=== PATIENT | female | born 1940 | race Caucasian/White ===

== ENCOUNTER 2021-08-10 13:14 | Outpatient (CLI) | payer MEDICARE, SELFPAY ==
--- NOTE | 2021-08-10 13:46 | MM_ITS ---
WS: [id number] BILATERAL DIGITAL SCREENING MAMMOGRAPHY WITH CAD CLINICAL INFORMATION: SCREEN HISTORY: Screening mammogram. No current complaints. COMPARISON: TECHNIQUE: Bilateral CC and MLO views. FINDINGS: Scattered fibroglandular densities bilaterally. No suspicious focal mass, asymmetry, calcifications, or architectural distortion. No evidence of malignancy. Vascular calcification. Incidental punctate c alcifications. MM/[place] [id number] IMPRESSION: BI-RADS: 2-Benign FOLLOW UP: 1 Year Follow-up Recommend return to annual screening mammography.
== END 2021-08-10 13:15 | disposition home or self-care (01) ==
PROVIDERS: PCP Nurse Practitioner Family; Visit Provider Family Medicine
DX: Z12.31 Encounter for screening mammogram for malignant neoplasm of breast (principal)
CPT/HCPCS: 77067

== ENCOUNTER → 2022-03-10 09:00 | Outpatient (BNVA) | payer MEDICARE, SELFPAY | PROVIDERS: PCP Clinical Nurse Specialist Adult Health; Visit Provider Clinical Nurse Specialist Adult Health | DX: I10 Essential (primary) hypertension (principal); E78.5 Hyperlipidemia, unspecified; E03.9 Hypothyroidism, unspecified; I87.2 Venous insufficiency (chronic) (peripheral) | CPT/HCPCS: 80053; 80061; 84443; 85025 ==

== ENCOUNTER → 2022-06-15 11:57 | Outpatient (BNVA) | payer MEDICARE, SELFPAY | PROVIDERS: PCP Clinical Nurse Specialist Adult Health; Visit Provider Clinical Nurse Specialist Adult Health | DX: I10 Essential (primary) hypertension (principal); I87.2 Venous insufficiency (chronic) (peripheral); I83.009 Varicose veins of unspecified lower extremity with ulcer of unspecified site; L97.909 Non-pressure chronic ulcer of unspecified part of unspecified lower leg with unspecified severity | CPT/HCPCS: 85025 ==

== ENCOUNTER → 2022-06-16 07:57 | Outpatient (BNVA) | payer MEDICARE, SELFPAY | PROVIDERS: PCP Clinical Nurse Specialist Adult Health; Visit Provider Thoracic Surgery (Cardiothoracic Vascular Surgery) | DX: I96 Gangrene, not elsewhere classified (principal); I87.2 Venous insufficiency (chronic) (peripheral); R60.0 Localized edema; L97.822 Non-pressure chronic ulcer of other part of left lower leg with fat layer exposed; L97.812 Non-pressure chronic ulcer of other part of right lower leg with fat layer exposed | CPT/HCPCS: 97597; 97598; 99213; A6253 ==

== ENCOUNTER → 2022-06-18 10:36 | Outpatient (BNVA) | payer MEDICARE, SELFPAY | PROVIDERS: PCP Clinical Nurse Specialist Adult Health; Visit Provider Surgery | DX: I96 Gangrene, not elsewhere classified (principal); I87.2 Venous insufficiency (chronic) (peripheral); L97.822 Non-pressure chronic ulcer of other part of left lower leg with fat layer exposed; L97.812 Non-pressure chronic ulcer of other part of right lower leg with fat layer exposed; R60.0 Localized edema | CPT/HCPCS: 29581; A6252 ==

== ENCOUNTER → 2022-06-23 08:34 | Outpatient (BNVA) | payer MEDICARE, SELFPAY | PROVIDERS: PCP Clinical Nurse Specialist Adult Health; Visit Provider Thoracic Surgery (Cardiothoracic Vascular Surgery) | DX: I96 Gangrene, not elsewhere classified (principal); I87.2 Venous insufficiency (chronic) (peripheral); L97.822 Non-pressure chronic ulcer of other part of left lower leg with fat layer exposed; L97.812 Non-pressure chronic ulcer of other part of right lower leg with fat layer exposed; R60.0 Localized edema | CPT/HCPCS: 97597; 97598 ==

== ENCOUNTER → 2022-06-30 09:09 | Outpatient (BNVA) | payer MEDICARE, SELFPAY | PROVIDERS: PCP Clinical Nurse Specialist Adult Health; Visit Provider Thoracic Surgery (Cardiothoracic Vascular Surgery) | DX: Z09 Encounter for follow-up examination after completed treatment for conditions other than malignant neoplasm (principal); I87.2 Venous insufficiency (chronic) (peripheral); I89.0 Lymphedema, not elsewhere classified | CPT/HCPCS: 11720; 99212 ==

== ENCOUNTER → 2022-10-20 17:15 | Outpatient (BNVA) | payer MEDICARE, SELFPAY | PROVIDERS: PCP Clinical Nurse Specialist Adult Health; Visit Provider Nurse Practitioner Family | DX: R05.9 Cough, unspecified (principal); R91.8 Other nonspecific abnormal finding of lung field | CPT/HCPCS: 71046 ==

== ENCOUNTER 2022-10-20 18:26 | Inpatient (IN) | payer MEDICARE, SELFPAY ==
[2022-10-20] VITALS (19 sets, daily range): BP systolic 133–196; BP diastolic 76–116; PULSE 70–78; RESP 16–33; TEMP 36.6–36.7; O2SAT 90–97
--- NOTE | 2022-10-20 18:32 | XRR_ITS ---
PROCEDURE INFORMATION: Exam: XR Chest Exam date and time: 10/20/2022 6:55 PM Age: 81 years old Clinical indication: Other: Difficulty breathing, chest tightness, since this am; Additional info: Cp TECHNIQUE: Imaging protocol: Radiologic exam of the chest. Views: 1 view. COMPARISON: CR XR chest 2V* [id number] 10/20/2022 5:21 PM FINDINGS: Lungs: Vascular congestion. Coarse interstitial opacities in the central and lower lungs, right greater than left. Pleural spaces: Possible small pleural effusions. No pneumothorax. Heart/Mediastinum: Unremarkable. No cardiomegaly. Bones/joints: Thoracolumbar scoliosis. XR/XR chest 1V portable [id number] IMPRESSION: 1. Bibasilar pulmonary edema versus pneumonia or aspiration. 2. Possible small pleural effusions.
--- NOTE | 2022-10-20 18:53 | ED_ITS ---
HPI - Chest Pain General: Chief Complaint: ER Hold Stated Complaint: chest pain Time Seen by Provider: 10/20/22 18:32 Source: patient and EMS Mode of arrival: EMS Limitations: no limitations History of Present Illness: 81-year-old female states she started having chest pain this morning states she had a pressure type pain in her chest and throughout the day. She has had some hypertension as well and some mild dyspnea. Patient was sent here from clinic due to concerning EKG findings findings did show some ischemic findings no signs of ST elevation patient given nitro and aspirin in route she currently is chest pain free. Associated symptoms: Deny abdominal pain, dyspnea, fever(s), nausea or vomiting Review of Systems Const: Denies: fever(s), chills, body aches or change in appetite Eyes: Denies: blurry vision or eye discomfort ENMT: Denies: throat pain or dental pain Card: Reports: chest pain Resp: Denies: dyspnea GI: Denies: abdominal pain, nausea, vomiting or diarrhea : Denies: dysuria Musc: Denies: neck pain or back pain Skin/Breast: Denies: rash Neuro: Denies: headache(s) Psych: Denies: depression Bismark/Lymph: Denies: easy bruising All/Imm: Denies: urticaria PFSH ED PFSH: Medical History Benign essential HTN GERD (gastroesophageal reflux disease) Hyperlipidemia Hypothyroidism Osteoarthritis of knees, bilateral Seasonal allergies Venous insufficiency (chronic) (peripheral) Surgical History No pertinent past surgical history Family History Father , sudden , cause unknown No problems noted. Mother , sudden , cause unknown No problems noted. Social History Smoking and tobacco status: never smoked Alcohol intake: never Lives independently: Yes Marital status: / Physical Exam Const: COMMON NORMALS: patient oriented x3 HENMT: COMMON NORMALS: normocephalic and atraumatic HEAD & SCALP: normocephalic and atraumatic Eye: COMMON NORMALS: Equal, round and reactive pupils present and EOMs intact bilaterally PUPIL: Yes Equal, round and reactive pupils present Neck/C-Spine: COMMON NORMALS: full ROM and supple Chest: COMMONS NORMALS: normal inspection of the chest and normal palpation of entire chest wall Resp: COMMON NORMALS: normal respiratory effort, No retractions, No use of accessory muscles and clear to auscultation bilaterally AUSCULTATION: clear to auscultation bilaterally Cardio: COMMON NORMALS: regular rate, regular rhythm and No murmurs present (Cardio) RATE: regular rate RHYTHM: regular rhythm GI: COMMON NORMALS: Normal to inspection, nondistended, normoactive bowel sounds present, Soft to palpation, non-tender and no masses PALPATION: Yes Soft to palpation Extremity: COMMON NORMALS: normal to inspection and full ROM Neuro: COMMON NORMALS: patient oriented x3, moves all extremities and no focal motor deficits Psych: COMMON NORMALS: mental status grossly normal, Normal thought process present and cooperative THOUGHT PROCESS: Normal thought process present Skin: COMMON NORMALS: no rashes or lesions noted and no wounds GENERAL SKIN EXAM: no rashes or lesions noted Course Reevaluation(s): Reevaluation #1: Reviewed EKG with Dr. Muñoz of interventional cardiology he agrees with my interpretation patient does have some ischemia findings with lateral T wave inversions but no ST elevation or no signs of an active STEMI patient's pain- free here as well. Time: 18:55 Vital Signs: Vital signs: Vital Signs Pulse Rate 70 10/20/22 19:24 Respiratory Rate 25 H 10/20/22 19:24 Blood Pressure 191/116 10/20/22 19:24 Pulse Oximetry 95 10/20/22 19:24 Oxygen Delivery Me thod 10/20/22 19:24 MDM - Chest Pain Medical Decision Making Patient presents here with chest pain elevated troponin with an NSTEMI she does have some pulmonary edema as well she has no active chest pain at this time she is likely completed her infarct we will give her Lovenox spoke to the arcgis developer will likely cath tomorrow Lab Data 10/20/22 18:44 10/20/22 18:44 Radiology Impressions Chest X-Ray 10/20/22 18:32 IMPRESSION: 1. Bibasilar pulmonary edema versus pneumonia or aspiration. 2. Possible small pleural effusions. Laboratory Results WBC 9.9 10^3/uL (4.0-10.0) 10/20/22 18:44 RBC 4.13 10^6/uL (4.1-5.3) 10/20/22 18:44 Hgb 12.8 g/dL (11.5-15.3) 10/20/22 18:44 Hct 39.3 % (37.0-47.0) 10/20/22 18:44 MCV 95.2 fl (81-99) 10/20/22 18:44 MCH 31.0 pg (28.0-34.0) 10/20/22 18:44 MCHC 32.6 g/dL (30.0-36.0) 10/20/22 18:44 RDW 12.6 % (12.1-15.1) 10/20/22 18:44 Plt Count 307 10^3/cmm (130-400) 10/20/22 18:44 MPV 10.8 fL (7.4-10.4) H 10/20/22 18:44 Neut % (Auto) 79.7 % 10/20/22 18:44 Lymph % (Auto) 11.5 % 10/20/22 18:44 Maverick % (Auto) 8.0 % 10/20/22 18:44 Eos % (Auto) 0.1 % 10/20/22:44 Baso % (Auto) 0.4 % 10/20/22 18:44 Neut # (Auto) 7.88 10^3/uL (1.8-7.7) H 10/20/22 18:44 Lymph # (Auto) 1.1 10^3/uL (0.8-4.8) 10/20/22 18:44 Maverick # (Auto) 0.8 10^3/uL (0.2-0.9) 10/20/22 18:44 Eos # (Auto) 0.0 10^3/uL (0.0-0.8) 10/20/22 18:44 Baso # (Auto) 0.0 10^3/uL (0.0-0.1) 10/20/22 18:44 Nucleated RBC % (auto) 0 % 10/20/22 18: Nucleated RBCs # 0.0 /100WBC 10/20/22 18:44 PT 13.60 SECONDS (12.1-14.9) 10/20/22 18:44 INR 1.01 (0.8-1.2) 10/20/22 18:44 Sodium 137 mmol/L (136-145) 10/20/22 18:44 Potassium 3.8 mmol/L (3.5-5.1) 10/20/22 18:44 Chloride 100 mmol/L (98-107) 10/20/22 18:44 Carbon Dioxide 26 mmol/L (22-29) 10/20/22 18:44 Anion Gap 14.8 (5-19) 10/20/22 18:44 BUN 12 mg/dL (8-23) 10/20/22 18:44 Creatinine 0.8 mg/dL (0.5-0.9) 10/20/22 18:44 GFR Calculation Not Reportable 10/20/22 18:44 Glucose 114 mg/dL (65-115) 10/20/22 18:44 Calculated Osmolality 285 mOsm/kg (285-295) 10/20/22 18:44 Calcium 9.7 mg/dL (8.5-10.5) 10/20/22 18:44 Total Bilirubin 0.5 mg/dL (0.15-1.2) 10/20/22 18:44 AST 133 U/L (0-32) H 10/20/22 18:44 ALT 26 U/L (0-33) 10/20/22 18:44 Alkaline Phosphatase 103 U/L (35-105) 10/20/22 18:44 Troponin T Baseline 5190 ng/L (0-10) H* 10/20/22 18:44 Total Protein 7.9 g/dL (6.6-8.7) 10/20/22 18:44 Albumin 3.7 g/dL (3.5-5.2) 10/20/22 18:44 Globulin 4.2 g/dL (1.3-4.6) 10/20/22 18:44 EKG Data EKG 1: I personally reviewed and interpreted this EKG as follows: EKG interpretation date: 10/20/22 EKG interpretation time: 18:46 Interpretation: nsr hr [address] elevation lateral t wave inveriousn qrs 105 qtc 443 Critical Care Time Critical Care Time: Critical Care Time: Yes Total Critical Care Time: 40 Attestation: The high probability of a clinically significant, sudden or life threatening deterioration of the patient's cv system(s) required my full and direct attention, intervention and personal management. The critical care time is as shown. This time is in addition to time spent performing any reported procedures but includes the following: [x] Data and vital sign review and interpretation [x] Patient assessment, examination and intervention [x] Documentation [x] Medication orders and management Discharge Plan Discharge Patient Disposition: Admitted As Inpatient Admit Provider: Yahaira Cortes Clinical Impression: Non-ST elevation [place] (NSTEMI) Condition: Stable Coding Level of Care Code ED Serging Machine Operator Automatic for Antolin Dutton
[2022-10-20 18:54] LABS: Basophils % 0.4 %; Eosinophils % 0.1 %; Hematocrit 39.3 % (37.0-47.0); Hemoglobin 12.8 g/dL (11.5-15.3); Lymphocytes # 1.1 10^3/uL (0.8-4.8); Lymphocytes % 11.5 %; Mean Corpuscular HGB Conc 32.6 g/dL (30.0-36.0); Mean Corpuscular Volume 95.2 fl (81-99); Mean Platelet Volume 10.8 fL (7.4-10.4); Monocytes # 0.8 10^3/uL (0.2-0.9); Neutrophils # 7.88 10^3/uL (1.8-7.7); Neutrophils % 79.7 %; Nucleated Red Blood Cells % 0 %; Platelet Count 307 10^3/cmm (130-400); Red Blood Count 4.13 10^6/uL (4.1-5.3); Red Cell Distribution Width 12.6 % (12.1-15.1); White Blood Count 9.9 10^3/uL (4.0-10.0)
[2022-10-20 19:06] LABS: INR 1.01 (0.8-1.2)
[2022-10-20 19:14] LABS: Alanine Aminotransferase 26 U/L (0-33); Albumin Level 3.7 g/dL (3.5-5.2); Alkaline Phosphatase 103 U/L (35-105); Anion Gap 14.8 (5-19); Aspartate Amino Transferase 133 U/L (0-32); Blood Urea Nitrogen 12 mg/dL (8-23); Calcium 9.7 mg/dL (8.5-10.5); Carbon Dioxide 26 mmol/L (22-29); Chloride 100 mmol/L (98-107); Globulin 4.2 g/dL (1.3-4.6); Glucose 114 mg/dL (65-115); Osmolality Calculated 285 mOsm/kg (285-295); Potassium 3.8 mmol/L (3.5-5.1); Sodium 137 mmol/L (136-145); Total Bilirubin 0.5 mg/dL (0.15-1.2); Total Protein 7.9 g/dL (6.6-8.7)
[2022-10-20 19:17] LABS: Troponin(5th) Baseline 5190 ng/L (0-10)
[2022-10-20] MEDS: hyDRALAzine 20 mg/mL INJ 1 mL 10 MG IVP ×2 (19:22→21:03)
[2022-10-20] MEDS: enoxaparin 100 mg/mL Syringe 90 MG SUBCUT (19:23)
[2022-10-20] MEDS: clopidogrel 300 mg Tablet 600 MG PO (20:21)
[2022-10-20] MEDS: nitroglycerin 1 gm/inch oint Pkt 1 INCH TOPICAL ×2 (20:22→22:03)
--- NOTE | 2022-10-20 20:32 | ECG_ITS ---
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 Measurements Intervals [place] Rate: 65 P: 5 RI: 202 QRS: -32 QRSD: 105 T: -59 QT: 449 QTc: 468 Interpretive Statements SINUS RHYTHM LEFT AXIS DEVIATION [QRS AXIS < -30] LEFT VENTRICULAR HYPERTROPHY AND ST-T CHANGE [VOLTAGE CRITERIA PLUS ST/T ABNORMALITY] POSSIBLE SEPTAL MYOCARDIAL INFARCTION , OF INDETERMINATE AGE [30 ms Q WAVE IN V1/V2] ST-T changes, suggesting anterolateral and inferior wall ischemia No previous ECG available for comparison Electronically Signed On 10-21-2022 23:46:34 HAND I THERMAL CUTTER by Bairon Elias M.D. [id number]
--- NOTE | 2022-10-20 20:43 | ECG_ITS ---
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 Measurements Intervals [place] Rate: 72 P: 54 [place]: 216 QRS: -20 QRSD: 104 T: -79 QT: 419 QTc: 459 Interpretive Statements SINUS RHYTHM WITH FIRST DEGREE AV BLOCK SEPTAL MYOCARDIAL INFARCTION , OF INDETERMINATE AGE [40+ ms Q WAVE IN V1/V2] MODERATE T-WAVE ABNORMALITY, CONSIDER ANTEROLATERAL ISCHEMIA [-0.1+ mV T-WAVE IN V3-V6] MODERATE T-WAVE ABNORMALITY, CONSIDER INFERIOR ISCHEMIA [-0.1+ mV T-WAVE IN II/aVF] Compared to ECG 10/20/2022 19:47:59 First degree AV block now present T-wave abnormality now present.Possible ischemia now present Left-axis deviation no longer present.eft ventricular hypertrophy no longer present.ST (T wave) deviation no longer present Myocardial infarct finding still present Electronically Signed On 10-21-2022 23:30:40 ASSEMBLY PERSON by Bairon Elias M.D. [id number] f
--- NOTE | 2022-10-20 21:14 | P.HP_ITS ---
Providers/Chief Complaint Admitting Physician: Yahaira Cortes MD Primary Care Provider: Chase Reed Chief Complaint: chest pain History of Present Illness Kamille Gustafson is a 81 year old female with a past medical history of hypertension, hypothyroidism presenting to the hospital today with substernal crushing chest pain that started at around 830 this morning. Patient was in her usual state of health prior to that. She does not recall any exertional activity that she was performing at the time. States that she was going to the bathroom, developed crushing chest pain in the middle of her chest, she was extremely diaphoretic, required multiple Kleenex to wipe herself off. Also felt nauseous at that time. There was nobody at home, she decided to rest the whole day. When her daughter returned from work in the afternoon she took her to the urgent care from where they sent her to the emergency room due to concern for [place]. EKG showed ST depression in leads II, III, aVF with reciprocal changes in V3 and V4. Baseline troponin greater than 5000. BNP elevated at 6000. She is currently saturating 97% on room air. Does report extreme fatigue since the events this morning. States that she is unable to walk from bed to the door due to fatigue and feeling winded. Chest pain was still persisting upon presentation to the ER, currently partially relieved by nitro patch. Review of Systems General: Reports: 10 or more systems reviewed and unremarkable except in HPI and below Const: Denies: fever(s), chills or body aches Eyes: Denies: change in vision, blurry vision or photophobia ENMT: Reports: hoarseness; Denies: throat pain, enlarged tonsils, odynophagia or nasal congestion Card: Denies: chest pain, palpitations, irregular heart rhythm, edema, swelling of feet/ankles, lightheadedness, pre-syncope, dyspnea on exertion or orthopnea Resp: Denies: dyspnea, productive cough, non-productive cough, wheezing, stridor, pain on inspiration, change in phlegm color, hemoptysis or chest congestion GI: Denies: abdominal pain, nausea, vomiting, hematemesis, coffee ground emesis, dysphagia, heartburn, diarrhea, constipation, GI cramping, change in stool character, hematochezia or melena : Denies: flank pain, difficulty voiding, dysuria, urinary frequency, urinary urgency, urinary hesitancy or hematuria Musc: Denies: neck pain, back pain, extremity pain, joint swelling, joint warmth or deformity Neuro: Denies: headache(s), numbness in extremities, weakness in extremities, sensory changes, difficulty walking, frequent falls, dizziness, vertigo, behavioral changes, Slurred speech present or seizure-like activity Psych: Denies: anxiety, depression, suicidal ideation or homicidal ideation Endo: Denies: polyuria, polydipsia, tired all the time, cold intolerance or hot flashes Bismark/Lymph: Denies: easy bruising or easy bleeding Medications/Allergies Home Medications Medication Instructions Recorded Confirmed Last Taken Type acetaminophen 500 mg capsule 500 mg PO TID with tramadol 03/09/22 10/21/22 Unknown History atorvastatin 80 mg tablet 80 mg PO DAILY 03/09/22 10/21/22 Unknown History bumetanide 1 mg tablet 1 mg PO DAILY #90 tabs 03/09/22 10/21/22 Unknown Rx cetirizine 10 mg tablet 10 mg PO DAILY 03/09/22 10/21/22 Unknown History omeprazole 20 mg capsule,delayed 20 mg PO BID 90 days #180 caps 03/09/22 10/21/22 Unknown Rx release atenolol 100 mg tablet 100 mg PO DAILY #90 tabs 05/21/22 10/21/22 Unknown Rx levothyroxine 50 mcg tablet 50 mcg PO DAILY #90 tabs 05/21/22 10/21/22 Unknown Rx lisinopril 10 mg tablet 10 mg PO DAILY #90 tabs 07/21/22 10/21/22 Unknown Rx potassium chloride 20 mEq 20 meq PO QID #90 tabs 07/21/22 10/21/22 09/23/22 01:04 Rx tablet,extended release terbinafine HCl 250 mg tablet 250 mg PO DAILY #30 tabs 07/21/22 10/21/22 Unknown Rx tramadol 50 mg tablet 50 mg PO TID 30 days #90 tabs 09/07/22 10/21/22 Unknown Rx Allergies Allergy/AdvReac Type Severity Reaction Status Date / Time ergocalciferol (vitamin D2) AdvReac Severe weakness Verified 10/20/22 18:41 [From Vitamin D2] PFSH Acute PFSH: Medical History Benign essential HTN GERD (gastroesophageal reflux disease) Hyperlipidemia Hypothyroidism Osteoarthritis of knees, bilateral Seasonal allergies Venous insufficiency (chronic) (peripheral) Surgical History No pertinent past surgical history Family History Father , sudden , cause unknown No problems noted. Mother , sudden , cause unknown No problems noted. Social History Smoking and tobacco status: never smoked Alcohol intake: never Lives independently: Yes Marital status: / Vitals/I&O/Wt Last Vital Signs Pulse 74 10/20/22 20:52 Resp 16 10/20/22 20:52 BP 181/98 10/20/22 20:52 Pulse Ox 97 10/20/22 20:52 O2 Del Method 10/20/22 20:52 Weight last 48 hrs Weight 93.894 kg Physical Exam Narrative: General: No acute distress, AO x3 HEENT: PERRLA, pupils bilaterally equal and reactive, pallors not present Chest: Normal vesicular breath sounds, no added sounds, equal good air entry bilaterally CVS: S1-S2 regular, no murmurs, no tachycardia, no gallops, no rubs Abdomen: Soft, nontender, no organomegaly, bowel sounds present Neuro: No focal deficits, no facial deformity, AO x3, power 5/5 in all limbs Extremities: No edema clubbing or cyanosis Data 10/20/22 18:44 10/20/22 18:44 A&P Assessment and plan (1) Non-ST elevation [place] (NSTEMI): NSTEMI with EKG changes as above. Baseline troponin at 5000, pending 2 and 6- hour trend. Start Lovenox 1 mg/kg subcutaneously every 12 hours, aspirin 81 mg p.o. daily, she has received aspirin 324 mg and Plavix 600 mg in the emergency room upon arrival. Atorvastatin 80 mg p.o. daily Given Lasix IV in the emergency room, continue Bumex 1 mg p.o. daily Echocardiogram Nitropatch 1 inch every 6 hours as scheduled. If continues to have chest pain in spite of Nitropatch will start nitroglycerin drip. Currently reports chest pain is much better. Cardiology consulted N.p.o. for possible intervention in the morning (2) Accelerated hypertension: Hydralazine, Nitropatch Start amlodipine 10 mg p.o. daily, continue home dose of atenolol Attestations Medical Necessity Statement*: Greater than 2 midnight admission will be needed for management of NSTEMI Coding Level of Care Code Acute Code for Chg Fwd High MDM includes number and complexity of problems actively addressed during encounter, amount and/or complexity of data reviewed/ordered and described risk of complication, morbidity or mortality of management as documented Diagnoses Non-ST elevation [place] (NSTEMI) I21.4 Accelerated hypertension I10
[2022-10-20 21:25] LABS: NT Pro B Type Natriuretic Pept 6210 pg/mL (0-450)
[2022-10-20] MEDS: ondansetron 2 mg/ML SDV 2 mL 4 MG IVP (21:35)
[2022-10-20 22:03] LABS: Troponin 5 2HR 4670 ng/L (0-10)
[2022-10-20] MEDS: FUROsemide 10 mg/mL SDV 4mL 40 MG IVP (22:03)
--- NOTE | 2022-10-20 22:32 | P.CONIM_ITS ---
Providers/Reason For Consult Consulting Physician/Specialty*: MURRAY Elias MD/cardiology Reason for Consult*: Patient with chest pain/shortness of breath/elevated troponin T Requesting Physician: Dr. Cortes Attending Physician: Yahaira Cortes MD Primary Care Provider: Chase Reed History of Present Illness History of Present Illness Kamille Gustafson is a 81 year old female with a history of hypertension and dyslipidemia, is presenting with complaints of shortness of breath, tight feeling in the chest and nausea. She was found to have markedly elevated troponin T and abnormal EKG. Cardiology consult is requested for further cardiac evaluation recommendations. This patient apparently has been in her baseline state of health up until this morning when she woke up with shortness of breath and profuse sweating. She went to the bathroom and as she came back, started having tight feeling in the chest. The sweating gradually subsided. However she continued to have the tight feeling and the shortness of breath. She also was nauseous. Every time when she tried to eat something, after a couple of bites, she get nauseous and started having vomiting. The symptoms persisted throughout the day. So later this afternoon, because of these symptoms, she called her daughter who brought her to the hospital for further evaluation. Patient did not have any fever. But she had some chills this morning. No palpitation, dizziness or syncopal episodes. No other associated symptoms. She has no previous history for coronary disease or myocardial infarction. She was evaluated by Dr. Turner many years ago .she was told to have some stiffness of the heart. She had an EKG and echocardiogram at that time. She never had a c ardiac catheterization. She is being followed by the wound care clinic for bilateral lower extremity cellulitis/swelling/ulcer. She had an ulcer which is seems to be healing as of now. She lives alone. She has no history for smoking abuse or alcohol abuse. Medications/Allergies Home Medications Medication Instructions Recorded Confirmed Last Taken Type acetaminophen 500 mg capsule 500 mg PO TID with tramadol 03/09/22 10/20/22 Unknown History atorvastatin 80 mg tablet 80 mg PO DAILY 03/09/22 10/20/22 Unknown History bumetanide 1 mg tablet 1 mg PO DAILY #90 tabs 03/09/22 10/20/22 Unknown Rx cetirizine 10 mg tablet 10 mg PO DAILY 03/09/22 10/20/22 Unknown History omeprazole 20 mg capsule,delayed 20 mg PO BID 90 days #180 caps 03/09/22 10/20/22 Unknown Rx release atenolol 100 mg tablet 100 mg PO DAILY #90 tabs 05/21/22 10/20/22 Unknown Rx levothyroxine 50 mcg tablet 50 mcg PO DAILY #90 tabs 05/21/22 10/20/22 Unknown Rx lisinopril 10 mg tablet 10 mg PO DAILY #90 tabs 07/21/22 10/20/22 Unknown Rx potassium chloride 20 mEq 20 meq PO QID #90 tabs 07/21/22 10/20/22 Unknown Rx tablet,extended release terbinafine HCl 250 mg tablet 250 mg PO DAILY #30 tabs 07/21/22 10/20/22 Unknown Rx tramadol 50 mg tablet 50 mg PO TID 30 days #90 tabs 09/07/22 10/20/22 Unknown Rx Allergies Allergy/AdvReac Type Severity Reaction Status Date / Time ergocalciferol (vitamin D2) AdvReac Severe weakness Verified 10/20/22 18:41 [From Vitamin D2] Current Medications Generic Name Dose Route Start Last Admin Trade Name Freq PRN Reason Stop Dose Admin Nitroglycerin 1 inch 10/20/22 21:15 10/20/22 22:03 Nitroglycerin 1 Gm/Inch Oint Pkt TOPICAL 1 inch Q6H RUFUS Administration PFSH Acute PFSH: Medical History Benign essential HTN GERD (gastroesophageal reflux disease) Hyperlipidemia Hypothyroidism Osteoarthritis of knees, bilateral Seasonal allergies Venous insufficiency (chronic) (peripheral) Surgical History No pertinent past surgical history Family History Father , sudden , cause unknown No problems noted. Mother , sudden , cause unknown No problems noted. Social History Smoking and tobacco status: never smoked Alcohol intake: never Lives independently: Yes Marital status: / Vitals/I&O/Wt Last Vital Signs Temp 97.8 F 10/20/22 22:10 Pulse 76 10/20/22 22:00 Resp 28 H 10/20/22 22:00 BP 170/76 10/20/22 22:00 Pulse Ox 92 10/20/22 22:00 O2 Del Method 10/20/22 22:10 Weight last 48 hrs Weight 207 lb Physical Exam Narrative: GENERAL: The patient is alert and oriented times three. Not in any acute distress. HEENT: No significant pallor, icterus or lymphadenopathy.Oral cavity: There are no mucous membrane lesions. NECK: Trachea appears to be central. No masses noted. No JVD or thyromegaly appreciated. RESPIRATORY: Chest is symmetrical. No intercostals muscle retraction or any accessory muscle activation. There is no chest wall tenderness. Breath sounds are heard bilaterally. No rales or rhonchi heard. No evidence of any consolida tion. BREASTS: Deferred. HEART: The heart sounds are normal. No S3 or S4. Short systolic murmur in the lower sternal border. No diastolic murmurs. No pericardial rub ABDOMEN: No vessel pulsations or distention. No tenderness. No organomegaly appreciated. Bowel sounds are normally heard. : Deferred. RECTAL: Deferred. LYMPHATIC: No lymphadenopathy noted in the neck. EXTREMITIES: No edema or cyanosis. No clubbing. The peripheral pulses are palpable with good volume and amplitude MUSCULOSKELETAL: No acute joint deformities or swelling SKIN: 1-2+ edema both lower extremities. The skin is diffusely erythematous, dry and scaly NEUROPSYCHIATRIC: The patient is alert and oriented x3. Appears to be in a good mood. No tremors or rigidity noted. Data 10/20/22 18:44 10/20/22 18:44 Other Labs: Laboratory Last Values WBC 9.9 10^3/uL (4.0-10.0) 10/20/22 18:44 RBC 4.13 10^6/uL (4.1-5.3) 10/20/22 18:44 Hgb 12.8 g/dL (11.5-15.3) 10/20/22 18:44 Hct 39.3 % (37.0-47.0) 10/20/22 18:44 MCV 95.2 fl (81-99) 10/20/22 18:44 MCH 31.0 pg (28.0-34.0) 10/20/22 18:44 MCHC 32.6 g/dL (30.0-36.0) 10/20/22 18:44 RDW 12.6 % (12.1-15.1) 10/20/22 18:44 Plt Count 307 10^3/cmm (130-400) 10/20/22 18:44 MPV 10.8 fL (7.4-10.4) H 10/20/22 18:44 Neut % (Auto) 79.7 % 10/20/22 18:44 Lymph % (Auto) 11.5 % 10/20/22 18:44 [place] % (Auto) 8.0 % 10/20/22 18:44 Eos % (Auto) 0.1 % 10/20/22 18:44 Baso % (Auto) 0.4 % 10/20/22 18:44 Neut # (Auto) 7.88 10^3/uL (1.8-7.7) H 10/20/22 18:44 Lymph # (Auto) 1.1 10^3/uL (0.8-4.8) 10/20/22 18:44 [place] # (Auto) 0.8 10^3/uL (0.2-0.9) 10/20/22 18:44 Eos # (Auto) 0.0 10^3/uL (0.0-0.8) 10/20/22 18:44 Baso # (Auto) 0.0 10^3/uL (0.0-0.1) 10/20/22 18:44 Nucleated RBC % (auto) 0 % 10/20/22 18:44 Nucleated RBCs # 0.0 /100WBC 10/20/22 18:44 PT 13.60 SECONDS (12.1-14.9) 10/20/22 18:44 INR 1.01 (0.8-1.2) 10/20/22 18:44 Sodium 137 mmol/L (136-145) 10/20/22 18:44 Potassium 3.8 mmol/L (3.5-5.1) 10/20/22 18:44 Chloride 100 mmol/L (98-107) 10/20/22 18:44 Carbon Dioxide 26 mmol/L (22-29) 10/20/22 18:44 Anion Gap 14.8 (5-19) 10/20/22 18:44 BUN 12 mg/dL (8-23) 10/20/22 18:44 Creatinine 0.8 mg/dL (0.5-0.9) 10/20/22 18:44 GFR Calculation Not Reportable 10/20/22 18:44 Glucose 114 mg/dL (65-115) 10/20/22 18:44 Calculated Osmolality 285 mOsm/kg (285-295) 10/20/22 18:44 Calcium 9.7 mg/dL (8.5-10.5) 10/20/22 18:44 Total Bilirubin 0.5 mg/dL (0.15-1.2) 10/20/22 18:44 AST 133 U/L (0-32) H 10/20/22 18:44 ALT 26 U/L (0-33) 10/20/22 18:44 Alkaline Phosphatase 103 U/L (35-105) 10/20/22 18:44 Troponin T Baseline 5190 ng/L (0-10) H* 10/20/22 18:44 Troponin T 120 Minute 4670 ng/L (0-10) H 10/20/22 21:09 Delta Troponin T -520 ABS# (0-10) L 10/20/22 21:09 NT-Pro-B Natriuret Pep 6210 pg/mL (0-450) H 10/20/22 18:32 Total Protein 7.9 g/dL (6.6-8.7) 10/20/22 18:44 Albumin 3.7 g/dL (3.5-5.2) 10/20/22 18:44 Globulin 4.2 g/dL (1.3-4.6) 10/20/22 18:44 CXR: My impression: Diffuse interstitial markings pulmonary venous congestion. Possible small pleural effusion on the right side. Borderline cardiomegaly. EKG 1: My Interpretation: Sinus rhythm with a heart rate of 72 bpm. First-degree AV block poor R wave progression possible old septal AK. T inversions in lead II, 3, aVF, V5 [address] elevation in these leads. A&P Assessment and plan (1) Non-ST elevation [place] (NSTEMI): Patient is a clinical features are consistent with a recent non-ST elevation myocardial infarction. This is complicated with acute heart failure. Hemodynamically she seems to be fairly stable. Her oxygen saturation is 93% in room air. LV function is not known at this point. EKG changes are suggestive of anterolateral and inferior wall ischemia. For further evaluation, an echocardiogram would be helpful. Patient may be treated with subcu Lovenox, Plavix, aspirin, beta-blockers and statin. Patient may require any early cardiac catheterization to further evaluate the coronary status. (2) Hyperlipidemia: High-dose statin would be appropriate. (3) Accelerated hypertension: Need to optimize antihypertensive medications. I may add amlodipine 5 mg p.o. to the current regimen. (4) Acute pulmonary edema: Careful IV diuresis with the Lasix would be appropriate. Patient needs to be closely monitored. Try to get the echocardiogram as early as possible (5) Venous stasis ulcer: The patient is being followed at the wound care clinic. The ulcer seems to be healing. Plan Based on the clinical progress and the results of the above, further recommendations will be made. Once the heart failure is appropriately treated, we may perform a coronary angiogram to further status and decide on further management. Consult Attestations Medical Necessity Statement: Thank you for the opportunity to evaluate this patient and make these recommendations Coding Level of Care Code 83841 Diagnoses Non-ST elevation [place] (NSTEMI) I21.4 Hyperlipidemia E78.5 Accelerated hypertension I10 Acute pulmonary edema J81.0 Venous stasis ulcer I83.009; L97.909
[2022-10-21] VITALS (91 sets, daily range): BP systolic 112–231; BP diastolic 54–114; PULSE 58–119; RESP 13–38; TEMP 36.3–37.1; O2SAT 85–100; BMI 41.5
--- NOTE | 2022-10-21 | PC.NURSE ---
Addendum entered by Vianca Paez RN 10/22/22 07:29: Day of note actually 10/22/22 Original Note: Diet order Cardiac diet order received from Dr. Cortes via telephone.
--- NOTE | 2022-10-21 00:32 | ECG_ITS ---
[facility] Test Date: 2022-10-20 Pat Name: Kamille Gustafson Department: Room: EDIP Gender: Female Territory Development Manager: : 1940 Requested By: Jeanmarie Sandoval Order Number: [id number] Juan MD: Bairon Elias M.D. Measurements Intervals [place] Rate: 77 P: 80 SD: 199 QRS: -54 QRSD: 110 T: -84 QT: 419 QTc: 474 Interpretive Statements SINUS RHYTHM LEFT AXIS DEVIATION [QRS AXIS < -30] ANTEROSEPTAL MYOCARDIAL INFARCTION , OF INDETERMINATE AGE [40+ ms Q WAVE IN V1-V4] MODERATE T-WAVE ABNORMALITY, CONSIDER LATERAL ISCHEMIA [-0.1+ mV T-WAVE IN I/aVL/V5/V6] MODERATE T-WAVE ABNORMALITY, CONSIDER INFERIOR ISCHEMIA [-0.1+ mV T-WAVE IN II/aVF] Compared to ECG 10/20/2022 20:43:22 Left-axis deviation now present.First degree AV block no longer present Myocardial infarct finding still present.T-wave abnormality still present Possible ischemia still present Electronically Signed On 10-21-2022 23:48:34 PHYSICIAN RELATIONS SPECIALIST by Bairon Elias M.D. [email or web address]
[2022-10-21] MEDS: hyDRALAzine 20 mg/mL INJ 1 mL 10 MG IVP ×2 (01:36→10:05)
[2022-10-21 03:01] LABS: Troponin 5 6HR 3407 ng/L (0-10)
[2022-10-21] MEDS: nitroglycerin 1 gm/inch oint Pkt 1 INCH TOPICAL ×3 (03:07→16:48)
[2022-10-21 05:19] LABS: Basophils % 0.2 %; Hemoglobin 12.6 g/dL (11.5-15.3); Lymphocytes % 9.3 %; Mean Corpuscular HGB Conc 31.5 g/dL (30.0-36.0); Mean Corpuscular Hemoglobin 30.5 pg (28.0-34.0); Mean Corpuscular Volume 96.9 fl (81-99); Mean Platelet Volume 10.3 fL (7.4-10.4); Monocytes % 8.8 %; Neutrophils # 8.96 10^3/uL (1.8-7.7); Neutrophils % 81.3 %; Nucleated Red Blood Cells % 0 %; Platelet Count 301 10^3/cmm (130-400); Red Blood Count 4.13 10^6/uL (4.1-5.3); Red Cell Distribution Width 12.8 % (12.1-15.1)
[2022-10-21 05:37] LABS: Alanine Aminotransferase 29 U/L (0-33); Albumin Level 3.2 g/dL (3.5-5.2); Alkaline Phosphatase 85 U/L (35-105); Anion Gap 15.5 (5-19); Aspartate Amino Transferase 136 U/L (0-32); Blood Urea Nitrogen 13 mg/dL (8-23); Calcium 9.4 mg/dL (8.5-10.5); Carbon Dioxide 27 mmol/L (22-29); Chloride 96 mmol/L (98-107); Globulin 4.8 g/dL (1.3-4.6); Glucose 121 mg/dL (65-115); Magnesium 1.5 mg/dL (1.7-2.3); Osmolality Calculated 281 mOsm/kg (285-295); Potassium 3.5 mmol/L (3.5-5.1); Sodium 135 mmol/L (136-145); Total Bilirubin 0.6 mg/dL (0.15-1.2)
[2022-10-21 05:56] LABS: Estmated Average Glucose 117; Hemoglobin A1C 5.7 % (4.0-6.0)
--- NOTE | 2022-10-21 06:47 | USCV_ITS ---
Kamille Gustafson Age: 81 Gender: F : 1940 Exam Date: 10/21/2022 08:07 Ordering Phys: Yahaira Cortes MD Technologist: Daniel Park Exam Location: [facility] [place] Indication: nstime BP: 166 / 85 HR: 37 Rhythm: Sinus Technical Quality: Adequate MEASUREMENTS (Male / Female) Normal Values 2D ECHO LV Diastolic Diameter PLAX 3.7 cm 4.2 - 5.9 / 3.9 - 5.3 cm LV Systolic Diameter PLAX 2.9 cm IVS Diastolic Thickness 1.1 cm 0.6 - 1.0 / 0.6 - 0.9 cm IVS Systolic Thickness 1.4 cm LVPW Diastolic Thickness 1.1 cm 0.6 - 1.0 / 0.6 - 0.9 cm LVPW Systolic Thickness 1.3 cm LVOT Diameter 2.0 cm LV Ejection Fraction 2D Teich 56.7 % LA Diameter 3.7 cm Aorta at Sinotubular Diameter 2.4 cm M-MODE Aortic Annulus Diameter 3.3 cm LA Ao Ratio MM 1.1 MV E Point Septal Separation 0.9 cm DOPPLER AV Peak Velocity 234.3 cm/s LVOT Peak Velocity 94.0 cm/s AV Area Cont Eq vti 1.5 cm squared AV Area Cont Eq pk 1.3 cm squared MV Area PHT 5.0 cm squared Mitral E to A Ratio 0.8 MV E' Velocity 47.5 cm/s Mitral E to MV E' Ratio 16.6 Mitral E to LV E' Lateral Ratio 13.4 Mitral E to LV E' Septal Ratio 22.6 TR Peak Velocity 280.3 cm/s TR Peak Gradient 31.4 mmHg TV Peak E Velocity 93.0 cm/s Right Atrial Pressure 3.0 mmHg Pulmonary Artery Systolic Pressu 34.4 mmHg RV Acceleration Time 0.1 s FINDINGS Left Ventricle Hypokineticmid and apical lateral and apical anterior segments. LV ejection fraction around 56%.Grade I/IV diastolic dysfunction (abnormal relaxation filling pattern), normal to mildly elevated filling pressures. Right Ventricle The right ventricle is normal in size and function. Right Atrium The right atrium is normal in size. Left Atrium Mildly increased left atrial size. Mitral Valve Moderate mitral annular calcification. Moderate mitral valve regurgitation. Aortic Valve Thickened aortic valve. Mild aortic valve stenosis, mean gradient 10 mmHg, JOHNNA 1.5 cm squared. Tricuspid Valve Trace tricuspid valve regurgitation. Estimated pulmonary artery peak systolic pressure of 34 mmHg Pulmonic Valve No pulmonary valve stenosis. Pericardium Normal pericardium without effusion. Aorta Normal ascending aorta dimension. IVC Inferior vena cava not visualized. CONCLUSIONS Hypokineticmid and apical lateral and apical anterior segments. LV ejection fraction around 56%.Grade I/IV diastolic dysfunction (abnormal relaxation filling pattern), normal to mildly elevated filling pressures. Mildly increased left atrial size. Moderate mitral annular calcification. Moderate mitral valve regurgitation. Thickened aortic valve. Mild aortic valve stenosis, mean gradient 10 mmHg, JOHNNA 1.5 cm squared. Trace tricuspid valve regurgitation. Estimated pulmonary artery peak systolic pressure of 34 mmHg. There is no pericardial effusion. There are no intracardiac masses. Compared to the study from 01/12/2017, the wall motion of abnormalities appear to be new Dr Bairon Elias MD FACC (Electronically Signed) Final Date: 21 October 2022 13:51 S
[2022-10-21] MEDS: lisinopril 10 mg Tablet PO (07:21)
[2022-10-21] MEDS: levothyroxine 50 mcg Tablet PO (08:33)
[2022-10-21] MEDS: aspirin 81 mg EC Tablet PO (08:33)
[2022-10-21] MEDS: atorvastatin 40 mg Tablet 80 MG PO (08:33)
[2022-10-21] MEDS: atenolol 50 mg Tablet 100 MG PO (08:33)
[2022-10-21] MEDS: pantoprazole DR 40 mg Tablet PO (08:33)
[2022-10-21] MEDS: bumetanide 1 mg Tablet PO (08:33)
[2022-10-21] MEDS: amlodipine 5 mg Tablet PO (09:39)
[2022-10-21] MEDS: sodium chloride 0.9% 1,000 ML 50 ML IV (11:38)
--- NOTE | 2022-10-21 12:45 | PC.NURSE ---
Transfer Note Patient transferred to ICU from ER via stretcher. Handoff received from SELENA Warren. Patient oriented to environment and equipment. Covering service notified. Orders reviewed and will continue to monitor. Family notified. Upon arrival patient is alert/oriented x4, cellulitis noted to bilateral lower legs. No other wounds or skin issues noted at this time. IVF infusing at rate of 50 mls/hr.
--- NOTE | 2022-10-21 13:08 | PM.PN ---
Subjective Subjective: Admitted overnight. Hgb labs appreciated. Seen with family at bedside in the ER. Patient denies any further chest pain. Telemetry showing significant review of inversions. Today morning patient had elevated blood pressures which are treated with 1 extra dose of amlodipine. Controlled. Patient denies having any further chest pain but complains of mild nausea. Vitals/I&O/Wt Last Vital Signs Temp 97.4 F L 10/21/22 04:15 Pulse 72 10/21/22 12:15 Resp 23 H 10/21/22 12:15 BP 141/74 10/21/22 12:30 Pulse Ox 95 10/21/22 12:15 O2 Del Method 10/21/22 10:00 O2 Flow Rate 2 10/21/22 10:00 10/20/22 10/21/22 10/21/22 22:59 06:59 14:59 Intake Total 270 / 270 Output Total 600 / 600 Balance 270 / 270 -600 / -600 Weight last 48 hrs Weight 93.894 kg Physical Exam Narrative: General: No acute distress, AO x3 HEENT: PERRLA, pupils bilaterally equal and reactive, pallors not present Chest: Normal vesicular breath sounds, no added sounds, equal good air entry bilaterally CVS: S1-S2 regular, no murmurs, no tachycardia, no gallops, no rubs Abdomen: Soft, nontender, no organomegaly, bowel sounds present Neuro: No focal deficits, no facial deformity, AO x3, power 5/5 in all limbs Extremities: No edema clubbing or cyanosis Data 10/21/22 05:09 10/21/22 05:09 A&P Assessment and plan (1) Non-ST elevation [place] (NSTEMI): Plan for cardiac angiogram today. Continue with Lovenox 1 mg/kg appointment with cardiology. Awaiting echocardiogram. Continue with aspirin, statin. Continue with home dose of atenolol 100 mg oral daily. (2) Accelerated hypertension: Goal blood pressure less than 140/90 mmHg. For now continue with home dose of atenolol, lisinopril. Will uptitrate medications accordingly Plan Full code. Cardiac diet. Full dose Lovenox will suffice as DVT prophylaxis Protonix for PUD prophylaxis Attestations Medical Necessity Statement*: Requires further hospitalization for management of non-ST elevation [place] requiring cardiac angiogram Diagnoses Non-ST elevation [place] (NSTEMI) I21.4 Accelerated hypertension I10
--- NOTE | 2022-10-21 14:46 | P.PN_ITS ---
Subjective Subjective: Patient is feeling better. She still has some mild discomfort in the chest. Overall her symptoms have significantly improved. Medications: Medication Review Details: Current Medications Acetaminophen (Acetaminophen 325 Mg Tablet) 650 mg PO Q6H PRN PRN Reason: Mild/Mod Pain Or Temp >/= 101 Aspirin (Aspirin 81 Mg Ec Tablet) 81 mg PO DAILY [facility] Last Admin: 10/21/22 08:33 Dose: 81 mg Atenolol (Atenolol 50 Mg Tablet) 100 mg PO DAILY [facility] Last Admin: 10/21/22 08:33 Dose: 100 mg Atorvastatin Calcium (Atorvastatin 40 Mg Tablet) 80 mg PO DAILY [facility] Last Admin: 10/21/22 08:33 Dose: 80 mg Enoxaparin Sodium (Enoxaparin 100 Mg/Ml Syringe) 90 mg SUBCUT Q12H [facility] Last Admin: 10/21/22 09:39 Dose: 90 mg Hydralazine HCl (Hydralazine 20 Mg/Ml Inj 1 Ml) 10 mg IVP Q4H PRN PRN Reason: SBP > 170 Last Admin: 10/21/22 10:05 Dose: 10 mg Sodium Chloride (Sodium Chloride 0.9%) 1,000 mls @ 50 mls/hr IV .Q20H ONE Stop: 10/22/22 05:51 Last Admin: 10/21/22 11:38 Dose: 50 mls/hr Levothyroxine Sodium (Levothyroxine 50 Mcg Tablet) 50 mcg PO DAILY [facility] Last Admin: 10/21/22 08:33 Dose: 50 mcg Lisinopril (Lisinopril 10 Mg Tablet) 10 mg PO DAILY [facility] Last Admin: 10/21/22 08:25 Dose: Not Given Morphine Sulfate (Morphine 4 Mg/Ml Sdv 1 Ml) 2 mg IVP Q4H PRN PRN Reason: SEVERE PAIN Naloxone HCl (Naloxone 0.4 Mg/Ml Sdv) 0.1 mg IVP Q2M PRN PRN Reason: OPIATERV Nitroglycerin (Nitroglycerin 1 Gm/Inch Oint Pkt) 1 inch TOPICAL Q6H [facility] Last Admin: 10/21/22 08:34 Dose: 1 inch Ondansetron HCl (Ondansetron 2 Mg/Ml Sdv 2 Ml) 4 mg IVP Q8H PRN PRN Reason: vomiting, or N/V if npo Pantoprazole Sodium (Pantoprazole Dr 40 Mg Tablet) 40 mg PO DAILY [facility] Last Admin: 10/21/22 08:33 Dose: 40 mg Tramadol HCl (Tramadol 50 Mg Tablet) 50 mg PO TID [facility] Last Admin: 10/21/22 08:37 Dose: Not Given Vitals/I&O/Wt Last Vital Signs Temp 97.4 F L 10/21/22 04:15 Pulse 71 10/21/22 13:48 Resp 23 H 10/21/22 12:15 BP 141/74 10/21/22 12:30 Pulse Ox 93 10/21/22 13:48 O2 Del Method 10/21/22 13:48 O2 Flow Rate 2 10/21/22 10:00 10/20/22 10/21/22 10/21/22 22:59 06:59 14:59 Intake Total 270 / 270 Output Total 600 / 600 Balance 270 / 270 -600 / -600 Weight last 48 hrs Weight 207 lb Physical Exam Narrative: GENERAL: The patient is alert and oriented times three. Not in any acute distress. HEENT: No significant pallor, icterus or lymphadenopathy.Oral cavity: There are no mucous membrane lesions. NECK: Trachea appears to be central. No masses noted. No JVD or thyromegaly appreciated. RESPIRATORY: Chest is symmetrical. No intercostals muscle retraction or any accessory muscle activation. There is no chest wall tenderness. Breath sounds are heard bilaterally. No rales or rhonchi heard. No evidence of any consolidation. BREASTS: Deferred. HEART: The heart sounds are normal. No S3 or S4. Short systolic murmur in the lower sternal border. No diastolic murmurs. No pericardial rub ABDOMEN: No vessel pulsations or distention. No tenderness. No organomegaly appr eciated. Bowel sounds are normally heard. : Deferred. RECTAL: Deferred. LYMPHATIC: No lymphadenopathy noted in the neck. EXTREMITIES: No edema or cyanosis. No clubbing. The peripheral pulses are p alpable with good volume and amplitude MUSCULOSKELETAL: No acute joint deformities or swelling SKIN: 1-2+ edema both lower extremities. The skin is diffusely erythematous, dry and scaly NEUROPSYCHIATRIC: The patient is alert and oriented x3. Appears to be in a good mood. No tremors or rigidity noted. Data 10/21/22 05:09 10/21/22 05:09 Other Labs: Laboratory Last Values WBC 11.0 10^3/uL (4.0-10.0) H 10/21/22 05:09 RBC 4.13 10^6/uL (4.1-5.3) 10/21/22 05:09 Hgb 12.6 g/dL (11.5-15.3) 10/21/22 05:09 Hct 40.0 % (37.0-47.0) 10/21/22 05:09 MCV 96.9 fl (81-99) 10/21/22 05:09 MCH 30.5 pg (28.0-34.0) 10/21/22 05:09 MCHC 31.5 g/dL (30.0-36.0) 10/21/22 05:09 RDW 12.8 % (12.1-15.1) 10/21/22 05:09 Plt Count 301 10^3/cmm (130-400) 10/21/22 05:09 MPV 10.3 fL (7.4-10.4) 10/21/22 05:09 Neut % (Auto) 81.3 % 10/21/22 05:09 Lymph % (Auto) 9.3 % 10/21/22 05:09 Jenkins % (Auto) 8.8 % 10/21/22 05:09 Eos % (Auto) 0.0 % 10/21/22 05:09 Baso % (Auto) 0.2 % 10/21/22 05:09 Neut # (Auto) 8.96 10^3/uL (1.8-7.7) H 10/21/22 05:09 Lymph # (Auto) 1.0 10^3/uL (0.8-4.8) 10/21/22 05:09 Jenkins # (Auto) 1.0 10^3/uL (0.2-0.9) H 10/21/22 05:09 Eos # (Auto) 0.0 10^3/uL (0.0-0.8) 10/21/22 05:09 Baso # (Auto) 0.0 10^3/uL (0.0-0.1) 10/21/22 05:09 Nucleated RBC % (auto) 0 % 10/21/22 05:09 Nucleated RBCs # 0.0 /100WBC 10/21/22 05:09 PT 13.60 SECONDS (12.1-14.9) 10/20/22 18:44 INR 1.01 (0.8-1.2) 10/20/22 18:44 Sodium 135 mmol/L (136-145) L 10/21/22 05:09 Potassium 3.5 mmol/L (3.5-5.1) 10/21/22 05:09 Chloride 96 mmol/L (98-107) L 10/21/22 05:09 Carbon Dioxide 27 mmol/L (22-29) 10/21/22 05:09 Anion Gap 15.5 (5-19) 10/21/22 05:09 BUN 13 mg/dL (8-23) 10/21/22 05:09 Creatinine 1.0 mg/dL (0.5-0.9) H 10/21/22 05:09 GFR Calculation Not Reportable 10/21/22 05:09 Glucose 121 mg/dL (65-115) H 10/21/22 05:09 Estimat Average Glucose 117 10/21/22 05:09 Hemoglobin A1c 5.7 % (4.0-6.0) 10/21/22 05:09 Calculated Osmolality 281 mOsm/kg (285-295) L 10/21/22 05:09 Calcium 9.4 mg/dL (8.5-10.5) 10/21/22 05:09 Magnesium 1.5 mg/dL (1.7-2.3) L 10/21/22 05:09 Total Bilirubin 0.6 mg/dL (0.15-1.2) 10/21/22 05:09 AST 136 U/L (0-32) H 10/21/22 05:09 ALT 29 U/L (0-33) 10/21/22 05:09 Alkaline Phosphatase 85 U/L (35-105) 10/21/22 05:09 Troponin T Baseline 5190 ng/L (0-10) H* 10/20/22 18:44 Troponin T 120 Minute 4670 ng/L (0-10) H 10/20/22 21:09 Delta Troponin T -520 ABS# (0-10) L 10/20/22 21:09 Troponin T Hi Sens 6Hr 3407 ng/L (0-10) H 10/21/22 02:29 Troponin T Hi Sens 6Hr Delta -1783 ng/L (0-12) L 10/21/22 02:29 NT-Pro-B Natriuret Pep 6210 pg/mL (0-450) H 10/20/22 18:32 Total Protein 8.0 g/dL (6.6-8.7) 10/21/22 05:09 Albumin 3.2 g/dL (3.5-5.2) L 10/21/22 05:09 Globulin 4.8 g/dL (1.3-4.6) H 10/21/22 05:09 Other data: Echocardiogram from today Hypokineticmid and apical lateral and apical anterior segments.? ?LV ejection fraction around 56%.Grade I/IV diastolic dysfunction ?(abnormal relaxation filling pattern), normal to mildly elevated ?filling pressures. ?Mildly increased left atrial size. ?Moderate mitral annular calcification. Moderate mitral valve ?regurgitation. ?Thickened aortic valve.? Mild aortic valve stenosis, mean ?gradient 10 mmHg, JOHNNA 1.5 cm squared. ?Trace tricuspid valve regurgitation.? Estimated pulmonary artery ?peak systolic pressure of 34 mmHg. ?There is no pericardial effusion. ?There are no intracardiac masses. ?Compared to the study from 01/12/2017, the wall motion of ?abnormalities appear to be new A&P Assessment and plan (1) Non-ST elevation SD (NSTEMI): The echocardiogram findings were discussed with the patient. For further evaluation of her coronary status, she requires a cardiac catheterization. The risk and benefits were discussed in detail with the patient and her daughter. The risk of bleeding, hematoma, vascular injury, myocardial infarction, myocardial perforation, malignant cardiac arrhythmias ,CVA, renal failure and other concomitant complications were explained in detail. Patient and the fa jossy understood this well and consented to proceed. We may go ahead and schedule this sometime this evening (2) Hyperlipidemia: Continue on the current medications (3) Accelerated hypertension: The blood pressure seems to be getting under control. (4) Acute pulmonary edema: Patient responded appropriately to the IV Lasix. May continue on the as needed Lasix. (5) Venous stasis ulcer: The patient is being followed at the wound care clinic. The ulcer seems to be healing. Plan The echocardiogram was reviewed. Wall motion abnormalities as mentioned above. Patient seems to be stable hemodynamically at this time. Scheduled for cardiac catheterization this evening. Based on the results, further management decisions will be made. Attestations Medical Necessity Statement*: Patient requires continued hospital stay for close monitoring and further management Coding Level of Care Code 97914 Diagnoses Non-ST elevation SD (NSTEMI) I21.4 Hyperlipidemia E78.5 Accelerated hypertension I10 Acute pulmonary edema J81.0 Venous stasis ulcer I83.009; L97.909
[2022-10-21] MEDS: TRAMadol 50 mg Tablet PO (16:48)
[2022-10-21] MEDS: aspirin 325 mg Tablet PO (16:57)
[2022-10-21] MEDS: diphenhydrAMINE 50 mg Capsule PO (16:57)
--- NOTE | 2022-10-21 18:40 | W.PM.OPSUD ---
Surgery/Procedure H&P Update DATE OF PROCEDURE: October 21, 2022 DATE H&P PERFORMED: 10/20/22 H&P UPDATE INFORMATION: I have reviewed H&P completed within last 30 days, I have examined patient prior to procedure and No changes to prior documentation PREOP DIAGNOSIS: ASHD/CHF PRIMARY INDICATION FOR PROCEDURE: NSTEMI/complicated with a CHF PLANNED PROCEDURE: Left heart catheterization with coronary angiogram and possible PCI PATIENT REASSESSED PRIOR TO SEDATION, WITH NO CHANGE NOTED: Yes PHYSICAL EXAM: alert, oriented x 3, clear to auscultation bilaterally and regular rate & rhythm AIRWAY EVAL/ANESTHESIA PLAN: normal airway, see other exam findings, ASA III, Monitored Anesthesia, Local Anesthesia, Risks, benefits & alternatives of sedation and/or procedure discussed and Patient agrees to continue as planned
--- NOTE | 2022-10-21 18:48 | XACV_ITS ---
Exam Room: 2 Ht: 178 cm Wt: 94 kg BSA: 2.18 m2 Gender: Female : 1940 Any Known Allergies: Other Exam Priority: Routine Procedure(s): Procedure Description: Diagnostic procedure Procedure Description: Left Heart Catheterization Procedure Description: Coronary Angiography Curt HUGHES; Diagnostic Cath Status: Urgent Diagnostic Findings * The left main is a medium caliber vessel with no significant stenotic lesions. * The left anterior descending artery is a medium caliber vessel which appears to wrap around the LV apex minimally. The artery was found to have mild to moderate diffuse disease. The proximal LAD was found to have 20 to 30% diffuse irregular narrowing. At the takeoff of the first diagonal branch, there was around 50% lesion in the LAD and at the ostium of the diagonal artery. Mild to moderate diffuse calcification also was noted in the proximal to mid LAD. The mid LAD was found to have minimal intimal irregularities. The distal LAD was found to have 20 to 30% diffuse irregularities. No significant stenotic lesions were noted. The second septal gate shear operator artery also was found to have around 50% ostial narrowing.. * The left circumflex artery is a medium to large caliber dominant vessel with mild diffuse intimal irregularities. No significant stenotic lesions were noted. * The right coronary arteries is a nondominant small caliber vessel in which there was found around 50% tubular narrowing in the midsegment. No other significant stenotic lesions were seen. Conclusions 1. This is a 81-year-old white female, is admitted to hospital with complaints of chest tightness/heaviness/shortness of breath. She was found to have markedly elevated troponin T in the 5000 range. She also had features of congestive heart failure. EKG revealed diffuse ST-T changes in the anterolateral and inferior leads. Her clinical features are consistent with a non-ST elevation myocardial infarction. She continues to have some tight feeling in the chest while being in the hospital. For further evaluation of her coronary status, a cardiac catheterization was recommended. We attempted the radial approach initially. Because of the high tortuosity in the subclavian artery, we had to abort this approach and performed the procedure through the femoral artery. 2. Patient underwent left heart catheterization with left and right coronary angiogram and LV angiogram. The findings are as follows. 3. Mild to moderate diffuse coronary artery disease in the left anterior descending artery and in the nondominant right coronary artery. No significant lesions in the left main. Minimal intimal irregularities in the dominant left circumflex artery. LV gram revealed moderate diffuse hypokinesia of the anteroapical region. Ejection fraction around 45%. No filling defects were noted. LVEDP of 16 mmHg. 4. I reviewed 5. the heart catheterization findings with the Dr. Muñoz. She 6. H 7. er clinical features and the angiogram findings may suggest a variant of Takotsubo syndrome. Based on these findings, it was decided to treat her medically.. Interventional RX Recommendation: medical therapy and/or counseling LV EDP: 16 mmHg Ventriculography Ejection Fraction: 45.0 % Left Ventriculography Findings: * LV gram was performed in the PURCELL projection. There is moderate diffuse hypokinesia of the anteroapical region. The overall LV ejection fraction was around 45%. No filling defects are noted. The LVEDP of 16 mmHg.. Pressures Phase:Rest AO : 112 / 68 ( 87 ) @ 1:45:59 PM 136 / 63 ( 91 ) @ 1:45:59 PM 136 / 59 ( 91 ) @ 1:45:59 PM LV : 138 / -8 / 16 @ 1:45:59 PM 135 / -12 / 14 @ 1:45:59 PM 132 / -7 / 10 @ 1:45:59 PM Valves Phase:DefaultPhase AV : 0.0 @ 7:45:59 PM 0.0 @ 7:45:59 PM AV Mean Gradient: 0.0 @ 7:45:59 PM 0.0 @ 7:45:59 PM Clinical Evaluation EBL: 5mL-10mL Procedural Details Procedure Consent Obtained. Pre-Procedure Time Out. Identified patient by full name and date of as verbalized by the patient/guarantor. Does the consent match the physician's order: Yes. Accurate & Complete Informed Consent: Yes. Inpatient/Outpatient History & Physical on Chart: Yes. If H&P is completed, is and addenduem needed: No; If yes, is the addendum complete: N/A. Visualize and Verify Site with Patient/Guarantor: N/A. Relevant Radiology Images available: N/A. The risks, benefits, and alternatives of sedation and/or procedure were discussed by physician. The patient agrees to continue. Procedure started. [facility] Clinical Fraility Score: 4: Vulnerable. Environmental Aid Indications: ACS > 24 hours. Chest Pain Symptom Assessment: Typical Angina Symptoms. Correct patient, site and procedure confirmed by cath team. Current diagnosis: NSTEMI. PERRLA. Strong, equal hand industry consultant bilaterally. Lungs clear x 5 lobes. IV Site on Arrival: 20 gauge in the right anticubital. IV Fluids: 0.9% NaCl at 75ml/hr. 400 mL infused prior to laborer wharf. Pre Procedural Pulses: bilateral radial was 3+. Oxygen started at 2liters/min via nasal canula. right groin was prepped with chloroprep then draped in the usual sterile fashion. right radial was prepped with chloroprep then draped in the usual sterile fashion. Physician notified. Baseline sample Acquired. HR: 82 BPM. Physician arrived. Physician scrubbed in. Immediate Pre-Procedure Time Out. Correct Patient: Yes; Correct Procedure: Yes; Correct Site: Yes; Correct Patient Position: Yes; Correct Supplies: Yes; Dried Flammable Prep: Yes; Blood Products Available: N/A;. Lidocaine 1% infiltrated to the right radial. Arterial access obtained. A 5 azerbaijani Jemal catheter in over exchange wire. Exchange wire out. Hand injection through catheter. Glidewire in through catheter. Glidewire out. Hand injection through catheter. Unable to advance catheter due to subclavian tortuosity. Catheter removed over exchange wire. A TR Band was successful obtaining hemostatsis at the Right Radial artery insertion site. Lidocaine 1% infiltrated to the right groin. Arterial access obtained with micropuncture set. A 5 azerbaijani FL4 catheter in over wire. Wire out. Multiple views taken of left coronary artery. Catheter removed over the exchange wire. A 5 azerbaijani JR4 catheter in over wire. Multiple views taken of right coronary artery. Catheter removed over the exchange wire. A 5 azerbaijani Angled Pig catheter in over wire. Wire out. EDP Sample taken: LV 138/-9,16; HR: 79 BPM; SpO2: 92%. LV gram performed in PURCELL @ 10 mL/second for a total of 30 mL. EDP Sample taken: LV 135/-13,14; HR: 51 BPM; SpO2: 93%. Pullback taken: LV 132/-8,10; AO 136/63(91); Mean: 0mmHg, Peak to Peak: 0mmHg, SEP: 10sec/min; HR: 72 BPM; SpO2: 93%. Catheter removed over the exchange wire. Post Procedure: Pulses reassessed and unchanged. PERRLA. Strong, equal hand industry consultant bilaterally. No VTE prophylaxis required. Medication's Wasted: Lidocaine 1% = 3ml , Nitro 49.8 mg, Heparin 1000 unit, Fentanyl 50mcg, Versed 2mg. Total IV fluids: 50 mL. A Suture was successful obtaining hemostatsis at the Right Femoral artery insertion site. Sheath(s) sutured into position with 2-0 silk and sterile 4x4's and Op-site applied over the site. No oozing or signs and symptoms of hematoma noted. Arterial sheath flushed and connected to tranducer and pressure bag with heparinized saline. Post-op diagnosis: Non obstructive CAD. Complications: None. Estimated blood loss: 5mL-10mL. Responsiveness - Normal response to verbal stimuli; alert and oriented, PERRLA. Airway - Unaffected, no intervention required; spontaneous ventilation. Circulation: W/N/L, pulses unchanged. Nausea/Vomiting: N/A. Procedure completed. Patient transferred by bed to ICU. Vital chart was stopped. Access Site Site: Right Radial artery Sheath Size: 6 Fr Hemostasis Method: TR Band Hemostasis Success: Successful Site: Right Femoral artery Sheath Size: 5 Fr Hemostasis Method: Suture Hemostasis Success: Successful Procedure Medications Start: 7:04 PM Stop: 7:04 PM Medication: Fentanyl Amount: 25 mcg Route: I.V. Start: 7:09 PM Stop: 7:09 PM Medication: Verapamil Amount: 5 mg Route: I.A. Start: 7: PM Stop: 7: PM Medication: Nitrogylcerin Amount: 200 mcg Route: I.A. Start: 7:20 PM Stop: 7:20 PM Medication: Fentanyl Amount: 25 mcg Route: I.V. I, the attending physician, have reviewed and verified all procedure medications. Yes, all medications given per verbal order History/Risk Factors Hypertension: Yes Dyslipidemia: Yes Peripheral Arterial Disease (PAD): No Myocardial Infarction (WI): No Obesity: No Renal Disease: No Prior Interventions PCI: No CABG: No Valve Surgery: No Report Signatures Finalized by Dr Bairon Elias MD [facility] on 10/22/2022 10:39 AM
--- NOTE | 2022-10-21 23:15 | PC.NURSE ---
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 Orders unable to be processed due to additional user in chart. Dr. Elias contacted, orders processed, and additional orders received for the following: hold lovenox and remove sheath now, no need to check ptt. Sheath pulled at 2243 and pressure held for 20 minutes. No complications with procedure, vital signs stable, no hematoma formation noted. TR band completely removed at 2330, also with no complications. See post cath assessment documentation
[2022-10-22] VITALS (84 sets, daily range): BP systolic 100–169; BP diastolic 64–112; PULSE 66–130; RESP 10–33; TEMP 36.8–37.7; O2SAT 91–98; BMI 36.4
[2022-10-22] MEDS: atenolol 50 mg Tablet 100 MG PO (08:06)
[2022-10-22] MEDS: pantoprazole DR 40 mg Tablet PO (09:32)
[2022-10-22] MEDS: TRAMadol 50 mg Tablet PO ×2 (09:32→17:28)
[2022-10-22] MEDS: levothyroxine 50 mcg Tablet PO (09:32)
[2022-10-22] MEDS: lisinopril 10 mg Tablet PO (09:32)
[2022-10-22] MEDS: atorvastatin 40 mg Tablet 80 MG PO (09:32)
[2022-10-22] MEDS: enoxaparin 100 mg/mL Syringe 90 MG SUBCUT (09:32)
[2022-10-22] MEDS: nitroglycerin 1 gm/inch oint Pkt 1 INCH TOPICAL (09:33)
[2022-10-22] MEDS: aspirin 81 mg EC Tablet PO (09:33)
[2022-10-22 09:54] LABS: Basophils % 0.2 %; Hematocrit 36.2 % (37.0-47.0); Hemoglobin 11.6 g/dL (11.5-15.3); Lymphocytes # 0.8 10^3/uL (0.8-4.8); Lymphocytes % 7.3 %; Mean Corpuscular Volume 96.8 fl (81-99); Mean Platelet Volume 10.6 fL (7.4-10.4); Monocytes # 1.1 10^3/uL (0.2-0.9); Monocytes % 10.1 %; Neutrophils # 9.13 10^3/uL (1.8-7.7); Nucleated Red Blood Cells % 0 %; Platelet Count 266 10^3/cmm (130-400); Red Blood Count 3.74 10^6/uL (4.1-5.3); Red Cell Distribution Width 13.2 % (12.1-15.1); White Blood Count 11.1 10^3/uL (4.0-10.0)
[2022-10-22] MEDS: clopidogrel 75 mg Tablet PO (09:58)
[2022-10-22 10:15] LABS: Alanine Aminotransferase 24 U/L (0-33); Albumin Level 3.1 g/dL (3.5-5.2); Alkaline Phosphatase 83 U/L (35-105); Anion Gap 13.4 (5-19); Aspartate Amino Transferase 71 U/L (0-32); Blood Urea Nitrogen 19 mg/dL (8-23); Calcium 8.9 mg/dL (8.5-10.5); Carbon Dioxide 27 mmol/L (22-29); Chloride 97 mmol/L (98-107); Globulin 4.2 g/dL (1.3-4.6); Glucose 142 mg/dL (65-115); Osmolality Calculated 283 mOsm/kg (285-295); Potassium 3.4 mmol/L (3.5-5.1); Sodium 134 mmol/L (136-145); Total Bilirubin 0.7 mg/dL (0.15-1.2); Total Protein 7.3 g/dL (6.6-8.7)
[2022-10-22] MEDS: amiodarone 200 mg Tablet 400 MG PO ×2 (12:09→17:27)
[2022-10-22] MEDS: amlodipine 10 mg Tablet PO (12:09)
[2022-10-22] MEDS: ondansetron 2 mg/ML SDV 2 mL 4 MG IVP (12:16)
--- NOTE | 2022-10-22 14:11 | P.PN_ITS ---
Subjective Subjective: The patient went atrial fibrillation last night. Currently she is in atrial fibrillation with rapid ventricular rate. No chest pain or shortness of breath. Blood pressure is 149/100. Heart rate of 112/min. Medications: Medication Review Details: Current Medications Acetaminophen (Acetaminophen 325 Mg Tablet) 650 mg PO Q6H PRN PRN Reason: Mild/Mod Pain Or Temp >/= 101 Al Hydrox/Mg Hydrox/Simethicone (Iwkk-Ejk-Miluruzvf-Christopher 30 Ml Udc) 30 ml PO Q15M PRN PRN Reason: INDIGESTION Amiodarone HCl (Amiodarone 200 Mg Tablet) 400 mg PO BID [facility] Last Admin: 10/22/22 12:09 Dose: 400 mg Aspirin (Aspirin 81 Mg Ec Tablet) 81 mg PO DAILY [facility] Last Admin: 10/22/22 09:33 Dose: 81 mg Atenolol (Atenolol 50 Mg Tablet) 100 mg PO DAILY [facility] Last Admin: 10/22/22 08:06 Dose: 100 mg Atorvastatin Calcium (Atorvastatin 40 Mg Tablet) 80 mg PO DAILY [facility] Last Admin: 10/22/22 09:32 Dose: 80 mg Atropine Sulfate (Atropine 1 Mg/Ml Sdv 1 Ml) 0.5 mg IVP PRN PRN PRN Reason: Symptomatic bradycardia Clopidogrel Bisulfate (Clopidogrel 75 Mg Tablet) 75 mg PO DAILY [facility] Last Admin: 10/22/22 09:58 Dose: 75 mg Hydralazine HCl (Hydralazine 20 Mg/Ml Inj 1 Ml) 10 mg IVP Q4H PRN PRN Reason: SBP > 170 Last Admin: 10/21/22 10:05 Dose: 10 mg Levothyroxine Sodium (Levothyroxine 50 Mcg Tablet) 50 mcg PO DAILY [facility] Last Admin: 10/22/22 09:32 Dose: 50 mcg Lisinopril (Lisinopril 20 Mg Tablet) 20 mg PO DAILY [facility] Magnesium Hydroxide (Magnesium Hydroxide 30 Ml Udc) 30 ml PO DAILY PRN PRN Reason: CONSTIPATION Morphine Sulfate (Morphine 4 Mg/Ml Sdv 1 Ml) 2 mg IVP Q4H PRN PRN Reason: SEVERE PAIN Naloxone HCl (Naloxone 0.4 Mg/Ml Sdv) 0.1 mg IVP Q2M PRN PRN Reason: OPIATERV Nitroglycerin (Nitroglycerin 1 Gm/Inch Oint Pkt) 1 inch TOPICAL Q6H [facility] Last Admin: 10/22/22 09:33 Dose: 1 inch Nitroglycerin (Nitroglycerin 0.4 Mg Sublingual Tablet) 0.4 mg SUBLINGUAL Q5M PRN PRN Reason: CHEST PAIN Ondansetron HCl (Ondansetron 2 Mg/Ml Sdv 2 Ml) 4 mg IVP Q8H PRN PRN Reason: vomiting, or N/V if npo Last Admin: 10/22/22 12:16 Dose: 4 mg Pantoprazole Sodium (Pantoprazole Dr 40 Mg Tablet) 40 mg PO DAILY [facility] Last Admin: 10/22/22 09:32 Dose: 40 mg Temazepam (Temazepam 15 Mg Capsule) 15 mg PO BEDTIME PRN PRN Reason: INSOMNIA Tramadol HCl (Tramadol 50 Mg Tablet) 50 mg PO BID [facility] Vitals/I&O/Wt Last Vital Signs Temp 98.3 F 10/22/22 12:45 Pulse 92 10/22/22 13:45 Resp 21 H 10/22/22 13:45 BP 135/67 10/22/22 13:45 Pulse Ox 95 10/22/22 13:30 O2 Del Method 10/22/22 13:30 O2 Flow Rate 2 10/22/22 13:30 10/21/22 10/22/22 10/22/22 22:59 06:59 14:59 Intake Total 120 / 120 1352.5 / 1352.5 Output Total 200 / 800 Balance -80 / -680 1352.5 / 1352.5 Weight last 48 hrs Weight 254 lb Weight 290 lb Weight 207 lb Physical Exam Narrative: GENERAL: The patient is alert and oriented times three. Not in any acute distress. HEENT: No significant pallor, icterus or lymphadenopathy.Oral cavity: There are no mucous membrane lesions. NECK: Trachea appears to be central. No masses noted. No JVD or thyromegaly appreciated. RESPIRATORY: Chest is symmetrical. No intercostals muscle retraction or any acc essory muscle activation. There is no chest wall tenderness. Breath sounds are heard bilaterally. No rales or rhonchi heard. No evidence of any consolidation. BREASTS: Deferred. HEART: The first heart and is variable. No S3 or S4. Short systolic murmur in the lower sternal border. No pericardial rub ABDOMEN: No vessel pulsations or distention. No tenderness. No organomegaly appreciated. Bowel sounds are normally heard. : Deferred. RECTAL: Deferred. LYMPHATIC: No lymphadenopathy noted in the neck. EXTREMITIES: The right groin has no hematoma bleeding MUSCULOSKELETAL: No acute joint deformities or swelling SKIN: There are no significant rashes or ecchymosis NEUROPSYCHIATRIC: The patient is alert and oriented x3. Appears to be in a good mood. No tremors or rigidity noted. Data 10/22/22 09:46 10/22/22 09:46 Other Labs: Laboratory Last Values WBC 11.1 10^3/uL (4.0-10.0) H 10/22/22 09:46 RBC 3.74 10^6/uL (4.1-5.3) L 10/22/22 09:46 Hgb 11.6 g/dL (11.5-15.3) 10/22/22 09:46 Hct 36.2 % (37.0-47.0) L 10/22/22 09:46 MCV 96.8 fl (81-99) 10/22/22 09:46 MCH 31.0 pg (28.0-34.0) 10/22/22 09:46 MCHC 32.0 g/dL (30.0-36.0) 10/22/22 09:46 RDW 13.2 % (12.1-15.1) 10/22/22 09:46 Plt Count 266 10^3/cmm (130-400) 10/22/22 09:46 MPV 10.6 fL (7.4-10.4) H 10/22/22 09:46 Neut % (Auto) 82.0 % 10/22/22 09:46 Lymph % (Auto) 7.3 % 10/22/22 09:46 [place] % (Auto) 10.1 % 10/22/22 09:46 Eos % (Auto) 0.0 % 10/22/22 09:46 Baso % (Auto) 0.2 % 10/22/22 09:46 Neut # (Auto) 9.13 10^3/uL (1.8-7.7) H 10/22/22 09:46 Lymph # (Auto) 0.8 10^3/uL (0.8-4.8) 10/22/22 09:46 [place] # (Auto) 1.1 10^3/uL (0.2-0.9) H 10/22/22 09:46 Eos # (Auto) 0.0 10^3/uL (0.0-0.8) 10/22/22 09:46 Baso # (Auto) 0.0 10^3/uL (0.0-0.1) 10/22/22 09:46 Nucleated RBC % (auto) 0 % 10/22/22 09:46 Nucleated RBCs # 0.0 /100WBC 10/22/22 09:46 PT 13.60 SECONDS (12.1-14.9) 10/20/22 18:44 INR 1.01 (0.8-1.2) 10/20/22 18:44 Sodium 134 mmol/L (136-145) L 10/22/22 09:46 Potassium 3.4 mmol/L (3.5-5.1) L 10/22/22 09:46 Chloride 97 mmol/L (98-107) L 10/22/22 09:46 Carbon Dioxide 27 mmol/L (22-29) 10/22/22 09:46 Anion Gap 13.4 (5-19) 10/22/22 09:46 BUN 19 mg/dL (8-23) 10/22/22 09:46 Creatinine 1.0 mg/dL (0.5-0.9) H 10/22/22 09:46 GFR Calculation Not Reportable 10/22/22 09:46 Glucose 142 mg/dL (65-115) H 10/22/22 09:46 Estimat Average Glucose 117 10/21/22 05:09 Hemoglobin A1c 5.7 % (4.0-6.0) 10/21/22 05:09 Calculated Osmolality 283 mOsm/kg (285-295) L 10/22/22 09:46 Calcium 8.9 mg/dL (8.5-10.5) 10/22/22 09:46 Magnesium 1.5 mg/dL (1.7-2.3) L 10/21/22 05:09 Total Bilirubin 0.7 mg/dL (0.15-1.2) 10/22/22 09:46 AST 71 U/L (0-32) H 10/22/22 09:46 ALT 24 U/L (0-33) 10/22/22 09:46 Alkaline Phosphatase 83 U/L (35-105) 10/22/22 09:46 Troponin T Baseline 5190 ng/L (0-10) H* 10/20/22 18:44 Troponin T 120 Minute 4670 ng/L (0-10) H 10/20/22 21:09 Delta Troponin T -520 ABS# (0-10) L 10/20/22 21:09 Troponin T Hi Sens 6Hr 3407 ng/L (0-10) H 10/21/22 02:29 Troponin T Hi Sens 6Hr Delta -1783 ng/L (0-12) L 10/21/22 02:29 NT-Pro-B Natriuret Pep 6210 pg/mL (0-450) H 10/20/22 18:32 Total Protein 7.3 g/dL (6.6-8.7) 10/22/22 09:46 Albumin 3.1 g/dL (3.5-5.2) L 10/22/22 09:46 Globulin 4.2 g/dL (1.3-4.6) 10/22/22 09:46 A&P Assessment and plan (1) Atrial fibrillation by electrocardiogram: In view of the patient's LV dysfunction, I may start her on amiodarone 400 mg p.o. twice daily. She needs to be closely monitored on telemetry. Because of the artery addendum I may hold off on the anticoagulation today. May be started on Eliquis tomorrow. (2) Non-ST elevation [place] (NSTEMI): Patient had the cardiac catheterization yesterday. She was found to have mild to moderate diffuse disease in the left anterior descending artery and the nondominant right coronary artery. Minimal plaques were noted on the left circumflex artery which is dominant . the LV ejection fraction was around 45%. We will try to optimize her medical treatment. (3) Hyperlipidemia: Continue on the current medications (4) Accelerated hypertension: I may start her on amlodipine 10 mg p.o. now and daily. Her blood pressure need to be closely monitored (5) Acute pulmonary edema: Patient responded appropriately to the IV Lasix. May continue on the as needed Lasix. (6) Venous stasis ulcer: The patient is being followed at the wound care clinic. The ulcer seems to be healing. Plan Once again I discussed with the patient in detail about the cardiac catheterization data. Optimizing medical treatment would be the plan of action. Patient may start on amlodipine 10 mg p.o. daily for better control of the blood pressure. Consider starting her on Entresto as an outpatient. We had to stop the lisinopril for 3 days, prior to starting her on the Entresto. Based on the clinical progress, further management decisions will be made. Attestations Medical Necessity Statement*: Patient requires continued hospital stay for close monitoring and further management Coding Level of Care Code Acute Code for Chg Fwd Diagnoses Atrial fibrillation by electrocardiogram I48.91 Non-ST elevation [place] (NSTEMI) I21.4 Hyperlipidemia E78.5 Accelerated hypertension I10 Acute pulmonary edema J81.0 Venous stasis ulcer I83.009; L97.909
--- NOTE | 2022-10-22 16:12 | P.PN_ITS ---
Subjective Subjective: Underwent cardiac angiogram yesterday. Tolerated procedure well. Overnight patient went into atrial fibrillation without rapid ventricular response. Otherwise has remained hemodynamically stable and afebrile. Today morning seen laying comfortably in bed with family at bedside saturating well on 2 L. Complaining of nausea without vomiting. Vitals/I&O/Wt Last Vital Signs Temp 98.3 F 10/22/22 12:45 Pulse 92 10/22/22 13:45 Resp 21 H 10/22/22 13:45 BP 135/67 10/22/22 13:45 Pulse Ox 95 10/22/22 13:30 O2 Del Method 10/22/22 13:30 O2 Flow Rate 2 10/22/22 13:30 10/22/22 10/22/22 10/22/22 06:59 14:59 22:59 Intake Total 120 / 120 1352.5 / 1352.5 Output Total 200 / 800 Balance -80 / -680 1352.5 / 1352.5 Weight last 48 hrs Weight 115.212 kg Weight 131.542 kg Weight 93.894 kg Physical Exam Narrative: General: No acute distress, AO x3 HEENT: PERRLA, pupils bilaterally equal and reactive, pallors not present Chest: Normal vesicular breath sounds, no added sounds, equal good air entry bilaterally CVS: S1-S2 regular, no murmurs, no tachycardia, no gallops, no rubs Abdomen: Soft, nontender, no organomegaly, bowel sounds present Neuro: No focal deficits, no facial deformity, AO x3, power 5/5 in all limbs Extremities: No edema clubbing or cyanosis Data 10/22/22 09:46 10/22/22 09:46 A&P Assessment and plan (1) Non-ST elevation [place] (NSTEMI): Patient underwent cardiac angiogram on 10/21. Found to have mild to moderate diffuse disease of LAD and nondominant RCA with EF of 45% with concerns of possible Takotsubo. Plan for medical management as per cardiology. Appreciate recommendation. Continue with aspirin, statin, beta-cathryn. Continue with home dose of atenolol. Echocardiogram done shows an EF of 56% with grade 1 diastolic dysfunction, PASP of 34 mmHg with mild aortic valve stenosis. Stop full dose Lovenox. Better blood pressure control. (2) Accelerated hypertension: Goal blood pressure less than 140/90 mmHg. Continue with home dose of atenolol. Can uptitrate dose of lisinopril. Possibilities of transitioning over to Entresto as an outpatient. (3) Atrial fibrillation by electrocardiogram: New diagnosis. Plan to load orally with amiodarone. 400 mg twice daily for next 10 days for now. Plan to transition over to anticoagulation. Patient received full dose Lovenox in morning today. Hold off on Lovenox for now. Plan Repeat potassium. Keep potassium around 4, magnesium around 2 Full code. Cardiac diet. Received full dose Lovenox today. Hold off on any further Lovenox for transition over to anticoagulation for the next 24 hours. Protonix for PUD prophylaxis. Can transfer out of ICU to CSU. This documentation was created by [employer] associate creative director software. Every effort was made to ensure accuracy of associate creative director. Any obvious errors or omissions should be clarified with the author of the document. Attestations Medical Necessity Statement*: For management of elevated troponin in setting of possible non-ST elevation [place] versus Takotsubo, new atrial fibrillation right further medications adjusted for medical management. Diagnoses Non-ST elevation [place] (NSTEMI) I21.4 Accelerated hypertension I10 Atrial fibrillation by electrocardiogram I48.91
[2022-10-22] MEDS: potassium chloride ER 20 mEq Tablet 40 MEQ PO (17:29)
[2022-10-22] MEDS: morphine 4 mg/mL SDV 1 mL 2 MG IVP (20:19)
[2022-10-22] MEDS: HYDROcodone-acetaminophen 5-325 mg Tablet 1 TAB PO (21:35)
[2022-10-23] VITALS (20 sets, daily range): BP systolic 103–141; BP diastolic 50–75; PULSE 58–75; RESP 17–26; TEMP 36.6–38.5; O2SAT 92–97
[2022-10-23 05:19] LABS: Alanine Aminotransferase 18 U/L (0-33); Albumin Level 2.8 g/dL (3.5-5.2); Alkaline Phosphatase 72 U/L (35-105); Blood Urea Nitrogen 30 mg/dL (8-23); Calcium 8.7 mg/dL (8.5-10.5); Carbon Dioxide 27 mmol/L (22-29); Chloride 97 mmol/L (98-107); Globulin 4.2 g/dL (1.3-4.6); Glucose 110 mg/dL (65-115); Magnesium 1.9 mg/dL (1.7-2.3); Osmolality Calculated 285 mOsm/kg (285-295); Sodium 134 mmol/L (136-145); Total Bilirubin 0.7 mg/dL (0.15-1.2)
[2022-10-23 05:24] LABS: Anion Gap 13.9 (5-19); Aspartate Amino Transferase 42 U/L (0-32); Potassium 3.9 mmol/L (3.5-5.1)
[2022-10-23] MEDS: amiodarone 200 mg Tablet 400 MG PO ×2 (09:15→17:28)
[2022-10-23] MEDS: atorvastatin 40 mg Tablet 80 MG PO (09:15)
[2022-10-23] MEDS: levothyroxine 50 mcg Tablet PO (09:16)
[2022-10-23] MEDS: clopidogrel 75 mg Tablet PO (09:16)
[2022-10-23] MEDS: pantoprazole DR 40 mg Tablet PO (09:16)
[2022-10-23] MEDS: aspirin 81 mg EC Tablet PO (09:16)
[2022-10-23] MEDS: lisinopril 20 mg Tablet PO (09:17)
[2022-10-23] MEDS: amlodipine 10 mg Tablet PO (09:18)
[2022-10-23] MEDS: TRAMadol 50 mg Tablet PO ×2 (09:51→17:28)
--- NOTE | 2022-10-23 10:02 | ECG_ITS ---
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 Measurements Intervals [place] Rate: 73 P: 3 NC: 205 QRS: -36 QRSD: 140 T: 113 QT: 426 QTc: 470 Interpretive Statements SINUS RHYTHM WITH FREQUENT VENTRICULAR PREMATURE COMPLEXES LEFT AXIS DEVIATION [QRS AXIS < -30] LEFT BUNDLE BRANCH BLOCK [120+ ms QRS DURATION, 80+ ms Q/S IN V1/V2, 85+ ms R IN I/aVL/V5/V6] Compared to ECG 10/20/2022 22:00:49 Ventricular premature complex(es) now present Left bundle-branch block now present Myocardial infarct finding no longer present T-wave abnormality no longer present Possible ischemia no longer present Electronically Signed On 10-24-2022 23:15:34 CDT by Bairon Elias M.D. [id number]
[2022-10-23 10:32] LABS: Uric Acid 6.8 mg/dL (2.4-5.7)
[2022-10-23] MEDS: atenolol 50 mg Tablet PO (11:06)
[2022-10-23] MEDS: sodium chloride 0.9% 1,000 ML 50 ML IV (11:06)
--- NOTE | 2022-10-23 11:08 | PC.NURSE ---
Report given to warren in CSU.
--- NOTE | 2022-10-23 11:32 | ECG_ITS ---
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 Measurements Intervals [place] Rate: 73 P: -2 DE: 197 QRS: -37 QRSD: 137 T: 101 QT: 424 QTc: 468 Interpretive Statements SINUS RHYTHM WITH OCCASIONAL VENTRICULAR PREMATURE COMPLEXES LEFT AXIS DEVIATION [QRS AXIS < -30] LEFT BUNDLE BRANCH BLOCK [120+ ms QRS DURATION, 80+ ms Q/S IN V1/V2, 85+ ms R IN I/aVL/V5/V6] Compared to ECG 10/23/2022 10:02:14 No significant changes Electronically Signed On 10-24-2022 23:18:55 CDT by Bairon Elias M.D. [id number]
--- NOTE | 2022-10-23 11:50 | PM.PN ---
Subjective Subjective: Patient is feeling better. No chest pain or chest tightness. Shortness of breath is significant improved. Slowly start ambulating. Telemetry shows intermittent atrial fibrillation/sinus rhythm Blood pressure has improved Medications: Medication Review Details: Current Medications Acetaminophen (Acetaminophen 325 Mg Tablet) 650 mg PO Q6H PRN PRN Reason: Mild/Mod Pain Or Temp >/= 101 Al Hydrox/Mg Hydrox/Simethicone (Khiw-Mhx-Nffpvdoor-Christopher 30 Ml Udc) 30 ml PO Q15M PRN PRN Reason: INDIGESTION Amiodarone HCl (Amiodarone 200 Mg Tablet) 400 mg PO BID [facility] Last Admin: 10/23/22 09:15 Dose: 400 mg Amlodipine Besylate (Amlodipine 10 Mg Tablet) 10 mg PO DAILY [facility] Last Admin: 10/23/22 09:18 Dose: 10 mg Aspirin (Aspirin 81 Mg Ec Tablet) 81 mg PO DAILY [facility] Last Admin: 10/23/22 09:16 Dose: 81 mg Atenolol (Atenolol 50 Mg Tablet) 50 mg PO DAILY [facility] Last Admin: 10/23/22 11:06 Dose: 50 mg Atorvastatin Calcium (Atorvastatin 40 Mg Tablet) 80 mg PO DAILY [facility] Last Admin: 10/23/22 09:15 Dose: 80 mg Clopidogrel Bisulfate (Clopidogrel 75 Mg Tablet) 75 mg PO DAILY [facility] Last Admin: 10/23/22 09:16 Dose: 75 mg Hydralazine HCl (Hydralazine 20 Mg/Ml Inj 1 Ml) 10 mg IVP Q4H PRN PRN Reason: SBP > 170 Last Admin: 10/21/22 10:05 Dose: 10 mg Sodium Chloride (Sodium Chloride 0.9%) 1,000 mls @ 50 mls/hr IV .Q20H [facility] Stop: 10/24/22 05:44 Last Admin: 10/23/22 11:06 Dose: 50 mls/hr Levothyroxine Sodium (Levothyroxine 50 Mcg Tablet) 50 mcg PO DAILY [facility] Last Admin: 10/23/22 09:16 Dose: 50 mcg Lisinopril (Lisinopril 20 Mg Tablet) 20 mg PO DAILY [facility] Last Admin: 10/23/22 09:17 Dose: 20 mg Magnesium Hydroxide (Magnesium Hydroxide 30 Ml Udc) 30 ml PO DAILY PRN PRN Reason: CONSTIPATION Morphine Sulfate (Morphine 4 Mg/Ml Sdv 1 Ml) 2 mg IVP Q4H PRN PRN Reason: SEVERE PAIN Last Admin: 10/22/22 20:19 Dose: 2 mg Naloxone HCl (Naloxone 0.4 Mg/Ml Sdv) 0.1 mg IVP Q2M PRN PRN Reason: OPIATERV Nitroglycerin (Nitroglycerin 0.4 Mg Sublingual Tablet) 0.4 mg SUBLINGUAL Q5M PRN PRN Reason: CHEST PAIN Ondansetron HCl (Ondansetron 2 Mg/Ml Sdv 2 Ml) 4 mg IVP Q8H PRN PRN Reason: vomiting, or N/V if npo Last Admin: 10/22/22 12:16 Dose: 4 mg Pantoprazole Sodium (Pantoprazole Dr 40 Mg Tablet) 40 mg PO DAILY [facility] Last Admin: 10/23/22 09:16 Dose: 40 mg Temazepam (Temazepam 15 Mg Capsule) 15 mg PO BEDTIME PRN PRN Reason: INSOMNIA Tramadol HCl (Tramadol 50 Mg Tablet) 50 mg PO BID [facility] Last Admin: 10/23/22 09:51 Dose: 50 mg Vitals/I&O/Wt Last Vital Signs Temp 97.8 F 10/23/22 08:00 Pulse 72 10/23/22 10:00 Resp 22 H 10/23/22 10:00 BP 124/58 10/23/22 10:00 Pulse Ox 97 10/23/22 10:00 O2 Del Method 10/23/22 07:53 O2 Flow Rate 2 10/23/22 07:53 10/22/22 10/23/22 10/23/22 22:59 06:59 14:59 Intake Total 292 / 1884.5 Balance 292 / 1884.5 Weight last 48 hrs Weight 254 lb Weight 290 lb Physical Exam Narrative: GENERAL: The patient is alert and oriented times three. Not in any acute distress. [] HEENT: No significant pallor, icterus or lymphadenopathy.Oral cavity: There are no mucous membrane lesions. NECK: Trachea appears to be central. No masses noted. No JVD or thyromegaly appreciated. RESPIRATORY: Chest is symmetrical. No intercostals muscle retraction or any accessory muscle activation. There is no chest wall tenderness. Breath sounds are heard bilaterally. No rales or rhonchi heard. No evidence of any consolidation. [] BREASTS: Deferred. [] HEART: The heart sounds are normal. No S3 or S4. [No significant murmurs] []. No pericardial rub ABDOMEN: No vessel pulsations or distention. No tenderness. No organomegaly appreciated. Bowel sounds are normally heard. [] : Deferred. [] RECTAL: Deferred. [] LYMPHATIC: No lymphadenopathy noted in the neck. EXTREMITIES: 1+ edema of the both lower extremities. MUSCULOSKELETAL: No acute joint deformities or swelling SKIN: There are no significant rashes or ecchymosis NEUROPSYCHIATRIC: The patient is alert and oriented x3. Appears to be in a good mood. No tremors or rigidity noted. [] Data 10/22/22 09:46 10/23/22 04:06 Other Labs: Laboratory Last Values WBC Cancelled 10/23/22 04:06 Corrected WBC Cancelled 10/23/22 04:06 RBC Cancelled 10/23/22 04:06 Hgb Cancelled 10/23/22 04:06 Hct Cancelled 10/23/22 04:06 MCV Cancelled 10/23/22 04:06 MCH Cancelled 10/23/22 04:06 MCHC Cancelled 10/23/22 04:06 RDW Cancelled 10/23/22 04:06 Plt Count Cancelled 10/23/22 04:06 MPV Cancelled 10/23/22 04:06 Gran % Cancelled 10/23/22 04:06 Neut % (Auto) Cancelled 10/23/22 04:06 Lymph % (Auto) Cancelled 10/23/22 04:06 [place] % (Auto) Cancelled 10/23/22 04:06 Eos % (Auto) Cancelled 10/23/22 04:06 Baso % (Auto) Cancelled 10/23/22 04:06 Neut # (Auto) Cancelled 10/23/22 04:06 Lymph # (Auto) Cancelled 10/23/22 04:06 [place] # (Auto) Cancelled 10/23/22 04:06 Eos # (Auto) Cancelled 10/23/22 04:06 Baso # (Auto) Cancelled 10/23/22 04:06 Absolute Gran (auto) Cancelled 10/23/22 04:06 Nucleated RBC % (auto) Cancelled 10/23/22 04:06 Nucleated RBCs # Cancelled 10/23/22 04:06 PT 13.60 SECONDS (12.1-14.9) 10/20/22 18:44 INR 1.01 (0.8-1.2) 10/20/22 18:44 Sodium 134 mmol/L (136-145) L 10/23/22 04:06 Potassium 3.9 mmol/L (3.5-5.1) 10/23/22 04:06 Chloride 97 mmol/L (98-107) L 10/23/22 04:06 Carbon Dioxide 27 mmol/L (22-29) 10/23/22 04:06 Anion Gap 13.9 (5-19) 10/23/22 04:06 BUN 30 mg/dL (8-23) H 10/23/22 04:06 Creatinine 1.4 mg/dL (0.5-0.9) H 10/23/22 04:06 GFR Calculation Not Reportable 10/23/22 04:06 Glucose 110 mg/dL (65-115) 10/23/22 04:06 Estimat Average Glucose 117 10/21/22 05:09 Hemoglobin A1c 5.7 % (4.0-6.0) 10/21/22 05:09 Calculated Osmolality 285 mOsm/kg (285-295) 10/23/22 04:06 Uric Acid 6.8 mg/dL (2.4-5.7) H 10/23/22 04:06 Calcium 8.7 mg/dL (8.5-10.5) 10/23/22 04:06 Magnesium 1.9 mg/dL (1.7-2.3) 10/23/22 04:06 Total Bilirubin 0.7 mg/dL (0.15-1.2) 10/23/22 04:06 AST 42 U/L (0-32) H 10/23/22 04:06 ALT 18 U/L (0-33) 10/23/22 04:06 Alkaline Phosphatase 72 U/L (35-105) 10/23/22 04:06 Troponin T Baseline 5190 ng/L (0-10) H* 10/20/22 18:44 Troponin T 120 Minute 4670 ng/L (0-10) H 10/20/22 21:09 Delta Troponin T -520 ABS# (0-10) L 10/20/22 21:09 Troponin T Hi Sens 6Hr 3407 ng/L (0-10) H 10/21/22 02:29 Troponin T Hi Sens 6Hr Delta -1783 ng/L (0-12) L 10/21/22 02:29 NT-Pro-B Natriuret Pep 6210 pg/mL (0-450) H 10/20/22 18:32 Total Protein 7.0 g/dL (6.6-8.7) 10/23/22 04:06 Albumin 2.8 g/dL (3.5-5.2) L 10/23/22 04:06 Globulin 4.2 g/dL (1.3-4.6) 10/23/22 04:06 A&P Assessment and plan (1) Atrial fibrillation by electrocardiogram: May continue on the amiodarone and Eliquis. Monitoring on telemetry. (2) Non-ST elevation [place] (NSTEMI): Patient is suggesting Takotsubo syndrome. In view of the cardiomyopathy, I may start her on losartan, as a bridge to worse Entresto. We will discontinue the lisinopril. (3) Hyperlipidemia: Continue on the current medications (4) Accelerated hypertension: Continue on the current medications. (5) Acute pulmonary edema: Patient responded appropriately to the IV Lasix. May continue on the as needed Lasix. (6) Venous stasis ulcer: The patient is being followed at the wound care clinic. The ulcer seems to be healing. Plan Physical therapy for ambulation. Patient apparently has significant left knee pain from arthritis. If he continues to remain stable, may be discharged home tomorrow Amiodarone 400 mg twice daily for 10 days Followed by 400 mg daily for 10 days followed by 200 mg daily Attestations Medical Necessity Statement*: Possible discharge home tomorrow Coding Level of Care Code 86260 Diagnoses Atrial fibrillation by electrocardiogram I48.91 Non-ST elevation [place] (NSTEMI) I21.4 Hyperlipidemia E78.5 Accelerated hypertension I10 Acute pulmonary edema J81.0 Venous stasis ulcer I83.009; L97.909
--- NOTE | 2022-10-23 12:00 | PC.NURSE ---
Arrived to floor via wc. Daughter at bedside. Pt requries 1 to 2 assist. Uses BSC. Alert and oriented. Able to make needs known. Call light in reach.
[2022-10-23 13:07] LABS: Troponin T (5th) Once 3032 ng/L (0-10)
--- NOTE | 2022-10-23 13:16 | PC.NURSE ---
Critical troponin of 3032. Dr Elias notified. No new orders at this time.
--- NOTE | 2022-10-23 14:01 | PM.PN ---
Subjective Subjective: No acute events overnight. Seen sitting in the recliner today with with family at bedside. Patient complaining of bilateral knee pains. States it is usually difficult for her to get up from sitting position but sometimes more difficult right now. Denies any difficulty in breathing or chest pain along with nausea or vomiting today. Vitals/I&O/Wt Last Vital Signs Temp 97.8 F 10/23/22 08:00 Pulse 68 10/23/22 13:00 Resp 22 H 10/23/22 13:00 BP 132/74 10/23/22 13:00 Pulse Ox 93 10/23/22 13:00 O2 Del Method 10/23/22 07:53 O2 Flow Rate 2 10/23/22 07:53 10/22/22 10/23/22 10/23/22 22:59 06:59 14:59 Intake Total 292 / 1884.5 120 / 120 Balance 292 / 1884.5 120 / 120 Weight last 48 hrs Weight 115.212 kg Physical Exam Narrative: General: No acute distress, AO x3 HEENT: PERRLA, pupils bilaterally equal and reactive, pallors not present Chest: Normal vesicular breath sounds, no added sounds, equal good air entry bilaterally CVS: S1-S2 regular, no murmurs, no tachycardia, no gallops, no rubs Abdomen: Soft, nontender, no organomegaly, bowel sounds present Neuro: No focal deficits, no facial deformity, AO x3, power 5/5 in all limbs Extremities: No edema clubbing or cyanosis Data 10/22/22 09:46 10/23/22 04:06 A&P Assessment and plan (1) Non-ST elevation [place] (NSTEMI): Patient underwent cardiac angiogram on 10/21. Found to have mild to moderate diffuse disease of LAD and nondominant RCA with EF of 45% with concerns of possible Takotsubo. Plan for medical management as per cardiology. Appreciate recommendation. Continue with aspirin, statin, beta-cathryn. Heart rates running on the lower side today after amiodarone. We will decrease the dose of atenolol to 50 mg daily. Echocardiogram done shows an EF of 56% with grade 1 diastolic dysfunction, PASP of 34 mmHg with mild aortic valve stenosis. (2) Accelerated hypertension: Goal blood pressure less than 140/90 mmHg. Blood pressure is better controlled. Continue with atenolol 50 mg daily, amlodipine 10 mg daily. We will hold off on lisinopril for now given ENOCH. Patient already received lisinopril 20 mg today. [facility] (3) Atrial fibrillation by electrocardiogram: New diagnosis. Paroxysmal A-fib. Continue with amiodarone 400 mg twice daily. Monitor heart rate while being on medication. Can plan to start on anticoagulation with Eliquis today. 5 mg twice daily. (4) ENOCH (acute kidney injury): Creatinine up to 1.4 today. Most likely in setting of mild dehydration along with possible MARY given recent cardiac angiogram. Start on gentle IV hydration while monitoring for fluid overload at 50 cc/h for 1 bag. Monitor BMP daily. Strict input output charting. Plan Knee pain: Most likely in setting of osteoarthritis. Given acute illness for now is check uric acid. Tramadol 50 mg twice daily along with morphine as needed. Out of bed to chair. Full code. Cardiac diet. Eliquis for anticoagulation will suffice as DVT prophylaxis Protonix for PUD prophylaxis. Can transfer out of ICU to CSU. Discharge plan: Home with caregiver within next 24 hours if patient remains hemodynamically stable. PT evaluation. Possible home with home health. This documentation was created by [employer] extrusion line operator software. Every effort was made to ensure accuracy of extrusion line operator. Any obvious errors or omissions should be clarified with the author of the document. Attestations Medical Necessity Statement*: Requires further hospitalization for management of acute kidney injury in a patient with recent cardiac angiogram for Takotsubo, new atrial fibrillation while safe discharge planning to [facility]. Diagnoses Non-ST elevation [place] (NSTEMI) I21.4 Accelerated hypertension I10 Atrial fibrillation by electrocardiogram I48.91 ENOCH (acute kidney injury) N17.9
[2022-10-23] MEDS: apixaban 5 mg Tablet PO ×2 (15:51→19:46)
[2022-10-23 15:57] LABS: Basophils % 0.2 %; Eosinophils % 0.2 %; Hematocrit 32.2 % (37.0-47.0); Hemoglobin 10.3 g/dL (11.5-15.3); Lymphocytes # 1.1 10^3/uL (0.8-4.8); Lymphocytes % 9.9 %; Mean Corpuscular Hemoglobin 31.5 pg (28.0-34.0); Mean Corpuscular Volume 98.5 fl (81-99); Mean Platelet Volume 11.2 fL (7.4-10.4); Monocytes # 1.8 10^3/uL (0.2-0.9); Monocytes % 15.9 %; Neutrophils % 73.4 %; Nucleated Red Blood Cells % 0 %; Platelet Count 239 10^3/cmm (130-400); Red Blood Count 3.27 10^6/uL (4.1-5.3); Red Cell Distribution Width 13.2 % (12.1-15.1); White Blood Count 11.3 10^3/uL (4.0-10.0)
[2022-10-23] MEDS: temazepam 15 mg Capsule PO (19:46)
[2022-10-23] MEDS: acetaminophen 325 mg Tablet 650 MG PO (19:48)
[2022-10-24] VITALS (13 sets, daily range): BP systolic 106–119; BP diastolic 56–70; PULSE 59–77; RESP 15–21; TEMP 36.5–38; O2SAT 91–98
[2022-10-24] MEDS: piperacillin-tazobactam 3.375 GM in sodium chloride 0.9% (plus) 50 ML IV ×3 (00:45→18:15)
[2022-10-24 01:55] LABS: Alanine Aminotransferase 13 U/L (0-33); Albumin Level 2.7 g/dL (3.5-5.2); Alkaline Phosphatase 73 U/L (35-105); Anion Gap 12.4 (5-19); Aspartate Amino Transferase 26 U/L (0-32); Blood Urea Nitrogen 45 mg/dL (8-23); Calcium 8.3 mg/dL (8.5-10.5); Carbon Dioxide 26 mmol/L (22-29); Chloride 96 mmol/L (98-107); Globulin 3.7 g/dL (1.3-4.6); Glucose 101 mg/dL (65-115); Osmolality Calculated 284 mOsm/kg (285-295); Potassium 3.4 mmol/L (3.5-5.1); Sodium 131 mmol/L (136-145); Total Bilirubin 0.4 mg/dL (0.15-1.2); Total Protein 6.4 g/dL (6.6-8.7)
[2022-10-24 04:28] LABS: Adenovirus Not Detected (NOT DETECT); Chlamydia Pneumoniae Not Detected (NOT DETECT); Coronavirus 229E,HKU1,NL63,OC4 Not Detected (NOT DETECT); Human Metapneumovirus Not Detected (NOT DETECT); Human Rhinovirus/Enterovirus Detected (NOT DETECT); Influenza A Not Detected (NOT DETECT); Influenza A H1 Not Detected (NOT DETECT); Influenza A H1-2009 Not Detected (NOT DETECT); Influenza A H3 Not Detected (NOT DETECT); Influenza B Not Detected (NOT DETECT); Mycoplasma Pneumoniae Not Detected (NOT DETECT); Parainfluenza Virus Type 1 Not Detected (NOT DETECT); Parainfluenza Virus Type 2 Not Detected (NOT DETECT); Parainfluenza Virus Type 3 Not Detected (NOT DETECT); Parainfluenza Virus Type 4 Not Detected (NOT DETECT); Respiratory Syncytial Virus A Not Detected (NOT DETECT); Respiratory Syncytial Virus B Not Detected (NOT DETECT); SARS-COV-2 Not Detected (NOT DETECT)
[2022-10-24 05:00] LABS: Add Urine Microscopic? YES; Bilirubin Urine Neg (Negative); Blood Urine 2+ (Negative); Glucose Urine UA Norm (Normal); Ketones Urine Negative (Negative); Leukocyte Esterase Urine 1+ (Negative); Nitrate Urine Negative (Negative); Protein Urine Neg (Negative); Urine Appearance SL Hazy (CLEAR); Urine Color Yellow (Yellow); Urobilinogen Urine Neg (Negative); pH Urine 5 (5-7)
[2022-10-24 05:01] LABS: Bacteria Urine 3+ /hpf; Mucus Urine 1+ /hpf; RBC Urine 80-100 /hpf (0-2); WBC Urine 55-80 /hpf (0-5)
[2022-10-24 05:02] LABS: Add Urine Culture? Yes
[2022-10-24] MEDS: pantoprazole DR 40 mg Tablet PO (09:08)
[2022-10-24] MEDS: clopidogrel 75 mg Tablet PO (09:08)
[2022-10-24] MEDS: aspirin 81 mg EC Tablet PO (09:08)
[2022-10-24] MEDS: apixaban 5 mg Tablet PO ×2 (09:09→21:16)
[2022-10-24] MEDS: levothyroxine 50 mcg Tablet PO (09:09)
[2022-10-24] MEDS: atorvastatin 40 mg Tablet 80 MG PO (09:09)
[2022-10-24] MEDS: amlodipine 10 mg Tablet PO (09:09)
[2022-10-24] MEDS: atenolol 50 mg Tablet PO (09:10)
[2022-10-24] MEDS: amiodarone 200 mg Tablet 400 MG PO ×2 (09:11→18:16)
[2022-10-24] MEDS: TRAMadol 50 mg Tablet PO ×2 (09:11→18:15)
[2022-10-24] MEDS: potassium chloride ER 20 mEq Tablet 40 MEQ PO (11:20)
--- NOTE | 2022-10-24 12:48 | P.PN_ITS ---
Subjective Subjective: Patient is feeling better. Telemetry shows sinus rhythm with frequent PACs. Denies any chest pain. No shortness of breath. She is ambulating on telemetry. Medications: Medication Review Details: Current Medications Acetaminophen (Acetaminophen 325 Mg Tablet) 650 mg PO Q6H PRN PRN Reason: Mild/Mod Pain Or Temp >/= 101 Last Admin: 10/23/22 19:48 Dose: 650 mg Al Hydrox/Mg Hydrox/Simethicone (Lpsb-Ryt-Cuyqnyjbd-Christopher 30 Ml Udc) 30 ml PO Q15M PRN PRN Reason: INDIGESTION Amiodarone HCl (Amiodarone 200 Mg Tablet) 400 mg PO BID [facility] Last Admin: 10/24/22 09:11 Dose: 400 mg Amlodipine Besylate (Amlodipine 10 Mg Tablet) 10 mg PO DAILY [facility] Last Admin: 10/24/22 09:09 Dose: 10 mg Apixaban (Apixaban 5 Mg Tablet) 5 mg PO BID@0900,2100 [facility] Last Admin: 10/24/22 09:09 Dose: 5 mg Aspirin (Aspirin 81 Mg Ec Tablet) 81 mg PO DAILY [facility] Last Admin: 10/24/22 09:08 Dose: 81 mg Atenolol (Atenolol 50 Mg Tablet) 50 mg PO DAILY [facility] Last Admin: 10/24/22 09:10 Dose: 50 mg Atorvastatin Calcium (Atorvastatin 40 Mg Tablet) 80 mg PO DAILY [facility] Last Admin: 10/24/22 09:09 Dose: 80 mg Clopidogrel Bisulfate (Clopidogrel 75 Mg Tablet) 75 mg PO DAILY [facility] Last Admin: 10/24/22 09:08 Dose: 75 mg Hydralazine HCl (Hydralazine 20 Mg/Ml Inj 1 Ml) 10 mg IVP Q4H PRN PRN Reason: SBP > 170 Last Admin: 10/21/22 10:05 Dose: 10 mg Piperacillin Sod/Tazobactam (Sod 3.375 gm/ Sodium Chloride) 50 mls @ 12.5 mls/hr IV Q8H [facility]; Protocol Last Admin: 10/24/22 09:07 Dose: 12.5 mls/hr Levothyroxine Sodium (Levothyroxine 50 Mcg Tablet) 50 mcg PO DAILY [facility] Last Admin: 10/24/22 09:09 Dose: 50 mcg Lisinopril (Lisinopril 20 Mg Tablet) 20 mg PO DAILY [facility] Last Admin: 10/23/22 09:17 Dose: 20 mg Magnesium Hydroxide (Magnesium Hydroxide 30 Ml Udc) 30 ml PO DAILY PRN PRN Reason: CONSTIPATION Morphine Sulfate (Morphine 4 Mg/Ml Sdv 1 Ml) 2 mg IVP Q4H PRN PRN Reason: SEVERE PAIN Last Admin: 10/22/22 20:19 Dose: 2 mg Naloxone HCl (Naloxone 0.4 Mg/Ml Sdv) 0.1 mg IVP Q2M PRN PRN Reason: OPIATERV Nitroglycerin (Nitroglycerin 0.4 Mg Sublingual Tablet) 0.4 mg SUBLINGUAL Q5M PRN PRN Reason: CHEST PAIN Ondansetron HCl (Ondansetron 2 Mg/Ml Sdv 2 Ml) 4 mg IVP Q8H PRN PRN Reason: vomiting, or N/V if npo Last Admin: 10/22/22 12:16 Dose: 4 mg Pantoprazole Sodium (Pantoprazole Dr 40 Mg Tablet) 40 mg PO DAILY [facility] Last Admin: 10/24/22 09:08 Dose: 40 mg Temazepam (Temazepam 15 Mg Capsule) 15 mg PO BEDTIME PRN PRN Reason: INSOMNIA Last Admin: 10/23/22 19:46 Dose: 15 mg Tramadol HCl (Tramadol 50 Mg Tablet) 50 mg PO BID [facility] Last Admin: 10/24/22 09:11 Dose: 50 mg Vitals/I&O/Wt Last Vital Signs Temp 98.2 F 10/24/22 11:24 Pulse 76 10/24/22 11:24 Resp 18 10/24/22 11:24 BP 111/63 10/24/22 11:24 Pulse Ox 93 10/24/22 11:24 O2 Del Method 10/24/22 11:24 O2 Flow Rate 1 10/24/22 08:00 10/23/22 10/24/22 10/24/22 21:59 06:59 14:59 Intake Total 240 / 240 Output Total Balance 240 / 240 Weight last 48 hrs Weight 211 lb 4.8 oz Weight 210 lb 14.4 oz Physical Exam Narrative: GENERAL: The patient is alert and oriented times three. Not in any acute distress. HEENT: No significant pallor, icterus or lymphadenopathy.Oral cavity: There are no mucous membrane lesions. NECK: Trachea appears to be central. No masses noted. No JVD or thyromegaly appreciated. RESPIRATORY: Chest is symmetrical. No intercostals muscle retraction or any accessory muscle activation. There is no chest wall tenderness. Breath sounds are heard bilaterally. No rales or rhonchi heard. No evidence of any consolidation. BREASTS: Deferred. HEART: The heart sounds are normal. No S3 or S4. No significant murmurs. No pericardial rub ABDOMEN: No vessel pulsations or distention. No tenderness. No organomegaly appreciated. Bowel sounds are normally heard. : Deferred. RECTAL: Deferred. LYMPHATIC: No lymphadenopathy noted in the neck. EXTREMITIES: 1+ edema of the both lower extremities. MUSCULOSKELETAL: No acute joint deformities or swelling SKIN: There are no significant rashes or ecchymosis NEUROPSYCHIATRIC: The patient is alert and oriented x3. Appears to be in a good mood. No tremors or rigidity noted. Data 10/23/22 15:31 10/24/22 00:45 Other Labs: Laboratory Last Values WBC 11.3 10^3/uL (4.0-10.0) H 10/23/22 15:31 Corrected WBC Cancelled 10/23/22 04:06 RBC 3.27 10^6/uL (4.1-5.3) L 10/23/22 15:31 Hgb 10.3 g/dL (11.5-15.3) L 10/23/22 15:31 Hct 32.2 % (37.0-47.0) L 10/23/22 15:31 MCV 98.5 fl (81-99) 10/23/22 15:31 MCH 31.5 pg (28.0-34.0) 10/23/22 15:31 MCHC 32.0 g/dL (30.0-36.0) 10/23/22 15:31 RDW 13.2 % (12.1-15.1) 10/23/22 15:31 Plt Count 239 10^3/cmm (130-400) 10/23/22 15:31 MPV 11.2 fL (7.4-10.4) H 10/23/22 15:31 Gran % Cancelled 10/23/22 04:06 Neut % (Auto) 73.4 % 10/23/22 15:31 Lymph % (Auto) 9.9 % 10/23/22 15:31 [place] % (Auto) 15.9 % 10/23/22 15:31 Eos % (Auto) 0.2 % 10/23/22 15:31 Baso % (Auto) 0.2 % 10/23/22 15:31 Neut # (Auto) 8.30 10^3/uL (1.8-7.7) H 10/23/22 15:31 Lymph # (Auto) 1.1 10^3/uL (0.8-4.8) 10/23/22 15:31 [place] # (Auto) 1.8 10^3/uL (0.2-0.9) H 10/23/22 15:31 Eos # (Auto) 0.0 10^3/uL (0.0-0.8) 10/23/22 15:31 Baso # (Auto) 0.0 10^3/uL (0.0-0.1) 10/23/22 15:31 Absolute Gran (auto) Cancelled 10/23/22 04:06 Nucleated RBC % (auto) 0 % 10/23/22 15:31 Nucleated RBCs # 0.0 /100WBC 10/23/22 15:31 PT 13.60 SECONDS (12.1-14.9) 10/20/22 18:44 INR 1.01 (0.8-1.2) 10/20/22 18:44 Sodium 131 mmol/L (136-145) L 10/24/22 00:45 Potassium 3.4 mmol/L (3.5-5.1) L 10/24/22 00:45 Chloride 96 mmol/L (98-107) L 10/24/22 00:45 Carbon Dioxide 26 mmol/L (22-29) 10/24/22 00:45 Anion Gap 12.4 (5-19) 10/24/22 00:45 BUN 45 mg/dL (8-23) H 10/24/22 00:45 Creatinine 1.5 mg/dL (0.5-0.9) H 10/24/22 00:45 GFR Calculation Not Reportable 10/24/22 00:45 Glucose 101 mg/dL (65-115) 10/24/22 00:45 Estimat Average Glucose 117 10/21/22 05:09 Hemoglobin A1c 5.7 % (4.0-6.0) 10/21/22 05:09 Calculated Osmolality 284 mOsm/kg (285-295) L 10/24/22 00:45 Uric Acid 6.8 mg/dL (2.4-5.7) H 10/23/22 04:06 Calcium 8.3 mg/dL (8.5-10.5) L 10/24/22 00:45 Magnesium 1.9 mg/dL (1.7-2.3) 10/23/22 04:06 Total Bilirubin 0.4 mg/dL (0.15-1.2) 10/24/22 00:45 AST 26 U/L (0-32) 10/24/22 00:45 ALT 13 U/L (0-33) 10/24/22 00:45 Alkaline Phosphatase 73 U/L (35-105) 10/24/22 00:45 Troponin T Gen 5 ng/L 3032 ng/L (0-10) H* 10/23/22 04:06 Troponin T Baseline 5190 ng/L (0-10) H* 10/20/22 18:44 Troponin T 120 Minute 4670 ng/L (0-10) H 10/20/22 21:09 Delta Troponin T -520 ABS# (0-10) L 10/20/22 21:09 Troponin T Hi Sens 6Hr 3407 ng/L (0-10) H 10/21/22 02:29 Troponin T Hi Sens 6Hr Delta -1783 ng/L (0-12) L 10/21/22 02:29 NT-Pro-B Natriuret Pep 6210 pg/mL (0-450) H 10/20/22 18:32 Total Protein 6.4 g/dL (6.6-8.7) L 10/24/22 00:45 Albumin 2.7 g/dL (3.5-5.2) L 10/24/22 00:45 Globulin 3.7 g/dL (1.3-4.6) 10/24/22 00:45 Urine Color Yellow (Yellow) 10/24/22 04:42 Urine Appearance Sl hazy (CLEAR) A 10/24/22 04:42 Urine pH 5 (5-7) 10/24/22 04:42 Ur Specific [place] 1.020 (1.005-1.030) 10/24/22 04:42 Urine Protein Neg (Negative) 10/24/22 04:42 Urine Glucose (UA) Norm (Normal) 10/24/22 04:42 Urine Ketones Negative (Negative) 10/24/22 04:42 Urine Blood 2+ (Negative) H 10/24/22 04:42 Urine Nitrate Negative (Negative) 10/24/22 04:42 Urine Bilirubin Neg (Negative) 10/24/22 04:42 Urine Urobilinogen Neg mg/dL (Negative) 10/24/22 04:42 Ur Leukocyte Esterase 1+ (Negative) H 10/24/22 04:42 Urine RBC 80-100 /hpf (0-2) H 10/24/22 04:42 Urine WBC 55-80 /hpf (0-5) H 10/24/22 04:42 Ur Squamous Epith Cells 5-10 /hpf (0-5) H 10/24/22 04:42 Amorphous Sediment Not Reportable 10/24/22 04:42 Urine Bacteria 3+ /hpf (NONE) H 10/24/22 04:42 Urine Mucus 1+ /hpf 10/24/22 04:42 Nasal Influ A H1 2009 PCR Not detected (NOT DETECT) 10/24/22 00:24 Adenovirus (PCR) Not detected (NOT DETECT) 10/24/22 00:24 C. pneumoniae DNA (PCR) Not detected (NOT DETECT) 10/24/22 00:24 Coronavirus 229E (PCR) Not detected (NOT DETECT) 10/24/22 00:24 Human Metapneumovir PCR Not detected (NOT DETECT) 10/24/22 00:24 Influenza A (H1) PCR Not detected (NOT DETECT) 10/24/22 00:24 Influenza A (H3) PCR Not detected (NOT DETECT) 10/24/22 00:24 Influenza Type A (PCR) Not detected (NOT DETECT) 10/24/22 00:24 Influenza Type B (PCR) Not detected (NOT DETECT) 10/24/22 00:24 M. pneumoniae (PCR) Not detected (NOT DETECT) 10/24/22 00:24 Parainfluenza 1 (PCR) Not detected (NOT DETECT) 10/24/22 00:24 Parainfluenza 2 (PCR) Not detected (NOT DETECT) 10/24/22 00:24 Parainfluenza 3 (PCR) Not detected (NOT DETECT) 10/24/22 00:24 Parainfluenza 4 (PCR) Not detected (NOT DETECT) 10/24/22 00:24 RSV Type A (PCR) Not detected (NOT DETECT) 10/24/22 00:24 RSV Type B (PCR) Not detected (NOT DETECT) 10/24/22 00:24 Entero/Rhino (PCR) Detected (NOT DETECT) A 10/24/22 00:24 SARS-CoV-2 (PCR) Not detected (NOT DETECT) 10/24/22 00:24 Micro: Microbiology 10/24/22 00:48 Blood Culture - Preliminary Blood SPECIMEN COLLECTED 10/24/22 00:45 Blood Culture - Preliminary Blood SPECIMEN COLLECTED A&P Assessment and plan (1) Atrial fibrillation by electrocardiogram: May continue on the amiodarone and Eliquis. Patient is currently in sinus rhythm with frequent PACs. We will continue on the current medications. (2) Non-ST elevation [place] (NSTEMI): Patient is suggesting Takotsubo syndrome. In view of the cardiomyopathy, I may start her on losartan, as a bridge to worse Entresto. May continue on the current medications. (3) Hyperlipidemia: Continue on the current medications (4) Accelerated hypertension: Currently the blood pressure is in the normal range. (5) Acute pulmonary edema: The heart failure seems to be compensated. Her BUN/creatinine is going up. Lasix is on hold at this point. (6) Venous stasis ulcer: The patient is being followed at the wound care clinic. The ulcer seems to be healing. Plan Continue on the current medications. If she continues to remain stable, may be discharged home tomorrow. BMP in the morning Attestations Medical Necessity Statement*: Disposition as per the primary Coding Level of Care Code 72921 Diagnoses Atrial fibrillation by electrocardiogram I48.91 Non-ST elevation [place] (NSTEMI) I21.4 Hyperlipidemia E78.5 Accelerated hypertension I10 Acute pulmonary edema J81.0 Venous stasis ulcer I83.009; L97.909
--- NOTE | 2022-10-24 14:15 | PM.PN ---
Subjective Subjective: Today morning patient seen in CSU with family at bedside. Patient is awake and alert laying comfortably in bed. On room air. Has remained hemodynamically stable. Did have 1 episode of fever going up to 101.3 Fahrenheit overnight. Patient complaining of occasional cough but denies any dysuria. Vitals/I&O/Wt Last Vital Signs Temp 98.2 F 10/24/22 11:24 Pulse 69 10/24/22 12:54 Resp 16 10/24/22 12:54 BP 111/63 10/24/22 11:24 Pulse Ox 94 10/24/22 12:54 O2 Del Method 10/24/22 12:54 O2 Flow Rate 1 10/24/22 08:00 10/23/22 10/24/22 10/24/22 21:59 06:59 14:59 Intake Total 240 / 240 Output Total Balance 240 / 240 Weight last 48 hrs Weight 95.844 kg Weight 95.663 kg Physical Exam Narrative: General: No acute distress, AO x3 HEENT: PERRLA, pupils bilaterally equal and reactive, pallors not present Chest: Normal vesicular breath sounds, no added sounds, equal good air entry bilaterally CVS: S1-S2 regular, no murmurs, no tachycardia, no gallops, no rubs Abdomen: Soft, nontender, no organomegaly, bowel sounds present Neuro: No focal deficits, no facial deformity, AO x3, power 5/5 in all limbs Extremities: No edema clubbing or cyanosis Data 10/23/22 15:31 10/24/22 00:45 Micro: Microbiology 10/24/22 00:24 MRSA Culture - Final Nose 10/24/22 00:48 Blood Culture - Preliminary Blood SPECIMEN COLLECTED 10/24/22 00:45 Blood Culture - Preliminary Blood SPECIMEN COLLECTED A&P Assessment and plan (1) Non-ST elevation [place] (NSTEMI): Patient underwent cardiac angiogram on 10/21. Found to have mild to moderate diffuse disease of LAD and nondominant RCA with EF of 45% with concerns of possible Takotsubo. Plan for medical management as per cardiology. Appreciate recommendation. Continue with aspirin, statin, atenolol at 50 mg daily. Echocardiogram done shows an EF of 56% with grade 1 diastolic dysfunction, PASP of 34 mmHg with mild aortic valve stenosis. (2) Accelerated hypertension: Goal blood pressure less than 140/90 mmHg. Blood pressure well controlled. Continue with amlodipine 10 mg daily, atenolol 50 mg daily. Lisinopril withheld right now given acute kidney injury. Patient already received lisinopril 20 mg today. Possibilities of transitioning over to Entresto as an outpatient. (3) Atrial fibrillation by electrocardiogram: New diagnosis. Paroxysmal A-fib. Continue with amiodarone 400 mg twice daily. Monitor heart rate while being on medication. Plan will be to continue amiodarone 40 mg twice daily for 7 days followed by 200 mg twice daily which will be tapered down to 20 mg daily in a week subsequently. Continue with Eliquis 5 mg twice daily. (4) ENOCH (acute kidney injury): Creatinine slightly worsening to 1.5 today. Most likely in setting of mild dehydration along with possible MARY given recent cardiac angiogram. As creatinine slightly worsened today we will check urine lites, urine creatinine and eosinophils. Renal ultrasound. Continue with gentle IV hydration while monitoring for fluid overload at 50 cc/h for 1 bag. Monitor BMP daily. Strict input output charting. (5) Fever: (6) Rhinovirus infection: Plan Fever: Blood cultures sent. Most likely in setting of enteroviral infection. UA dirty as well. Chest x-ray negative for any acute abnormality. For now continue with empiric Zosyn. We will follow-up urine cultures and de-escalate or stop antibiotics accordingly. Knee pain: Most likely in setting of osteoarthritis. Continue with physical therapy. Tramadol 50 mg twice daily along with morphine as needed. Out of bed to chair. Full code. Cardiac diet. Eliquis for anticoagulation will suffice as DVT prophylaxis Protonix for PUD prophylaxis. Can transfer out of ICU to CSU. Discharge plan: Home with caregiver within next 24 hours creatinine starts trending down and patient remains afebrile for 24 hours. This documentation was created by [employer] software. Every effort was made to ensure accuracy of [employer]. Any obvious errors or omissions should be clarified with the author of the document. Attestations Medical Necessity Statement*: Requires further hospitalization for management of acute kidney injury in setting of recent cardiac angiogram for non-ST elevation DE, fever under evaluation Diagnoses Non-ST elevation DE (NSTEMI) I21.4 Accelerated hypertension I10 Atrial fibrillation by electrocardiogram I48.91 ENOCH (acute kidney injury) N17.9 Fever R50.9 Rhinovirus infection B34.8
--- NOTE | 2022-10-24 14:18 | USR_ITS ---
PROCEDURE INFORMATION: Exam: US Retroperitoneal; Complete; Kidneys and Bladder Exam date and time: 10/24/2022 8:40 PM Age: 81 years old Clinical indication: Abnormal findings; Abnormal lab test; Abnormal kidney function lab tests; Additional info: [place] TECHNIQUE: Imaging protocol: Real-time ultrasound of the retroperitoneum with image documentation. Complete exam focused on the kidneys and bladder. COMPARISON: CT abdomen wo/w con [id number] 10/30/2018 1:52 PM FINDINGS: Right kidney: Right kidney 2 cm cyst, negative for follow-up advised. Left kidney: Normal. No stones. No hydronephrosis. Urinary bladder: Unremarkable. US/US renal BI* [id number] IMPRESSION: 1. Right kidney 2 cm cyst, negative for follow-up advised. 2. Negative for hydronephrosis or renal calculus.
[2022-10-24] MEDS: temazepam 15 mg Capsule PO (21:16)
[2022-10-24] MEDS: morphine 4 mg/mL SDV 1 mL 2 MG IVP (22:46)
[2022-10-25] VITALS (17 sets, daily range): BP systolic 113–141; BP diastolic 67–78; PULSE 66–77; RESP 18–26; TEMP 36.7–37.3; O2SAT 91–96
[2022-10-25] MEDS: piperacillin-tazobactam 3.375 GM in sodium chloride 0.9% (plus) 50 ML IV ×3 (00:03→17:21)
[2022-10-25] MEDS: morphine 4 mg/mL SDV 1 mL 2 MG IVP ×2 (04:00→21:11)
[2022-10-25 04:20] LABS: Basophils % 0.2 %; Eosinophils # 0.1 10^3/uL (0.0-0.8); Eosinophils % 1.7 %; Hematocrit 29.9 % (37.0-47.0); Hemoglobin 9.4 g/dL (11.5-15.3); Lymphocytes % 11.5 %; Mean Corpuscular HGB Conc 31.4 g/dL (30.0-36.0); Mean Corpuscular Volume 98.7 fl (81-99); Mean Platelet Volume 11.8 fL (7.4-10.4); Monocytes # 1.1 10^3/uL (0.2-0.9); Monocytes % 12.8 %; Neutrophils # 6.14 10^3/uL (1.8-7.7); Neutrophils % 73.4 %; Nucleated Red Blood Cells % 0 %; Platelet Count 223 10^3/cmm (130-400); Red Blood Count 3.03 10^6/uL (4.1-5.3); Red Cell Distribution Width 13.1 % (12.1-15.1); White Blood Count 8.4 10^3/uL (4.0-10.0)
[2022-10-25 04:39] LABS: Alanine Aminotransferase 14 U/L (0-33); Albumin Level 2.6 g/dL (3.5-5.2); Alkaline Phosphatase 81 U/L (35-105); Anion Gap 12.8 (5-19); Aspartate Amino Transferase 24 U/L (0-32); Blood Urea Nitrogen 37 mg/dL (8-23); Calcium 8.2 mg/dL (8.5-10.5); Carbon Dioxide 25 mmol/L (22-29); Chloride 99 mmol/L (98-107); Globulin 3.9 g/dL (1.3-4.6); Glucose 95 mg/dL (65-115); Osmolality Calculated 284 mOsm/kg (285-295); Potassium 3.8 mmol/L (3.5-5.1); Sodium 133 mmol/L (136-145); Total Bilirubin 0.4 mg/dL (0.15-1.2); Total Protein 6.5 g/dL (6.6-8.7)
[2022-10-25] MEDS: amiodarone 200 mg Tablet 400 MG PO ×2 (08:27→17:22)
[2022-10-25] MEDS: TRAMadol 50 mg Tablet PO ×2 (08:27→17:22)
[2022-10-25] MEDS: pantoprazole DR 40 mg Tablet PO (08:27)
[2022-10-25] MEDS: atorvastatin 40 mg Tablet 80 MG PO (08:27)
[2022-10-25] MEDS: levothyroxine 50 mcg Tablet PO (08:27)
[2022-10-25] MEDS: atenolol 50 mg Tablet PO (08:27)
[2022-10-25] MEDS: clopidogrel 75 mg Tablet PO (08:27)
[2022-10-25] MEDS: aspirin 81 mg EC Tablet PO (08:27)
[2022-10-25] MEDS: amlodipine 10 mg Tablet PO (08:27)
--- NOTE | 2022-10-25 08:30 | PM.PN ---
Subjective Subjective: Patient is having a cough but no fever. She is bringing out a lot of sputum. No chest pain. No unusual shortness of breath. Medications: Medication Review Details: Current Medications Acetaminophen (Acetaminophen 325 Mg Tablet) 650 mg PO Q6H PRN PRN Reason: Mild/Mod Pain Or Temp >/= 101 Last Admin: 10/23/22 19:48 Dose: 650 mg Al Hydrox/Mg Hydrox/Simethicone (Jvfy-Jjs-Mrcnuzakv-Christopher 30 Ml Udc) 30 ml PO Q15M PRN PRN Reason: INDIGESTION Amiodarone HCl (Amiodarone 200 Mg Tablet) 400 mg PO BID [facility] Last Admin: 10/25/22 08:27 Dose: 400 mg Amlodipine Besylate (Amlodipine 10 Mg Tablet) 10 mg PO DAILY [facility] Last Admin: 10/25/22 08:27 Dose: 10 mg Apixaban (Apixaban 5 Mg Tablet) 5 mg PO BID@0900,2100 [facility] Last Admin: 10/24/22 21:16 Dose: 5 mg Aspirin (Aspirin 81 Mg Ec Tablet) 81 mg PO DAILY [facility] Last Admin: 10/25/22 08:27 Dose: 81 mg Atenolol (Atenolol 50 Mg Tablet) 50 mg PO DAILY [facility] Last Admin: 10/25/22 08:27 Dose: 50 mg Atorvastatin Calcium (Atorvastatin 40 Mg Tablet) 80 mg PO DAILY [facility] Last Admin: 10/25/22 08:27 Dose: 80 mg Clopidogrel Bisulfate (Clopidogrel 75 Mg Tablet) 75 mg PO DAILY [facility] Last Admin: 10/25/22 08:27 Dose: 75 mg Hydralazine HCl (Hydralazine 20 Mg/Ml Inj 1 Ml) 10 mg IVP Q4H PRN PRN Reason: SBP > 170 Last Admin: 10/21/22 10:05 Dose: 10 mg Piperacillin Sod/Tazobactam (Sod 3.375 gm/ Sodium Chloride) 50 mls @ 12.5 mls/hr IV Q8H [facility]; Protocol Last Admin: 10/25/22 08:28 Dose: 12.5 mls/hr Levothyroxine Sodium (Levothyroxine 50 Mcg Tablet) 50 mcg PO DAILY [facility] Last Admin: 10/25/22 08:27 Dose: 50 mcg Magnesium Hydroxide (Magnesium Hydroxide 30 Ml Udc) 30 ml PO DAILY PRN PRN Reason: CONSTIPATION Morphine Sulfate (Morphine 4 Mg/Ml Sdv 1 Ml) 2 mg IVP Q4H PRN PRN Reason: SEVERE PAIN Last Admin: 10/25/22 04:00 Dose: 2 mg Naloxone HCl (Naloxone 0.4 Mg/Ml Sdv) 0.1 mg IVP Q2M PRN PRN Reason: OPIATERV Nitroglycerin (Nitroglycerin 0.4 Mg Sublingual Tablet) 0.4 mg SUBLINGUAL Q5M PRN PRN Reason: CHEST PAIN Ondansetron HCl (Ondansetron 2 Mg/Ml Sdv 2 Ml) 4 mg IVP Q8H PRN PRN Reason: vomiting, or N/V if npo Last Admin: 10/22/22 12:16 Dose: 4 mg Pantoprazole Sodium (Pantoprazole Dr 40 Mg Tablet) 40 mg PO DAILY [facility] Last Admin: 10/25/22 08:27 Dose: 40 mg Temazepam (Temazepam 15 Mg Capsule) 15 mg PO BEDTIME PRN PRN Reason: INSOMNIA Last Admin: 10/24/22 21:16 Dose: 15 mg Tramadol HCl (Tramadol 50 Mg Tablet) 50 mg PO BID [facility] Last Admin: 10/25/22 08:27 Dose: 50 mg Vitals/I&O/Wt Last Vital Signs Temp 98.7 F 10/25/22 03:39 Pulse 66 10/25/22 07:41 Resp 25 H 10/25/22 07:41 BP 113/71 10/25/22 07:41 Pulse Ox 94 10/25/22 07:41 O2 Del Method 10/25/22 03:39 O2 Flow Rate 1 10/24/22 08:00 10/24/22 10/25/22 10/25/22 22:59 06:59 14:59 Intake Total 410 / 700 50 / 750 Output Total 300 / 300 300 / 600 Balance 110 / 400 -250 / 150 Weight last 48 hrs Weight 210 lb 1.6 oz Weight 211 lb 4.8 oz Weight 210 lb 14.4 oz Physical Exam Narrative: GENERAL: The patient is alert and oriented times three. Not in any acute distress. HEENT: No significant pallor, icterus or lymphadenopathy.Oral cavity: There are no mucous membrane lesions. NECK: Trachea appears to be central. No masses noted. No JVD or thyromegaly appreciated. RESPIRATORY: Scattered coarse crackles and occasional expiratory wheezing BREASTS: Deferred. HEART: The heart sounds are normal. No S3 or S4. No significant murmurs. No pericardial rub ABDOMEN: No vessel pulsations or distention. No tenderness. No organomegaly appreciated. Bowel sounds are normally heard. : Deferred. RECTAL: Deferred. LYMPHATIC: No lymphadenopathy noted in the neck. EXTREMITIES: No edema or cyanosis. No clubbing. MUSCULOSKELETAL: No acute joint deformities or swelling SKIN: There are no significant rashes or ecchymosis NEUROPSYCHIATRIC: The patient is alert and oriented x3. Appears to be in a good mood. No tremors or rigidity noted. Data 10/25/22 03:30 10/25/22 03:30 Other Labs: Laboratory Last Values WBC 8.4 10^3/uL (4.0-10.0) 10/25/22 03:30 Corrected WBC Cancelled 10/23/22 04:06 RBC 3.03 10^6/uL (4.1-5.3) L 10/25/22 03:30 Hgb 9.4 g/dL (11.5-15.3) L 10/25/22 03:30 Hct 29.9 % (37.0-47.0) L 10/25/22 03:30 MCV 98.7 fl (81-99) 10/25/22 03:30 MCH 31.0 pg (28.0-34.0) 10/25/22 03:30 MCHC 31.4 g/dL (30.0-36.0) 10/25/22 03:30 RDW 13.1 % (12.1-15.1) 10/25/22 03:30 Plt Count 223 10^3/cmm (130-400) 10/25/22 03:30 MPV 11.8 fL (7.4-10.4) H 10/25/22 03:30 Gran % Cancelled 10/23/22 04:06 Neut % (Auto) 73.4 % 10/25/22 03:30 Lymph % (Auto) 11.5 % 10/25/22 03:30 Harrison % (Auto) 12.8 % 10/25/22 03:30 Eos % (Auto) 1.7 % 10/25/22 03:30 Baso % (Auto) 0.2 % 10/25/22 03:30 Neut # (Auto) 6.14 10^3/uL (1.8-7.7) 10/25/22 03:30 Lymph # (Auto) 1.0 10^3/uL (0.8-4.8) 10/25/22 03:30 Harrison # (Auto) 1.1 10^3/uL (0.2-0.9) H 10/25/22 03:30 Eos # (Auto) 0.1 10^3/uL (0.0-0.8) 10/25/22 03:30 Baso # (Auto) 0.0 10^3/uL (0.0-0.1) 10/25/22 03:30 Absolute Gran (auto) Cancelled 10/23/22 04:06 Nucleated RBC % (auto) 0 % 10/25/22 03:30 Nucleated RBCs # 0.0 /100WBC 10/25/22 03:30 PT 13.60 SECONDS (12.1-14.9) 10/20/22 18:44 INR 1.01 (0.8-1.2) 10/20/22 18:44 Sodium 133 mmol/L (136-145) L 10/25/22 03:30 Potassium 3.8 mmol/L (3.5-5.1) 10/25/22 03:30 Chloride 99 mmol/L (98-107) 10/25/22 03:30 Carbon Dioxide 25 mmol/L (22-29) 10/25/22 03:30 Anion Gap 12.8 (5-19) 10/25/22 03:30 BUN 37 mg/dL (8-23) H 10/25/22 03:30 Creatinine 1.4 mg/dL (0.5-0.9) H 10/25/22 03:30 GFR Calculation Not Reportable 10/25/22 03:30 Glucose 95 mg/dL (65-115) 10/25/22 03:30 Estimat Average Glucose 117 10/21/22 05:09 Hemoglobin A1c 5.7 % (4.0-6.0) 10/21/22 05:09 Calculated Osmolality 284 mOsm/kg (285-295) L 10/25/22 03:30 Uric Acid 6.8 mg/dL (2.4-5.7) H 10/23/22 04:06 Calcium 8.2 mg/dL (8.5-10.5) L 10/25/22 03:30 Magnesium 1.9 mg/dL (1.7-2.3) 10/23/22 04:06 Total Bilirubin 0.4 mg/dL (0.15-1.2) 10/25/22 03:30 AST 24 U/L (0-32) 10/25/22 03:30 ALT 14 U/L (0-33) 10/25/22 03:30 Alkaline Phosphatase 81 U/L (35-105) 10/25/22 03:30 Troponin T Gen 5 ng/L 3032 ng/L (0-10) H* 10/23/22 04:06 Troponin T Baseline 5190 ng/L (0-10) H* 10/20/22 18:44 Troponin T 120 Minute 4670 ng/L (0-10) H 10/20/22 21:09 Delta Troponin T -520 ABS# (0-10) L 10/20/22 21:09 Troponin T Hi Sens 6Hr 3407 ng/L (0-10) H 10/21/22 02:29 Troponin T Hi Sens 6Hr Delta -1783 ng/L (0-12) L 10/21/22 02:29 NT-Pro-B Natriuret Pep 6210 pg/mL (0-450) H 10/20/22 18:32 Total Protein 6.5 g/dL (6.6-8.7) L 10/25/22 03:30 Albumin 2.6 g/dL (3.5-5.2) L 10/25/22 03:30 Globulin 3.9 g/dL (1.3-4.6) 10/25/22 03:30 Urine Color Yellow (Yellow) 10/24/22 04:42 Urine Appearance Sl hazy (CLEAR) A 10/24/22 04:42 Urine pH 5 (5-7) 10/24/22 04:42 Ur Specific [place] 1.020 (1.005-1.030) 10/24/22 04:42 Urine Protein Neg (Negative) 10/24/22 04:42 Urine Glucose (UA) Norm (Normal) 10/24/22 04:42 Urine Ketones Negative (Negative) 10/24/22 04:42 Urine Blood 2+ (Negative) H 10/24/22 04:42 Urine Nitrate Negative (Negative) 10/24/22 04:42 Urine Bilirubin Neg (Negative) 10/24/22 04:42 Urine Urobilinogen Neg mg/dL (Negative) 10/24/22 04:42 Ur Leukocyte Esterase 1+ (Negative) H 10/24/22 04:42 Urine RBC 80-100 /hpf (0-2) H 10/24/22 04:42 Urine WBC 55-80 /hpf (0-5) H 10/24/22 04:42 Ur Squamous Epith Cells 5-10 /hpf (0-5) H 10/24/22 04:42 Amorphous Sediment Not Reportable 10/24/22 04:42 Urine Bacteria 3+ /hpf (NONE) H 10/24/22 04:42 Urine Mucus 1+ /hpf 10/24/22 04:42 Nasal Influ A H1 2009 PCR Not detected (NOT DETECT) 10/24/22 00:24 Adenovirus (PCR) Not detected (NOT DETECT) 10/24/22 00:24 C. pneumoniae DNA (PCR) Not detected (NOT DETECT) 10/24/22 00:24 Coronavirus 229E (PCR) Not detected (NOT DETECT) 10/24/22 00:24 Human Metapneumovir PCR Not detected (NOT DETECT) 10/24/22 00:24 Influenza A (H1) PCR Not detected (NOT DETECT) 10/24/22 00:24 Influenza A (H3) PCR Not detected (NOT DETECT) 10/24/22 00:24 Influenza Type A (PCR) Not detected (NOT DETECT) 10/24/22 00:24 Influenza Type B (PCR) Not detected (NOT DETECT) 10/24/22 00:24 M. pneumoniae (PCR) Not detected (NOT DETECT) 10/24/22 00:24 Parainfluenza 1 (PCR) Not detected (NOT DETECT) 10/24/22 00:24 Parainfluenza 2 (PCR) Not detected (NOT DETECT) 10/24/22 00:24 Parainfluenza 3 (PCR) Not detected (NOT DETECT) 10/24/22 00:24 Parainfluenza 4 (PCR) Not detected (NOT DETECT) 10/24/22 00:24 RSV Type A (PCR) Not detected (NOT DETECT) 10/24/22 00:24 RSV Type B (PCR) Not detected (NOT DETECT) 10/24/22 00:24 Entero/Rhino (PCR) Detected (NOT DETECT) A 10/24/22 00:24 SARS-CoV-2 (PCR) Not detected (NOT DETECT) 10/24/22 00:24 Micro: Microbiology 10/24/22 00:48 Blood Culture - Preliminary Blood NEGATIVE TO DATE 10/24/22 00:45 Blood Culture - Preliminary Blood NEGATIVE TO DATE 10/24/22 00:24 MRSA Culture - Final Nose A&P Assessment and plan (1) Atrial fibrillation by electrocardiogram: May continue on the amiodarone and Eliquis. Patient is currently in sinus rhythm with frequent PACs. We will continue on the current medications. (2) Non-ST elevation [place] (NSTEMI): The clinical features are suggestive of Takotsubo syndrome. Patient may be started on the losartan 25 mg p.o. daily, if the kidney function is stabilized. (3) Hyperlipidemia: Continue on the current medications (4) Accelerated hypertension: Currently the blood pressure is in the normal range. (5) Acute pulmonary edema: The heart failure seems to be compensated. Her BUN/creatinine is going up. Lasix is on hold at this point. (6) Venous stasis ulcer: The patient is being followed at the wound care clinic. The ulcer seems to be healing. Plan Continue on the current medications. May go home with the amiodarone dose as follows 400 mg p.o. twice daily for 5 days 400 mg daily for 1 week 200 mg daily. Other medications as it is Follow-up in the clinic in 2 weeks with the nurse practitioner. Follow-up appointment with me in a month Attestations Medical Necessity Statement*: Patient requires continued hospital stay for close monitoring and further management Coding Level of Care Code 15050 Diagnoses Atrial fibrillation by electrocardiogram I48.91 Non-ST elevation [place] (NSTEMI) I21.4 Hyperlipidemia E78.5 Accelerated hypertension I10 Acute pulmonary edema J81.0 Venous stasis ulcer I83.009; L97.909
[2022-10-25] MEDS: apixaban 5 mg Tablet PO ×2 (08:31→21:05)
--- NOTE | 2022-10-25 08:53 | PC.SOCIAL ---
IMM update IMM updated with patient and family at bedside. Copy Pg 2 provided. Verbalized an understanding. Initialled, dated, timed, and placed in chart.
--- NOTE | 2022-10-25 11:42 | PM.PN ---
Subjective Subjective: Patient was seen and examined this morning she was complaining of cough. SCR has trended down. Last noted Tmax of 100.4 on 10/24, 4 am, after that she has remained afebrile. Medications: Medication Review Details: Generic Name Dose Route Start Last Admin Trade Name Thompsonq PRN Reason Stop Dose Admin Acetaminophen 650 mg 10/20/22 21:09 10/23/22 19:48 Acetaminophen 32 5 Mg Tablet PO 650 mg Q6H PRN Administration Mild/Mod Pain Or Temp >/= 101 Amiodarone HCl 400 mg 10/22/22 11:50 10/25/22 08:27 Amiodarone 200 M g Tablet PO 400 mg BID RUFUS Administration Amlodipine Besylat e 10 mg 10/23/22 09:00 10/25/22 08:27 Amlodipine 10 Mg Tablet PO 10 mg DAILY RUFUS Administration Apixaban 5 mg 10/23/22 14:15 10/25/22 08:31 Apixaban 5 Mg Ta blet PO 5 mg BID@0900,2100 RUFUS Administration Aspirin 81 mg 10/21/22 09:00 10/25/22 08:27 Aspirin 81 Mg Ec Tablet PO 81 mg DAILY [facility] Administration Atenolol 50 mg 10/23/22 09:50 10/25/22 08:27 Atenolol 50 Mg T ablet PO 50 mg DAILY [facility] Administration Atorvastatin Calci um 80 mg 10/21/22 09:00 10/25/22 08:27 Atorvastatin 40 Mg Tablet PO 80 mg DAILY [facility] Administration Clopidogrel Bisulf ate 75 mg 10/22/22 09:00 10/25/22 08:27 Clopidogrel 75 M g Tablet PO 75 mg DAILY [facility] Administration Hydralazine HCl 10 mg 10/21/22 06:48 10/21/22 10:05 Hydralazine 20 M g/Ml Inj 1 Ml IVP 10 mg Q4H PRN Administration SBP > 170 Piperacillin Sod/T azobactam 50 mls @ 12.5 mls /hr 10/23/22 23:30 10/25/22 08:28 Sod 3.375 gm/ So dium Chloride IV 12.5 mls/hr Q8H RUFUS Administration Protocol Levothyroxine Sodi um 50 mcg 10/21/22 09:00 10/25/22 08:27 Levothyroxine 50 Mcg Tablet PO 50 mcg DAILY [facility] Administration Morphine Sulfate 2 mg 10/20/22 21:09 10/25/22 04:00 Morphine 4 Mg/Ml Sdv 1 Ml IVP 2 mg Q4H PRN Administration SEVERE PAIN Ondansetron HCl 4 mg 10/20/22 21:09 10/22/22 12:16 Ondansetron 2 Mg /Ml Sdv 2 Ml IVP 4 mg Q8H PRN Administration vomiting, or N/V if npo Pantoprazole Sodiu m 40 mg 10/21/22 09:00 10/25/22 08:[address] 40 Mg Tablet PO 40 mg DAILY [facility] Administration Temazepam 15 mg 10/21/22 19:45 10/24/22 21:16 Temazepam 15 Mg Capsule PO 15 mg BEDTIME PRN Administration INSOMNIA Tramadol HCl 50 mg 10/22/22 18:00 10/25/22 08:27 Tramadol 50 Mg T ablet PO 50 mg BID [facility]FUS Administration Vitals/I&O/Wt Last Vital Signs Temp 98.9 F 10/25/22 11:12 Pulse 68 10/25/22 11:12 Resp 18 10/25/22 11:12 BP 134/73 10/25/22 11:12 Pulse Ox 95 10/25/22 11:12 O2 Del Method 10/25/22 03:39 O2 Flow Rate 1 10/24/22 08:00 10/24/22 10/25/22 10/25/22 22:59 06:59 14:59 Intake Total 410 / 700 50 / 750 120 / 120 Output Total 300 / 300 300 / 600 Balance 110 / 400 -250 / 150 120 / 120 Weight last 48 hrs Weight 95.3 kg Weight 95.844 kg Weight 95.663 kg Physical Exam Const: COMMON NORMALS: patient oriented x3 HENMT: COMMON NORMALS: normocephalic and atraumatic HEAD & SCALP: normocephalic and atraumatic Resp: OTHER: minimum b/l wheezing present Cardio: COMMON NORMALS: regular rate, regular rhythm, S1 normal heart sound present, S2 normal heart sound present, No gallops present (Cardio), No murmurs present (Cardio), No rub (Cardio) and Peripheral pulses 2+ throughout RATE: regular rate RHYTHM: regular rhythm HEART SOUNDS: S1 normal heart sound present and S2 normal heart sound present PERIPHERAL PULSES: Peripheral pulses 2+ throughout GI: COMMON NORMALS: Normal to inspection, nondistended, normoactive bowel sounds present, Soft to palpation, non-tender, No hepatosplenomegaly present and no masses AUSCULTATION: Yes normoactive bowel sounds PALPATION: Yes Soft to palpation and Yes No hepatosplenomegaly present RECTAL EXAM: deferred Extremity: COMMON NORMALS: no clubbing, cyanosis or edema and no pedal edema Neuro: COMMON NORMALS: patient oriented x3 Data 10/25/22 03:30 10/25/22 03:30 Micro: Microbiology 10/24/22 04:42 Urine Culture - Preliminary Urine,Clean Catch Gram Negative Rods 10/24/22 00:48 Blood Culture - Preliminary Blood NEGATIVE TO DATE 10/24/22 00:45 Blood Culture - Preliminary Blood NEGATIVE TO DATE 10/24/22 00:24 MRSA Culture - Final Nose A&P Assessment and plan (1) Non-ST elevation [place] (NSTEMI): Patient underwent cardiac angiogram on 10/21. Found to have mild to moderate diffuse disease of LAD and nondominant RCA with EF of 45% with concerns of possible Takotsubo. Plan for medical management as per cardiology. Appreciate recommendation. Continue with aspirin, statin, atenolol at 50 mg daily. Echocardiogram done shows an EF of 56% with grade 1 diastolic dysfunction, PASP of 34 mmHg with mild aortic valve stenosis. (2) Accelerated hypertension: Goal blood pressure less than 140/90 mmHg. Blood pressure well controlled. Continue with amlodipine 10 mg daily, atenolol 50 mg daily. Lisinopril withheld right now given acute kidney injury. Patient already received lisinopril 20 mg today. [facility]. (3) Atrial fibrillation by electrocardiogram: New diagnosis. Paroxysmal A-fib. Continue with amiodarone 400 mg twice daily. Monitor heart rate while being on medication. Plan will be to continue amiodarone 40 mg twice daily for 7 days followed by 200 mg twice daily which will be tapered down to 20 mg daily in a week subsequently. Continue with Eliquis 5 mg twice daily. (4) ENOCH (acute kidney injury): Creatinine slightly worsening to 1.5 today. Most likely in setting of mild dehydration along with possible MARY given recent cardiac angiogram. As creatinine slightly worsened today we will check urine lites, urine creatinine and eosinophils. Renal ultrasound. Continue with gentle IV hydration while monitoring for fluid overload at 50 cc/h for 1 bag. Monitor BMP daily. Strict input output charting. (5) Fever: (6) Rhinovirus infection: Plan Fever: Blood culture negative so far Urine culture is growing gram-negative yonathan pending identification Positive enterovirus Currently she has been appropriately covered with Zosyn. Knee pain: Most likely in setting of osteoarthritis. Continue with physical therapy. Tramadol 50 mg twice daily along with morphine as needed. Out of bed to chair. Full code. Attestations Medical Necessity Statement*: Patient is in hospital for management of NSTEMI, fever Coding Level of Care Code 80955 Diagnoses Non-ST elevation [place] (NSTEMI) I21.4 Accelerated hypertension I10 Atrial fibrillation by electrocardiogram I48.91 ENOCH (acute kidney injury) N17.9 Fever R50.9 Rhinovirus infection B34.8
[2022-10-25] MEDS: ipratropium-albuterol 3 mL Neb INHALATION ×3 (12:34→20:23)
[2022-10-25] MEDS: ondansetron 2 mg/ML SDV 2 mL 4 MG IVP (12:55)
[2022-10-25 17:30] LABS: Potassium, Radom Urine 46 mmol/L; Urine Creatinine 104 mg/dL (28-217); Urine Random Chloride 12 mmol/L; Urine Random Sodium 17 mmol/L
[2022-10-25 17:51] LABS: Eosinophil Urine No Eosinophils Seen; Urine Eosinophil Count 0 (0-0)
[2022-10-26] VITALS (17 sets, daily range): BP systolic 122–165; BP diastolic 74–99; PULSE 65–82; RESP 14–39; TEMP 36.3–37.2; O2SAT 88–99
[2022-10-26] MEDS: piperacillin-tazobactam 3.375 GM in sodium chloride 0.9% (plus) 50 ML IV ×3 (00:21→17:36)
--- NOTE | 2022-10-26 04:14 | XRR_ITS ---
PROCEDURE INFORMATION: Exam: XR Chest Exam date and time: 10/26/2022 3:31 AM Age: 81 years old Clinical indication: Shortness of breath; Patient HX: Worsening SOB. Requiring bipap. TECHNIQUE: Imaging protocol: Radiologic exam of the chest. Views: 1 view. COMPARISON: CR (CHEST, ) 10/20/2022 6:55 PM FINDINGS: Lungs: Normal lung volumes. Mild bilateral perihilar lung reticulonodular opacities are seen with some left basilar airspace opacities. Small bilateral pleural effusions are seen. These findings are suggestive of asymmetric pulmonary edema. Left basilar pneumonia cannot be excluded. Pleural spaces: No pneumothorax. Heart/Mediastinum: The heart size is at the upper limit of normal without change.There is a mildly tortuous thoracic aorta. The trachea is midline. Bones/joints: No acute osseous abnormalities seen. Small degenerative osteophytes are seen throughout the thoracic spine. Unchanged generalized osteopenia. Soft tissues: Multiple external densities are seen overlying the chest, limiting assessment. XR/XR chest 1V portable [id number] IMPRESSION: Mild bilateral perihilar lung reticulonodular opacities with some left basilar airspace opacities. Small bilateral pleural effusions. These findings are suggestive of asymmetric pulmonary edema. Left basilar pneumonia cannot be excluded.
[2022-10-26] MEDS: morphine 4 mg/mL SDV 1 mL 2 MG IVP (04:22)
--- NOTE | 2022-10-26 04:25 | PC.NURSE ---
Called and spoke with regarding patient in respiratory distress, Sats 88% on 2L. Patient is diaphoretic and labored breathing, audible wheezes, lungs sounded wet and wheezy. ordered STAT chest xray,. Nurse called respiratory for breathing treatment and Bipap applied due to patient struggling to breath.
--- NOTE | 2022-10-26 05:15 | PC.NURSE ---
stopped in and saw patient gave order for IV bumex 1mgx1, PRN duo neb tx, and BIPap orders.
[2022-10-26] MEDS: bumetanide 0.25 mg/mL SDV 4 mL 1 MG IVP (05:30)
--- NOTE | 2022-10-26 08:11 | PM.PN ---
Subjective Subjective: Patient became more short of breath last night. She had to be placed on a BiPAP. Her oxygenation status seems to be improving. Chest x-ray showed features of congestive heart failure and possible pneumonia. She is on IV antibiotic. Also was given 1 dose of Bumex IV. No fever or chills. Medications: Medication Review Details: Current Medications Acetaminophen (Acetaminophen 325 Mg Tablet) 650 mg PO Q6H PRN PRN Reason: Mild/Mod Pain Or Temp >/= 101 Last Admin: 10/23/22 19:48 Dose: 650 mg Al Hydrox/Mg Hydrox/Simethicone (Rxmx-Vwb-Rmmszcrfn-Christopher 30 Ml Udc) 30 ml PO Q15M PRN PRN Reason: INDIGESTION Albuterol/Ipratropium (Ipratropium-Albuterol 3 Ml Neb) 3 ml INHALATION QID.RESPIRATORY [facility]LY [facility], [facility] Last Admin: 10/25/22 20:23 Dose: 3 ml Albuterol/Ipratropium (Ipratropium-Albuterol 3 Ml Neb) 3 ml INHALATION Q4H PRN PRN Reason: SHORTNESS OF BREATH Amiodarone HCl (Amiodarone 200 Mg Tablet) 400 mg PO BID [facility] Last Admin: 10/25/22 17:22 Dose: 400 mg Amlodipine Besylate (Amlodipine 10 Mg Tablet) 10 mg PO DAILY [facility] Last Admin: 10/25/22 08:27 Dose: 10 mg Apixaban (Apixaban 5 Mg Tablet) 5 mg PO BID@0900,2100 [facility] Last Admin: 10/25/22 21:05 Dose: 5 mg Aspirin (Aspirin 81 Mg Ec Tablet) 81 mg PO DAILY [facility] Last Admin: 10/25/22 08:27 Dose: 81 mg Atenolol (Atenolol 50 Mg Tablet) 50 mg PO DAILY [facility] Last Admin: 10/25/22 08:27 Dose: 50 mg Atorvastatin Calcium (Atorvastatin 40 Mg Tablet) 80 mg PO DAILY [facility] Last Admin: 10/25/22 08:27 Dose: 80 mg Benzonatate (Benzonatate 100 Mg Capsule) 100 mg PO TID PRN PRN Reason: COUGH Clopidogrel Bisulfate (Clopidogrel 75 Mg Tablet) 75 mg PO DAILY [facility] Last Admin: 10/25/22 08:27 Dose: 75 mg Hydralazine HCl (Hydralazine 20 Mg/Ml Inj 1 Ml) 10 mg IVP Q4H PRN PRN Reason: SBP > 170 Last Admin: 10/21/22 10:05 Dose: 10 mg Piperacillin Sod/Tazobactam (Sod 3.375 gm/ Sodium Chloride) 50 mls @ 12.5 mls/hr IV Q8H [facility]; Protocol Last Infusion: 10/26/22 04:34 Dose: Infused Levothyroxine Sodium (Levothyroxine 50 Mcg Tablet) 50 mcg PO DAILY [facility] Last Admin: 10/25/22 08:27 Dose: 50 mcg Magnesium Hydroxide (Magnesium Hydroxide 30 Ml Udc) 30 ml PO DAILY PRN PRN Reason: CONSTIPATION Morphine Sulfate (Morphine 4 Mg/Ml Sdv 1 Ml) 2 mg IVP Q4H PRN PRN Reason: SEVERE PAIN Last Admin: 10/26/22 04:22 Dose: 2 mg Naloxone HCl (Naloxone 0.4 Mg/Ml Sdv) 0.1 mg IVP Q2M PRN PRN Reason: OPIATERV Nitroglycerin (Nitroglycerin 0.4 Mg Sublingual Tablet) 0.4 mg SUBLINGUAL Q5M PRN PRN Reason: CHEST PAIN Ondansetron HCl (Ondansetron 2 Mg/Ml Sdv 2 Ml) 4 mg IVP Q8H PRN PRN Reason: vomiting, or N/V if npo Last Admin: 10/25/22 12:55 Dose: 4 mg Pantoprazole Sodium (Pantoprazole Dr 40 Mg Tablet) 40 mg PO DAILY [facility] Last Admin: 10/25/22 08:27 Dose: 40 mg Tramadol HCl (Tramadol 50 Mg Tablet) 50 mg PO BID [facility] Last Admin: 10/25/22 17:22 Dose: 50 mg Vitals/I&O/Wt Last Vital Signs Temp 98.6 F 10/26/22 03:48 Pulse 65 10/26/22 06:00 Resp 39 H 10/26/22 04:22 BP 156/82 10/26/22 03:48 Pulse Ox 95 10/26/22 04:28 O2 Del Method 10/26/22 03:48 O2 Flow Rate 2 10/26/22 03:48 FiO2 50 10/26/22 04:28 10/25/22 10/26/22 10/26/22 22:59 06:59 14:59 Intake Total 370 / 660 50 / 710 Output Total 300 / 300 Balance 370 / 660 -250 / 410 Weight last 48 hrs Weight 210 lb 1.6 oz Physical Exam Narrative: GENERAL: The patient is alert and oriented times three. Not in any acute distress. HEENT: No significant pallor, icterus or lymphadenopathy.Oral cavity: There are no mucous membrane lesions. NECK: Trachea appears to be central. No masses noted. No JVD or thyromegaly appreciated. RESPIRATORY: Breath sounds heard bilaterally with a scattered fine and coarse crackles. Expiratory wheezes also present. BREASTS: Deferred. HEART: The heart sounds are normal. No S3 or S4. No significant murmurs. No pericardial rub ABDOMEN: No vessel pulsations or distention. No tenderness. No organomegaly appreciated. Bowel sounds are normally heard. : Deferred. RECTAL: Deferred. LYMPHATIC: No lymphadenopathy noted in the neck. EXTREMITIES: No edema or cyanosis. No clubbing. MUSCULOSKELETAL: No acute joint deformities or swelling SKIN: There are no significant rashes or ecchymosis NEUROPSYCHIATRIC: The patient is alert and oriented x3. Appears to be in a good mood. No tremors or rigidity noted. Data 10/25/22 03:30 10/25/22 03:30 Other Labs: Laboratory Last Values WBC 8.4 10^3/uL (4.0-10.0) 10/25/22 03:30 Corrected WBC Cancelled 10/23/22 04:06 RBC 3.03 10^6/uL (4.1-5.3) L 10/25/22 03:30 Hgb 9.4 g/dL (11.5-15.3) L 10/25/22 03:30 Hct 29.9 % (37.0-47.0) L 10/25/22 03:30 MCV 98.7 fl (81-99) 10/25/22 03:30 MCH 31.0 pg (28.0-34.0) 10/25/22 03:30 MCHC 31.4 g/dL (30.0-36.0) 10/25/22 03:30 RDW 13.1 % (12.1-15.1) 10/25/22 03:30 Plt Count 223 10^3/cmm (130-400) 10/25/22 03:30 MPV 11.8 fL (7.4-10.4) H 10/25/22 03:30 Gran % Cancelled 10/23/22 04:06 Neut % (Auto) 73.4 % 10/25/22 03:30 Lymph % (Auto) 11.5 % 10/25/22 03:30 [place] % (Auto) 12.8 % 10/25/22 03:30 Eos % (Auto) 1.7 % 10/25/22 03:30 Baso % (Auto) 0.2 % 10/25/22 03:30 Neut # (Auto) 6.14 10^3/uL (1.8-7.7) 10/25/22 03:30 Lymph # (Auto) 1.0 10^3/uL (0.8-4.8) 10/25/22 03:30 Summit # (Auto) 1.1 10^3/uL (0.2-0.9) H 10/25/22 03:30 Eos # (Auto) 0.1 10^3/uL (0.0-0.8) 10/25/22 03:30 Baso # (Auto) 0.0 10^3/uL (0.0-0.1) 10/25/22 03:30 Absolute Gran (auto) Cancelled 10/23/22 04:06 Nucleated RBC % (auto) 0 % 10/25/22 03:30 Nucleated RBCs # 0.0 /100WBC 10/25/22 03:30 PT 13.60 SECONDS (12.1-14.9) 10/20/22 18:44 INR 1.01 (0.8-1.2) 10/20/22 18:44 Sodium 133 mmol/L (136-145) L 10/25/22 03:30 Potassium 3.8 mmol/L (3.5-5.1) 10/25/22 03:30 Chloride 99 mmol/L (98-107) 10/25/22 03:30 Carbon Dioxide 25 mmol/L (22-29) 10/25/22 03:30 Anion Gap 12.8 (5-19) 10/25/22 03:30 BUN 37 mg/dL (8-23) H 10/25/22 03:30 Creatinine 1.4 mg/dL (0.5-0.9) H 10/25/22 03:30 GFR Calculation Not Reportable 10/25/22 03:30 Glucose 95 mg/dL (65-115) 10/25/22 03:30 Estimat Average Glucose 117 10/21/22 05:09 Hemoglobin A1c 5.7 % (4.0-6.0) 10/21/22 05:09 Calculated Osmolality 284 mOsm/kg (285-295) L 10/25/22 03:30 Uric Acid 6.8 mg/dL (2.4-5.7) H 10/23/22 04:06 Calcium 8.2 mg/dL (8.5-10.5) L 10/25/22 03:30 Magnesium 1.9 mg/dL (1.7-2.3) 10/23/22 04:06 Total Bilirubin 0.4 mg/dL (0.15-1.2) 10/25/22 03:30 AST 24 U/L (0-32) 10/25/22 03:30 ALT 14 U/L (0-33) 10/25/22 03:30 Alkaline Phosphatase 81 U/L (35-105) 10/25/22 03:30 Troponin T Gen 5 ng/L 3032 ng/L (0-10) H* 10/23/22 04:06 Troponin T Baseline 5190 ng/L (0-10) H* 10/20/22 18:44 Troponin T 120 Minute 4670 ng/L (0-10) H 10/20/22 21:09 Delta Troponin T -520 ABS# (0-10) L 10/20/22 21:09 Troponin T Hi Sens 6Hr 3407 ng/L (0-10) H 10/21/22 02:29 Troponin T Hi Sens 6Hr Delta -1783 ng/L (0-12) L 10/21/22 02:29 NT-Pro-B Natriuret Pep 6210 pg/mL (0-450) H 10/20/22 18:32 Total Protein 6.5 g/dL (6.6-8.7) L 10/25/22 03:30 Albumin 2.6 g/dL (3.5-5.2) L 10/25/22 03:30 Globulin 3.9 g/dL (1.3-4.6) 10/25/22 03:30 Urine Color Yellow (Yellow) 10/24/22 04:42 Urine Appearance Sl hazy (CLEAR) A 10/24/22 04:42 Urine pH 5 (5-7) 10/24/22 04:42 Ur Specific Irving 1.020 (1.005-1.030) 10/24/22 04:42 Urine Protein Neg (Negative) 10/24/22 04:42 Urine Glucose (UA) Norm (Normal) 10/24/22 04:42 Urine Ketones Negative (Negative) 10/24/22 04:42 Urine Blood 2+ (Negative) H 10/24/22 04:42 Urine Nitrate Negative (Negative) 10/24/22 04:42 Urine Bilirubin Neg (Negative) 10/24/22 04:42 Urine Urobilinogen Neg mg/dL (Negative) 10/24/22 04:42 Ur Leukocyte Esterase 1+ (Negative) H 10/24/22 04:42 Urine RBC 80-100 /hpf (0-2) H 10/24/22 04:42 Urine WBC 55-80 /hpf (0-5) H 10/24/22 04:42 Ur Eosinophil Smear 0 (0-0) 10/24/22 16:45 Ur Squamous Epith Cells 5-10 /hpf (0-5) H 10/24/22 04:42 Amorphous Sediment Not Reportable 10/24/22 04:42 Urine Bacteria 3+ /hpf (NONE) H 10/24/22 04:42 Urine Mucus 1+ /hpf 10/24/22 04:42 Urine Eosinophils No eosinophils seen 10/24/22 16:45 Ur Random Sodium 17 mmol/L 10/24/22 16:45 Ur Random Potassium 46 mmol/L 10/24/22 16:45 Ur Random Chloride 12 mmol/L 10/24/22 16:45 Urine Creatinine 104 mg/dL (28-217) 10/24/22 16:45 Nasal Influ A H1 2009 PCR Not detected (NOT DETECT) 10/24/22 00:24 Adenovirus (PCR) Not detected (NOT DETECT) 10/24/22 00:24 C. pneumoniae DNA (PCR) Not detected (NOT DETECT) 10/24/22 00:24 Coronavirus 229E (PCR) Not detected (NOT DETECT) 10/24/22 00:24 Human Metapneumovir PCR Not detected (NOT DETECT) 10/24/22 00:24 Influenza A (H1) PCR Not detected (NOT DETECT) 10/24/22 00:24 Influenza A (H3) PCR Not detected (NOT DETECT) 10/24/22 00:24 Influenza Type A (PCR) Not detected (NOT DETECT) 10/24/22 00:24 Influenza Type B (PCR) Not detected (NOT DETECT) 10/24/22 00:24 M. pneumoniae (PCR) Not detected (NOT DETECT) 10/24/22 00:24 Parainfluenza 1 (PCR) Not detected (NOT DETECT) 10/24/22 00:24 Parainfluenza 2 (PCR) Not detected (NOT DETECT) 10/24/22 00:24 Parainfluenza 3 (PCR) Not detected (NOT DETECT) 10/24/22 00:24 Parainfluenza 4 (PCR) Not detected (NOT DETECT) 10/24/22 00:24 RSV Type A (PCR) Not detected (NOT DETECT) 10/24/22 00:24 RSV Type B (PCR) Not detected (NOT DETECT) 10/24/22 00:24 Entero/Rhino (PCR) Detected (NOT DETECT) A 10/24/22 00:24 SARS-CoV-2 (PCR) Not detected (NOT DETECT) 10/24/22 00:24 Micro: Microbiology 10/24/22 04:42 Urine Culture - Preliminary Urine,Clean Catch Gram Negative Rods A&P Assessment and plan (1) Congestive heart failure due to cardiomyopathy: I may go ahead started on IV Lasix 40 mg every 8 hours x3 with a potassium 20 mg p.o. 3 times a day, total of 3 doses. She will be closely monitored on telemetry. (2) Atrial fibrillation by electrocardiogram: May continue on the amiodarone and Eliquis. Patient is currently in sinus rhythm with frequent PACs. We will continue on the current medications. (3) Non-ST elevation [place] (NSTEMI): The clinical features are suggestive of Takotsubo syndrome. We will continue on the current medication for the time being. (4) Hyperlipidemia: Continue on the current medications (5) Accelerated hypertension: Currently the blood pressure is in the normal range. (6) Venous stasis ulcer: The patient is being followed at the wound care clinic. The ulcer seems to be healing. Plan Based on the clinical progress, further recommendations will be made. Attestations Medical Necessity Statement*: Patient requires continued hospital stay for close monitoring and further management Coding Level of Care Code 47724 Diagnoses 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 Atrial fibrillation by electrocardiogram I48.91 Non-ST elevation UT (NSTEMI) I21.4 Hyperlipidemia E78.5 Accelerated hypertension I10 Venous stasis ulcer I83.009; L97.909
[2022-10-26] MEDS: ipratropium-albuterol 3 mL Neb INHALATION ×3 (08:42→21:14)
[2022-10-26] MEDS: aspirin 81 mg EC Tablet PO (08:43)
[2022-10-26] MEDS: TRAMadol 50 mg Tablet PO (08:43)
[2022-10-26] MEDS: atenolol 50 mg Tablet PO (08:43)
[2022-10-26] MEDS: pantoprazole DR 40 mg Tablet PO (08:43)
[2022-10-26] MEDS: amiodarone 200 mg Tablet 400 MG PO ×2 (08:43→17:35)
[2022-10-26] MEDS: amlodipine 10 mg Tablet PO (08:43)
[2022-10-26] MEDS: levothyroxine 50 mcg Tablet PO (08:43)
[2022-10-26] MEDS: clopidogrel 75 mg Tablet PO (08:43)
[2022-10-26] MEDS: atorvastatin 40 mg Tablet 80 MG PO (08:43)
[2022-10-26] MEDS: apixaban 5 mg Tablet PO ×2 (09:06→21:59)
[2022-10-26 09:21] LABS: Basophils % 0.1 %; Eosinophils % 0.1 %; Hematocrit 34.1 % (37.0-47.0); Hemoglobin 10.6 g/dL (11.5-15.3); Lymphocytes # 0.6 10^3/uL (0.8-4.8); Lymphocytes % 5.6 %; Mean Corpuscular HGB Conc 31.1 g/dL (30.0-36.0); Mean Corpuscular Volume 99.7 fl (81-99); Mean Platelet Volume 11.2 fL (7.4-10.4); Monocytes # 1.1 10^3/uL (0.2-0.9); Monocytes % 10.6 %; Neutrophils # 8.27 10^3/uL (1.8-7.7); Neutrophils % 83.2 %; Nucleated Red Blood Cells % 0 %; Platelet Count 273 10^3/cmm (130-400); Red Blood Count 3.42 10^6/uL (4.1-5.3); Red Cell Distribution Width 13.1 % (12.1-15.1); White Blood Count 9.9 10^3/uL (4.0-10.0)
[2022-10-26 09:35] LABS: Anion Gap 16.3 (5-19); Blood Urea Nitrogen 27 mg/dL (8-23); Calcium 8.8 mg/dL (8.5-10.5); Carbon Dioxide 25 mmol/L (22-29); Chloride 98 mmol/L (98-107); Glucose 118 mg/dL (65-115); Osmolality Calculated 286 mOsm/kg (285-295); Potassium 4.3 mmol/L (3.5-5.1); Sodium 135 mmol/L (136-145)
[2022-10-26 09:36] LABS: Creatinine Clr Calc Pharmacy 51.6612
--- NOTE | 2022-10-26 10:48 | P.PN_ITS ---
Subjective Subjective: Patient was seen and examined this morning, she had a rough last night, was having worsening shortness of breath, For which she had to be placed on BiPAP, also received a dose of Bumex, x-ray chest is suggestive of pulmonary edema. Currently she has been started on Lasix, in the morning she is saturating well on 2 L oxygen. has been afebrile overnight. Medications: Medication Review Details: Generic Name Dose Route Start Last Admin Trade Name Freq PRN Reason Stop Dose Admin Acetaminophen 650 mg 10/20/22 21:09 10/23/22 19:48 Acetaminophen 32 5 Mg Tablet PO 650 mg Q6H PRN Administration Mild/Mod Pain Or Temp >/= 101 Albuterol/Ipratrop ium 3 ml 10/25/22 12:00 10/26/22 08:42 Ipratropium-Albu terol 3 Ml Neb INHALATION 3 ml QID.RESPIRATORY S [facility] Administration Amiodarone HCl 400 mg 10/22/22 11:50 10/26/22 08:43 Amiodarone 200 M g Tablet PO 400 mg BID RUFUS Administration Amlodipine Besylat e 10 mg 10/23/22 09:00 10/26/22 08:43 Amlodipine 10 Mg Tablet PO 10 mg DAILY RUFUS Administration Apixaban 5 mg 10/23/22 14:15 10/26/22 09:06 Apixaban 5 Mg Ta blet PO 5 mg BID@0900,2100 RUFUS Administration Aspirin 81 mg 10/21/22 09:00 10/26/22 08:43 Aspirin 81 Mg Ec Tablet PO 81 mg DAILY RUFUS Administration Atenolol 50 mg 10/23/22 09:50 10/26/22 08:43 Atenolol 50 Mg T ablet PO 50 mg DAILY RUFUS Administration Atorvastatin Calci um 80 mg 10/21/22 09:00 10/26/22 08:43 Atorvastatin 40 Mg Tablet PO 80 mg DAILY RUFUS Administration Clopidogrel Bisulf ate 75 mg 10/22/22 09:00 10/26/22 08:43 Clopidogrel 75 M g Tablet PO 75 mg DAILY RUFUS Administration Hydralazine HCl 10 mg 10/21/22 06:48 10/21/22 10:05 Hydralazine 20 M g/Ml Inj 1 Ml IVP 10 mg Q4H PRN Administration SBP > 170 Piperacillin Sod/T azobactam 50 mls @ 12.5 mls /hr 10/23/22 23:30 10/26/22 08:46 Sod 3.375 gm/ So dium Chloride IV 12.5 mls/hr Q8H RUFUS Administration Protocol Levothyroxine Sodi um 50 mcg 10/21/22 09:00 10/26/22 08:43 Levothyroxine 50 Mcg Tablet PO 50 mcg DAILY RUFUS Administration Ondansetron HCl 4 mg 10/20/22 21:09 10/25/22 12:55 Ondansetron 2 Mg /Ml Sdv 2 Ml IVP 4 mg Q8H PRN Administration vomiting, or N/V if npo Pantoprazole Sodiu m 40 mg 10/21/22 09:00 10/26/22 08:[address] 40 Mg Tablet PO 40 mg DAILY RUFUS Administration Tramadol HCl 50 mg 10/22/22 18:00 10/26/22 08:43 Tramadol 50 Mg T ablet PO 50 mg BID RUFUS Administration Vitals/I&O/Wt Last Vital Signs Temp 97.4 F L 10/26/22 08:40 Pulse 73 10/26/22 08:44 Resp 20 H 10/26/22 08:44 BP 165/99 10/26/22 08:40 Pulse Ox 97 10/26/22 08:44 O2 Del Method 10/26/22 08:44 O2 Flow Rate 2 10/26/22 08:44 FiO2 50 10/26/22 04:28 10/25/22 10/26/22 10/26/22 22:59 06:59 14:59 Intake Total 370 / 660 50 / 710 Output Total 300 / 300 450 / 450 Balance 370 / 660 -250 / 410 -450 / -450 Weight last 48 hrs Weight 94.529 kg Weight 95.3 kg Physical Exam Const: COMMON NORMALS: patient oriented x3 HENMT: COMMON NORMALS: normocephalic and atraumatic HEAD & SCALP: normocephalic and atraumatic Resp: OTHER: minimum b/l wheezing present Cardio: COMMON NORMALS: regular rate, regular rhythm, S1 normal heart sound present, S2 normal heart sound present, No gallops present (Cardio), No murmurs present (Cardio), No rub (Cardio) and Peripheral pulses 2+ throughout RATE: regular rate RHYTHM: regular rhythm HEART SOUNDS: S1 normal heart sound pr esent and S2 normal heart sound present PERIPHERAL PULSES: Peripheral pulses 2+ throughout GI: COMMON NORMALS: Normal to inspection, nondistended, normoactive bowel sounds present, Soft to palpation, non-tender, No hepatosplenomegaly present and no masses AUSCULTATION: Yes normoactive bowel sounds PALPATION: Yes Soft to palpation and Yes No hepatosplenomegaly present RECTAL EXAM: deferred Extremity: COMMON NORMALS: no clubbing, cyanosis or edema and no pedal edema Neuro: COMMON NORMALS: patient oriented x3 Data 10/26/22 09:07 10/26/22 09:07 Micro: Microbiology 10/24/22 04:42 Urine Culture - Preliminary Urine,Clean Catch Gram Negative Rods A&P Assessment and plan (1) Non-ST elevation [place] (NSTEMI): Patient underwent cardiac angiogram on 10/21. Found to have mild to moderate diffuse disease of LAD and nondominant RCA with EF of 45% with concerns of possible Takotsubo. Plan for medical management as per cardiology. Appreciate recommendation. Continue with aspirin, statin, atenolol at 50 mg daily. Echocardiogram done shows an EF of 56% with grade 1 diastolic dysfunction, PASP of 34 mmHg with mild aortic valve stenosis. (2) Accelerated hypertension: Goal blood pressure less than 140/90 mmHg. Blood pressure well controlled. Continue with amlodipine 10 mg daily, atenolol 50 mg daily. Lisinopril withheld right now given acute kidney injury. Patient already received lisinopril 20 mg today. Possibilities of transitioning over to Entresto as an outpatient. (3) Atrial fibrillation by electrocardiogram: New diagnosis. Paroxysmal A-fib. Continue with amiodarone 400 mg twice daily. Monitor heart rate while being on medication. Plan will be to continue amiodarone 40 mg twice daily for 7 days followed by 200 mg twice daily which will be tapered down to 20 mg daily in a week subsequently. Continue with Eliquis 5 mg twice daily. (4) ENOCH (acute kidney injury): Creatinine slightly worsening to 1.5 today. Most likely in setting of mild dehydration along with possible MARY given recent cardiac angiogram. As creatinine slightly worsened today we will check urine lites, urine creatinine and eosinophils. Renal ultrasound. Continue with gentle IV hydration while monitoring for fluid overload at 50 cc/h for 1 bag. Monitor BMP daily. Strict input output charting. (5) Fever: (6) Rhinovirus infection: (7) Congestive heart failure due to cardiomyopathy: Decompensated HFpEF: X-ray chest: Mild bilateral perihilar lung reticulonodular opacities with some left basilar airspace opacities. Small bilateral pleural effusions. These findings are suggestive of asymmetric pulmonary edema. Left basilar pneumonia 2D echo: Hypokineticmid and apical lateral and apical anterior segments.? LV ejection fraction around 56%.Grade I/IV diastolic dysfunction.Thickened aortic valve.? Mild aortic valve stenosis, mean ?gradient 10 mmHg, JOHNNA 1.5 cm squared.?Trace tricuspid valve regurgitation.?Estimated pulmonary artery ?peak systolic pressure of 34 mmHg. Currently on Lasix 40 IV 3 times daily Monitor intake output charting Daily weight Telemetry monitoring Plan Fever: Blood culture negative so far Urine culture is growing gram-negative yonathan pending identification Positive enterovirus Currently she has been appropriately covered with Zosyn. Knee pain: Most likely in setting of osteoarthritis. Continue with physical therapy. Tramadol 50 mg twice daily along with morphine as needed. Out of bed to chair. Full code. Attestations Medical Necessity Statement*: Patient needs to be hospital for management of shortness of breath, need for IV diuresis, need for IV antibiotics. Coding Level of Care Code 95278 Diagnoses Non-ST elevation ND (NSTEMI) I21.4 Accelerated hypertension I10 Atrial fibrillation by electrocardiogram I48.91 ENOCH (acute kidney injury) N17.9 Fever R50.9 Rhinovirus infection B34.8 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
[2022-10-26] MEDS: potassium chloride ER 20 mEq Tablet PO ×2 (12:01→17:36)
[2022-10-26] MEDS: benzonatate 100 mg Capsule PO (23:54)
[2022-10-26] MEDS: acetaminophen 325 mg Tablet 650 MG PO (23:54)
[2022-10-27] VITALS (12 sets, daily range): BP systolic 130–160; BP diastolic 74–96; PULSE 71–85; RESP 18–28; TEMP 36.8; O2SAT 88–98
[2022-10-27] MEDS: piperacillin-tazobactam 3.375 GM in sodium chloride 0.9% (plus) 50 ML IV ×2 (00:57→08:49)
[2022-10-27] MEDS: TRAMadol 50 mg Tablet PO (04:30)
[2022-10-27] MEDS: ipratropium-albuterol 3 mL Neb INHALATION ×3 (04:30→11:21)
[2022-10-27] MEDS: potassium chloride ER 20 mEq Tablet PO (04:30)
[2022-10-27 04:40] LABS: Basophils % 0.4 %; Eosinophils # 0.1 10^3/uL (0.0-0.8); Eosinophils % 1.5 %; Hematocrit 32.1 % (37.0-47.0); Hemoglobin 10.1 g/dL (11.5-15.3); Lymphocytes # 0.8 10^3/uL (0.8-4.8); Lymphocytes % 11.1 %; Mean Corpuscular HGB Conc 31.5 g/dL (30.0-36.0); Mean Corpuscular Hemoglobin 31.2 pg (28.0-34.0); Mean Corpuscular Volume 99.1 fl (81-99); Mean Platelet Volume 11.7 fL (7.4-10.4); Monocytes % 13.7 %; Neutrophils # 5.47 10^3/uL (1.8-7.7); Neutrophils % 72.9 %; Nucleated Red Blood Cells % 0 %; Platelet Count 253 10^3/cmm (130-400); Red Blood Count 3.24 10^6/uL (4.1-5.3); Red Cell Distribution Width 12.9 % (12.1-15.1); White Blood Count 7.5 10^3/uL (4.0-10.0)
[2022-10-27 05:01] LABS: Blood Urea Nitrogen 23 mg/dL (8-23); Calcium 8.8 mg/dL (8.5-10.5); Carbon Dioxide 27 mmol/L (22-29); Chloride 100 mmol/L (98-107); Glucose 104 mg/dL (65-115); Osmolality Calculated 284 mOsm/kg (285-295); Sodium 135 mmol/L (136-145)
[2022-10-27 05:05] LABS: Anion Gap 12.3 (5-19); Potassium 4.3 mmol/L (3.5-5.1)
--- NOTE | 2022-10-27 08:28 | PM.PN ---
Subjective Subjective: Patient seems to be feeling better. Postponed to the diuretics. Continues to be on antibiotics. Remains afebrile. Stays in the sinus rhythm. No recurrence of atrial fibrillation Medications: Medication Review Details: Current Medications Acetaminophen (Acetaminophen 325 Mg Tablet) 650 mg PO Q6H PRN PRN Reason: Mild/Mod Pain Or Temp >/= 101 Last Admin: 10/26/22 23:54 Dose: 650 mg Al Hydrox/Mg Hydrox/Simethicone (Ptnw-Vuk-Pbbtuynyw-Christopher 30 Ml Udc) 30 ml PO Q15M PRN PRN Reason: INDIGESTION Albuterol/Ipratropium (Ipratropium-Albuterol 3 Ml Neb) 3 ml INHALATION QID.RESPIRATORY [facility] Last Admin: 10/26/22 21:14 Dose: 3 ml Albuterol/Ipratropium (Ipratropium-Albuterol 3 Ml Neb) 3 ml INHALATION Q4H PRN PRN Reason: SHORTNESS OF BREATH Last Admin: 10/27/22 04:30 Dose: 3 ml Amiodarone HCl (Amiodarone 200 Mg Tablet) 400 mg PO BID [facility] Last Admin: 10/26/22 17:35 Dose: 400 mg Amlodipine Besylate (Amlodipine 10 Mg Tablet) 10 mg PO DAILY [facility] Last Admin: 10/26/22 08:43 Dose: 10 mg Apixaban (Apixaban 5 Mg Tablet) 5 mg PO BID@0900,2100 [facility] Last Admin: 10/26/22 21:59 Dose: 5 mg Aspirin (Aspirin 81 Mg Ec Tablet) 81 mg PO DAILY [facility] Last Admin: 10/26/22 08:43 Dose: 81 mg Atenolol (Atenolol 50 Mg Tablet) 50 mg PO DAILY [facility] Last Admin: 10/26/22 08:43 Dose: 50 mg Atorvastatin Calcium (Atorvastatin 40 Mg Tablet) 80 mg PO DAILY [facility] Last Admin: 10/26/22 08:43 Dose: 80 mg Benzonatate (Benzonatate 100 Mg Capsule) 100 mg PO TID PRN PRN Reason: COUGH Last Admin: 10/26/22 23:54 Dose: 100 mg Clopidogrel Bisulfate (Clopidogrel 75 Mg Tablet) 75 mg PO DAILY [facility] Last Admin: 10/26/22 08:43 Dose: 75 mg Furosemide (Furosemide 10 Mg/Ml Sdv 4ml) 40 mg IVP Q8H RUFUS Hydralazine HCl (Hydralazine 20 Mg/Ml Inj 1 Ml) 10 mg IVP Q4H PRN PRN Reason: SBP > 170 Last Admin: 10/21/22 10:05 Dose: 10 mg Piperacillin Sod/Tazobactam (Sod 3.375 gm/ Sodium Chloride) 50 mls @ 12.5 mls/hr IV Q8H [facility]; Protocol Last Admin: 10/27/22 00:57 Dose: 12.5 mls/hr Levothyroxine Sodium (Levothyroxine 50 Mcg Tablet) 50 mcg PO DAILY [facility] Last Admin: 10/26/22 08:43 Dose: 50 mcg Magnesium Hydroxide (Magnesium Hydroxide 30 Ml Udc) 30 ml PO DAILY PRN PRN Reason: CONSTIPATION Naloxone HCl (Naloxone 0.4 Mg/Ml Sdv) 0.1 mg IVP Q2M PRN PRN Reason: OPIATERV Nitroglycerin (Nitroglycerin 0.4 Mg Sublingual Tablet) 0.4 mg SUBLINGUAL Q5M PRN PRN Reason: CHEST PAIN Ondansetron HCl (Ondansetron 2 Mg/Ml Sdv 2 Ml) 4 mg IVP Q8H PRN PRN Reason: vomiting, or N/V if npo Last Admin: 10/25/22 12:55 Dose: 4 mg Pantoprazole Sodium (Pantoprazole Dr 40 Mg Tablet) 40 mg PO DAILY [facility] Last Admin: 10/26/22 08:43 Dose: 40 mg Tramadol HCl (Tramadol 50 Mg Tablet) 50 mg PO TID PRN PRN Reason: MODERATE PAIN Last Admin: 10/27/22 04:30 Dose: 50 mg Vitals/I&O/Wt Last Vital Signs Temp 98.2 F 10/27/22 07:38 Pulse 74 10/27/22 07:38 Resp 20 H 10/27/22 07:38 BP 142/81 10/27/22 07:38 Pulse Ox 98 10/27/22 07:38 O2 Del Method 10/27/22 07:38 O2 Flow Rate 2 10/27/22 04:30 FiO2 50 10/26/22 19:56 10/26/22 10/27/22 10/27/22 22:59 06:59 14:59 Intake Total 50 / 350 Output Total 540 / 990 100 / 1090 Balance -490 / -640 -100 / -740 Weight last 48 hrs Weight 206 lb Weight 208 lb 6.4 oz Physical Exam Narrative: GENERAL: The patient is alert and oriented times three. Not in any acute distress. HEENT: No significant pallor, icterus or lymphadenopathy.Oral cavity: There are no mucous membrane lesions. NECK: Trachea appears to be central. No masses noted. No JVD or thyromegaly appreciated. RESPIRATORY: Breath sounds are heard bilaterally. Scattered coarse crackles and occasional expiratory wheezing. BREASTS: Deferred. HEART: The heart sounds are normal. No S3 or S4. No significant murmurs. No pericardial rub ABDOMEN: No vessel pulsations or distention. No tenderness. No organomegaly appreciated. Bowel sounds are normally heard. : Deferred. RECTAL: Deferred. LYMPHATIC: No lymphadenopathy noted in the neck. EXTREMITIES: No edema or cyanosis. No clubbing. MUSCULOSKELETAL: No acute joint deformities or swelling SKIN: There are no significant rashes or ecchymosis NEUROPSYCHIATRIC: The patient is alert and oriented x3. Appears to be in a good mood. No tremors or rigidity noted. Data 10/27/22 03:02 10/27/22 03:02 Other Labs: Laboratory Last Values WBC 7.5 10^3/uL (4.0-10.0) 10/27/22 03:02 Corrected WBC Cancelled 10/23/22 04:06 RBC 3.24 10^6/uL (4.1-5.3) L 10/27/22 03:02 Hgb 10.1 g/dL (11.5-15.3) L 10/27/22 03:02 Hct 32.1 % (37.0-47.0) L 10/27/22 03:02 MCV 99.1 fl (81-99) H 10/27/22 03:02 MCH 31.2 pg (28.0-34.0) 10/27/22 03:02 MCHC 31.5 g/dL (30.0-36.0) 10/27/22 03:02 RDW 12.9 % (12.1-15.1) 10/27/22 03:02 Plt Count 253 10^3/cmm (130-400) 10/27/22 03:02 MPV 11.7 fL (7.4-10.4) H 10/27/22 03:02 Gran % Cancelled 10/23/22 04:06 Neut % (Auto) 72.9 % 10/27/22 03:02 Lymph % (Auto) 11.1 % 10/27/22 03:02 [place] % (Auto) 13.7 % 10/27/22 03:02 Eos % (Auto) 1.5 % 10/27/22 03:02 Baso % (Auto) 0.4 % 10/27/22 03:02 Neut # (Auto) 5.47 10^3/uL (1.8-7.7) 10/27/22 03:02 Lymph # (Auto) 0.8 10^3/uL (0.8-4.8) 10/27/22 03:02 [place] # (Auto) 1.0 10^3/uL (0.2-0.9) H 10/27/22 03:02 Eos # (Auto) 0.1 10^3/uL (0.0-0.8) 10/27/22 03:02 Baso # (Auto) 0.0 10^3/uL (0.0-0.1) 10/27/22 03:02 Absolute Gran (auto) Cancelled 10/23/22 04:06 Nucleated RBC % (auto) 0 % 10/27/22 03:02 Nucleated RBCs # 0.0 /100WBC 10/27/22 03:02 PT 13.60 SECONDS (12.1-14.9) 10/20/22 18:44 INR 1.01 (0.8-1.2) 10/20/22 18:44 Sodium 135 mmol/L (136-145) L 10/27/22 03:02 Potassium 4.3 mmol/L (3.5-5.1) 10/27/22 03:02 Chloride 100 mmol/L (98-107) 10/27/22 03:02 Carbon Dioxide 27 mmol/L (22-29) 10/27/22 03:02 Anion Gap 12.3 (5-19) 10/27/22 03:02 BUN 23 mg/dL (8-23) 10/27/22 03:02 Creatinine 1.0 mg/dL (0.5-0.9) H 10/27/22 03:02 GFR Calculation Not Reportable 10/27/22 03:02 Glucose 104 mg/dL (65-115) 10/27/22 03:02 Estimat Average Glucose 117 10/21/22 05:09 Hemoglobin A1c 5.7 % (4.0-6.0) 10/21/22 05:09 Calculated Osmolality 284 mOsm/kg (285-295) L 10/27/22 03:02 Uric Acid 6.8 mg/dL (2.4-5.7) H 10/23/22 04:06 Calcium 8.8 mg/dL (8.5-10.5) 10/27/22 03:02 Magnesium 1.9 mg/dL (1.7-2.3) 10/23/22 04:06 Total Bilirubin 0.4 mg/dL (0.15-1.2) 10/25/22 03:30 AST 24 U/L (0-32) 10/25/22 03:30 ALT 14 U/L (0-33) 10/25/22 03:30 Alkaline Phosphatase 81 U/L (35-105) 10/25/22 03:30 Troponin T Gen 5 ng/L 3032 ng/L (0-10) H* 10/23/22 04:06 Troponin T Baseline 5190 ng/L (0-10) H* 10/20/22 18:44 Troponin T 120 Minute 4670 ng/L (0-10) H 10/20/22 21:09 Delta Troponin T -520 ABS# (0-10) L 10/20/22 21:09 Troponin T Hi Sens 6Hr 3407 ng/L (0-10) H 10/21/22 02:29 Troponin T Hi Sens 6Hr Delta -1783 ng/L (0-12) L 10/21/22 02:29 NT-Pro-B Natriuret Pep 6210 pg/mL (0-450) H 10/20/22 18:32 Total Protein 6.5 g/dL (6.6-8.7) L 10/25/22 03:30 Albumin 2.6 g/dL (3.5-5.2) L 10/25/22 03:30 Globulin 3.9 g/dL (1.3-4.6) 10/25/22 03:30 Urine Color Yellow (Yellow) 10/24/22 04:42 Urine Appearance Sl hazy (CLEAR) A 10/24/22 04:42 Urine pH 5 (5-7) 10/24/22 04:42 Ur Specific [place] 1.020 (1.005-1.030) 10/24/22 04:42 Urine Protein Neg (Negative) 10/24/22 04:42 Urine Glucose (UA) Norm (Normal) 10/24/22 04:42 Urine Ketones Negative (Negative) 10/24/22 04:42 Urine Blood 2+ (Negative) H 10/24/22 04:42 Urine Nitrate Negative (Negative) 10/24/22 04:42 Urine Bilirubin Neg (Negative) 10/24/22 04:42 Urine Urobilinogen Neg mg/dL (Negative) 10/24/22 04:42 Ur Leukocyte Esterase 1+ (Negative) H 10/24/22 04:42 Urine RBC 80-100 /hpf (0-2) H 10/24/22 04:42 Urine WBC 55-80 /hpf (0-5) H 10/24/22 04:42 Ur Eosinophil Smear 0 (0-0) 10/24/22 16:45 Ur Squamous Epith Cells 5-10 /hpf (0-5) H 10/24/22 04:42 Amorphous Sediment Not Reportable 10/24/22 04:42 Urine Bacteria 3+ /hpf (NONE) H 10/24/22 04:42 Urine Mucus 1+ /hpf 10/24/22 04:42 Urine Eosinophils No eosinophils seen 10/24/22 16:45 Ur Random Sodium 17 mmol/L 10/24/22 16:45 Ur Random Potassium 46 mmol/L 10/24/22 16:45 Ur Random Chloride 12 mmol/L 10/24/22 16:45 Urine Creatinine 104 mg/dL (28-217) 10/24/22 16:45 Nasal Influ A H1 2009 PCR Not detected (NOT DETECT) 10/24/22 00:24 Adenovirus (PCR) Not detected (NOT DETECT) 10/24/22 00:24 C. pneumoniae DNA (PCR) Not detected (NOT DETECT) 10/24/22 00:24 Coronavirus 229E (PCR) Not detected (NOT DETECT) 10/24/22 00:24 Human Metapneumovir PCR Not detected (NOT DETECT) 10/24/22 00:24 Influenza A (H1) PCR Not detected (NOT DETECT) 10/24/22 00:24 Influenza A (H3) PCR Not detected (NOT DETECT) 10/24/22 00:24 Influenza Type A (PCR) Not detected (NOT DETECT) 10/24/22 00:24 Influenza Type B (PCR) Not detected (NOT DETECT) 10/24/22 00:24 M. pneumoniae (PCR) Not detected (NOT DETECT) 10/24/22 00:24 Parainfluenza 1 (PCR) Not detected (NOT DETECT) 10/24/22 00:24 Parainfluenza 2 (PCR) Not detected (NOT DETECT) 10/24/22 00:24 Parainfluenza 3 (PCR) Not detected (NOT DETECT) 10/24/22 00:24 Parainfluenza 4 (PCR) Not detected (NOT DETECT) 10/24/22 00:24 RSV Type A (PCR) Not detected (NOT DETECT) 10/24/22 00:24 RSV Type B (PCR) Not detected (NOT DETECT) 10/24/22 00:24 Entero/Rhino (PCR) Detected (NOT DETECT) A 10/24/22 00:24 SARS-CoV-2 (PCR) Not detected (NOT DETECT) 10/24/22 00:24 Micro: Microbiology 10/24/22 04:42 Urine Culture - Final Urine,Clean Catch Escherichia coli A&P Assessment and plan (1) Congestive heart failure due to cardiomyopathy: Since the heart failure seems to be fairly compensated, we may cut back on the Lasix to 40 mg daily. (2) Atrial fibrillation by electrocardiogram: The rhythm mostly is in the sinus. Patient may be on a tapering dose of amiodarone (3) Non-ST elevation ID (NSTEMI): The clinical features are suggestive of Takotsubo syndrome. We will continue on the current medication for the time being. (4) Hyperlipidemia: Continue on the current medications (5) Accelerated hypertension: Currently the blood pressure is in the normal range. (6) Venous stasis ulcer: The patient is being followed at the wound care clinic. The ulcer seems to be healing. Plan If the patient continues remain stable, may be discharged home today. The discussed with Dr. Catherine Need to have a repeat BMP, BNP during her next office visit in a week. May cut back on the dose of amiodarone to 200 mg daily at that time. The proper use of medication were discussed with the patient and family in detail which they understood the Attestations Medical Necessity Statement*: Possible discharge home today Coding Level of Care Code Acute Code for Chg Fwd Diagnoses 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 Atrial fibrillation by electrocardiogram I48.91 Non-ST elevation ID (NSTEMI) I21.4 Hyperlipidemia E78.5 Accelerated hypertension I10 Venous stasis ulcer I83.009; L97.909
[2022-10-27] MEDS: atenolol 50 mg Tablet PO (08:48)
[2022-10-27] MEDS: aspirin 81 mg EC Tablet PO (08:48)
[2022-10-27] MEDS: ondansetron 2 mg/ML SDV 2 mL 4 MG IVP (08:48)
[2022-10-27] MEDS: clopidogrel 75 mg Tablet PO (08:48)
[2022-10-27] MEDS: amiodarone 200 mg Tablet 400 MG PO (08:48)
[2022-10-27] MEDS: atorvastatin 40 mg Tablet 80 MG PO (08:48)
[2022-10-27] MEDS: pantoprazole DR 40 mg Tablet PO (08:48)
[2022-10-27] MEDS: apixaban 5 mg Tablet PO (08:48)
[2022-10-27] MEDS: amlodipine 10 mg Tablet PO (08:48)
[2022-10-27] MEDS: levothyroxine 50 mcg Tablet PO (08:49)
[2022-10-27] MEDS: magnesium hydroxide 30 mL UDC PO (08:49)
[2022-10-27] MEDS: FUROsemide 10 mg/mL SDV 4mL 40 MG IVP (08:49)
--- NOTE | 2022-10-27 14:03 | PM.DCS ---
Discharge Providers Date of Admission: 10/20/22 20:04 Date of Discharge: October 27, 2022 Attending Provider at Admission: Yahaira Cortes MD Attending Provider at Discharge: Charanjit Catherine MD Primary Care Provider: Chase Reed Diagnoses at Discharge Discharge Diagnosis (1) Non-ST elevation CO (NSTEMI): Status: Acute (2) Accelerated hypertension: Status: Acute (3) Atrial fibrillation by electrocardiogram: Status: Acute (4) ENOCH (acute kidney injury): Status: Acute (5) Fever: Status: Acute (6) Rhinovirus infection: Status: Acute (7) Congestive heart failure due to cardiomyopathy: Status: Acute Reason for Visit Reason for Visit: chest pain Hospital Course Hospital Course 81 year old female with a past medical history of hypertension, hypothyroidism presenting to the hospital today with substernal crushing chest pain, she was admitted for management of NSTEMI: Was kept on ACS protocol 2D echo was done: Which showed Hypokineticmid and apical lateral and apical anterior segments.? ?LV ejection fraction around 56%.Grade I/IV diastolic dysfunction ?(abnormal relaxation filling pattern), normal to mildly elevated filling pressures.Mildly increased left atrial size.Moderate mitral annular calcification. Moderate mitral valve ?regurgitation.?Thickened aortic valve.? Mild aortic valve stenosis, mean?gradient 10 mmHg, JOHNNA 1.5 cm squared. ?Trace tricuspid valve regurgitation.? Estimated pulmonary artery ?peak systolic pressure of 34 mmHg. There is no pericardial effusion.?There are no intracardiac masses. underwent cardiac cath: mild to moderate diffuse disease in the left anterior descending artery and the nondominant right coronary artery.? Minimal plaques were noted on the left circumflex artery which is dominant, echo was suspicious for possible TCT. She was discharged on aspirin, statin, lisinopril.Patient was also?managed for newly diagnosed A-fib with RVR, she was initially kept on amiodarone drip, and was later switched to p.o. amiodarone, converted to sinus rhythm during hospital stay, will continue Eliquis for anticoagulation. Currently she is being discharged on amiodarone p.o. 400 mg daily, she is due to follow-up cardiology in a week to 10 days, at that point in time amiodarone p.o. dose can be tapered to 200 daily. Patient was also managed for decompensated heart failure with preserved ejection fraction, she received Lasix as well as Bumex during hospital stay briefly, is being discharged on Lasix 40 p.o. daily, along with oral potassium supplement. She was also managed for possible pneumonia as well as fever, blood cultures were negative, she was empirically kept on broad-spectrum antibiotics, x-ray chest were monitored, she was discharged on p.o. Augmentin, to complete the antibiotic 10-day course, patient qualified for 2 L home oxygen. Patient overall responded well to above medical management and is being discharged in stable condition to home. She will continue to follow PCP as outpatient, as well as cardiology. Physical Exam Const: COMMON NORMALS: patient oriented x3 HENMT: COMMON NORMALS: normocephalic and atraumatic HEAD & SCALP: normocephalic and atraumatic Resp: OTHER: Bilaterally clear to auscultation Cardio: COMMON NORMALS: regular rate, regular rhythm, S1 normal heart sound present, S2 normal heart sound present, No gallops present (Cardio), No murmurs present (Cardio), No rub (Cardio) and Peripheral pulses 2+ throughout RATE: regular rate RHYTHM: regular rhythm HEART SOUNDS: S1 normal heart sound present and S2 normal heart sound present PERIPHERAL PULSES: Peripheral pulses 2+ throughout GI: COMMON NORMALS: Normal to inspection, nondistended, normoactive bowel sounds present, Soft to palpation, non-tender, No hepatosplenomegaly present and no masses AUSCULTATION: Yes normoactive bowel sounds PALPATION: Yes Soft to palpation and Yes No hepatosplenomegaly present RECTAL EXAM: deferred Extremity: COMMON NORMALS: no clubbing, cyanosis or edema and no pedal edema Neuro: COMMON NORMALS: patient oriented x3 Discharge Data Studies Completed and Pending Completed Studies During Hospitalization Category Date Time Status [employer] request for service Routine Exams 10/21/22 18:48 Completed XR chest 1V portable [id number] Stat Exams 10/20/22 18:32 Completed XR chest 1V portable [id number] Stat Exams 10/26/22 04:14 Completed CV. echo complete* [id number] Routine Ultrasound 10/21/22 06:47 Completed US renal BI* [id number] Routine Ultrasound 10/24/22 14:18 Completed Pending at discharge Category Date Time Status BMP [Basic Metabolic Panel] AM LABS Lab 10/28/22 04:00 Ordered Blood Culture Stat Lab 10/23/22 23:19 Results CBC Auto Diff [Complete Blood Count w/Auto] AM LABS Lab 10/28/22 04:00 Ordered Radiology Impressions Renal Ultrasound 10/24/22 14:18 IMPRESSION: 1. Right kidney 2 cm cyst, negative for follow-up advised. 2. Negative for hydronephrosis or renal calculus. Chest X-Ray 10/26/22 04:14 IMPRESSION: Mild bilateral perihilar lung reticulonodular opacities with some left basilar airspace opacities. Small bilateral pleural effusions. These findings are suggestive of asymmetric pulmonary edema. Left basilar pneumonia cannot be excluded. Laboratory Results WBC 7.5 10^3/uL (4.0-10.0) 10/27/22 03:02 Corrected WBC Cancelled 10/23/22 04:06 RBC 3.24 10^6/uL (4.1-5.3) L 10/27/22 03:02 Hgb 10.1 g/dL (11.5-15.3) L 10/27/22 03:02 Hct 32.1 % (37.0-47.0) L 10/27/22 03:02 MCV 99.1 fl (81-99) H 10/27/22 03:02 MCH 31.2 pg (28.0-34.0) 10/27/22 03:02 MCHC 31.5 g/dL (30.0-36.0) 10/27/22 03:02 RDW 12.9 % (12.1-15.1) 10/27/22 03:02 Plt Count 253 10^3/cmm (130-400) 10/27/22 03:02 MPV 11.7 fL (7.4-10.4) H 10/27/22 03:02 Gran % Cancelled 10/23/22 04:06 Neut % (Auto) 72.9 % 10/27/22 03:02 Lymph % (Auto) 11.1 % 10/27/22 03:02 [place] % (Auto) 13.7 % 10/27/22 03:02 Eos % (Auto) 1.5 % 10/27/22 03:02 Baso % (Auto) 0.4 % 10/27/22 03:02 Neut # (Auto) 5.47 10^3/uL (1.8-7.7) 10/27/22 03:02 Lymph # (Auto) 0.8 10^3/uL (0.8-4.8) 10/27/22 03:02 [place] # (Auto) 1.0 10^3/uL (0.2-0.9) H 10/27/22 03:02 Eos # (Auto) 0.1 10^3/uL (0.0-0.8) 10/27/22 03:02 Baso # (Auto) 0.0 10^3/uL (0.0-0.1) 10/27/22 03:02 Absolute Gran (auto) Cancelled 10/23/22 04:06 Nucleated RBC % (auto) 0 % 10/27/22 03:02 Nucleated RBCs # 0.0 /100WBC 10/27/22 03:02 PT 13.60 SECONDS (12.1-14.9) 10/20/22 18:44 INR 1.01 (0.8-1.2) 10/20/22 18:44 Sodium 135 mmol/L (136-145) L 10/27/22 03:02 Potassium 4.3 mmol/L (3.5-5.1) 10/27/22 03:02 Chloride 100 mmol/L (98-107) 10/27/22 03:02 Carbon Dioxide 27 mmol/L (22-29) 10/27/22 03:02 Anion Gap 12.3 (5-19) 10/27/22 03:02 BUN 23 mg/dL (8-23) 10/27/22 03:02 Creatinine 1.0 mg/dL (0.5-0.9) H 10/27/22 03:02 GFR Calculation Not Reportable 10/27/22 03:02 Glucose 104 mg/dL (65-115) 10/27/22 03:02 Estimat Average Glucose 117 10/21/22 05:09 Hemoglobin A1c 5.7 % (4.0-6.0) 10/21/22 05:09 Calculated Osmolality 284 mOsm/kg (285-295) L 10/27/22 03:02 Uric Acid 6.8 mg/dL (2.4-5.7) H 10/23/22 04:06 Calcium 8.8 mg/dL (8.5-10.5) 10/27/22 03:02 Magnesium 1.9 mg/dL (1.7-2.3) 10/23/22 04:06 Total Bilirubin 0.4 mg/dL (0.15-1.2) 10/25/22 03:30 AST 24 U/L (0-32) 10/25/22 03:30 ALT 14 U/L (0-33) 10/25/22 03:30 Alkaline Phosphatase 81 U/L (35-105) 10/25/22 03:30 Troponin T Gen 5 ng/L 3032 ng/L (0-10) H* 10/23/22 04:06 Troponin T Baseline 5190 ng/L (0-10) H* 10/20/22 18:44 Troponin T 120 Minute 4670 ng/L (0-10) H 10/20/22 21:09 Delta Troponin T -520 ABS# (0-10) L 10/20/22 21:09 Troponin T Hi Sens 6Hr 3407 ng/L (0-10) H 10/21/22 02:29 Troponin T Hi Sens 6Hr Delta -1783 ng/L (0-12) L 10/21/22 02:29 NT-Pro-B Natriuret Pep 6210 pg/mL (0-450) H 10/20/22 18:32 Total Protein 6.5 g/dL (6.6-8.7) L 10/25/22 03:30 Albumin 2.6 g/dL (3.5-5.2) L 10/25/22 03:30 Globulin 3.9 g/dL (1.3-4.6) 10/25/22 03:30 Urine Color Yellow (Yellow) 10/24/22 04:42 Urine Appearance Sl hazy (CLEAR) A 10/24/22 04:42 Urine pH 5 (5-7) 10/24/22 04:42 Ur Specific [place] 1.020 (1.005-1.030) 10/24/22 04:42 Urine Protein Neg (Negative) 10/24/22 04:42 Urine Glucose (UA) Norm (Normal) 10/24/22 04:42 Urine Ketones Negative (Negative) 10/24/22 04:42 Urine Blood 2+ (Negative) H 10/24/22 04:42 Urine Nitrate Negative (Negative) 10/24/22 04:42 Urine Bilirubin Neg (Negative) 10/24/22 04:42 Urine Urobilinogen Neg mg/dL (Negative) 10/24/22 04:42 Ur Leukocyte Esterase 1+ (Negative) H 10/24/22 04:42 Urine RBC 80-100 /hpf (0-2) H 10/24/22 04:42 Urine WBC 55-80 /hpf (0-5) H 10/24/22 04:42 Ur Eosinophil Smear 0 (0-0) 10/24/22 16:45 Ur Squamous Epith Cells 5-10 /hpf (0-5) H 10/24/22 04:42 Amorphous Sediment Not Reportable 10/24/22 04:42 Urine Bacteria 3+ /hpf (NONE) H 10/24/22 04:42 Urine Mucus 1+ /hpf 10/24/22 04:42 Urine Eosinophils No eosinophils seen 10/24/22 16:45 Ur Random Sodium 17 mmol/L 10/24/22 16:45 Ur Random Potassium 46 mmol/L 10/24/22 16:45 Ur Random Chloride 12 mmol/L 10/24/22 16:45 Urine Creatinine 104 mg/dL (28-217) 10/24/22 16:45 Nasal Influ A H1 2009 PCR Not detected (NOT DETECT) 03 00:24 Adenovirus (PCR) Not detected (NOT DETECT) 10/24/22 00:24 C. pneumoniae DNA (PCR) Not detected (NOT DETECT) 10/24/22 00:24 Coronavirus 229E (PCR) Not detected (NOT DETECT) 10/24/22 00:24 Human Metapneumovir PCR Not detected (NOT DETECT) 10/24/22 00:24 Influenza A (H1) PCR Not detected (NOT DETECT) 10/24/22 00:24 Influenza A (H3) PCR Not detected (NOT DETECT) 10/24/22 00:24 Influenza Type A (PCR) Not detected (NOT DETECT) 10/24/22 00:24 Influenza Type B (PCR) Not detected (NOT DETECT) 10/24/22 00:24 M. pneumoniae (PCR) Not detected (NOT DETECT) 10/24/22 00:24 Parainfluenza 1 (PCR) Not detected (NOT DETECT) 10/24/22 00:24 Parainfluenza 2 (PCR) Not detected (NOT DETECT) 10/24/22 00:24 Parainfluenza 3 (PCR) Not detected (NOT DETECT) 10/24/22 00:24 Parainfluenza 4 (PCR) Not detected (NOT DETECT) 10/24/22 00:24 RSV Type A (PCR) Not detected (NOT DETECT) 10/24/22 00:24 RSV Type B (PCR) Not detected (NOT DETECT) 10/24/22 00:24 Entero/Rhino (PCR) Detected (NOT DETECT) A 10/24/22 00:24 SARS-CoV-2 (PCR) Not detected (NOT DETECT) 10/24/22 00:24 Vitals Last Vital Signs Temp 98.2 F 10/27/22 07:38 Pulse 72 10/27/22 13:37 Resp 22 H 10/27/22 12:00 BP 130/74 10/27/22 13:37 Pulse Ox 97 10/27/22 13:37 O2 Del Method 10/27/22 12:00 O2 Flow Rate 2 10/27/22 11:29 FiO2 50 10/26/22 19:56 Discharge Plan Discharge Patient Disposition: Home Health Service Condition: Stable Prescriptions: New amiodarone 400 mg tablet 400 mg PO DAILY 30 Days Qty: 30 0RF Eliquis 5 mg Tablet 5 mg PO BID@0900,2100 30 Days Qty: 60 3RF Augmentin 500-125 mg tablet 1 tab PO BID 7 Days Qty: 14 0RF Lasix 40 mg tablet 40 mg PO DAILY 30 Days Qty: 30 2RF aspirin 81 mg Tablet,Delayed Release (Dr/Ec) 81 mg PO DAILY 30 Days Qty: 30 0RF Continued lisinopril 10 mg tablet 10 mg PO DAILY Qty: 90 3RF acetaminophen 500 mg capsule 500 mg PO TID atorvastatin 80 mg tablet 80 mg PO DAILY omeprazole 20 mg capsule,delayed release(DR/EC) 20 mg PO BID 90 Days Qty: 180 3RF levothyroxine 50 mcg tablet 50 mcg PO DAILY Qty: 90 3RF atenolol 100 mg tablet 100 mg PO DAILY Qty: 90 3RF tramadol 50 mg tablet 50 mg PO TID 30 Days Qty: 90 2RF Changed potassium chloride 20 mEq tablet extended release 20 meq PO DAILY 30 Days Qty: 90 3RF Discontinued terbinafine HCl 250 mg tablet 250 mg PO DAILY Qty: 30 2RF cetirizine 10 mg tablet 10 mg PO DAILY bumetanide 1 mg tablet 1 mg PO DAILY Qty: 90 3RF Discharge Orders: Discharge Order (Routine); Ordered 10/27/22 Ordered By: Charanjit Catherine Other Ambulatory Orders: DME: Commode (Order) Location: None Selected Ordered By: Charanjit Catherine DME: Oxygen (Order) Location: None Selected Ordered By: Charanjit Catherine Referrals: [facility] ([facility]) [Outside] Bairon Elias MD [Physician] - 2 months (Your folllow up appointment with Dr. Elias will be scheduled at your appointment with Arline Cuellar on 11-10-22. Please call [phone] if you have any questions or concerns. Thank you.) Arline Cuellar FNP [Nurse Practitioner] - 11/10/22 3:00 pm Chase Reed NP [Primary Care Provider] - 11/01/22 10:20 am (Please follow-up with Chase Reed on October 29 ay 10:00A.M. If you have any questions or need reschedule. Please call ) Patient Instructions: Furosemide (By mouth) (Lasix), Aspirin (By mouth) (Jacqueline Extra Strength, Jacqueline Aspirin Children[facility],..., Amoxicillin/Clavulanate Potassium (By mouth) (Augmentin, Augmentin..., Amiodarone (By mouth) (Cordarone, Pacerone), Apixaban (By mouth) (Eliquis), A-fib (Atrial Fibrillation) (DC), CHF Stoplight, Opioid Safety Discharge Attestations Time Spent in Discharge Care*: greater than 30 min Quality Metrics Clinical Quality Measures [ No reported AMI, CVA or VTE this stay] Coding Level of Care Code Acute Code for [facility] Fwd Diagnoses Non-ST elevation CO (NSTEMI) I21.4 Accelerated hypertension I10 Atrial fibrillation by electrocardiogram I48.91 ENOCH (acute kidney injury) N17.9 Fever R50.9 Rhinovirus infection B34.8 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
== END 2022-10-27 16:09 | disposition home health service (06) | DRG 280 ==
LOC: ER 19:50 → ER IP 20:13 → ICU 10-21 11:44 → CSU 10-23 11:38
PROVIDERS: Internal Medicine Cardiovascular Disease; Student in an Organized Health Care Education/Training Program; Admitting Provider Student in an Organized Health Care Education/Training Program; Emergency Provider Emergency Medicine; PCP Clinical Nurse Specialist Adult Health; Visit Provider Internal Medicine
PROC: B2111ZZ Fluoroscopy of Multiple Coronary Arteries using Low Osmolar Contrast (ICD-10-PCS; principal; 2022-10-21 19:00)
DX: I21.4 Non-ST elevation (NSTEMI) myocardial infarction (principal); I50.33 Acute on chronic diastolic (congestive) heart failure; J18.9 Pneumonia, unspecified organism; N39.0 Urinary tract infection, site not specified; N17.9 Acute kidney failure, unspecified; I51.81 Takotsubo syndrome; L98.498 Non-pressure chronic ulcer of skin of other sites with other specified severity; I11.0 Hypertensive heart disease with heart failure; E03.9 Hypothyroidism, unspecified; I25.10 Atherosclerotic heart disease of native coronary artery without angina pectoris; I48.0 Paroxysmal atrial fibrillation; Z79.891 Long term (current) use of opiate analgesic; B97.10 Unspecified enterovirus as the cause of diseases classified elsewhere; K21.9 Gastro-esophageal reflux disease without esophagitis; E78.5 Hyperlipidemia, unspecified; M17.0 Bilateral primary osteoarthritis of knee; I73.9 Peripheral vascular disease, unspecified; E86.0 Dehydration; I87.8 Other specified disorders of veins
CPT/HCPCS: 36415; 71045; 71046; 76770; 80048; 80053; 81001; 82436; 82570; 83036; 83735; 83880; 84133; 84300; 84484; 84550; 85025; 85610; 85999; 87040; 87077; 87086; 87186; 87486; 87581; 87633; 87641; 93005; 93306; 93458; 94640; 94660; 94760; 96361; 96372; 96374; 96375; 96376; 97110; 97116; 97161; 97530; 99152; 99153; 99291; A9270; C1769; C1887; C1894; J0360; J1644; J1650; J1940; J2250; J2270; J2405; J2543; J3010; J3475; J3490; J7030; Q0163; Q9967

== ENCOUNTER → 2022-11-01 11:20 | Outpatient (BNVA) | payer MEDICARE, SELFPAY | PROVIDERS: PCP Clinical Nurse Specialist Adult Health; Visit Provider Clinical Nurse Specialist Adult Health | DX: I10 Essential (primary) hypertension (principal) | CPT/HCPCS: 80048 ==

== ENCOUNTER → 2022-11-10 09:18 | Outpatient (BNVA) | payer MEDICARE, SELFPAY | PROVIDERS: PCP Clinical Nurse Specialist Adult Health; Visit Provider Nurse Practitioner Family | DX: I48.91 Unspecified atrial fibrillation (principal); I25.10 Atherosclerotic heart disease of native coronary artery without angina pectoris; I10 Essential (primary) hypertension; I51.81 Takotsubo syndrome; Z79.01 Long term (current) use of anticoagulants | CPT/HCPCS: 36415; 80048; 80061; 93005; 99214 ==

== ENCOUNTER → 2022-11-22 08:49 | Outpatient (BNVA) | payer MEDICARE, SELFPAY | PROVIDERS: PCP Clinical Nurse Specialist Adult Health; Visit Provider Clinical Nurse Specialist Adult Health | DX: I51.81 Takotsubo syndrome (principal) | CPT/HCPCS: 80048 ==

== ENCOUNTER → 2022-11-24 13:17 | Outpatient (BNVA) | payer MEDICARE, SELFPAY | PROVIDERS: PCP Clinical Nurse Specialist Adult Health; Visit Provider Nurse Practitioner Family | DX: I48.91 Unspecified atrial fibrillation (principal); I51.81 Takotsubo syndrome; I10 Essential (primary) hypertension; Z79.01 Long term (current) use of anticoagulants; Z79.82 Long term (current) use of aspirin; R00.1 Bradycardia, unspecified; I44.0 Atrioventricular block, first degree; I44.7 Left bundle-branch block, unspecified; R94.31 Abnormal electrocardiogram [ECG] [EKG] | CPT/HCPCS: 93005; 99214 ==

== ENCOUNTER 2022-12-01 16:36 | Outpatient (CLI) | payer MEDICARE, SELFPAY ==
[2022-12-01 17:33] LABS: Anion Gap 12.9 (5-19); Blood Urea Nitrogen 15 mg/dL (8-23); Calcium 8.9 mg/dL (8.5-10.5); Carbon Dioxide 28 mmol/L (22-29); Chloride 99 mmol/L (98-107); Glucose 111 mg/dL (65-115); NT Pro B Type Natriuretic Pept 3146 pg/mL (0-450); Osmolality Calculated 284 mOsm/kg (285-295); Potassium 3.9 mmol/L (3.5-5.1); Sodium 136 mmol/L (136-145)
== END 2022-12-01 16:37 | disposition home or self-care (01) ==
PROVIDERS: PCP Clinical Nurse Specialist Adult Health; Visit Provider Nurse Practitioner Family
DX: I51.81 Takotsubo syndrome (principal)
CPT/HCPCS: 80048; 83880

== ENCOUNTER → 2022-12-13 15:55 | Outpatient (BNVA) | payer MEDICARE, SELFPAY | PROVIDERS: PCP Clinical Nurse Specialist Adult Health; Visit Provider Internal Medicine Cardiovascular Disease | DX: I51.81 Takotsubo syndrome (principal); R06.02 Shortness of breath; I48.91 Unspecified atrial fibrillation; I25.10 Atherosclerotic heart disease of native coronary artery without angina pectoris; N17.9 Acute kidney failure, unspecified; I10 Essential (primary) hypertension; K21.9 Gastro-esophageal reflux disease without esophagitis; E03.9 Hypothyroidism, unspecified | CPT/HCPCS: 36415; 80048; 83880; 99214 ==

== ENCOUNTER → 2023-01-17 10:39 | Outpatient (BNVA) | payer MEDICARE, SELFPAY | PROVIDERS: PCP Clinical Nurse Specialist Adult Health; Visit Provider Nurse Practitioner Family | DX: I48.91 Unspecified atrial fibrillation (principal); I25.10 Atherosclerotic heart disease of native coronary artery without angina pectoris; Z79.01 Long term (current) use of anticoagulants; I10 Essential (primary) hypertension; I51.81 Takotsubo syndrome | CPT/HCPCS: 36415; 80048; 83880; 85025; 99214 ==

== ENCOUNTER → 2023-06-20 11:08 | Outpatient (BNVA) | payer MEDICARE, SELFPAY | PROVIDERS: PCP Clinical Nurse Specialist Adult Health; Visit Provider Internal Medicine Cardiovascular Disease | DX: R07.9 Chest pain, unspecified (principal); R06.02 Shortness of breath; I48.91 Unspecified atrial fibrillation; I51.81 Takotsubo syndrome; N17.9 Acute kidney failure, unspecified; I10 Essential (primary) hypertension; E03.9 Hypothyroidism, unspecified; I44.7 Left bundle-branch block, unspecified | CPT/HCPCS: 36415; 80048; 83880; 85378; 93005; 99214 ==

== ENCOUNTER 2023-07-05 09:50 | Outpatient (CLI) | payer MEDICARE, SELFPAY ==
--- NOTE | 2023-07-05 10:00 | USCV_ITS ---
Kamille Gustafson Age: 82 Gender: F : 1940 Exam Date: 07/05/2023 10:07 Ordering Phys: Bairon Elias MD ([email or web address]) Technologist: CT Exam Location: [facility] [place] Indication: sob,ef BP: 138 / 88 HR: 60 Rhythm: Sinus Technical Quality: Adequate MEASUREMENTS (Male / Female) Normal Values 2D ECHO LV Chamber Size 6.3 cm RV Chamber Size 3.9 cm LVOT Diameter 2.1 cm LV Ejection Fraction MOD 2C 46.8 % LV Ejection Fraction 2C AL 46.0 % LA Diameter 4.6 cm LA Width 4.7 cm LA Height 5.4 cm RA Width 4.8 cm RA Height 4.4 cm Aorta at Sinotubular Diameter 2.5 cm IVC Diameter 1.7 cm M-MODE Aortic Annulus Diameter 3.3 cm LA Ao Ratio MM 1.5 MV E Point Septal Separation 2.0 cm FINDINGS Left Ventricle Normal LV size with a borderline low ejection fraction of around 55% (visual). Relative hypokinesis of the inferolateral wall segment. Right Ventricle The right ventricle is normal in size and function. Right Atrium The right atrium is normal in size. Left Atrium Mildly increased left atrial size. Mitral Valve Thickened mitral valve. Mild mitral annular calcification. Aortic Valve Thickened aortic valve with restricted mobility Tricuspid Valve No gross abnormality noted. Pulmonic Valve No gross abnormalities noted Pericardium No pericardial effusion. Aorta Normal aortic annulus size. IVC Normal inferior vena cava. Small left-sided pleural effusion CONCLUSIONS Normal LV size with a borderline low ejection fraction of around 55% (visual). Relative hypokinesis of the inferolateral wall segment. Mildly increased left atrial size. Thickened mitral valve. Mild mitral annular calcification. Thickened aortic valve with restricted mobility . Features of small left-sided pleural effusion No intracardiac masses. Compared to the study from 10/21/2022, there may not be a significant change in the 2D findings Dr Bairon Elias MD [facility] (Electronically Signed) Final Date: 08 July 2023 10:30 S
== END 2023-07-05 09:51 | disposition home or self-care (01) ==
LOC: RAD 09:50
PROVIDERS: PCP Clinical Nurse Specialist Adult Health; Visit Provider Internal Medicine Cardiovascular Disease
DX: I50.31 Acute diastolic (congestive) heart failure (principal); R06.02 Shortness of breath; I34.81 Nonrheumatic mitral (valve) annulus calcification
CPT/HCPCS: 93308

== ENCOUNTER → 2023-07-20 14:08 | Outpatient (BNVA) | payer MEDICARE, SELFPAY | PROVIDERS: PCP Clinical Nurse Specialist Adult Health; Visit Provider Clinical Nurse Specialist Adult Health | DX: R06.02 Shortness of breath (principal); I50.32 Chronic diastolic (congestive) heart failure; I10 Essential (primary) hypertension | CPT/HCPCS: 80048; 83880 ==

== ENCOUNTER 2023-09-01 10:42 | Outpatient (CLI) | payer MEDICARE, SELFPAY ==
[2023-09-01 11:25] LABS: Anion Gap 11.4 (5-19); Blood Urea Nitrogen 24 mg/dL (8-23); Calcium 9.4 mg/dL (8.5-10.5); Carbon Dioxide 26 mmol/L (22-29); Chloride 106 mmol/L (98-107); Glucose 101 mg/dL (65-115); NT Pro B Type Natriuretic Pept 1850 pg/mL (0-450); Osmolality Calculated 292 mOsm/kg (285-295); Potassium 4.4 mmol/L (3.5-5.1); Sodium 139 mmol/L (136-145)
== END 2023-09-01 10:43 | disposition home or self-care (01) ==
LOC: LAB 10:46
PROVIDERS: PCP Clinical Nurse Specialist Adult Health; Visit Provider Internal Medicine Cardiovascular Disease
DX: I50.32 Chronic diastolic (congestive) heart failure (principal)
CPT/HCPCS: 36415; 80048; 83880

== ENCOUNTER 2023-10-05 16:05 | Outpatient (CLI) | payer MEDICARE, SELFPAY ==
[2023-10-05 17:09] LABS: Anion Gap 11.7 (5-19); Blood Urea Nitrogen 20 mg/dL (8-23); Calcium 8.6 mg/dL (8.5-10.5); Carbon Dioxide 26 mmol/L (22-29); Chloride 105 mmol/L (98-107); Glucose 95 mg/dL (65-115); NT Pro B Type Natriuretic Pept 1697 pg/mL (0-450); Osmolality Calculated 288 mOsm/kg (285-295); Potassium 4.7 mmol/L (3.5-5.1); Sodium 138 mmol/L (136-145)
== END 2023-10-05 16:06 | disposition home or self-care (01) ==
LOC: LAB 16:06
PROVIDERS: PCP Clinical Nurse Specialist Adult Health; Visit Provider Internal Medicine Cardiovascular Disease
DX: I50.32 Chronic diastolic (congestive) heart failure (principal)
CPT/HCPCS: 36415; 80048; 83880

== ENCOUNTER → 2023-10-27 10:25 | Outpatient (BNVA) | payer MEDICARE, SELFPAY | PROVIDERS: PCP Clinical Nurse Specialist Adult Health; Visit Provider Nurse Practitioner Family | DX: I13.0 Hypertensive heart and chronic kidney disease with heart failure and stage 1 through stage 4 chronic kidney disease, or unspecified chronic kidney disease (principal); N18.32 Chronic kidney disease, stage 3b; I50.32 Chronic diastolic (congestive) heart failure; I48.91 Unspecified atrial fibrillation; I25.10 Atherosclerotic heart disease of native coronary artery without angina pectoris | CPT/HCPCS: 99214 ==

== ENCOUNTER 2024-01-09 13:56 | Emergency (ER) | payer MEDICARE, SELFPAY ==
[2024-01-09 13:57] VITALS: BP 159/87; PULSE 58; RESP 16; TEMP 36.6; O2SAT 100
--- NOTE | 2024-01-09 14:20 | ECG_ITS ---
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 Measurements Intervals [place] Rate: 58 P: 68 AK: 238 QRS: -47 QRSD: 158 T: 112 QT: 435 QTc: 428 Interpretive Statements SINUS BRADYCARDIA WITH FIRST DEGREE AV BLOCK LEFT AXIS DEVIATION [QRS AXIS < -30] POSSIBLE RIGHT VENTRICULAR CONDUCTION DELAY [RSR (QR) IN V1/V2] LEFT BUNDLE BRANCH BLOCK [120+ ms QRS DURATION, 80+ ms Q/S IN V1/V2, 85+ ms R IN I/aVL/V5/V6] INTERPRETATION BASED ON A DEFAULT AGE OF 40 YEARS Compared to ECG 06/20/2023 11:13:19 First degree AV block now present Left-axis deviation now present Sinus rhythm no longer present Electronically Signed On 01-09-2024 17:30:32 CDT by Bairon Elias M.D. [email or web address] [email or web address] county general [email or web address] XOeast [email or web address].[employer] (Inspect Manager)/store/NU/[id number] purnima
[2024-01-09 14:30] VITALS: BP 177/100; PULSE 56; RESP 18; O2SAT 96
[2024-01-09 14:32] LABS: Basophils % 0.7 %; Eosinophils % 0.7 %; Hematocrit 36.7 % (36-47); Lymphocytes # 1.2 10^3/uL (0.8-4.8); Lymphocytes % 20.8 %; Mean Corpuscular Hemoglobin 32.4 pg (27-33); Mean Corpuscular Volume 98.1 fl (85-98); Mean Platelet Volume 10.6 fL (7.4-10.4); Monocytes # 0.6 10^3/uL (0.2-0.9); Monocytes % 10.3 %; Neutrophils # 3.92 10^3/uL (1.8-7.7); Neutrophils % 67.2 %; Nucleated Red Blood Cells % 0 %; Platelet Count 202 10^3/cmm (157-399); Red Blood Count 3.74 10^6/uL (3.85-5.65); White Blood Count 5.83 10^3/uL (3.29-11.43)
--- NOTE | 2024-01-09 14:50 | W.ED.ABDPA2 ---
HPI - Abdominal Pain General: Chief Complaint: Abdominal Pain Stated Complaint: ABD Pain Time Seen by Provider: 01/09/24 14:16 History of Present Illness: 83-year-old female who presents to the emergency room with abdominal pain and nausea. She says she started with some epigastric/periumbilical pain yesterday she says after she ate a boiled egg. She has been feeling bad since. She says it is worsened. She now has aches in her back and just kind of malaise all over. No vomiting. No dysuria. Pain on palpation periumbilical. No fevers. No altered mental status. No focal motor deficits. Review of Systems Narrative: Constitutional symptoms: Negative except as documented in HPI. Skin symptoms: Negative except as documented in HPI. Eye symptoms: Negative except as documented in HPI. ENMT symptoms: Negative except as documented in HPI. Respiratory symptoms: Negative except as documented in HPI. Cardiovascular symptoms: Negative except as documented in HPI. Gastrointestinal symptoms: Negative except as documented in HPI. Genitourinary symptoms: Negative except as documented in HPI. Musculoskeletal symptoms: Negative except as documented in HPI. Neurologic symptoms: Negative except as documented in HPI. Psychiatric symptoms: Negative except as documented in HPI. Endocrine symptoms: Negative except as documented in HPI. 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 Mother , sudden , cause unknown No problems noted. Social History Smoking and tobacco/nicotine status: never used tobacco/nicotine Alcohol intake: never Substance/Drug Use: never Lives independently: Yes Marital status: / Physical Exam Narrative: EXAM NARRATIVE: General: Alert, no acute distress. Skin: Warm, dry. Head: Normocephalic, atraumatic. Neck: Supple, trachea midline. Eye: Extraocular movements are intact. Ears, nose, mouth and throat: mucosa moist. Cardiovascular: Regular, Normal peripheral perfusion. Respiratory: Lungs are clear to auscultation, respirations are non-labored, breath sounds are equal, Symmetrical chest wall expansion. Gastrointestinal: Soft, some tenderness to palpation periumbilical, Non distended, Normal bowel sounds. Musculoskeletal: Normal ROM, no deformity. Neurological: Alert and oriented, No focal neurological deficit observed. Psychiatric: Cooperative, appropriate mood & affect. Course Vital Signs: Vital signs: Vital Signs Temperature 97.9 F 01/09/24 13:57 Pulse Rate 59 L 01/09/24 15:18 Respiratory Rate 16 01/09/24 16:45 Blood Pressure 153/97 01/09/24 15:18 Pulse Oximetry 98 01/09/24 16:45 Oxygen Delivery Me thod Room Air 01/09/24 15:18 MDM - Abdominal Pain Medical Decision Making Medical decision making: Differential diagnosis including but not limited to and based on the above HPI, review of systems and physical exam: Orders placed to evaluate differential diagnosis based on the above differential, HPI and physical exam EKG: Time 1410 rate 58 sinus bradycardia, first-degree AV block, left bundle branch block, No ST-T changes, no ectopy, This was reviewed and interpreted by myself the ER physician at 1414 Lab Review: Laboratory results were reviewed and interpreted by myself the emergency room physician. Lab work is unremarkable. No leukocytosis. Hemoglobin is stable at 12. BUN and creatinine are 24 and 1.6 which is mildly elevated. She does have some chronic kidney disease most recent was 1.4. Urinalysis was clear. Serial troponins are negative as well. CT of the abdomen pelvis with contrast: Patient received fluids after her contrasted CT for her renal insufficiency. No acute intra-abdominal pathology. She does have some gallbladder stones but no evidence of cholecystitis. She does not have any right upper quadrant tenderness on exam as well. This was reviewed and interpreted by myself the emergency room physician. I also reviewed the radiology report. I reviewed the patient's medical record. Reexamination: Patient remained stable. She has had no vomiting while she is been here. She says she feels a little bit better after fluids and Zofran and Pepcid. Assessment and plan: Viral gastroenteritis Dehydration -IV fluids, IV Zofran, IV morphine in the emergency room. - Discharged home - Discussed plan with patient. Answered any questions. - Evaluation and treatment of this problem were appropriate in the emergency setting. Lab Data 01/09/24 14:26 01/09/24 14:26 Labs/Radiology: Radiology Impressions Abdomen/Pelvis CT 01/09/24 15:21 IMPRESSION: 1. No acute intra-abdominal pathology. 2. Cholelithiasis is present without cholecystitis. No gallbladder wall thickening or pericholecystic fluid collection. COMMENTS: Consistent with the [place] [employer]'s Incidental Findings Committee white paper (J Am Sydney Radiol 2018): Any incidental renal lesion less than 1 cm or classified as too small to characterize, or any incidental cystic renal lesion characterized as simple-appearing, is likely benign. No follow-up imaging is recommended for these lesions per consensus recommendations based on imaging criteria. Laboratory Results WBC 5.83 10^3/uL (3.29-11.43) 01/09/24 14:26 RBC 3.74 10^6/uL (3.85-5.65) L 01/09/24 14:26 Hgb 12.10 g/dL (11.27-16.99) 01/09/24 14:26 Hct 36.7 % (36-47) 01/09/24 14:26 MCV 98.1 fl (85-98) H 01/09/24 14:26 MCH 32.4 pg (27-33) 01/09/24 14:26 MCHC 33.0 g/dL (30-55) 01/09/24 14:26 RDW 12.0 % (12.1-15.1) L 01/09/24 14:26 Plt Count 202 10^3/cmm (157-399) 01/09/24 14:26 MPV 10.6 fL (7.4-10.4) H 01/09/24 14:26 Neut % (Auto) 67.2 % 01/09/24 14:26 Lymph % (Auto) 20.8 % 01/09/24 14:26 Clay % (Auto) 10.3 % 01/09/24 14:26 Eos % (Auto) 0.7 % 01/09/24 14:26 Baso % (Auto) 0.7 % 01/09/24 14:26 Neut # (Auto) 3.92 10^3/uL (1.8-7.7) 01/09/24 14:26 Lymph # (Auto) 1.2 10^3/uL (0.8-4.8) 01/09/24 14:26 Clay # (Auto) 0.6 10^3/uL (0.2-0.9) 01/09/24 14:26 Eos # (Auto) 0.0 10^3/uL (0.0-0.8) 01/09/24 14: Baso # (Auto) 0.0 10^3/uL (0.0-0.1) 01/09/24 14: Nucleated RBC % (auto) 0 % 01/09/24 14: Nucleated RBCs # 0.0 /100WBC 01/09/24 14:26 Sodium 138 mmol/L (136-145) 01/09/24 14:26 Potassium 4.1 mmol/L (3.5-5.1) 01/09/24 14:26 Chloride 101 mmol/L (98-107) 01/09/24 14:26 Carbon Dioxide 25 mmol/L (22-29) 01/09/24 14:26 Anion Gap 16.1 (5-19) 01/09/24 14:26 BUN 24 mg/dL (8-23) H 01/09/24 14:26 Creatinine 1.6 mg/dL (0.5-0.9) H 01/09/24 14:26 GFR Calculation Not Reportable 01/09/24 14:26 Glucose 125 mg/dL (65-115) H 01/09/24 14:26 Calculated Osmolality 292 mOsm/kg (285-295) 01/09/24 14:26 Lactic Acid 1.3 mmol/L (0.5-2.2) 01/09/24 14:26 Calcium 9.8 mg/dL (8.5-10.5) 01/09/24 14:26 Total Bilirubin 0.7 mg/dL (0.15-1.2) 01/09/24 14:26 AST 15 U/L (0-32) 01/09/24 14:26 ALT 13 U/L (0-33) 01/09/24 14:26 Alkaline Phosphatase 88 U/L (35-105) 01/09/24 14:26 Troponin T Baseline 17 ng/L (0-10) H 01/09/24 14:26 Troponin T 120 Minute 14.55 ng/L (0-10) H 01/09/24 16:36 Delta Troponin T -2.45 ABS# (0-10) L 01/09/24 16:36 C-Reactive Protein 3.0 mg/L (0.0-4.9) 01/09/24 14:26 Total Protein 8.0 g/dL (6.6-8.7) 01/09/24 14: Albumin 3.9 g/dL (3.5-5.2) 01/09/24 14: Globulin 4.1 g/dL (1.3-4.6) 01/09/24 14:26 Urine Color Yellow (Yellow) 01/09/24 14:36 Urine Appearance Clear (CLEAR) 01/09/24 14:36 Urine pH 7 (5-7) 01/09/24 14:36 Ur Specific [place] 1.005 (1.005-1.030) 01/09/24 14:36 Urine Protein Neg (Negative) 01/09/24 14:36 Urine Glucose (UA) Norm (Normal) 01/09/24 14:36 Urine Ketones Negative (Negative) 01/09/24 14:36 Urine Blood Neg (Negative) 01/09/24 14:36 Urine Nitrate Negative (Negative) 01/09/24 14:36 Urine Bilirubin Neg (Negative) 01/09/24 14:36 Urine Urobilinogen Norm mg/dL (Negative) 01/09/24 14:36 Ur Leukocyte Esterase Negative (Negative) 01/09/24 14:36 Urine RBC None /hpf (0-2) 01/09/24 14:36 Urine WBC None /hpf (0-5) 01/09/24 14:36 Ur Squamous Epith Cells Rare /hpf (0-5) 01/09/24 14:36 Amorphous Sediment Not Reportable 01/09/24 14:36 Urine Bacteria Trace /hpf (NONE) 01/09/24 14:36 All radiology interpretation(s) finalized by discharge Discharge Plan Discharge Patient Disposition: Home Clinical Impression: Gastroenteritis Condition: Stable Prescriptions: New hydrocodone-acetaminophen 5-325 mg tablet 1 tab PO Q6H PRN (Reason: pain) Qty: 10 0RF ondansetron 8 mg tablet,disintegrating 8 mg PO .q6 PRN (Reason: nausea and vomiting) Qty: 14 0RF No Action loratadine [Claritin] 10 mg tablet 10 mg PO DAILY PRN (Reason: allergy symptoms) Qty: 30 11RF Eliquis 5 mg tablet 5 mg PO BID@0900,2100 Qty: 180 3RF acetaminophen 500 mg capsule 1,000 mg PO TID PRN (Reason: with tramadol) atorvastatin 80 mg tablet 80 mg PO DAILY Qty: 90 3RF Entresto 97-103 mg tablet 1 tab PO BID 90 Days Qty: 180 0RF omeprazole 20 mg capsule,delayed release(DR/EC) 20 mg PO BID 90 Days Qty: 180 3RF levothyroxine 50 mcg tablet 50 mcg PO DAILY Qty: 90 3RF furosemide 80 mg tablet 80 mg PO DAILY Qty: 90 2RF aspirin 81 mg tablet,delayed release (DR/EC) 81 mg PO DAILY 90 Days Qty: 90 3RF amiodarone 200 mg tablet 200 mg PO DAILY Qty: 90 3RF potassium chloride 20 mEq tablet extended release 20 meq PO BID Qty: 60 6RF tramadol 50 mg tablet 50 mg PO TID PRN (Reason: pain) Qty: 90 0RF atenolol 25 mg tablet 25 mg PO DAILY Qty: 90 3RF Flonase Allergy Relief 50 mcg/actuation spray,suspension 1 spray intranasal DAILY PRN (Reason: ALLERGIES) Rx Instructions: administer into each nostril Discharge Orders: Discharge ED (Routine); Ordered 01/09/24 Ordered By: Lillie Gonzalez Referrals: Chase Reed, CONTAINER CRANE OPERATOR [Primary Care Provider] - 4-7 days Discharge Diet: Advance as tolerated Discharge Activity: Increase activity as tolerated Patient Instructions: Gastroenteritis (ED) Activity Restrictions/Additional Instructions: Thank you for choosing [facility] for your healthcare needs today. Please realize this is an emergency room and that we are providing you with a medical screening exam and this may not be complete and all inclusive of all the testing and or work up that you may need to determine your ailment or severity of your illness. You have been screened and evaluated and felt safe for discharge. Health conditions do change or evolve sometimes and as such it is important that you follow up with your Primary Doctor to be re checked, 3-5 days is a general good time frame for follow up. You are always welcome to return to the ED for re assessment if your symptoms are worsening or you have new concerns Coding Level of Care Code ED Security Field Supervisor for Antolin Dutton
[2024-01-09 14:52] LABS: Lactic Sepsis W/Reflex 1.3 mmol/L (0.5-2.2)
[2024-01-09 14:55] LABS: Bilirubin Urine Neg (Negative); Blood Urine Neg (Negative); Glucose Urine UA Norm (Normal); Ketones Urine Negative (Negative); Nitrate Urine Negative (Negative); Protein Urine Neg (Negative); Specific Gravity, Urine 1.005 (1.005-1.030); Urine Appearance Clear (CLEAR); Urine Color Yellow (Yellow); Urobilinogen Urine Norm (Negative); pH Urine 7 (5-7)
[2024-01-09 14:56] LABS: Add Urine Culture? No; Bacteria Urine TRACE /hpf; Leukocyte Esterase Urine Negative (Negative); Squamous Epithelial Cell Urine RARE /hpf (0-5)
[2024-01-09 15:18] VITALS: BP 153/97; PULSE 59; O2SAT 99
[2024-01-09 15:19] LABS: Alanine Aminotransferase 13 U/L (0-33); Albumin Level 3.9 g/dL (3.5-5.2); Alkaline Phosphatase 88 U/L (35-105); Anion Gap 16.1 (5-19); Aspartate Amino Transferase 15 U/L (0-32); Blood Urea Nitrogen 24 mg/dL (8-23); Calcium 9.8 mg/dL (8.5-10.5); Carbon Dioxide 25 mmol/L (22-29); Chloride 101 mmol/L (98-107); Globulin 4.1 g/dL (1.3-4.6); Glucose 125 mg/dL (65-115); Osmolality Calculated 292 mOsm/kg (285-295); Potassium 4.1 mmol/L (3.5-5.1); Sodium 138 mmol/L (136-145); Total Bilirubin 0.7 mg/dL (0.15-1.2)
--- NOTE | 2024-01-09 15:21 | CTR_ITS ---
PROCEDURE INFORMATION: Exam: CT Abdomen And Pelvis With Contrast Exam date and time: 01/09/2024 3:30 PM Age: 83 years old Clinical indication: Abdominal pain; Generalized TECHNIQUE: Imaging protocol: Computed tomography of the abdomen and pelvis with contrast. Total images: 2 Radiation optimization: All CT scans at this facility use at least one of these dose optimization techniques: automated exposure control; mA and/or kV adjustment per patient size (includes targeted exams where dose is matched to clinical indication); or iterative reconstruction. Contrast material: OMNI 350; Contrast volume: 100 ml; Contrast route: INTRAVENOUS (IV); COMPARISON: CT abdomen wo/w con [id number] 10/30/2018 1:52 PM RADIATION DOSE METRICS: Total DLP (mGy-cm): 825.7 FINDINGS: Diaphragm: A large hiatal hernia is present. Liver: See Spleen finding. Gallbladder and bile ducts: Cholelithiasis is present without cholecystitis. No gallbladder wall thickening or pericholecystic fluid collection. Pancreas: Normal. No ductal dilation. Spleen: Septated splenic cyst measuring 4.6 cm. 2.4 cm benign hepatic hemangioma. Adrenal glands: Normal. No mass. Kidneys and ureters: 2.5 cm incidental right renal cyst, requiring no further evaluation. Incidental fullness of extrarenal pelvis. Stomach and bowel: Unremarkable. No obstruction. No mucosal thickening. Appendix: No evidence of appendicitis. Intraperitoneal space: Unremarkable. No free air. No significant fluid collection. Vasculature: Incidental phleboliths noted. Lymph nodes: Unremarkable. No enlarged lymph nodes. Urinary bladder: Unremarkable as visualized. Reproductive: Unremarkable as visualized. Bones/joints: Bilateral spondylolysis is seen at L5 with grade 1 anterior spondylolisthesis. Multilevel degenerative disc disease is noted with vacuum phenomenon. Osteophytes are noted extending from the vertebrae. No acute spinal pathology is detected. Soft tissues: Fat-containing umbilical hernia is present without inflammation. Other findings: Moderate atherosclerotic disease burden is evident. CT/CT abdomen pelvis w con* [id number] IMPRESSION: 1. No acute intra-abdominal pathology. 2. Cholelithiasis is present without cholecystitis. No gallbladder wall thickening or pericholecystic fluid collection. COMMENTS: Consistent with the [place] [employer]'s Incidental Findings Committee white paper (J Am Sydney Radiol 2018): Any incidental renal lesion less than 1 cm or classified as too small to characterize, or any incidental cystic renal lesion characterized as simple-appearing, is likely benign. No follow-up imaging is recommended for these lesions per consensus recommendations based on imaging criteria.
[2024-01-09] MEDS: sodium chloride 0.9% 1,000 ML 999 ML IV (15:23)
[2024-01-09] MEDS: iohexol 350 mg/mL 500 mL Btl (per mL) IV (15:32)
[2024-01-09 16:30] VITALS: BP 129/93; PULSE 57; O2SAT 95
[2024-01-09] MEDS: famotidine 20 mg/2 mL INJ 40 MG IVP (16:30)
[2024-01-09 16:34] LABS: Troponin(5th) Baseline 17 ng/L (0-10)
[2024-01-09] MEDS: ondansetron 2 mg/ML SDV 2 mL 4 MG IVP (16:44)
[2024-01-09 16:45] VITALS: RESP 16; O2SAT 98
[2024-01-09] MEDS: morphine 4 mg/mL SDV 1 mL 2 MG IVP (16:45)
[2024-01-09 16:59] LABS: Troponin 5 2HR 14.55 ng/L (0-10); Troponin 5 2HR Delta -2.45 ABS# (0-10)
[2024-01-09 17:45] VITALS: BP 192/93; PULSE 56; RESP 16; O2SAT 98
== END 2024-01-09 17:49 | disposition home or self-care (01) ==
PROVIDERS: Emergency Provider Emergency Medicine; PCP Clinical Nurse Specialist Adult Health
DX: K52.9 Noninfective gastroenteritis and colitis, unspecified (principal); Z79.82 Long term (current) use of aspirin; Z79.01 Long term (current) use of anticoagulants; R00.1 Bradycardia, unspecified; I44.0 Atrioventricular block, first degree; I44.7 Left bundle-branch block, unspecified; I13.0 Hypertensive heart and chronic kidney disease with heart failure and stage 1 through stage 4 chronic kidney disease, or unspecified chronic kidney disease; N18.32 Chronic kidney disease, stage 3b; I50.32 Chronic diastolic (congestive) heart failure; E78.5 Hyperlipidemia, unspecified; I25.10 Atherosclerotic heart disease of native coronary artery without angina pectoris; I25.2 Old myocardial infarction
CPT/HCPCS: 74177; 80053; 81000; 81001; 83605; 84484; 85025; 86140; 93005; 96361; 96374; 96375; 99285; J2270; J2405; J3490; J7030; Q9967

== ENCOUNTER → 2024-01-18 13:25 | Outpatient (BNVA) | payer MEDICARE, SELFPAY | PROVIDERS: PCP Clinical Nurse Specialist Adult Health; Visit Provider Clinical Nurse Specialist Adult Health | DX: N18.32 Chronic kidney disease, stage 3b (principal); E03.9 Hypothyroidism, unspecified | CPT/HCPCS: 80048; 84443 ==

== ENCOUNTER → 2024-04-25 11:20 | Outpatient (BNVA) | payer MEDICARE, SELFPAY | PROVIDERS: PCP Clinical Nurse Specialist Adult Health; Visit Provider Internal Medicine Cardiovascular Disease | DX: I48.91 Unspecified atrial fibrillation (principal); Z79.01 Long term (current) use of anticoagulants; Z79.82 Long term (current) use of aspirin; I51.81 Takotsubo syndrome; I25.10 Atherosclerotic heart disease of native coronary artery without angina pectoris; I50.32 Chronic diastolic (congestive) heart failure; I12.9 Hypertensive chronic kidney disease with stage 1 through stage 4 chronic kidney disease, or unspecified chronic kidney disease; N18.30 Chronic kidney disease, stage 3 unspecified | CPT/HCPCS: 99214 ==

== ENCOUNTER → 2024-05-03 09:34 | Outpatient (BNVA) | payer MEDICARE, SELFPAY | PROVIDERS: PCP Clinical Nurse Specialist Adult Health; Visit Provider Clinical Nurse Specialist Adult Health | DX: N18.32 Chronic kidney disease, stage 3b (principal) | CPT/HCPCS: 80048 ==

== ENCOUNTER 2024-07-26 15:00 | Outpatient (CLI) | payer MEDICARE, SELFPAY ==
--- NOTE | 2024-07-26 15:15 | US_ITS ---
WS: [id number] THYROID ULTRASOUND HISTORY: Thyroid nodule COMPARISON: 06/23/2015 Right lobe: 1.8 cm x 2.7 cm x 4.0 cm (w x ap x l). Volume: 9.4 cm3. Enlarged nodular thyroid lobe. Nodules are predominantly isoechoic to hyperechoic to the adjacent str ap muscles and normal thyroid. No increased vascularity. No echogenic foci. Largest nodule from the s uperior lobe thyroid measures 1.3 x 1.2 x 1.7 cm. Left lobe: 2.1 cm x 2.6 cm x 5.0 cm (w x ap x l). Volume: 12.9 cm3. Enlarged nodular heterogeneous thyroid. Nodules are cystic and hyperechoic to the adjacent strap musc les. Very similar in appearance to the prior exam from 2014. Isthmus: 0.2 cm. US/US thyroid [id number] IMPRESSION: 1. Long-term stability of enlarged multinodular thyroid. No obvious interval c hange since 2014. There are multiple nodules within each thyroid lobe.
== END 2024-07-26 15:01 | disposition home or self-care (01) ==
LOC: RAD 15:01
PROVIDERS: PCP Clinical Nurse Specialist Adult Health; Visit Provider Family Medicine
DX: E04.2 Nontoxic multinodular goiter (principal)
CPT/HCPCS: 76536

== ENCOUNTER 2024-08-07 09:36 | Outpatient (CLI) | payer MEDICARE, SELFPAY ==
--- NOTE | 2024-08-07 10:00 | MM_ITS ---
WS: [id number] BILATERAL 3D TOMOSYNTHESIS DIGITAL SCREENING MAMMOGRAPHY WITH CAD CLINICAL INFORMATION: Screening mammogram HISTORY: Screening mammogram. No current complaints. COMPARISON: 2020 TECHNIQUE: Bilateral CC and MLO views. FINDINGS: Scattered fibroglandular densities bilaterally. No suspicious focal mass, asymmetry, calcifications, or architectural distortion. No evidence of malignancy. Vascular calcification. A few incidental punc erickson calcifications. MM/MM [facility] tomosynthesis [id number] IMPRESSION: DENSITY: There are scattered areas of fibroglandular density. BI-RADS: 2 - Benign. FOLLOW UP: 1 Year Follow-up Recommend return to annual screening mammography.
== END 2024-08-07 09:37 | disposition home or self-care (01) ==
LOC: RAD 09:36
PROVIDERS: PCP Family Medicine; Visit Provider Family Medicine
DX: Z12.31 Encounter for screening mammogram for malignant neoplasm of breast (principal); R92.323 Mammographic fibroglandular density, bilateral breasts; R92.1 Mammographic calcification found on diagnostic imaging of breast
CPT/HCPCS: 77063; 77067

== ENCOUNTER → 2024-08-13 09:31 | Outpatient (BNVA) | payer MEDICARE, SELFPAY | PROVIDERS: PCP Family Medicine; Visit Provider Family Medicine | DX: I25.10 Atherosclerotic heart disease of native coronary artery without angina pectoris (principal); Z13.220 Encounter for screening for lipoid disorders; Z51.81 Encounter for therapeutic drug level monitoring; E03.9 Hypothyroidism, unspecified; E55.9 Vitamin D deficiency, unspecified; E04.1 Nontoxic single thyroid nodule | CPT/HCPCS: 80053; 80061; 82306; 84439; 84443; 84481; 85025 ==

== ENCOUNTER 2024-10-08 16:57 | Outpatient (CLI) | payer MEDICARE, SELFPAY ==
[2024-10-08 17:48] LABS: Basophils # 0.1 10^3/uL (0.0-0.1); Eosinophils # 0.2 10^3/uL (0.0-0.8); Eosinophils % 3.2 %; Hematocrit 30.9 % (36-47); Lymphocytes # 1.6 10^3/uL (0.8-4.8); Lymphocytes % 27.6 %; Mean Corpuscular HGB Conc 31.7 g/dL (30-55); Mean Corpuscular Hemoglobin 32.1 pg (27-33); Mean Corpuscular Volume 101.3 fl (85-98); Mean Platelet Volume 11.3 fL (7.4-10.4); Monocytes # 0.8 10^3/uL (0.2-0.9); Neutrophils # 3.24 10^3/uL (1.8-7.7); Neutrophils % 54.9 %; Nucleated Red Blood Cells % 0 %; Platelet Count 194 10^3/cmm (157-399); Red Blood Count 3.05 10^6/uL (3.85-5.65); White Blood Count 5.91 10^3/uL (3.29-11.43)
[2024-10-08 18:16] LABS: Alanine Aminotransferase 11 U/L (0-33); Albumin Level 3.6 g/dL (3.5-5.2); Alkaline Phosphatase 89 U/L (35-105); Anion Gap 13.8 (5-19); Aspartate Amino Transferase 15 U/L (0-32); Blood Urea Nitrogen 21 mg/dL (8-23); Calcium 8.9 mg/dL (8.5-10.5); Carbon Dioxide 26 mmol/L (22-29); Chloride 104 mmol/L (98-107); Ferritin 40 ng/mL (15-150); Globulin 3.4 g/dL (1.3-4.6); Glucose 99 mg/dL (65-115); Iron 42 ug/dL (37-145); Lipase 46 U/L (13-60); Magnesium 1.7 mg/dL (1.7-2.3); Osmolality Calculated 293 mOsm/kg (285-295); Potassium 3.8 mmol/L (3.5-5.1); Sodium 140 mmol/L (136-145); Total Bilirubin 0.4 mg/dL (0.15-1.2)
[2024-10-08 18:26] LABS: Vitamin B12 242 pg/mL (232-1245)
== END 2024-10-08 16:58 | disposition home or self-care (01) ==
PROVIDERS: PCP Family Medicine; Visit Provider Family Medicine
DX: R10.13 Epigastric pain (principal); D64.9 Anemia, unspecified; Z51.81 Encounter for therapeutic drug level monitoring; E53.8 Deficiency of other specified B group vitamins
CPT/HCPCS: 80053; 82607; 82728; 83540; 83690; 83735; 85025; 86141

== ENCOUNTER → 2024-11-16 09:12 | Outpatient (BNVA) | payer MEDICARE, SELFPAY | PROVIDERS: PCP Family Medicine; Visit Provider Family Medicine | DX: D64.9 Anemia, unspecified (principal); E53.8 Deficiency of other specified B group vitamins; Z51.81 Encounter for therapeutic drug level monitoring | CPT/HCPCS: 82607; 83540; 85025 ==

== ENCOUNTER 2024-11-26 08:17 | Inpatient (IN) | payer MEDICARE, SELFPAY ==
[2024-11-26] VITALS (12 sets, daily range): BP systolic 141–192; BP diastolic 79–131; PULSE 53–70; RESP 17–30; TEMP 36.5–36.9; O2SAT 91–99; BMI 30.8
--- NOTE | 2024-11-26 08:33 | XRR_ITS ---
PROCEDURE INFORMATION: Exam: XR Chest Exam date and time: 11/26/2024 8:43 AM Age: 83 years old Clinical indication: Cough and dyspnea; Additional info: Dyspnea/cough TECHNIQUE: Imaging protocol: Radiologic exam of the chest. Views: 1 view. Total images: 1 COMPARISON: CR XR chest 1V portable [id number] 10/26/2022 3:31 AM FINDINGS: Lungs: Pulmonary vascular congestion. Slightly improved bilateral pleuroparenchymal disease. Pleural spaces: No pneumothorax. Heart/Mediastinum: A large hiatal hernia is present. Cardiomegaly. Vasculature: Moderate atherosclerotic disease burden is evident. Bones/joints: Osseous structures are unchanged from the prior exam. XR/XR chest 1V portable [id number] IMPRESSION: 1. Cardiomegaly with pulmonary vascular congestion. 2. Slightly improved bilateral pleuroparenchymal disease.
--- NOTE | 2024-11-26 08:34 | ECG_ITS ---
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 Measurements Intervals [place] Rate: 66 P: -16 NM: 199 QRS: -24 QRSD: 158 T: 145 QT: 414 QTc: 436 Interpretive Statements SINUS RHYTHM WITH OCCASIONAL VENTRICULAR PREMATURE COMPLEXES LEFT BUNDLE BRANCH BLOCK [120+ ms QRS DURATION, 80+ ms Q/S IN V1/V2, 85+ ms R IN I/aVL/V5/V6] Compared to ECG 01/09/2024 14:10:49 Ventricular premature complex(es) now present Sinus bradycardia no longer present First degree AV block no longer present Left-axis deviation no longer present Electronically Signed On 11-26-2024 21:34:28 CDT by Bairon Elias M.D. [email or web address] [id number]
--- NOTE | 2024-11-26 08:46 | ED_ITS ---
HPI - SOB/Dyspnea 2 General: Chief Complaint: Shortness of Breath/Dyspnea Stated Complaint: sob Time Seen by Provider: 11/26/24 08:33 History of Present Illness: HPI Narrative: 83-year-old female presents emergency ro om with complaint of shortness of breath. She has been gradually worsening over the last approximately 1 week. She is normally not on oxygen her oxygen sats are in the low 90s while sitting up on room air she improved to 9697% with 2 L by nasal cannula. Patient is noticed increased swelling in her legs as well as orthopnea that has progressively worsened. She has a known history of coronary artery disease no history of COPD. She also has a history of chronic kidney disease atrial fibrillation. She is on apixaban atenolol and amiodarone. Associated symptoms: Reports orthopnea; Deny abdominal pain, chest pain, fever(s) or palpitations Related Data Home Medications ?Medication ?Instructions ?Recorded ?Confirmed acetaminophen 500 mg capsule 1,000 mg PO TID PRN with tramadol 11/24/22 11/26/24 Previous Rx's ?Medication ?Instructions ?Recorded loratadine 10 mg tablet (Claritin) 10 mg PO DAILY PRN allergy 02/22/23 symptoms #30 tabs omeprazole 20 mg capsule,delayed 20 mg PO BID 90 days #180 caps 03/09/24 release levothyroxine 50 mcg tablet 50 mcg PO DAILY #90 tabs 0 04/11/24 apixaban 2.5 mg tablet 2.5 mg PO BID@0900,2100 #180 tabs 07/25/24 ondansetron 8 mg disintegrating 8 mg PO .q6 PRN nausea and 10/08/24 tablet vomiting #14 tabs tramadol 50 mg tablet 50 mg PO TID PRN pain #90 ta bs 10/08/24 cyanocobalamin (vitamin B-12) 1,000 mcg PO DAILY #30 t abs 10/15/24 1,000 mcg tablet (Vitamin B-12) ferrous sulfate 325 mg (65 mg 325 mg PO BID #60 tabs 0 10/15/24 iron) tablet amiodarone 200 mg tablet 200 mg PO DAILY #90 tabs 06/08 atenolol 25 mg tablet 25 mg PO DAILY #90 tabs 10/13 atorvastatin 80 mg tablet 80 mg PO DAILY #90 tabs 10/13 09/08 albuterol sulfate 90 mcg/actuation 2 puff inhalation Q 6H PRN 11/20/24 aerosol inhaler shortness of breath or wheez ing #8.5 grams furosemide 80 mg tablet See Rx Instructions .Route 0 11/20/24 .COMPLEX #180 tabs potassium chloride 20 mEq 20 meq PO BID #60 tabs 11/20 tablet,extended release(part/cryst) (Klor-Con M) sacubitril 97 mg-valsartan 103 mg See Rx Instructions .Route 11/21/24 tablet (Entresto) .COMPLEX #180 tabs Allergies Allergy/AdvReac Type Severity Reaction Status Date / Time ergocalciferol (vitamin D2) AdvReac Severe weakness Verified 05/03/24 08:42 (From Vitamin D2) Review of Systems 2 Const: Denies: fever(s) or chills Card: Reports: edema, swelling of feet/ankles, dyspnea on exertion and orthopnea; Denies: chest pain or palpitations Resp: Denies: dyspnea GI: Denies: abdominal pain : Denies: dysuria, urinary frequency or urinary urgency Musc: Denies: neck pain or back pain Skin/Breast: Denies: rash PFSH ED 2 PFSH: Medical History (Updated 11/26/24 @ 12:54 by Gregorio Manley DO) History of echocardiogram 11/04 EF 56% mild with JOHNNA 1.5cm2, mean gradient 10 Chronic sinusitis Vitamin D deficiency unable to tolerate oral vitamin D supplements Thyroid nodule Chronic diastolic heart failure on entresto Benign essential HTN Hyperlipidemia Hypothyroidism Atherosclerosis of coronary artery 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) Atrial fibrillation by electrocardiogram anticoagulated with apixaban, on amiodarone Accelerated hypertension Non-ST elevation NM (NSTEMI) Takotsubo cardiomyopathy Venous stasis ulcer Venous insufficiency (chronic) (peripheral) Seasonal allergies GERD (gastroesophageal reflux disease) Osteoarthritis of knees, bilateral Surgical History (Updated 11/26/24 @ 12:51 by Sara Hughes MD) History of cardiac catheterization 11/04 mild to moderate disease LAD and RCA, EF 45%, suggestive variant of Takotsubo syndrome Laceration of arm Artery repair - Right forearm - Linda Hx of cataract surgery Family History Father , sudden due to heart attack Myocardial infarction Mother , sudden , cause unknown No problems noted. 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 Physical Exam 2 Const: GENERAL APPEARANCE: cooperative ORIENTATION/CONSCIOUSNESS: Yes awake, Yes oriented to person, Yes oriented to place and Yes oriented to time HENMT: COMMON NORMALS: normocephalic, atraumatic and hearing grossly normal bilaterally HEAD & SCALP: normocephalic and atraumatic Resp: EFFORT & INSPECTION: Yes tachypneic AUSCULTATION: crackles Cardio: COMMON NORMALS: regular rate, regular rhythm and No murmurs present (Cardio) RATE: regular rate RHYTHM: regular rhythm GI: COMMON NORMALS: Soft to palpation and No hepatosplenomegaly present A USCULTATION: Yes normoactive bowel sounds PALPATION: Yes Soft to palpation, No Tenderness to palpation present (GI), No Guarding due to palpation present (GI) and Yes No hepatosplenomegaly present Extremity: COMMON NORMALS: normal to inspection, capillary refill normal and no calf tenderness GENERAL: Yes edema (Lower extremities) Neuro: SENSORIUM/ORIENTATION: Yes oriented to person, Yes oriented to place and Yes oriented to time Skin: COMMON NORMALS: no rashes or lesions noted GENERAL SKIN EXAM: no rashes or lesions noted Course 2 Vital Signs: Vital signs: Vital Signs Temperature 97.9 F 11/26/24 11:30 Pulse Rate 57 L 11/26/24 11:33 Respiratory Rate 30 H 11/26/24 11:30 Blood Pressure 158/102 11/26/24 11:30 Pulse Oximetry 96 11/26/24 11:30 Oxygen Delivery Me thod Nasal Cannula 11/26/24 11:30 Oxygen Flow Rate 2 11/26/24 11:30 MDM - SOB/Dyspnea Medical Decision Making Decompensated congestive heart failure. Patient EKG shows a left bundle branch block no pain at this time. Chest x-ray shows signs of heart failure. She has been given Lasix and her potassium is low we will also give her supplemental potassium magnesium is in the normal range. Discussed with hospitalist orders written. Incidental finding of cystitis given Rocephin in the emergency room Differential Diagnosis Likely acute exacerbation of chronic obstructive airways disease, congestive heart failure and community acquired pneumonia Medical Records I reviewed the patient's medical records. Lab Data I reviewed the patient's lab results. 11/26/24 08:45 11/26/24 08:45 Labs/Radiology: Radiology Impressions Chest X-Ray 11/26/24 08:33 IMPRESSION: 1. Cardiomegaly with pulmonary vascular congestion. 2. Slightly improved bilateral pleuroparenchymal disease. Laboratory Results WBC 7.41 10^3/uL (3.29-11.43) 11/26/24 08:45 RBC 3.23 10^6/uL (3.85-5.65) L 11/26/24 08:45 Hgb 10.40 g/dL (11.27-16.99) L 11/26/24 08:45 Hct 33.3 % (36-47) L 11/26/24 08:45 MCV 103.1 fl (85-98) H 11/26/24 08:45 MCH 32.2 pg (27-33) 11/26/24 08:45 MCHC 31.2 g/dL (30-55) 11/26/24 08:45 RDW 12.9 % (12.1-15.1) 11/26/24 08:45 Plt Count 195 10^3/cmm (157-399) 11/26/24 08:45 MPV 11.5 fL (7.4-10.4) H 11/26/24 08:45 Neut % (Auto) 76.2 % 11/26/24 08:45 Lymph % (Auto) 12.6 % 11/26/24 08:45 [place] % (Auto) 8.9 % 11/26/24 08:45 Eos % (Auto) 1.1 % 11/26/24 08:45 Baso % (Auto) 0.8 % 11/26/24 08:45 Neut # (Auto) 5.65 10^3/uL (1.8-7.7) 11/26/24 08:45 Lymph # (Auto) 0.9 10^3/uL (0.8-4.8) 11/26/24 08:45 [place] # (Auto) 0.7 10^3/uL (0.2-0.9) 11/26/24 08:45 Eos # (Auto) 0.1 10^3/uL (0.0-0.8) 11/26/24 08:45 Baso # (Auto) 0.1 10^3/uL (0.0-0.1) 11/26/24 08:45 Nucleated RBC % (auto) 0 % 11/26/24 08:45 Nucleated RBCs # 0.0 /100WBC 11/26/24 08:45 Sodium 140 mmol/L (136-145) 11/26/24 08:45 Potassium 3.3 mmol/L (3.5-5.1) L 11/26/24 08:45 Chloride 105 mmol/L (98-107) 11/26/24 08:45 Carbon Dioxide 22 mmol/L (22-29) 11/26/24 08:45 Anion Gap 16.3 (5-19) 11/26/24 08:45 BUN 12 mg/dL (8-23) 11/26/24 08:45 Creatinine 1.1 mg/dL (0.5-0.9) H 11/26/24 08:45 GFR Calculation Not Reportable 11/26/24 08:45 Glucose 139 mg/dL (65-115) H 11/26/24 08:45 Calculated Osmolality 292 mOsm/kg (285-295) 11/26/24 08:45 Calcium 9.3 mg/dL (8.5-10.5) 11/26/24 08:45 Magnesium 1.8 mg/dL (1.7-2.3) 11/26/24 08:45 Total Bilirubin 0.8 mg/dL (0.15-1.2) 11/26/24 08:45 AST 14 U/L (0-32) 11/26/24 08:45 ALT 11 U/L (0-33) 11/26/24 08:45 Alkaline Phosphatase 89 U/L (35-105) 11/26/24 08:45 Troponin T Baseline 20 ng/L (0-10) H 11/26/24 08:45 Total Protein 7.1 g/dL (6.6-8.7) 11/26/24 08:45 Albumin 3.8 g/dL (3.5-5.2) 11/26/24 08:45 Globulin 3.3 g/dL (1.3-4.6) 11/26/24 08:45 Urine Color Yellow (Yellow) 11/26/24 10:00 Urine Appearance Slightly cloudy (CLEAR) 11/26/24 10:00 Urine pH 6 (5-7) 11/26/24 10:00 Ur Specific [place] 1.010 (1.005-1.030) 11/26/24 10:00 Urine Protein Neg (Negative) 11/26/24 10:00 Urine Glucose (UA) Norm (Normal) 11/26/24 10:00 Urine Ketones Negative (Negative) 11/26/24 10:00 Urine Blood 2+ (Negative) H 11/26/24 10:00 Urine Nitrate Negative (Negative) 11/26/24 10:00 Urine Bilirubin Neg (Negative) 11/26/24 10:00 Urine Urobilinogen Norm mg/dL (Negative) 11/26/24 10:00 Ur Leukocyte Esterase Negative (Negative) 11/26/24 10:00 Urine RBC 0-2 /hpf (0-2) 11/26/24 10:00 Urine WBC 6-10 /hpf (0-5) 11/26/24 10:00 Ur Squamous Epith Cells 0-5 /hpf (0-5) 11/26/24 10:00 Amorphous Sediment Not Reportable 11/26/24 10:00 Urine Bacteria 4+ /hpf (NONE) H 11/26/24 10:00 Hyaline Casts 2.46 /lpf 11/26/24 10:00 All radiology interpretation(s) finalized by discharge Discharge Plan Discharge Patient Disposition: Admitted As Inpatient Admit Provider: Sara Hughes Clinical Impression: Acute on chronic diastolic (congestive) heart failure, Atrial fibrillation by electrocardiogram, Atherosclerosis of coronary artery, Stage 3b chronic kidney disease (CKD), Cystitis Condition: Stable Coding Level of Care Code ED Mixer Tender for Antolin Dutton
[2024-11-26 08:50] LABS: Basophils # 0.1 10^3/uL (0.0-0.1); Basophils % 0.8 %; Eosinophils # 0.1 10^3/uL (0.0-0.8); Eosinophils % 1.1 %; Hematocrit 33.3 % (36-47); Lymphocytes # 0.9 10^3/uL (0.8-4.8); Lymphocytes % 12.6 %; Mean Corpuscular HGB Conc 31.2 g/dL (30-55); Mean Corpuscular Hemoglobin 32.2 pg (27-33); Mean Corpuscular Volume 103.1 fl (85-98); Mean Platelet Volume 11.5 fL (7.4-10.4); Monocytes # 0.7 10^3/uL (0.2-0.9); Monocytes % 8.9 %; Neutrophils # 5.65 10^3/uL (1.8-7.7); Neutrophils % 76.2 %; Nucleated Red Blood Cells % 0 %; Platelet Count 195 10^3/cmm (157-399); Red Blood Count 3.23 10^6/uL (3.85-5.65); Red Cell Distribution Width 12.9 % (12.1-15.1); White Blood Count 7.41 10^3/uL (3.29-11.43)
[2024-11-26 09:15] LABS: Troponin(5th) Baseline 20 ng/L (0-10)
[2024-11-26 09:16] LABS: Alanine Aminotransferase 11 U/L (0-33); Albumin Level 3.8 g/dL (3.5-5.2); Alkaline Phosphatase 89 U/L (35-105); Anion Gap 16.3 (5-19); Aspartate Amino Transferase 14 U/L (0-32); Blood Urea Nitrogen 12 mg/dL (8-23); Calcium 9.3 mg/dL (8.5-10.5); Carbon Dioxide 22 mmol/L (22-29); Chloride 105 mmol/L (98-107); Creatinine Clr Calc Pharmacy 50.7255; Globulin 3.3 g/dL (1.3-4.6); Glucose 139 mg/dL (65-115); Osmolality Calculated 292 mOsm/kg (285-295); Potassium 3.3 mmol/L (3.5-5.1); Sodium 140 mmol/L (136-145); Total Bilirubin 0.8 mg/dL (0.15-1.2); Total Protein 7.1 g/dL (6.6-8.7)
[2024-11-26] MEDS: FUROsemide 10 mg/mL SDV 10mL 80 MG IVP ×2 (09:29→20:20)
[2024-11-26 10:25] LABS: Bacteria Urine 4+ /hpf; Hyaline Casts Urine 2.46 /lpf; RBC Urine 0-2 /hpf (0-2); Squamous Epithelial Cell Urine 0-5 /hpf (0-5)
[2024-11-26 10:31] LABS: Urine Appearance Slightly Cloudy (CLEAR); Urine Color Yellow (Yellow); pH Urine 6 (5-7)
[2024-11-26 10:32] LABS: Add Urine Culture? Yes; Add Urine Microscopic? YES; Bilirubin Urine Neg (Negative); Blood Urine 2+ (Negative); Glucose Urine UA Norm (Normal); Ketones Urine Negative (Negative); Leukocyte Esterase Urine Negative (Negative); Nitrate Urine Negative (Negative); Protein Urine Neg (Negative); Urobilinogen Urine Norm (Negative)
[2024-11-26 10:47] LABS: Magnesium 1.8 mg/dL (1.7-2.3)
--- NOTE | 2024-11-26 10:47 | ECG_ITS ---
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 Measurements Intervals [place] Rate: 63 P: -19 MA: 178 QRS: -23 QRSD: 148 T: 152 QT: 445 QTc: 459 Interpretive Statements SINUS RHYTHM POSSIBLE RIGHT VENTRICULAR CONDUCTION DELAY [RSR (QR) IN V1/V2] LEFT BUNDLE BRANCH BLOCK [120+ ms QRS DURATION, 80+ ms Q/S IN V1/V2, 85+ ms R IN I/aVL/V5/V6] Compared to ECG 11/26/2024 08:30:30 Ventricular premature complex(es) no longer present Electronically Signed On 11-26-2024 21:39:18 CDT by Bairon Elias M.D. [email or web address]
[2024-11-26] MEDS: potassium chloride oral liq 20 mEq/15 mL UDC 40 MEQ PO (10:48)
[2024-11-26 11:09] LABS: Troponin 5 2HR 29.42 ng/L (0-10); Troponin 5 2HR Delta 9.42 ABS# (0-10)
--- NOTE | 2024-11-26 11:20 | P.HP_ITS ---
Providers/Chief Complaint 2 Admitting Physician: Sara Hughes MD Primary Care Provider: Wilner Malik MD Chief Complaint: sob History of Present Illness Kamille Gustafson is a 83 year old female with a history of heart failure, atrial fibrillation, and a prior myocardial infarction who presents with worsening dyspnea and fluid retention. The patient was recently seen by Dr. Malik the and had her Lasix dose increased to 80 mg twice a day from once per day. She has been taking Lasix twice a day as instructed but despite reporting that she now feels the urge to urinate more frequently, she notes that the volume of urine output has not increased. Over the past week, she also experienced difficulty drinking fluids ? stating that she ?just didn?t feel like it? and had to keep sipping to get her pills down. Leg swelling, which has been variable over a few years, has markedly increased over the last 3?4 weeks, and she now requires sitting upright to ease her breathing. Swelling extends to her abdominal area where she has had some indention with her clothing. She reports a dry cough without fever and denies any current chest pain. She has not been resting due to having to sit upright to breathe. She has been hesitant to come to the emergency room but her breathing became much more difficult today with her struggling at times prompting her to come in. On arrival to the emergency room she was noted to have low oxygen saturations in the upper 80s, low 90s and was placed on oxygen at 2 L by nasal cannula. She has no personal history of lung disease and has never required oxygen therapy before that she can recall. Clinically she was felt to have acute CHF in the emergency room and received 80 mg of IV Lasix as well as some potassium supplementation. She had an abnormal urinalysis and also received a dose of Rocephin. Denies any dysuria or hematuria. Lundberg catheter was placed in the ER. She is being admitted for further evaluation and treatment. Last hospitalization for cardiac issues was in 2022 when she presented with NSTEMI and new onset atrial fibrillation. She follows with Dr. Elias in the outpatient setting. She is chronically on Entresto, started in 2022. Review of Systems 2 General: Reports: Other (ROS as per HPI or as otherwise noted here) Const: Reports: fatigue and malaise; Denies: fever(s) ENMT: Reports: nasal discharge (after taking lasix nose runs) Card: Reports: edema, swelling of feet/ankles, dyspnea on exertion and orthopnea; Denies: chest pain or palpitations Resp: Reports: dyspnea and non-productive cough; Denies: productive cough, pain on inspiration or hemoptysis GI: Reports: dysphagia (does not feel like she can swallow water easily right now, not stuck, full); Denies: abdominal pain, nausea, vomiting, constipation, hematochezia or melena : Reports: urinary frequency (after increasing lasix but urine output not increased); Denies: difficulty voiding or hematuria Skin/Breast: Reports: sores (left leg, healing; chronic skin changes both legs) [place]/Lymph: Denies: easy bruising or easy bleeding Medications/Allergies Home Medications ?Medication ?Instructions ?Recorded ?Confirmed ?Last Taken ?Type acetaminophen 500 mg capsule 1,000 mg PO TID PRN with tramadol 11/24/22 11/26/24 Unknown History loratadine 10 mg tablet (Claritin) 10 mg PO DAILY PRN allergy 02/22/23 11/26/24 Unknown Rx symptoms #30 tabs omeprazole 20 mg capsule,delayed 20 mg PO BID 90 days #180 caps 03/09/24 11/26/24 11/26/24 Rx release levothyroxine 50 mcg tablet 50 mcg PO DAILY #90 tabs 0 04/11/24 11/26/24 11/26/24 Rx apixaban 2.5 mg tablet 2.5 mg PO BID@0900,2100 #180 tabs 07/25/24 11/26/24 11/26/24 Rx ondansetron 8 mg disintegrating 8 mg PO .q6 PRN nausea and 10/08/24 11/26/24 Unknown Rx tablet vomiting #14 tabs tramadol 50 mg tablet 50 mg PO TID PRN pain #90 ta bs 10/08/24 11/26/24 Unknown Rx cyanocobalamin (vitamin B-12) 1,000 mcg PO DAILY #30 t abs 10/15/24 11/26/24 11/25/24 Rx 1,000 mcg tablet (Vitamin B-12) ferrous sulfate 325 mg (65 mg 325 mg PO BID #60 tabs 0 10/15/24 11/26/24 11/25/24 Rx iron) tablet amiodarone 200 mg tablet 200 mg PO DAILY #90 tabs 06/0811/26/24 11/26/24 Rx atenolol 25 mg tablet 25 mg PO DAILY #90 tabs 10/1311/26/24 11/26/24 Rx atorvastatin 80 mg tablet 80 mg PO DAILY #90 tabs 10/1311/26/24 11/26/24 Rx albuterol sulfate 90 mcg/actuation 2 puff inhalation Q 6H PRN 11/20/24 11/26/24 11/26/24 Rx aerosol inhaler shortness of breath or wheez ing #8.5 grams furosemide 80 mg tablet See Rx Instructions .Route 0 11/20/24 11/26/24 11/26/24 Rx .COMPLEX #180 tabs potassium chloride 20 mEq 20 meq PO BID #60 tabs 11/2011/26/24 11/26/24 Rx tablet,extended release(part/cryst) (Klor-Con M) sacubitril 97 mg-valsartan 103 mg See Rx Instructions .Route 11/21/24 11/26/24 11/26/24 Rx tablet (Entresto) .COMPLEX #180 tabs Allergies Allergy/AdvReac Type Severity Reaction Status Date / Time ergocalciferol (vitamin D2) AdvReac Severe weakness Verified 05/03/24 08:42 (From Vitamin D2) PFSH Acute 2 PFSH: Medical History (Updated 11/26/24 @ 13:27 by Sara Hughes MD) Accelerated hypertension History of echocardiogram 11/04 EF 56% mild with JOHNNA 1.5cm2, mean gradient 10 Chronic sinusitis Vitamin D deficiency unable to tolerate oral vitamin D supplements Thyroid nodule Chronic diastolic heart failure on entresto Benign essential HTN Hyperlipidemia Hypothyroidism Atherosclerosis of coronary artery 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) Atrial fibrillation by electrocardiogram anticoagulated with apixaban, on amiodarone Non-ST elevation [place] (NSTEMI) Takotsubo cardiomyopathy Venous stasis ulcer Venous insufficiency (chronic) (peripheral) Seasonal allergies GERD (gastroesophageal reflux disease) Osteoarthritis of knees, bilateral Surgical History (Updated 11/26/24 @ 13:00 by Sara Hughes MD) History of cardiac catheterization 11/04 mild to moderate disease LAD and RCA, EF 45%, suggestive variant of Takotsubo syndrome Laceration of arm Artery repair - Right forearm - [place] Hx of cataract surgery bilateral Family History Father , sudden due to heart attack Myocardial infarction Mother , sudden , cause unknown No problems noted. 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 Able to provide history but pauses when talking. Oxygen in place. Normocephalic. Extraocular movements are intact. Mucous membranes are moist. Neck is supple. Cardiovascular exam reveals a regular rate and rhythm. Pulse is a little difficult to isolate in the right upper extremity but once found 2+ and equal radial pulses bilaterally. 1+ posterior tibialis bilaterally. Lungs with decreased breath sounds at both bases, crackles noted. No rhonchi or wheezes. Abdomen is soft, slightly distended. 4+ pitting edema. Chronic stasis changes to both lower extremities left more prominent than right. A dime sized sore to left lateral lower extremity is healing well presently. No oozing. Well-healed scar to right upper extremity. Speech is clear, face symmetric, moves all extremities. Urinary Catheter Management: Lundberg: Cath Placed During This Visit: yes Urinary Catheter Date of Insertion: 11/26/24 Urinary Catheter Time of Insertion: 10:56 Data 11/26/24 08:45 11/26/24 08:45 Other Labs: Radiology Impressions Chest X-Ray 11/26/24 08:33 IMPRESSION: 1. Cardiomegaly with pulmonary vascular congestion. 2. Slightly improved bilateral pleuroparenchymal disease. Laboratory Results WBC 7.41 10^3/uL (3.29-11.43) 11/26/24 08:45 RBC 3.23 10^6/uL (3.85-5.65) L 11/26/24 08:45 Hgb 10.40 g/dL (11.27-16.99) L 11/26/24 08:45 Hct 33.3 % (36-47) L 11/26/24 08:45 MCV 103.1 fl (85-98) H 11/26/24 08:45 MCH 32.2 pg (27-33) 11/26/24 08:45 MCHC 31.2 g/dL (30-55) 11/26/24 08:45 RDW 12.9 % (12.1-15.1) 11/26/24 08:45 Plt Count 195 10^3/cmm (157-399) 11/26/24 08:45 MPV 11.5 fL (7.4-10.4) H 11/26/24 08:45 Neut % (Auto) 76.2 % 11/26/24 08:45 Lymph % (Auto) 12.6 % 11/26/24 08:45 [place] % (Auto) 8.9 % 11/26/24 08:45 Eos % (Auto) 1.1 % 11/26/24 08:45 Baso % (Auto) 0.8 % 11/26/24 08:45 Neut # (Auto) 5.65 10^3/uL (1.8-7.7) 11/26/24 08:45 Lymph # (Auto) 0.9 10^3/uL (0.8-4.8) 11/26/24 08:45 [place] # (Auto) 0.7 10^3/uL (0.2-0.9) 11/26/24 08:45 Eos # (Auto) 0.1 10^3/uL (0.0-0.8) 11/26/24 08:45 Baso # (Auto) 0.1 10^3/uL (0.0-0.1) 11/26/24 08:45 Nucleated RBC % (auto) 0 % 11/26/24 08:45 Nucleated RBCs # 0.0 /100WBC 11/26/24 08:45 Sodium 140 mmol/L (136-145) 11/26/24 08:45 Potassium 3.3 mmol/L (3.5-5.1) L 11/26/24 08:45 Chloride 105 mmol/L (98-107) 11/26/24 08:45 Carbon Dioxide 22 mmol/L (22-29) 11/26/24 08:45 Anion Gap 16.3 (5-19) 11/26/24 08:45 BUN 12 mg/dL (8-23) 11/26/24 08:45 Creatinine 1.1 mg/dL (0.5-0.9) H 11/26/24 08:45 GFR Calculation Not Reportable 11/26/24 08:45 Glucose 139 mg/dL (65-115) H 11/26/24 08:45 Calculated Osmolality 292 mOsm/kg (285-295) 11/26/24 08:45 Calcium 9.3 mg/dL (8.5-10.5) 11/26/24 08:45 Magnesium 1.8 mg/dL (1.7-2.3) 11/26/24 08:45 Total Bilirubin 0.8 mg/dL (0.15-1.2) 11/26/24 08:45 AST 14 U/L (0-32) 11/26/24 08:45 ALT 11 U/L (0-33) 11/26/24 08:45 Alkaline Phosphatase 89 U/L (35-105) 11/26/24 08:45 Troponin T Baseline 20 ng/L (0-10) H 11/26/24 08:45 Troponin T 120 Minute 29.42 ng/L (0-10) H 11/26/24 10:38 Delta Troponin T 9.42 ABS# (0-10) 11/26/24 10:38 Total Protein 7.1 g/dL (6.6-8.7) 11/26/24 08:45 Albumin 3.8 g/dL (3.5-5.2) 11/26/24 08:45 Globulin 3.3 g/dL (1.3-4.6) 11/26/24 08:45 Urine Color Yellow (Yellow) 11/26/24 10:00 Urine Appearance Slightly cloudy (CLEAR) 11/26/24 10:00 Urine pH 6 (5-7) 11/26/24 10:00 Ur Specific [place] 1.010 (1.005-1.030) 11/26/24 10:00 Urine Protein Neg (Negative) 11/26/24 10:00 Urine Glucose (UA) Norm (Normal) 11/26/24 10:00 Urine Ketones Negative (Negative) 11/26/24 10:00 Urine Blood 2+ (Negative) H 11/26/24 10:00 Urine Nitrate Negative (Negative) 11/26/24 10:00 Urine Bilirubin Neg (Negative) 11/26/24 10:00 Urine Urobilinogen Norm mg/dL (Negative) 11/26/24 10:00 Ur Leukocyte Esterase Negative (Negative) 11/26/24 10:00 Urine RBC 0-2 /hpf (0-2) 11/26/24 10:00 Urine WBC 6-10 /hpf (0-5) 11/26/24 10:00 Ur Squamous Epith Cells 0-5 /hpf (0-5) 11/26/24 10:00 Amorphous Sediment Not Reportable 11/26/24 10:00 Urine Bacteria 4+ /hpf (NONE) H 11/26/24 10:00 Hyaline Casts 2.46 /lpf 11/26/24 10:00 Other data: Laboratory Tests 01/18/24 08/13/24 13:25 09:31 TSH 1.13 0.69 A&P Assessment and plan (1) Acute on chronic diastolic (congestive) heart failure: Based on clinical history and examination findings today. Has been progressively worsening over the last 3 to 4 weeks and not had improvement despite doubling of oral diuretic therapy in the outpatient setting. Is chronically on Entresto. Has a history of Takotsubo syndrome variant with non- ST elevation NH in 2022 presenting with a baseline troponin greater than 5000 back then. Today baseline troponin is elevated but at 20 with -2-hour troponin delta. Has associated accelerated hypertension. Known to have chronic kidney disease stage IIIb with current creatinine below baseline probably related to volume overload. Has clinically improved with addition of oxygen therapy and administration of IV diuresis. -Continue IV diuresis with close monitoring of urine output -Continue potassium replacement -Continue home Entresto -Add nitroglycerin -Will recheck echocardiogram as last available is from 2022 when she was noted to have ejection fraction 56%, mild aortic stenosis with valve area of 1.5 cm and mean gradient of 10; cardiac catheterization at that time showed an ejection fraction of 45% -Check BNP, last values >1600 in 2022, down from peak of >6000 -Given degree of respiratory compromise today Lundberg catheter while on IV diuresis -Wean oxygen to room air as able, currently on 2 L, not normally on oxygen -Depending on clinical response may consider cardiology consultation, has an outpatient cardiology appointment scheduled for December 05 already for 6-month follow-up (2) Accelerated hypertension: In addition to diuretic therapy and Entresto is chronically on atenolol. Blood pressures today as high as 180s over 100s likely both a contributing factor to presentation as well as result of presentation. -IV diuresis for now -Continuing home Entresto -Continuing home atenolol -Nitroglycerin added for acute management (3) Stage 3b chronic kidney disease (CKD): Current creatinine above usual baseline in the setting of volume overload. -Monitor renal function and urine output closely with IV diuresis -Discussed with patient anticipate increasing creatinine with current management -Renal dose medications as needed (4) History of atrial fibrillation: Chronically on amiodarone and beta-blockade. Currently in sinus rhythm. Is on chronic anticoagulation with Eliquis as well. -Continue home amiodarone and atenolol -Continue home Eliquis -Telemetry monitoring -Check TSH given chronic amiodarone use and acute presentation (5) Anemia: On chronic iron replacement, no report of acute or chronic blood loss with anticoagulation, recent iron level this month 93. -Continue ferrous sulfate orally -Watch for change in hemoglobin with diuresis Qualifiers: Anemia type: due to chronic kidney disease Chronic kidney disease stage: stage 3 (moderate) Chronic kidney disease stage 3 subtype: stage 3b (GFR 30-44) Qualified Code(s): N18.32 - Chronic kidney disease, stage 3b; D63.1 - Anemia in chronic kidney disease (6) Hyperlipidemia: Chronically on statin therapy -Continue home atorvastatin Qualifiers: Hyperlipidemia type: mixed hyperlipidemia Qualified Code(s): E78.2 - Mixed hyperlipidemia (7) Hypothyroidism: Chronically on levothyroxine -Continue levothyroxine at home dosing -Checking TSH given acute presentation and history Qualifiers: Hypothyroidism type: acquired Qualified Code(s): E03.9 - Hypothyroidism, unspecified (8) GERD (gastroesophageal reflux disease): Chronically on PPI -Continue formulary equivalent of home PPI dosing Qualifiers: Esophagitis presence: without esophagitis Qualified Code(s): K21.9 - Gastro-esophageal reflux disease without esophagitis Plan Elevated blood sugar without history of diabetes, check A1c Abnormal urinalysis without urinary symptoms beyond what expected with change in diuretic therapy, s/p one dose of rocephin in ED VTE prophylaxis: on eliquis chronically GI Prophylaxis: PPI chronically Antibiotics: Rocephin x 1 dose 11/26/24 for abnormal urinalysis Pending studies: am labs, echo ordered, TSH, BNP, A1c, 6 hr troponin Telemetry: ordered secondary to cardiac presentation Lundberg: ordered due to respiratory compromise in setting of acute chf and ckd Line(s): peripheral IVs Disposition plan: Home with outpatient follow up anticipated, potentially with changes to medications, diet or fluid management. Has an already scheduled cardiology apt for 12/05 (for 6 month f/u). Will also need to see PCP in follow up. Lives alone and may benefit from home care monitoring and CHF management after discharge,. Reviewed with patient importance of medication and dietary management, not waiting too long to present when worsening. Code Status: Discussed with patient and if her heart stops of she is unable to breath she wishes to be ALLOWED NATURAL . No CPR, No ETT, No shock, No ACLS protocol Supportive care otherwise Findings, concerns and plans were discussed with patient and she was given an opportunity to ask questions Plans reviewed with nursing staff as well PDMP PDMP Reviewed: Not Reviewed Attestations 2 Medical Necessity Statement*: Anticipated stay greater than two midnights in this 83-year-old presenting with signs and symptoms consistent with acute on chronic CHF. Symptoms have been escalating over the last few weeks and have not improved despite doubling of outpatient diuretic therapy and other management. Currently requiring oxygen therapy. Has responded clinically to initial dose of IV diuresis. Comorbid medical diagnoses as noted above including accelerated hypertension and chronic kidney disease stage IIIb among others. Is known to have a Takotsubo syndrome variant. At significant risk of rapid clinical decline up to and including the possibility of without inpatient care management at this time. and High Time for a total of 80 minutes, includes reviewing past or interval history, examining/interviewing patient, placing orders, counseling patient/family/other support, discussing plan of care with staff and documenting encounter Diagnoses Acute on chronic diastolic (congestive) heart failure I50.33 Accelerated hypertension I10 Stage 3b chronic kidney disease (CKD) N18.32 History of atrial fibrillation Z86.79 Anemia due to stage 3b chronic kidney disease N18.32; D63.1 Anemia type: due to chronic kidney disease Chronic kidney disease stage: stage 3 (moderate) Chronic kidney disease stage 3 subtype: stage 3b (GFR 30-44) Mixed hyperlipidemia E78.2 Hyperlipidemia type: mixed hyperlipidemia Acquired hypothyroidism E03.9 Hypothyroidism type: acquired Gastroesophageal reflux disease without esophagitis K21.9 Esophagitis presence: without esophagitis
--- NOTE | 2024-11-26 11:34 | PC.NURSE ---
Patient received from ED via wheelchair. Patient able to take 2 steps to bed without difficulty. Noted patient to have dressing to right lateral iniguez. Removed dressing. Site appears to be healing well. No s/s of infection observed. Cleaned and covered site with hydrafera blue and optifoam. Patient denies pain to site. De Leon catheter in place with clear, pale yellow uring. Instructed patient on use of de leon and diuresing to improve her breathing. Patient verbalized complete understanding.
[2024-11-26] MEDS: cefTRIAXone 1,000 mg SDV 1000 MG IVP (11:46)
--- NOTE | 2024-11-26 12:57 | USCV_ITS ---
Kamille Gustafson Age: 83 Gender: F : 1940 Exam Date: 11/26/2024 14:32 Ordering Phys: Sara Hughes MD Technologist: PURVI Exam Location: [facility] [place] Indication: Sob BP: 158 / 102 HR: 52 Rhythm: Sinus Technical Quality: Adequate MEASUREMENTS (Male / Female) Normal Values 2D ECHO LV Diastolic Diameter PLAX 6.6 cm 4.2 - 5.9 / 3.9 - 5.3 cm IVS Diastolic Thickness 1.1 cm 0.6 - 1.0 / 0.6 - 0.9 cm IVS Systolic Thickness 1.9 cm LVPW Diastolic Thickness 1.3 cm 0.6 - 1.0 / 0.6 - 0.9 cm LVPW Systolic Thickness 1.7 cm LVOT Diameter 2.0 cm LV Ejection Fraction 2D Teich 50.4 % LV Ejection Fraction MOD 4C 55.1 % LV Ejection Fraction MOD 2C 56.2 % LV Ejection Fraction 2C AL 56.8 % LA Diameter 4.7 cm RA Systolic Volume 4C AL 57.6 ml RA Systolic Volume 4C MOD 55.4 ml LA Sys Volume AL 82.8 cm cubed LA Sys Volume Index AL 37.1 cm cubed/m squared Aorta at Sinotubular Diameter 2.8 cm M-MODE LA Ao Ratio MM 1.8 AV Cusp Separation MM 0.8 cm DOPPLER AV Peak Velocity 157.0 cm/s LVOT Peak Velocity 85.0 cm/s AV Area Cont Eq vti 1.8 cm squared AV Area Cont Eq pk 1.7 cm squared MV Peak Velocity 145.0 cm/s MV Area PHT 3.9 cm squared Mitral E to A Ratio 1.5 TR Peak Velocity 91.0 cm/s TR Peak Gradient 3.3 mmHg TV Peak E Velocity 69.0 cm/s PV Peak Velocity 107.0 cm/s FINDINGS Left Ventricle Mildly increased left ventricular cavity size. Mildly decreased left ventricular systolic function. Left ventricular ejection fraction is estimated at 50 %. Global left ventricular hypokinesis. Grade II/IV diastolic dysfunction, moderately elevated filling pressures. Right Ventricle The right ventricle is normal in size and function. Right Atrium The right atrium is normal in size. Left Atrium The left atrium is normal in size. Mitral Valve Moderately thickened mitral valve. Moderate mitral annular calcification. No mitral valve stenosis. Moderate-severe mitral valve regurgitation. Aortic Valve Moderate aortic valve calcification. Mild aortic valve stenosis, mean gradient 4.6 mmHg, JOHNNA 1.8 cm squared. Trace aortic valve regurgitation. Tricuspid Valve Structurally normal tricuspid valve without significant stenosis or regurgitation. Pulmonary artery systolic pressure is normal. Pulmonic Valve Structurally normal pulmonic valve without significant stenosis. There is no pulmonic regurgitation. Pericardium Normal pericardium without effusion. Aorta Normal ascending aorta dimension. IVC The inferior vena cava appears normal. CONCLUSIONS Mildly increased left ventricular cavity size. Mildly decreased left ventricular systolic function. Left ventricular ejection fraction is estimated at 50 %. Global left ventricular hypokinesis. Grade II/IV diastolic dysfunction, moderately elevated filling pressures. Moderately thickened mitral valve. Moderate mitral annular calcification. No mitral valve stenosis. Moderate-severe mitral valve regurgitation. Moderate aortic valve calcification. Mild aortic valve stenosis, mean gradient 4.6 mmHg, JOHNNA 1.8 cm squared. Trace aortic valve regurgitation. Structurally normal tricuspid valve without significant stenosis or regurgitation. Pulmonary artery systolic pressure is normal. There is no pericardial effusion. Right atrial pressure is around 10 mm of mercury. Abel Turner MD (Electronically Signed) Final Date: 27 November 2024 10:27 S
[2024-11-26] MEDS: nitroglycerin 1 gm/inch oint Pkt 1 INCH TOPICAL ×2 (14:22→20:20)
--- NOTE | 2024-11-26 14:34 | ECG_ITS ---
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 Measurements Intervals [place] Rate: 56 P: -20 [place]: 191 QRS: -34 QRSD: 141 T: 46 QT: 381 QTc: 370 Interpretive Statements SINUS BRADYCARDIA LEFT AXIS DEVIATION [QRS AXIS < -30] LEFT BUNDLE BRANCH BLOCK [120+ ms QRS DURATION, 80+ ms Q/S IN V1/V2, 85+ ms R IN I/aVL/V5/V6] Compared to ECG 11/26/2024 10:47:31 Left-axis deviation now present Sinus rhythm no longer present Electronically Signed On 11-26-2024 21:36:39 CDT by Bairon Elias M.D. [email or web address]
[2024-11-26 15:04] LABS: Troponin 5 6HR 36.74 ng/L (0-10)
[2024-11-26 15:09] LABS: Troponin 5 6HR Delta 16.74 ng/L (0-12)
[2024-11-26] MEDS: ferrous sulfate EC 325 mg Tablet PO (16:34)
[2024-11-26] MEDS: potassium chloride ER 20 mEq Tablet PO (16:34)
[2024-11-26] MEDS: aspirin 81 mg EC Tablet PO (17:10)
[2024-11-26] MEDS: ondansetron 4 MG Tablet PO (18:08)
[2024-11-26] MEDS: sacubitril/valsartan 24-26 mg Tablet 4 EACH PO (20:22)
[2024-11-26] MEDS: apixaban 5 mg Tablet 2.5 MG PO (20:22)
[2024-11-27] VITALS (9 sets, daily range): BP systolic 101–129; BP diastolic 59–93; PULSE 59–78; RESP 17–23; TEMP 36.5–37.5; O2SAT 94–97
[2024-11-27] MEDS: nitroglycerin 1 gm/inch oint Pkt 1 INCH TOPICAL ×2 (02:00→08:08)
[2024-11-27 05:31] LABS: Basophils % 0.7 %; Eosinophils # 0.1 10^3/uL (0.0-0.8); Eosinophils % 2.3 %; Hematocrit 31.7 % (36-47); Lymphocytes # 1.2 10^3/uL (0.8-4.8); Lymphocytes % 21.6 %; Mean Corpuscular HGB Conc 31.5 g/dL (30-55); Mean Corpuscular Volume 104.6 fl (85-98); Mean Platelet Volume 11.1 fL (7.4-10.4); Monocytes # 0.6 10^3/uL (0.2-0.9); Monocytes % 11.3 %; Neutrophils # 3.54 10^3/uL (1.8-7.7); Neutrophils % 63.7 %; Nucleated Red Blood Cells % 0 %; Platelet Count 195 10^3/cmm (157-399); Red Blood Count 3.03 10^6/uL (3.85-5.65); Red Cell Distribution Width 12.9 % (12.1-15.1); White Blood Count 5.56 10^3/uL (3.29-11.43)
[2024-11-27 05:53] LABS: Alanine Aminotransferase 11 U/L (0-33); Albumin Level 3.5 g/dL (3.5-5.2); Alkaline Phosphatase 82 U/L (35-105); Anion Gap 15.9 (5-19); Aspartate Amino Transferase 14 U/L (0-32); Blood Urea Nitrogen 12 mg/dL (8-23); Calcium 9.1 mg/dL (8.5-10.5); Carbon Dioxide 27 mmol/L (22-29); Chloride 104 mmol/L (98-107); Globulin 3.5 g/dL (1.3-4.6); Glucose 93 mg/dL (65-115); Magnesium 1.7 mg/dL (1.7-2.3); Osmolality Calculated 295 mOsm/kg (285-295); Phosphorus 3.5 mg/dL (2.5-4.5); Potassium 3.9 mmol/L (3.5-5.1); Sodium 143 mmol/L (136-145); Total Bilirubin 0.5 mg/dL (0.15-1.2); Troponin T (5th) Once 27 ng/L (0-10)
[2024-11-27 05:55] LABS: Estmated Average Glucose 108; Hemoglobin A1C 5.4 % (4.0-6.0); NT Pro B Type Natriuretic Pept 16054 pg/mL (0-450)
[2024-11-27 05:57] LABS: Thyroid Stimulating Hormone 1.63 uIU/mL (0.27-4.20)
[2024-11-27] MEDS: FUROsemide 10 mg/mL SDV 10mL 80 MG IVP ×2 (08:08→20:33)
[2024-11-27] MEDS: pantoprazole DR 40 mg Tablet PO (08:09)
[2024-11-27] MEDS: atorvastatin 40 mg Tablet 80 MG PO (08:09)
[2024-11-27] MEDS: loratadine 10 mg Tablet PO (08:09)
[2024-11-27] MEDS: amiodarone 200 mg Tablet PO (08:09)
[2024-11-27] MEDS: docusate sodium 100 mg Capsule PO ×2 (08:09→17:36)
[2024-11-27] MEDS: aspirin 81 mg EC Tablet PO (08:09)
[2024-11-27] MEDS: ferrous sulfate EC 325 mg Tablet PO ×2 (08:09→17:36)
[2024-11-27] MEDS: levothyroxine 50 mcg Tablet PO (08:09)
[2024-11-27] MEDS: potassium chloride ER 20 mEq Tablet PO ×2 (08:09→17:37)
[2024-11-27] MEDS: atenolol 50 mg Tablet 25 MG PO (08:10)
[2024-11-27] MEDS: apixaban 5 mg Tablet 2.5 MG PO ×2 (08:10→20:33)
[2024-11-27] MEDS: sacubitril/valsartan 24-26 mg Tablet 4 EACH PO ×2 (08:10→20:33)
--- NOTE | 2024-11-27 08:38 | PC.CHAP ---
Pastoral Care Encounter/Spiritual Assessment Type of Contact [] Declined orthodontic assistant visit [] Patient/Family/Request visit [] Outpatient visit [] Follow-up visit [] Physician referral [] Code/Alert [] Routine visit [] Staff referral [] Actively dying [x] Patient sleeping [] Family support [] [] Out of room [] Palliative care [] [] Receiving care in room [] Pre-surgical visit [] Trauma [] Long length of stay [] ICU visit [] Other: Relational/Emotional Strength [] Patient feels connected with others/family/visitors/staff [] Distress [] Loneliness/isolation [] Abandonment Spirituality of Patient [] Person of [place] [] Attends Protestant of their [place] [] Believes in Prayer [] Reads Bible or Quaker materials [] There are Spiritual issues to be addressed Senior Compliance Officer Interventions [] Prayer [] Active listening [] Non-anxious presence [] Spiritual/emotional support [] Crisis/trauma care [] Spiritual counseling [] Bereavement support [] Provided bereavement packet [] Provided Bible/devotional materials [] Provided toy/stuffed animal, coloring book to patient or family member [] Provided Communion [] Anointing/[place] [] Salvation [] Completed spiritual assessment [] Other: Impact on Illness or Injury [] Angry [] Fearful [] Anxious [] Often cries [] Exhaustion [] Unable to work [] Unable to attend mandaeism [] Unable to walk/stand [] Unable to read [] Unable to drive [] Unable to eat/drink [] Unable to sleep [] Unable to be with family [] Patient intubated [] Other: Summary Time spent with patient
[2024-11-27 09:36] LABS: D Dimer 1.01 ug/mLFEU (0-0.59)
[2024-11-27] MEDS: cefTRIAXone 1,000 mg SDV 1000 MG IVP (09:44)
[2024-11-27 10:27] LABS: Iron 92 ug/dL (37-145); Percent Saturation 38.6 % (20-50); Total Iron Binding Capacity 238 mcg/dl; Unsaturated Iron Binding 146 ug/dL (112-347)
--- NOTE | 2024-11-27 10:58 | ECG_ITS ---
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 Measurements Intervals [place] Rate: 63 P: 43 [place]: 250 QRS: -38 QRSD: 148 T: 22 QT: 474 QTc: 488 Interpretive Statements SINUS RHYTHM WITH FIRST DEGREE AV BLOCK LEFT AXIS DEVIATION [QRS AXIS < -30] LEFT BUNDLE BRANCH BLOCK [120+ ms QRS DURATION, 80+ ms Q/S IN V1/V2, 85+ ms R IN I/aVL/V5/V6] Compared to ECG 11/26/2024 16:27:55 First degree AV block now present Sinus bradycardia no longer present Electronically Signed On 11-28-2024 21:51:33 CDT by Bairon Elias M.D. [id number]
[2024-11-27 11:10] LABS: MRSA PCR OZH (swab) NOT DETECTED (Not Detecte)
[2024-11-27] MEDS: ipratropium-albuterol 3 mL Neb INHALATION ×2 (13:58→19:43)
[2024-11-27 15:31] LABS: Blood Urea Nitrogen 14 mg/dL (8-23); Calcium 8.6 mg/dL (8.5-10.5); Carbon Dioxide 27 mmol/L (22-29); Chloride 103 mmol/L (98-107); Creatinine Clr Calc Pharmacy 42.7662; Glucose 103 mg/dL (65-115); Osmolality Calculated 291 mOsm/kg (285-295); Sodium 140 mmol/L (136-145)
--- NOTE | 2024-11-27 17:13 | P.PN_ITS ---
Subjective 2 Subjective: Hospital course, labs appreciated. On examination patient laying comfortably in bed. States she is still having some difficulty in breathing though a lot better than when she had come in. Complaining of bilateral knee pain. States usually she is able to walk around with a walker but lately has been getting out of breath on exertion. Denies any chest pain. Has remained hemodynamically stable. Has remained bradycardic on telemetry. Vitals/I&O/Wt Last Vital Signs Temp 97.8 F 11/27/24 15:28 Pulse 68 11/27/24 15:28 Resp 20 H 11/27/24 15:28 BP 127/60 11/27/24 15:28 Pulse Ox 96 11/27/24 15:28 O2 Del Method Nasal Cannula 11/27/24 15:28 O2 Flow Rate 2 11/27/24 13:59 11/27/24 11/27/24 11/27/24 06:59 14:59 22:59 Intake Total 200 / 620 840 / 840 Output Total 600 / 2850 650 / 650 Balance -400 / -2230 840 / 840 -650 / 190 Weight last 48 hrs Weight 96.797 kg Weight 96.751 kg Weight 98.656 kg Weight 97.522 kg Physical Exam 2 Narrative: Patient is awake and alert, sitting straight up in bed. Able to provide history but pauses when talking. Oxygen in place. Normocephalic. Extraocular movements are intact. Mucous membranes are moist. Neck is supple. Cardiovascular exam reveals a regular rate and rhythm. Pulse is a little difficult to isolate in the right upper extremity but once found 2+ and equal radial pulses bilaterally. 1+ posterior tibialis bilaterally. Lungs with decreased breath sounds at both bases, crackles noted. No rhonchi or wheezes. Abdomen is soft, slightly distended. 4+ pitting edema. Chronic stasis changes to both lower extremities left more prominent than right. A dime sized sore to left lateral lower extremity is healing well presently. No oozing. Well-healed scar to right upper extremity. Speech is clear, face symmetric, moves all extremities. Urinary Catheter Management: Lundberg: Cath Placed During This Visit: yes Reason for Continuing Indwelling Catheter: Acute Urinary Retention or Obstruction Urinary Catheter Date of Insertion: 11/26/24 Urinary Catheter Time of Insertion: 10:56 Data 11/28/24 05:25 11/28/24 05:25 Micro: Microbiology 11/26/24 10:00 Urine Culture - Preliminary Urine,Clean Catch Gram Negative Rods A&P Assessment and plan (1) Acute on chronic diastolic (congestive) heart failure: Based on clinical history and examination findings today. Has been progressively worsening over the last 3 to 4 weeks and not had improvement despite doubling of oral diuretic therapy in the outpatient setting. Is chronically on Entresto. Has a history of Takotsubo syndrome variant with non- ST elevation [place] in 2022 presenting with a baseline troponin greater than 5000 back then. Today baseline troponin is elevated but at 20 with -2-hour troponin delta. Has associated accelerated hypertension. Known to have chronic kidney disease stage IIIb with current creatinine below baseline probably related to volume overload. Has clinically improved with addition of oxygen therapy and administration of IV diuresis. -Continue IV diuresis with close monitoring of urine output -Continue potassium replacement -Continue home Entresto -Add nitroglycerin -Will recheck echocardiogram as last available is from 2022 when she was noted to have ejection fraction 56%, mild aortic stenosis with valve area of 1.5 cm and mean gradient of 10; cardiac catheterization at that time showed an ejection fraction of 45% -Check BNP, last values >1600 in 2022, down from peak of >6000 -Given degree of respiratory compromise today Lundberg catheter while on IV diuresis -Wean oxygen to room air as able, currently on 2 L, not normally on oxygen -Depending on clinical response may consider cardiology consultation, has an outpatient cardiology appointment scheduled for December 05 already for 6-month follow-up (2) Accelerated hypertension: In addition to diuretic therapy and Michelle is chronically on atenolol. Blood pressures today as high as 180s over 100s likely both a contributing factor to presentation as well as result of presentation. -IV diuresis for now -Continuing home Entresto -Continuing home atenolol -Nitroglycerin added for acute management (3) Stage 3b chronic kidney disease (CKD): Current creatinine above usual baseline in the setting of volume overload. -Monitor renal function and urine output closely with IV diuresis -Discussed with patient anticipate increasing creatinine with current management -Renal dose medications as needed (4) History of atrial fibrillation: Chronically on amiodarone and beta-blockade. Currently in sinus rhythm. Is on chronic anticoagulation with Eliquis as well. -Continue home amiodarone and atenolol -Continue home Eliquis -Telemetry monitoring -Check TSH given chronic amiodarone use and acute presentation (5) Anemia: On chronic iron replacement, no report of acute or chronic blood loss with anticoagulation, recent iron level this month 93. -Continue ferrous sulfate orally -Watch for change in hemoglobin with diuresis Qualifiers: Anemia type: due to chronic kidney disease Chronic kidney disease stage: stage 3 (moderate) Chronic kidney disease stage 3 subtype: stage 3b (GFR 30-44) Qualified Code(s): N18.32 - Chronic kidney disease, stage 3b; D63.1 - Anemia in chronic kidney disease (6) Hyperlipidemia: Chronically on statin therapy -Continue home atorvastatin Qualifiers: Hyperlipidemia type: mixed hyperlipidemia Qualified Code(s): E78.2 - Mixed hyperlipidemia (7) Hypothyroidism: Chronically on levothyroxine -Continue levothyroxine at home dosing -Checking TSH given acute presentation and history Qualifiers: Hypothyroidism type: acquired Qualified Code(s): E03.9 - Hypothyroidism, unspecified (8) GERD (gastroesophageal reflux disease): Chronically on PPI -Continue formulary equivalent of home PPI dosing Qualifiers: Esophagitis presence: without esophagitis Qualified Code(s): K21.9 - Gastro-esophageal reflux disease without esophagitis Plan Elevated blood sugar without history of diabetes, check A1c Abnormal urinalysis without urinary symptoms beyond what expected with change in diuretic therapy, s/p one dose of rocephin in ED Plan for the day: Continue with aggressive IV diuresis. Monitor renal functions and potassium level. Monitor for contraction alkalosis. Continue with IV Lasix 80 mg twice daily for now. Fluid restriction to less than 1500 cc. Strict input output charting. Goal blood pressure less than 140/90 mmHg. Follow-up echocardiogram. Hold off on Nitropatch for now. Patient having episodes of bradycardia overnight. Discontinue atenolol for now. Continue with telemetry. Continue with home dose of amiodarone. Concern for possible UTI. Start patient on IV ceftriaxone 1 g daily. Follow-up blood culture. Check sputum culture when possible. Add azithromycin 5 mg oral daily for 5 days. Out of bed to chair. CODE STATUS: DNR/DNI Cardiac diet. Fluid restriction. Protonix for PUD prophylaxis Eliquis will be sufficient for DVT prophylaxis. PDMP PDMP Reviewed: Not Reviewed Attestations 2 Medical Necessity Statement*: Requires further hospitalization for management of acute decompensated chronic diastolic heart failure, UTI Diagnoses Acute on chronic diastolic (congestive) heart failure I50.33 Accelerated hypertension I10 Stage 3b chronic kidney disease (CKD) N18.32 History of atrial fibrillation Z86.79 Anemia due to stage 3b chronic kidney disease N18.32; D63.1 Anemia type: due to chronic kidney disease Chronic kidney disease stage: stage 3 (moderate) Chronic kidney disease stage 3 subtype: stage 3b (GFR 30-44) Mixed hyperlipidemia E78.2 Hyperlipidemia type: mixed hyperlipidemia Acquired hypothyroidism E03.9 Hypothyroidism type: acquired Gastroesophageal reflux disease without esophagitis K21.9 Esophagitis presence: without esophagitis
[2024-11-27] MEDS: budesonide 0.5 mg/2 mL Neb INHALATION (19:43)
[2024-11-27] MEDS: TRAMadol 50 mg Tablet PO (20:33)
[2024-11-27] MEDS: acetaminophen 500 mg Tablet 1000 MG PO (23:19)
[2024-11-28] VITALS (17 sets, daily range): BP systolic 103–143; BP diastolic 52–70; PULSE 58–87; RESP 15–25; TEMP 36.6–37.9; O2SAT 91–98
--- NOTE | 2024-11-28 00:40 | XRR_ITS ---
PROCEDURE INFORMATION: Exam: XR Chest Exam date and time: 11/28/2024 12:54 AM Age: 83 years old Clinical indication: Fever and shortness of breath; Additional info: Fever of 103 TECHNIQUE: Imaging protocol: Radiologic exam of the chest. Views: 1 view. COMPARISON: CR XR chest 1V portable [id number] 11/26/2024 8:43 AM FINDINGS: Lungs: Bibasilar atelectasis versus infiltrate. Pleural spaces: Small bilateral pleural effusions. Heart/Mediastinum: Cardiomegaly. Large hiatal hernia. Bones/joints: Unremarkable. XR/XR chest 1V portable [id number] IMPRESSION: 1. Cardiomegaly. 2. Large hiatal hernia. 3. Small bilateral pleural effusions. 4. Bibasilar atelectasis versus infiltrate.
[2024-11-28] MEDS: morphine 4 mg/mL SDV 1 mL 2 MG IVP (01:08)
[2024-11-28] MEDS: ibuprofen 200 mg Tablet 400 MG PO (01:10)
--- NOTE | 2024-11-28 01:26 | PC.NURSE ---
patient has complaints of pain at a 9 on a scale of 10. patient running a fever of 100.3. nurse gave tylenol 1000mg po at 2318 and gave ultram 50mg po at 2032, patients pain remained between an 8-10 in her left knee. dr mock notified and ordered IVP 2mg morphine once, 400mg motrin po once, a chest xray, a urinalsys, and a covid flu rsv panel. urinalsys, covid flu rsv panel, chest xray all done at this time. 2mg morphine IVP given over 4 minutes, and 400mg of motrin PO given. patient tolerated well. will go back in patients room and reassess in one hour
[2024-11-28 01:41] LABS: Bilirubin Urine Negative (Negative); Blood Urine 3+ (Negative); Glucose Urine UA Negative (Normal); Ketones Urine Negative (Negative); Leukocyte Esterase Urine Trace (Negative); Nitrate Urine Negative (Negative); Protein Urine Negative (Negative); Urine Appearance Clear (CLEAR); Urine Color Yellow (Yellow); Urobilinogen Urine 0.2 mg/dL (Negative)
[2024-11-28 01:46] LABS: Add Urine Microscopic? YES; Bacteria Urine None Seen /hpf; Hyaline Casts Urine 1.21 /lpf; Squamous Epithelial Cell Urine 0-5 /hpf (0-5)
[2024-11-28 02:17] LABS: Influenza A NEGATIVE (Negative); Influenza B NEGATIVE (Negative); Respiratory Syncytial Virus Ce NEGATIVE (Negative); SARS-CoV-2 PCR NEGATIVE (Negative)
[2024-11-28] MEDS: ipratropium-albuterol 3 mL Neb INHALATION ×4 (02:41→20:36)
--- NOTE | 2024-11-28 03:15 | PC.NURSE ---
patient laying in bed with eyes closed. temp taken orally 98.8. patient states her pain level has decreased to a 4-5 and its a dull aching pain. patients rsv, flu and covid test results are negative. her urine results had 3+ A urine blood and Trace A leukocyte esterase. all other values in her urine were within normal limits
[2024-11-28 05:54] LABS: Erythrocyte Sedimentation Rate 29 mm/hr (0-15)
[2024-11-28 05:59] LABS: Basophils % 0.5 %; Eosinophils % 0.4 %; Hematocrit 29.3 % (36-47); Lymphocytes # 1.1 10^3/uL (0.8-4.8); Mean Corpuscular HGB Conc 31.4 g/dL (30-55); Mean Corpuscular Hemoglobin 32.2 pg (27-33); Mean Corpuscular Volume 102.4 fl (85-98); Mean Platelet Volume 11.2 fL (7.4-10.4); Monocytes # 1.3 10^3/uL (0.2-0.9); Monocytes % 15.8 %; Neutrophils # 5.61 10^3/uL (1.8-7.7); Neutrophils % 69.1 %; Nucleated Red Blood Cells % 0 %; Platelet Count 173 10^3/cmm (157-399); Red Blood Count 2.86 10^6/uL (3.85-5.65); Red Cell Distribution Width 12.9 % (12.1-15.1); White Blood Count 8.12 10^3/uL (3.29-11.43)
[2024-11-28 06:16] LABS: Alanine Aminotransferase 10 U/L (0-33); Albumin Level 3.1 g/dL (3.5-5.2); Alkaline Phosphatase 72 U/L (35-105); Anion Gap 14.8 (5-19); Aspartate Amino Transferase 13 U/L (0-32); Blood Urea Nitrogen 22 mg/dL (8-23); Calcium 8.1 mg/dL (8.5-10.5); Carbon Dioxide 26 mmol/L (22-29); Chloride 101 mmol/L (98-107); Globulin 3.4 g/dL (1.3-4.6); Glucose 102 mg/dL (65-115); Osmolality Calculated 290 mOsm/kg (285-295); Potassium 3.8 mmol/L (3.5-5.1); Sodium 138 mmol/L (136-145); Total Bilirubin 0.4 mg/dL (0.15-1.2); Total Protein 6.5 g/dL (6.6-8.7)
[2024-11-28 06:17] LABS: C Reactive Protein 54.7 mg/L (0.0-4.9); Magnesium 1.5 mg/dL (1.7-2.3)
[2024-11-28 06:18] LABS: Procalcitonin 0.23 ng/mL (0-0.5)
[2024-11-28] MEDS: budesonide 0.5 mg/2 mL Neb INHALATION ×2 (07:35→20:36)
--- NOTE | 2024-11-28 09:05 | PC.CHAP ---
Pastoral Care Encounter/Spiritual Assessment Type of Contact [] Declined sas sql developer visit [] Patient/Family/Request visit [] Outpatient visit [] Follow-up visit [] Physician referral [] Code/Alert [] Routine visit [] Staff referral [] Actively dying [x] Patient sleeping [] Family support [] [] Out of room [] Palliative care [] [] Receiving care in room [] Pre-surgical visit [] Trauma [] Long length of stay [] ICU visit [] Other: Relational/Emotional Strength [] Patient feels connected with others/family/visitors/staff [] Distress [] Loneliness/isolation [] Abandonment Spirituality of Patient [] Person of Kalee [] Attends Lutheran of their [place]e [] Believes in Prayer [] Reads Bible or Jehovah'S Witness materials [] There are Spiritual issues to be addressed Script Supervisor Interventions [] Prayer [] Active listening [] Non-anxious presence [] Spiritual/emotional support [] Crisis/trauma care [] Spiritual counseling [] Bereavement support [] Provided bereavement packet [] Provided Bible/devotional materials [] Provided toy/stuffed animal, coloring book to patient or family member [] Provided Communion [] Anointing/[place] [] Salvation [] Completed spiritual assessment [] Other: Impact on Illness or Injury [] Angry [] Fearful [] Anxious [] Often cries [] Exhaustion [] Unable to work [] Unable to attend taoist [] Unable to walk/stand [] Unable to read [] Unable to drive [] Unable to eat/drink [] Unable to sleep [] Unable to be with family [] Patient intubated [] Other: Summary Time spent with patient
[2024-11-28] MEDS: ferrous sulfate EC 325 mg Tablet PO ×2 (09:28→17:17)
[2024-11-28] MEDS: loratadine 10 mg Tablet PO (09:28)
[2024-11-28] MEDS: amiodarone 200 mg Tablet PO (09:28)
[2024-11-28] MEDS: aspirin 81 mg EC Tablet PO (09:28)
[2024-11-28] MEDS: levothyroxine 50 mcg Tablet PO (09:28)
[2024-11-28] MEDS: atorvastatin 40 mg Tablet 80 MG PO (09:28)
[2024-11-28] MEDS: magnesium sulfate premix 1 GM/100 ML PIGGYBACK IV (09:29)
[2024-11-28] MEDS: cefTRIAXone 1,000 mg SDV 1000 MG IVP (09:29)
[2024-11-28] MEDS: potassium chloride ER 20 mEq Tablet PO ×2 (09:29→17:17)
[2024-11-28] MEDS: apixaban 5 mg Tablet 2.5 MG PO ×2 (09:32→21:42)
[2024-11-28] MEDS: sacubitril/valsartan 24-26 mg Tablet 4 EACH PO ×2 (09:41→21:43)
[2024-11-28] MEDS: pantoprazole DR 40 mg Tablet PO (09:41)
--- NOTE | 2024-11-28 11:01 | P.PN_ITS ---
Subjective 2 Subjective: No acute events overnight. Patient states she continues to do better. States breathing is improving. Knee pain is stable. Has remained hemodynamically stable. Continues to remain on minimal oxygen requirement. Vitals/I&O/Wt Last Vital Signs Temp 97.9 F 11/28/24 08:00 Pulse 63 11/28/24 08:00 Resp 15 11/28/24 08:00 BP 117/67 11/28/24 08:00 Pulse Ox 97 11/28/24 07:54 O2 Del Method Nasal Cannula 11/28/24 07:54 O2 Flow Rate 2 11/28/24 07:39 11/27/24 11/28/24 11/28/24 22:59 06:59 14:59 Intake Total 980 / 1820 0 / 1820 240 / 240 Output Total 1650 / 1650 900 / 2550 Balance -670 / 170 -900 / -730 240 / 240 Weight last 48 hrs Weight 98.203 kg Weight 96.797 kg Weight 96.751 kg Weight 98.656 kg Physical Exam 2 Narrative: Patient is awake and alert, sitting straight up in bed. Able to provide history but pauses when talking. Oxygen in place. Normocephalic. Extraocular movements are intact. Mucous membranes are moist. Neck is supple. Cardiovascular exam reveals a regular rate and rhythm. Pulse is a little difficult to isolate in the right upper extremity but once found 2+ and equal radial pulses bilaterally. 1+ posterior tibialis bilaterally. Lungs with decreased breath sounds at both bases, crackles noted. No rhonchi or wheezes. Abdomen is soft, slightly distended. 4+ pitting edema. Chronic stasis changes to both lower extremities left more prominent than right. A dime sized sore to left lateral lower extremity is healing well presently. No oozing. Well-healed scar to right upper extremity. Speech is clear, face symmetric, moves all extremities. Urinary Catheter Management: Lundberg: Cath Placed During This Visit: yes Reason for Continuing Indwelling Catheter: Accurate Measurement of Urinary Output in Critically Ill Patients Urinary Catheter Date of Insertion: 11/26/24 Urinary Catheter Time of Insertion: 10:56 Data 11/28/24 05:25 11/28/24 05:25 Micro: Microbiology 11/26/24 10:00 Urine Culture - Final Urine,Clean Catch Escherichia coli 11/28/24 05:25 Blood Culture - Preliminary Blood SPECIMEN COLLECTED 11/28/24 05:25 Blood Culture - Preliminary Blood SPECIMEN COLLECTED A&P Assessment and plan (1) Acute on chronic diastolic (congestive) heart failure: Has a history of Takotsubo syndrome variant with non-ST elevation [place] in 2022. Echocardiogram done shows an EF of 50% with grade 2 diastolic dysfunction, moderately elevated filling pressures, moderate to severe MR. Mild aortic valve stenosis. Continue with aggressive IV diuresis. Change Lasix to 60 mg twice daily. Direct input output charting, daily weights. Fluid restriction to less than 1500 cc. Monitor electrolytes. Repeat BMP in afternoon. Out of bed to chair. (2) Accelerated hypertension: Goal blood pressure less than 140/90 mmHg. Blood pressure is at goal. Continue with home dose of Entresto. Atenolol discontinued for now given bradycardia. Uptitrate as for goal blood pressures. Will plan to add low-dose Imdur if possible. (3) Stage 3b chronic kidney disease (CKD): Baseline creatinine seems to be running from 1.3-1.7. Currently at 1.7. Medical reconciliation done for nephrotoxic drugs. Monitor BMP and electrolytes daily. CT abdomen from December 2023 showed 2.5 cm incidental right renal cyst. If renal functions continue to remain stable for now we will hold off on any further imaging. (4) History of atrial fibrillation: Chronic. Currently having bradycardia. Continue with home dose of amiodarone 200 mg twice daily. Continue with Eliquis 2.5 mg twice daily. Holding off on atenolol given bradycardia. Appreciate TSH. (5) Anemia: On chronic iron replacement, no report of acute or chronic blood loss with anticoagulation, recent iron level this month 93. -Continue ferrous sulfate orally Qualifiers: Anemia type: due to chronic kidney disease Chronic kidney disease stage: stage 3 (moderate) Chronic kidney disease stage 3 subtype: stage 3b (GFR 30-44) Qualified Code(s): N18.32 - Chronic kidney disease, stage 3b; D63.1 - Anemia in chronic kidney disease (6) Hyperlipidemia: Chronically on statin therapy Qualifiers: Hyperlipidemia type: mixed hyperlipidemia Qualified Code(s): E78.2 - Mixed hyperlipidemia (7) Hypothyroidism: Chronically on levothyroxine Normal TSH. Continue with home dose. Qualifiers: Hypothyroidism type: acquired Qualified Code(s): E03.9 - Hypothyroidism, unspecified (8) GERD (gastroesophageal reflux disease): Chronically on PPI -Continue formulary equivalent of home PPI dosing Qualifiers: Esophagitis presence: without esophagitis Qualified Code(s): K21.9 - Gastro-esophageal reflux disease without esophagitis Plan UTI: Follow-up urine culture. Follow-up blood culture. Continue with IV ceftriaxone 1 g daily for now. Patient has a Lundberg catheter in place. Physical therapy evaluation. Out of bed to chair. Discharge plan: Plan to discharge home with possible home health depending on physical therapy evaluation. Patient will need home health for nursing with medication and possible physical therapy. CODE STATUS: DNR/DNI Cardiac diet. Fluid restriction. Protonix for PUD prophylaxis Eliquis will be sufficient for DVT prophylaxis. PDMP PDMP Reviewed: Not Reviewed Attestations 2 Medical Necessity Statement*: Requires further hospitalization for management of acute on chronic decompensated diastolic heart failure, UTI Diagnoses Acute on chronic diastolic (congestive) heart failure I50.33 Accelerated hypertension I10 Stage 3b chronic kidney disease (CKD) N18.32 History of atrial fibrillation Z86.79 Anemia due to stage 3b chronic kidney disease N18.32; D63.1 Anemia type: due to chronic kidney disease Chronic kidney disease stage: stage 3 (moderate) Chronic kidney disease stage 3 subtype: stage 3b (GFR 30-44) Mixed hyperlipidemia E78.2 Hyperlipidemia type: mixed hyperlipidemia Acquired hypothyroidism E03.9 Hypothyroidism type: acquired Gastroesophageal reflux disease without esophagitis K21.9 Esophagitis presence: without esophagitis
--- NOTE | 2024-11-28 13:45 | PC.SOCIAL ---
IMM updated IMM dated and initialed, copy placed in chart and copy given to patient
[2024-11-28 16:01] LABS: Anion Gap 14.4 (5-19); Blood Urea Nitrogen 25 mg/dL (8-23); Calcium 8.4 mg/dL (8.5-10.5); Carbon Dioxide 28 mmol/L (22-29); Chloride 98 mmol/L (98-107); Creatinine Clr Calc Pharmacy 34.9923; Glucose 114 mg/dL (65-115); Osmolality Calculated 287 mOsm/kg (285-295); Potassium 4.4 mmol/L (3.5-5.1); Sodium 136 mmol/L (136-145)
[2024-11-28] MEDS: FUROsemide 10 mg/mL SDV 10mL 60 MG IVP (17:17)
[2024-11-28] MEDS: docusate sodium 100 mg Capsule PO (17:18)
[2024-11-29] VITALS (13 sets, daily range): BP systolic 116–132; BP diastolic 57–69; PULSE 75–84; RESP 14–24; TEMP 36.9–37.3; O2SAT 96–98
[2024-11-29] MEDS: ipratropium-albuterol 3 mL Neb INHALATION ×4 (01:37→21:35)
[2024-11-29 05:54] LABS: Basophils % 0.3 %; Eosinophils % 0.3 %; Hematocrit 27.8 % (36-47); Lymphocytes # 1.2 10^3/uL (0.8-4.8); Lymphocytes % 15.2 %; Mean Corpuscular HGB Conc 31.3 g/dL (30-55); Mean Corpuscular Hemoglobin 31.9 pg (27-33); Mean Corpuscular Volume 101.8 fl (85-98); Mean Platelet Volume 11.5 fL (7.4-10.4); Monocytes # 1.2 10^3/uL (0.2-0.9); Monocytes % 16.4 %; Neutrophils # 5.12 10^3/uL (1.8-7.7); Neutrophils % 67.5 %; Nucleated Red Blood Cells % 0 %; Platelet Count 167 10^3/cmm (157-399); Red Blood Count 2.73 10^6/uL (3.85-5.65); Red Cell Distribution Width 13.1 % (12.1-15.1); White Blood Count 7.57 10^3/uL (3.29-11.43)
[2024-11-29] MEDS: FUROsemide 10 mg/mL SDV 10mL 60 MG IVP ×2 (05:58→16:50)
[2024-11-29 06:17] LABS: Alanine Aminotransferase 8 U/L (0-33); Albumin Level 3.1 g/dL (3.5-5.2); Alkaline Phosphatase 69 U/L (35-105); Anion Gap 14.3 (5-19); Aspartate Amino Transferase 11 U/L (0-32); Blood Urea Nitrogen 25 mg/dL (8-23); Calcium 8.6 mg/dL (8.5-10.5); Carbon Dioxide 28 mmol/L (22-29); Chloride 101 mmol/L (98-107); Creatinine Clr Calc Pharmacy 34.8659; Globulin 3.4 g/dL (1.3-4.6); Glucose 102 mg/dL (65-115); Osmolality Calculated 293 mOsm/kg (285-295); Potassium 4.3 mmol/L (3.5-5.1); Sodium 139 mmol/L (136-145); Total Bilirubin 0.3 mg/dL (0.15-1.2); Total Protein 6.5 g/dL (6.6-8.7)
[2024-11-29 06:20] LABS: Magnesium 1.9 mg/dL (1.7-2.3)
[2024-11-29] MEDS: loratadine 10 mg Tablet PO (07:50)
[2024-11-29] MEDS: pantoprazole DR 40 mg Tablet PO ×2 (07:50→16:50)
[2024-11-29] MEDS: atorvastatin 40 mg Tablet 80 MG PO (07:50)
[2024-11-29] MEDS: docusate sodium 100 mg Capsule PO ×2 (07:50→16:50)
[2024-11-29] MEDS: amiodarone 200 mg Tablet PO (07:50)
[2024-11-29] MEDS: ferrous sulfate EC 325 mg Tablet PO ×2 (07:50→16:50)
[2024-11-29] MEDS: aspirin 81 mg EC Tablet PO (07:50)
[2024-11-29] MEDS: levothyroxine 50 mcg Tablet PO (07:51)
[2024-11-29] MEDS: cefTRIAXone 1,000 mg SDV 1000 MG IVP (07:51)
[2024-11-29] MEDS: potassium chloride ER 20 mEq Tablet PO ×2 (07:51→16:50)
[2024-11-29] MEDS: budesonide 0.5 mg/2 mL Neb INHALATION ×2 (07:54→21:35)
[2024-11-29] MEDS: sacubitril/valsartan 24-26 mg Tablet 4 EACH PO ×2 (07:55→22:13)
[2024-11-29] MEDS: apixaban 5 mg Tablet 2.5 MG PO ×2 (08:39→22:14)
[2024-11-29] MEDS: TRAMadol 50 mg Tablet PO ×3 (10:59→22:28)
--- NOTE | 2024-11-29 12:10 | PC.NURSE ---
Patient up ambulating with PT. Patient remains up to chair at this time.
--- NOTE | 2024-11-29 12:44 | P.PN_ITS ---
Subjective 2 Subjective: No acute events overnight. Patient denies any nausea, vomiting, headache. Stating feeling better. On 2 L of oxygen supplementation. Denies any chest pain. Appreciate urine output. Vitals/I&O/Wt Last Vital Signs Temp 98.6 F 11/29/24 08:00 Pulse 82 11/29/24 08:00 Resp 24 H 11/29/24 08:00 BP 132/68 11/29/24 08:00 Pulse Ox 96 11/29/24 08:00 O2 Del Method Nasal Cannula 11/29/24 08:00 O2 Flow Rate 2 11/29/24 08:00 11/28/24 11/29/24 11/29/24 22:59 06:59 14:59 Intake Total 480 / 1300 100 / 1400 120 / 120 Output Total 1450 / 1450 600 / 2050 1600 / 1600 Balance -970 / -150 -500 / -650 -1480 / -1480 Weight last 48 hrs Weight 97.477 kg Weight 98.203 kg Physical Exam 2 Narrative: Patient is awake and alert, sitting straight up in bed. Able to provide history but pauses when talking. Oxygen in place. Normocephalic. Extraocular movements are intact. Mucous membranes are moist. Neck is supple. Cardiovascular exam reveals a regular rate and rhythm. Pulse is a little difficult to isolate in the right upper extremity but once found 2+ and equal radial pulses bilaterally. 1+ posterior tibialis bilaterally. Lungs with decreased breath sounds at both bases, crackles noted. No rhonchi or wheezes. Abdomen is soft, slightly distended. 4+ pitting edema. Chronic stasis changes to both lower extremities left more prominent than right. A dime sized sore to left lateral lower extremity is healing well presently. No oozing. Well-healed scar to right upper extremity. Speech is clear, face symmetric, moves all extremities. Urinary Catheter Management: Lundberg: Cath Placed During This Visit: yes Reason for Continuing Indwelling Catheter: Accurate Measurement of Urinary Output in Critically Ill Patients Urinary Catheter Date of Insertion: 11/26/24 Urinary Catheter Time of Insertion: 10:56 Data 11/29/24 05:20 11/29/24 05:20 Micro: Microbiology 11/28/24 05:25 Blood Culture - Preliminary Blood NEGATIVE TO DATE 11/28/24 05:25 Blood Culture - Preliminary Blood NEGATIVE TO DATE 11/26/24 10:00 Urine Culture - Final Urine,Clean Catch Escherichia coli A&P Assessment and plan (1) Acute on chronic diastolic (congestive) heart failure: Has a history of Takotsubo syndrome variant with non-ST elevation GA in 2022. Echocardiogram done shows an EF of 50% with grade 2 diastolic dysfunction, moderately elevated filling pressures, moderate to severe MR. Mild aortic valve stenosis. Continue with aggressive IV diuresis. Change Lasix to 60 mg twice daily. Direct input output charting, daily weights. Fluid restriction to less than 1500 cc. Monitor electrolytes. Repeat BMP in afternoon. Out of bed to chair. (2) Accelerated hypertension: Goal blood pressure less than 140/90 mmHg. Blood pressure is at goal. Continue with home dose of Entresto. Atenolol discontinued for now given bradycardia. Uptitrate as for goal blood pressures. Will plan to add low-dose Imdur if possible. (3) Stage 3b chronic kidney disease (CKD): Baseline creatinine seems to be running from 1.3-1.7. Currently at 1.7. Medical reconciliation done for nephrotoxic drugs. Monitor BMP and electrolytes daily. CT abdomen from December 2023 showed 2.5 cm incidental right renal cyst. If renal functions continue to remain stable for now we will hold off on any further imaging. (4) History of atrial fibrillation: Chronic. Currently having bradycardia. Continue with home dose of amiodarone 200 mg twice daily. Continue with Eliquis 2.5 mg twice daily. Holding off on atenolol given bradycardia. Appreciate TSH. (5) Anemia: On chronic iron replacement, no report of acute or chronic blood loss with anticoagulation, recent iron level this month 93. -Continue ferrous sulfate orally Qualifiers: Anemia type: due to chronic kidney disease Chronic kidney disease stage: stage 3 (moderate) Chronic kidney disease stage 3 subtype: stage 3b (GFR 30-44) Qualified Code(s): N18.32 - Chronic kidney disease, stage 3b; D63.1 - Anemia in chronic kidney disease (6) Hyperlipidemia: Chronically on statin therapy Qualifiers: Hyperlipidemia type: mixed hyperlipidemia Qualified Code(s): E78.2 - Mixed hyperlipidemia (7) Hypothyroidism: Chronically on levothyroxine Normal TSH. Continue with home dose. Qualifiers: Hypothyroidism type: acquired Qualified Code(s): E03.9 - Hypothyroidism, unspecified (8) GERD (gastroesophageal reflux disease): Chronically on PPI -Continue formulary equivalent of home PPI dosing Qualifiers: Esophagitis presence: without esophagitis Qualified Code(s): K21.9 - Gastro-esophageal reflux disease without esophagitis Plan UTI: Follow-up urine culture. Follow-up blood culture. Continue with IV ceftriaxone 1 g daily for now. Patient has a Lundberg catheter in place. Plan for the day: Continue with aggressive IV diuresis with Lasix 60 mg twice daily. Appreciate BMP. Electrolytes stable. No concern for contraction alkalosis. Repeat BMP in afternoon. Fluid restriction to less than 1500 cc. Renal function stable. Out of bed to chair. Hemoglobin down to 8.7. Patient denies any melena. Patient is on low-dose Eliquis. Check stool for occult blood. Start on Protonix 40 mg twice daily along with Carafate twice daily. Continue IV ceftriaxone for now. Plan to finish antibiotic course for overall 5 days. Will transition to cefdinir on discharge. Discharge plan: Plan to discharge home with possible home health depending on physical therapy evaluation. Patient will need home health for nursing with medication and possible physical therapy. CODE STATUS: DNR/DNI Cardiac diet. Fluid restriction. Protonix for PUD prophylaxis Eliquis will be sufficient for DVT prophylaxis. PDMP PDMP Reviewed: Not Reviewed Attestations 2 Medical Necessity Statement*: Requested hospitalization for management of CHF in setting of acute on chronic diastolic heart failure as patient requires IV diuresis, anemia as patient requires further workup Diagnoses Acute on chronic diastolic (congestive) heart failure I50.33 Accelerated hypertension I10 Stage 3b chronic kidney disease (CKD) N18.32 History of atrial fibrillation Z86.79 Anemia due to stage 3b chronic kidney disease N18.32; D63.1 Anemia type: due to chronic kidney disease Chronic kidney disease stage: stage 3 (moderate) Chronic kidney disease stage 3 subtype: stage 3b (GFR 30-44) Mixed hyperlipidemia E78.2 Hyperlipidemia type: mixed hyperlipidemia Acquired hypothyroidism E03.9 Hypothyroidism type: acquired Gastroesophageal reflux disease without esophagitis K21.9 Esophagitis presence: without esophagitis
[2024-11-29] MEDS: sucralfate 1 gm Tablet PO (16:50)
[2024-11-29 17:06] LABS: Anion Gap 12.3 (5-19); Blood Urea Nitrogen 29 mg/dL (8-23); Calcium 8.9 mg/dL (8.5-10.5); Carbon Dioxide 28 mmol/L (22-29); Chloride 99 mmol/L (98-107); Creatinine Clr Calc Pharmacy 34.8659; Glucose 99 mg/dL (65-115); Osmolality Calculated 286 mOsm/kg (285-295); Potassium 4.3 mmol/L (3.5-5.1); Sodium 135 mmol/L (136-145)
[2024-11-30] MEDS: bisacodyl 5 mg Tablet 10 MG PO (00:40)
[2024-11-30 02:00] VITALS: PULSE 75; RESP 18; O2SAT 97
[2024-11-30] MEDS: ipratropium-albuterol 3 mL Neb INHALATION ×2 (02:02→07:52)
[2024-11-30 04:00] VITALS: BP 138/87; PULSE 73; RESP 17; TEMP 37.2; O2SAT 95
[2024-11-30 05:49] LABS: Basophils % 0.4 %; Eosinophils # 0.1 10^3/uL (0.0-0.8); Eosinophils % 1.6 %; Hematocrit 28.5 % (36-47); Lymphocytes % 14.1 %; Mean Corpuscular HGB Conc 31.6 g/dL (30-55); Mean Corpuscular Hemoglobin 31.9 pg (27-33); Mean Corpuscular Volume 101.1 fl (85-98); Mean Platelet Volume 10.9 fL (7.4-10.4); Monocytes % 13.9 %; Neutrophils # 5.07 10^3/uL (1.8-7.7); Neutrophils % 69.7 %; Nucleated Red Blood Cells % 0 %; Platelet Count 176 10^3/cmm (157-399); Red Blood Count 2.82 10^6/uL (3.85-5.65); Red Cell Distribution Width 12.8 % (12.1-15.1); White Blood Count 7.28 10^3/uL (3.29-11.43)
[2024-11-30 06:17] LABS: Alanine Aminotransferase 9 U/L (0-33); Albumin Level 3.1 g/dL (3.5-5.2); Alkaline Phosphatase 67 U/L (35-105); Anion Gap 14.1 (5-19); Aspartate Amino Transferase 13 U/L (0-32); Blood Urea Nitrogen 28 mg/dL (8-23); Calcium 8.8 mg/dL (8.5-10.5); Carbon Dioxide 27 mmol/L (22-29); Chloride 101 mmol/L (98-107); Creatinine Clr Calc Pharmacy 36.9123; Globulin 3.7 g/dL (1.3-4.6); Glucose 107 mg/dL (65-115); Osmolality Calculated 292 mOsm/kg (285-295); Potassium 4.1 mmol/L (3.5-5.1); Sodium 138 mmol/L (136-145); Total Bilirubin 0.4 mg/dL (0.15-1.2); Total Protein 6.8 g/dL (6.6-8.7)
[2024-11-30 06:20] LABS: Magnesium 1.9 mg/dL (1.7-2.3)
[2024-11-30] MEDS: FUROsemide 10 mg/mL SDV 10mL 60 MG IVP (06:32)
[2024-11-30] MEDS: sucralfate 1 gm Tablet PO (06:32)
[2024-11-30] MEDS: budesonide 0.5 mg/2 mL Neb INHALATION (07:52)
[2024-11-30] MEDS: TRAMadol 50 mg Tablet PO (07:52)
[2024-11-30 07:53] VITALS: PULSE 81; RESP 18; O2SAT 97
[2024-11-30] MEDS: atorvastatin 40 mg Tablet 80 MG PO (07:53)
[2024-11-30] MEDS: aspirin 81 mg EC Tablet PO (07:53)
[2024-11-30] MEDS: potassium chloride ER 20 mEq Tablet PO (07:53)
[2024-11-30] MEDS: levothyroxine 50 mcg Tablet PO (07:53)
[2024-11-30] MEDS: loratadine 10 mg Tablet PO (07:54)
[2024-11-30] MEDS: cefTRIAXone 1,000 mg SDV 1000 MG IVP (07:54)
[2024-11-30] MEDS: amiodarone 200 mg Tablet PO (07:54)
[2024-11-30] MEDS: docusate sodium 100 mg Capsule PO (07:54)
[2024-11-30] MEDS: pantoprazole DR 40 mg Tablet PO (07:54)
[2024-11-30] MEDS: ferrous sulfate EC 325 mg Tablet PO (07:57)
[2024-11-30] MEDS: apixaban 5 mg Tablet 2.5 MG PO (07:57)
[2024-11-30] MEDS: sacubitril/valsartan 24-26 mg Tablet 4 EACH PO (07:58)
[2024-11-30 08:00] VITALS: BP 140/76; PULSE 77; RESP 14; TEMP 36.8; O2SAT 93
--- NOTE | 2024-11-30 09:44 | P.DS_ITS ---
Discharge Providers Date of Admission: 11/26/24 10:32 Date of Discharge: November 30, 2024 Attending Provider at Admission: Sara Hughes MD Attending Provider at Discharge: Sher Casper MD Primary Care Provider: Wilner Malik MD Diagnoses at Discharge Discharge Diagnosis (1) Acute on chronic diastolic (congestive) heart failure: Status: Acute (2) Accelerated hypertension: Status: Acute (3) Stage 3b chronic kidney disease (CKD): Status: Chronic (4) History of atrial fibrillation: Status: Acute (5) Anemia: Status: Chronic Qualifiers: Anemia type: due to chronic kidney disease Chronic kidney disease stage: stage 3 (moderate) Chronic kidney disease stage 3 subtype: stage 3b (GFR 30-44) Qualified Code(s): N18.32 - Chronic kidney disease, stage 3b; D63.1 - Anemia in chronic kidney disease (6) Hyperlipidemia: Status: Chronic Qualifiers: Hyperlipidemia type: mixed hyperlipidemia Qualified Code(s): E78.2 - Mixed hyperlipidemia (7) Hypothyroidism: Status: Chronic Qualifiers: Hypothyroidism type: acquired Qualified Code(s): E03.9 - Hypothyroidism, unspecified (8) GERD (gastroesophageal reflux disease): Status: Chronic Qualifiers: Esophagitis presence: without esophagitis Qualified Code(s): K21.9 - Gastro-esophageal reflux disease without esophagitis Reason for Visit Reason for Visit: sob Brief History: History as per HPI: Kamille Gustafson is a 83 year old female with a history of heart failure, atrial fibrillation, and a prior myocardial infarction who presents with worsening dyspnea and fluid retention. The patient was recently seen by Dr. Malik the and had her Lasix dose increased to 80 mg twice a day from once per day. She has been taking Lasix twice a day as instructed but despite reporting that she now feels the urge to urinate more frequently, she notes that the volume of urine output has not increased. Over the past week, she also experienced difficulty drinking fluids ? stating that she ?just didn?t feel like it? and had to keep sipping to get her pills down. Leg swelling, which has been variable over a few years, has markedly increased over the last 3?4 weeks, and she now requires sitting upright to ease her breathing. Swelling extends to her abdominal area where she has had some indention with her clothing. She reports a dry cough without fever and denies any current chest pain. She has not been resting due to having to sit upright to breathe. She has been hesitant to come to the emergency room but her breathing became much more difficult today with her struggling at times prompting her to come in. On arrival to the emergency room she was noted to have low oxygen saturations in the upper 80s, low 90s and was placed on oxygen at 2 L by nasal cannula. She has no personal history of lung disease and has never required oxygen therapy before that she can recall. Clinically she was felt to have acute CHF in the emergency room and received 80 mg of IV Lasix as well as some potassium supplementation. She had an abnormal urinalysis and also received a dose of Rocephin. Denies any dysuria or h ematuria. Lundberg catheter was placed in the ER. She is being admitted for further evaluation and treatment. Last hospitalization for cardiac issues was in 2022 when she presented with NSTEMI and new onset atrial fibrillation. She follows with Dr. Elias in the outpatient setting. She is chronically on Entresto, started in 2022. Hospital Course Hospital Course Patient is admitted to the hospital further evaluation and management of acute on chronic decompensated diastolic congestive heart failure along with a ccelerated hypertension. She was started on aggressive IV diuresis to which she responded well. During hospitalization her blood pressure, renal function remained stable. Patient was overall on 7 L negative by the time of discharge. Echocardiogram was done which was consistent with EF 50% grade 2 diastolic dysfunction along with moderate to severe mitral regurgitation along with mild aortic stenosis. She is been discharged hemodynamically stable condition on oral diuretics with advised to follow-up with cardiology at the earliest and discussed about possible mitral clipping. Home health has been arranged. Physical Exam Narrative: Patient is awake and alert, sitting straight up in bed. Able to provide history but pauses when talking. Oxygen in place. Normocephalic. Extraocular movements are intact. Mucous membranes are moist. Neck is supple. Cardiovascular exam reveals a regular rate and rhythm. Pulse is a little difficult to isolate in the right upper extremity but once found 2+ and equal radial pulses bilaterally. 1+ posterior tibialis bilaterally. Lungs with decreased breath sounds at both bases, crackles noted. No rhonchi or wheezes. Abdomen is soft, slightly distended. 4+ pitting edema. Chronic stasis changes to both lower extremities left more prominent than right. A dime sized sore to left lateral lower extremity is healing well presently. No oozing. Well-healed scar to right upper extremity. Speech is clear, face symmetric, moves all extremities. Urinary Catheter Management: Lundberg: Cath Placed During This Visit: yes Reason for Continuing Indwelling Catheter: Accurate Measurement of Urinary Output in Critically Ill Patients Urinary Catheter Date of Insertion: 11/26/24 Urinary Catheter Time of Insertion: 10:56 Discharge Data Studies Completed and Pending Completed Studies During Hospitalization Category Date Time Status XR chest 1V portable [id number] Stat Exams 11/26/24 08:33 Completed XR chest 1V portable [id number] Stat Exams 11/28/24 00:40 Completed CV. echo complete* [id number] Routine Ultrasound 11/26/24 12:57 Completed Pending at discharge Category Date Time Status Blood Culture Stat Lab 11/28/24 05:25 Results Sputum Culture and Gram Stain Stat Lab 11/27/24 08:51 Uncollected Radiology Impressions Chest X-Ray 11/28/24 00:40 IMPRESSION: 1. Cardiomegaly. 2. Large hiatal hernia. 3. Small bilateral pleural effusions. 4. Bibasilar atelectasis versus infiltrate. Echocardiogram: CONCLUSIONS Mildly increased left ventricular cavity size. Mildly decreased left ventricular systolic function. Left ventricular ejection fraction is estimated at 50 %. Global left ventricular hypokinesis. Grade II/IV diastolic dysfunction, moderately elevated filling pressures. Moderately thickened mitral valve. Moderate mitral annular calcification. No mitral valve stenosis. Moderate-severe mitral valve regurgitation. Moderate aortic valve calcification. Mild aortic valve stenosis, mean gradient 4.6 mmHg, JOHNNA 1.8 cm squared. Trace aortic valve regurgitation. Structurally normal tricuspid valve without significant stenosis or regurgitation. Pulmonary artery systolic pressure is normal. There is no pericardial effusion. Right atrial pressure is around 10 mm of mercury. Abel Turner MD (Electronically Signed) Final Date: 27 November 2024 10:27 Laboratory Results WBC 7.28 10^3/uL (3.29-11.43) 11/30/24 05:37 RBC 2.82 10^6/uL (3.85-5.65) L 11/30/24 05:37 Hgb 9.00 g/dL (11.27-16.99) L 11/30/24 05:37 Hct 28.5 % (36-47) L 11/30/24 05:37 MCV 101.1 fl (85-98) H 11/30/24 05:37 MCH 31.9 pg (27-33) 11/30/24 05:37 MCHC 31.6 g/dL (30-55) 11/30/24 05:37 RDW 12.8 % (12.1-15.1) 11/30/24 05:37 Plt Count 176 10^3/cmm (157-399) 11/30/24 05:37 MPV 10.9 fL (7.4-10.4) H 11/30/24 05:37 Neut % (Auto) 69.7 % 11/30/24 05:37 Lymph % (Auto) 14.1 % 11/30/24 05:37 [place] % (Auto) 13.9 % 11/30/24 05:37 Eos % (Auto) 1.6 % 11/30/24 05:37 Baso % (Auto) 0.4 % 11/30/24 05:37 Neut # (Auto) 5.07 10^3/uL (1.8-7.7) 11/30/24 05:37 Lymph # (Auto) 1.0 10^3/uL (0.8-4.8) 11/30/24 05:37 [place] # (Auto) 1.0 10^3/uL (0.2-0.9) H 11/30/24 05:37 Eos # (Auto) 0.1 10^3/uL (0.0-0.8) 11/30/24 05:37 Baso # (Auto) 0.0 10^3/uL (0.0-0.1) 11/30/24 05:37 Nucleated RBC % (auto) 0 % 11/30/24 05:37 Nucleated RBCs # 0.0 /100WBC 11/30/24 05:37 ESR 29 mm/hr (0-15) H 11/28/24 05:25 D-Dimer 1.01 ug/mLFEU (0-0.59) H 11/27/24 09:06 Sodium 138 mmol/L (136-145) 11/30/24 05:37 Potassium 4.1 mmol/L (3.5-5.1) 11/30/24 05:37 Chloride 101 mmol/L (98-107) 11/30/24 05:37 Carbon Dioxide 27 mmol/L (22-29) 11/30/24 05:37 Anion Gap 14.1 (5-19) 11/30/24 05:37 BUN 28 mg/dL (8-23) H 11/30/24 05:37 Creatinine 1.5 mg/dL (0.5-0.9) H 11/30/24 05:37 GFR Calculation Not Reportable 11/30/24 05:37 Glucose 107 mg/dL (65-115) 11/30/24 05:37 Estimat Average Glucose 108 11/27/24 04:57 Hemoglobin A1c 5.4 % (4.0-6.0) 11/27/24 04:57 Calculated Osmolality 292 mOsm/kg (285-295) 11/30/24 05:37 Calcium 8.8 mg/dL (8.5-10.5) 11/30/24 05:37 Phosphorus 3.5 mg/dL (2.5-4.5) 11/27/24 04:57 Magnesium 1.9 mg/dL (1.7-2.3) 11/30/24 05:37 Iron 92 ug/dL (37-145) 11/27/24 04:57 TIBC 238 mcg/dl 11/27/24 04:57 % Saturation 38.6 % (20-50) 11/27/24 04:57 Unsat Iron Binding 146 ug/dL (112-347) 11/27/24 04:57 Total Bilirubin 0.4 mg/dL (0.15-1.2) 11/30/24 05:37 AST 13 U/L (0-32) 11/30/24 05:37 ALT 9 U/L (0-33) 11/30/24 05:37 Alkaline Phosphatase 67 U/L (35-105) 11/30/24 05:37 Troponin T 5th Gen ng/L 27 ng/L (0-10) H 11/27/24 04:57 Troponin T Baseline 20 ng/L (0-10) H 11/26/24 08:45 Troponin T 120 Minute 29.42 ng/L (0-10) H 11/26/24 10:38 Delta Troponin T 9.42 ABS# (0-10) 11/26/24 10:38 Troponin T Hi Sens 6Hr 36.74 ng/L (0-10) H 11/26/24 14:34 Troponin T Hi Sens 6Hr Delta 16.74 ng/L (0-12) H* 11/26/24 14:34 C-Reactive Protein 54.7 mg/L (0.0-4.9) H 11/28/24 05:25 NT-Pro-B Natriuret Pep 44367 pg/mL (0-450) H 11/27/24 04:57 Total Protein 6.8 g/dL (6.6-8.7) 11/30/24 05:37 Albumin 3.1 g/dL (3.5-5.2) L 11/30/24 05:37 Globulin 3.7 g/dL (1.3-4.6) 11/30/24 05:37 Folate 9.0 ng/mL (4.8-37.3) 11/28/24 05:25 Procalcitonin 0.23 ng/mL (0-0.5) 11/28/24 05:25 TSH 1.63 uIU/mL (0.27-4.20) 11/27/24 04:57 Urine Color Yellow (Yellow) 11/28/24 01:00 Urine Appearance Clear (CLEAR) 11/28/24 01:00 Urine pH 5.0 (5-7) 11/28/24 01:00 Ur Specific [place] 1.010 (1.005-1.030) 11/28/24 01:00 Urine Protein Negative (Negative) 11/28/24 01:00 Urine Glucose (UA) Negative (Normal) 11/28/24 01:00 Urine Ketones Negative (Negative) 11/28/24 01:00 Urine Blood 3+ (Negative) A 11/28/24 01:00 Urine Nitrate Negative (Negative) 11/28/24 01:00 Urine Bilirubin Negative (Negative) 11/28/24 01:00 Urine Urobilinogen 0.2 mg/dL (Negative) 11/28/24 01:00 Ur Leukocyte Esterase Trace (Negative) A 11/28/24 01:00 Urine RBC 6-10 /hpf (0-2) 11/28/24 01:00 Urine WBC 6-10 /hpf (0-5) 11/28/24 01:00 Ur Squamous Epith Cells 0-5 /hpf (0-5) 11/28/24 01:00 Amorphous Sediment Not Reportable 11/28/24 01:00 Urine Bacteria None seen /hpf (NONE) 11/28/24 01:00 Hyaline Casts 1.21 /lpf 11/28/24 01:00 Nasal MRSA (PCR) Not detected (Not Detecte) 11/27/24 09:45 Influenza A (PCR) Negative (Negative) 11/28/24 01:00 Influenza Type B (PCR) Negative (Negative) 11/28/24 01:00 RSV (PCR) Negative (Negative) 11/28/24 01:00 SARS-CoV-2 (PCR) Negative (Negative) 11/28/24 01:00 Vitals Last Vital Signs Temp 98.2 F 11/30/24 08:00 Pulse 77 11/30/24 08:00 Resp 14 11/30/24 08:00 BP 140/76 11/30/24 08:00 Pulse Ox 93 11/30/24 08:00 O2 Del Method Nasal Cannula 11/30/24 08:00 O2 Flow Rate 2 11/30/24 07:53 Discharge Plan Discharge Patient Disposition: Home Condition: Stable Prescriptions: New pantoprazole 40 mg Tablet,Delayed Release (Dr/Ec) 40 mg PO DAILY Qty: 60 0RF Rx Instructions: BID for next 4 weeks then once daily sucralfate 1 gram Tablet 1 g PO BIDAC Qty: 60 0RF bumetanide 1 mg tablet 1 mg PO BID Qty: 60 2RF Continued loratadine [Claritin] 10 mg tablet 10 mg PO DAILY PRN (Reason: allergy symptoms) Qty: 30 11RF tramadol 50 mg tablet 50 mg PO TID PRN (Reason: pain) Qty: 90 1RF ondansetron 8 mg tablet,disintegrating 8 mg PO .q6 PRN (Reason: nausea and vomiting) Qty: 14 3RF acetaminophen 500 mg capsule 1,000 mg PO TID PRN (Reason: with tramadol) apixaban 2.5 mg tablet 2.5 mg PO BID@0900,2100 Qty: 180 3RF albuterol sulfate 90 mcg/actuation HFA aerosol inhaler 2 puff inhalation Q6H PRN (Reason: shortness of breath or wheezing) Qty: 8.5 6RF potassium chloride [Klor-Con M20] 20 mEq tablet,ER particles/crystals 20 meq PO BID Qty: 60 6RF levothyroxine 50 mcg tablet 50 mcg PO DAILY Qty: 90 3RF ferrous sulfate 325 mg (65 mg iron) tablet 325 mg PO BID Qty: 60 3RF cyanocobalamin (vitamin B-12) [Vitamin B-12] 1,000 mcg tablet 1,000 mcg PO DAILY Qty: 30 6RF amiodarone 200 mg tablet 200 mg PO DAILY Qty: 90 3RF atorvastatin 80 mg tablet 80 mg PO DAILY Qty: 90 3RF Entresto 97-103 mg tablet See Rx Instructions .ROUTE .COMPLEX Qty: 180 3RF Dose Instruction: TAKE 1 TABLET BY MOUTH TWICE DAILY Rx Instructions: TAKE 1 TABLET BY MOUTH TWICE DAILY Discontinued furosemide 80 mg tablet See Rx Instructions .ROUTE .COMPLEX Qty: 180 2RF Dose Instruction: TAKE 1 TABLET BY MOUTH EVERY DAY Rx Instructions: TAKE 1 TABLET BY MOUTH TWICE A DAY omeprazole 20 mg capsule,delayed release(DR/EC) 20 mg PO BID 90 Days Qty: 180 3RF atenolol 25 mg tablet 25 mg PO DAILY Qty: 90 3RF Discharge Orders: Discharge Order (Routine); Ordered 11/30/24 Ordered By: Sher Casper Referrals: Arline Cuellar FNP [Nurse Practitioner] - 12/17/24 8:00 am Wilner Malik MD [Primary Care Provider] - 12/04/24 1:30 pm Discharge Diet: Cardiac Discharge Activity: Resume usual activity and Increase activity as tolerated Patient Instructions: Anemia, Atrial Fibrillation, Bumetanide (By mouth) (Bumex), Sucralfate (By mouth) (Carafate), Pantoprazole (By mouth) (Protonix), Congestive Heart Failure, Chronic Hypertension (DC), Hyperlipidemia (DC), CHF Stoplight, Opioid Safety Activity Restrictions/Additional Instructions: Restrict fluid intake to less than 1500 cc, salt intake to less than 2 g daily. Advised to check his weight daily at home. Is advised that weight today would be the dry weight and if body weight increases by around 3 pounds, patient is to take an extra dose of Bumex daily till body weight comes down to weight today. If not able to come down to dry body weight in 1 week, then is to call cardiology office for further recommendations. Patient was counseled in detail to take medications regularly as prescribed. Discharge Attestations Time Spent in Discharge Care*: greater than 30 min Specific Discharge Activities: educating patient, educating and/or supporting family/caregiver, discussing with pcp/other providers, discussing with case maker/social workers/dc planners, documenting/other paperwork and evaluating patient/reviewing data Status at Discharge: Cognitive status at discharge: cognitively intact , Behavioral status at discharge: cooperative , Functional status at discharge: independent ambulation , Overall status at discharge: patient is back to baseline Quality Metrics Clinical Quality Measures [ No reported AMI, CVA or VTE this stay] Coding Level of Care Code 58745 Total time (in minutes) for Discharge: 60 Diagnoses Acute on chronic diastolic (congestive) heart failure I50.33 Accelerated hypertension I10 Stage 3b chronic kidney disease (CKD) N18.32 History of atrial fibrillation Z86.79 Anemia due to stage 3b chronic kidney disease N18.32; D63.1 Anemia type: due to chronic kidney disease Chronic kidney disease stage: stage 3 (moderate) Chronic kidney disease stage 3 subtype: stage 3b (GFR 30-44) Mixed hyperlipidemia E78.2 Hyperlipidemia type: mixed hyperlipidemia Acquired hypothyroidism E03.9 Hypothyroidism type: acquired Gastroesophageal reflux disease without esophagitis K21.9 Esophagitis presence: without esophagitis
[2024-11-30 11:07] VITALS: BP 124/79; PULSE 75; RESP 21; O2SAT 92
--- NOTE | 2024-11-30 11:09 | PC.NURSE ---
Patient discharged to home. Instruction provided to patient regarding follow up needs, new medication with changes, heart failure with stoplight and activity. Patient and daughter both verbalized understanding by asking and answering questions appropriately. Patient taken by wheelchair to private vehicle. Patient denies pain or needs. No distress observed. New Rx transmitted to [facility] pharmacy.
== END 2024-11-30 11:11 | disposition home health service (06) | DRG 291 ==
LOC: ER 08:46 → CSU 10:33
PROVIDERS: Family Medicine; Admitting Provider Hospitalist; Emergency Provider Family Medicine; PCP Family Medicine; Visit Provider Student in an Organized Health Care Education/Training Program
DX: I13.0 Hypertensive heart and chronic kidney disease with heart failure and stage 1 through stage 4 chronic kidney disease, or unspecified chronic kidney disease (principal); I50.33 Acute on chronic diastolic (congestive) heart failure; N39.0 Urinary tract infection, site not specified; N18.32 Chronic kidney disease, stage 3b; D63.1 Anemia in chronic kidney disease; E78.2 Mixed hyperlipidemia; E03.9 Hypothyroidism, unspecified; K21.9 Gastro-esophageal reflux disease without esophagitis; I34.0 Nonrheumatic mitral (valve) insufficiency; I35.0 Nonrheumatic aortic (valve) stenosis; I44.7 Left bundle-branch block, unspecified; I48.91 Unspecified atrial fibrillation; R73.9 Hyperglycemia, unspecified; I25.10 Atherosclerotic heart disease of native coronary artery without angina pectoris; R00.1 Bradycardia, unspecified; Z66 Do not resuscitate; I25.2 Old myocardial infarction; Z79.01 Long term (current) use of anticoagulants
CPT/HCPCS: 36415; 51702; 71045; 80048; 80053; 81001; 82274; 82746; 83036; 83540; 83550; 83735; 83880; 84100; 84145; 84443; 84484; 85025; 85378; 85651; 86140; 87040; 87077; 87086; 87186; 87637; 93005; 93306; 94640; 96374; 96376; 97116; 97162; 97530; 99285; A9270; J0696; J1938; J2270; J3475; J7626; J9999; Q0162

== ENCOUNTER → 2024-12-05 11:41 | Outpatient (BNVA) | payer MEDICARE, SELFPAY | PROVIDERS: PCP Family Medicine; Visit Provider Internal Medicine Cardiovascular Disease | DX: I13.0 Hypertensive heart and chronic kidney disease with heart failure and stage 1 through stage 4 chronic kidney disease, or unspecified chronic kidney disease (principal); N18.32 Chronic kidney disease, stage 3b; I50.33 Acute on chronic diastolic (congestive) heart failure; I48.91 Unspecified atrial fibrillation; Z79.01 Long term (current) use of anticoagulants; I25.10 Atherosclerotic heart disease of native coronary artery without angina pectoris; I34.0 Nonrheumatic mitral (valve) insufficiency; R06.02 Shortness of breath | CPT/HCPCS: 80048; 83880; 99214 ==

== ENCOUNTER 2024-12-09 07:24 | Emergency (ER) | payer MEDICARE, SELFPAY ==
[2024-12-09] VITALS (9 sets, daily range): BP systolic 122–171; BP diastolic 72–89; PULSE 76–83; RESP 14–30; TEMP 36.7; O2SAT 87–99; BMI 28.4
--- NOTE | 2024-12-09 07:26 | ECG_ITS ---
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: : [id number] Requested By: Jeanmarie Sandoval Order Number: [id number] Reading MD: ELISEO HUERTA Measurements Intervals [place] Rate: 76 P: 63 SC: 245 QRS: -49 QRSD: 165 T: 84 QT: 466 QTc: 525 Interpretive Statements SINUS RHYTHM WITH FIRST DEGREE AV BLOCK LEFT AXIS DEVIATION [QRS AXIS < -30] LEFT BUNDLE BRANCH BLOCK [120+ ms QRS DURATION, 80+ ms Q/S IN V1/V2, 85+ ms R IN I/aVL/V5/V6] Compared to ECG 11/27/2024 10:58:42 No significant changes Electronically Signed On 12-10-2024 20:59:17 CDT by ELISEO HUERTA [email or web address]
--- NOTE | 2024-12-09 07:29 | XRR_ITS ---
PROCEDURE INFORMATION: Exam: XR Chest Exam date and time: 12/09/2024 7:48 AM Age: 84 years old Clinical indication: Pain; Chest pressure; Additional info: Cp TECHNIQUE: Imaging protocol: Radiologic exam of the chest. Views: 1 view. Total images: 595 COMPARISON: CR (CHEST, ) 11/28/2024 12:54 AM FINDINGS: Lungs: Improved bilateral pleuroparenchymal disease. Pleural spaces: No pneumothorax. Heart/Mediastinum: A large hiatal hernia is present. Vasculature: Mild atherosclerotic disease burden is evident. Bones/joints: Osseous structures are unchanged from the prior exam. XR/XR chest 1V portable [id number] IMPRESSION: Improved bilateral pleuroparenchymal disease.
--- NOTE | 2024-12-09 07:35 | ED_ITS ---
HPI - Chest Pain 2 General: Chief Complaint: Chest Pain Stated Complaint: n/v, chest pressure Time Seen by Provider: 12/09/24 07:29 Source: patient Mode of arrival: ambulatory Limitations: no limitations History of Present Illness: 84-year-old female states she has been h aving nausea vomiting since yesterday morning at 4 AM. States she had multiple episodes has been having some slight chest pain and abdominal cramping as well. She denies any fevers she denies any worse improving factors. Associated symptoms: Reports nausea and vomiting; Deny abdominal pain, dyspnea or fever(s) Related Data Home Medications ?Medication ?Instructions ?Recorded ?Confirmed acetaminophen 500 mg capsule 1,000 mg PO TID PRN Fever Or Pain 11/24/22 12/09/24 Previous Rx's ?Medication ?Instructions ?Recorded loratadine 10 mg tablet (Claritin) 10 mg PO DAILY PRN allergy 02/22/23 symptoms #30 tabs levothyroxine 50 mcg tablet 50 mcg PO DAILY #90 tabs 0 04/11/24 apixaban 2.5 mg tablet 2.5 mg PO BID@0900,2100 #180 tabs 07/25/24 ondansetron 8 mg disintegrating 8 mg PO .q6 PRN nausea and 10/08/24 tablet vomiting #14 tabs tramadol 50 mg tablet 50 mg PO TID PRN pain #90 ta bs 10/08/24 cyanocobalamin (vitamin B-12) 1,000 mcg PO DAILY #30 t abs 10/15/24 1,000 mcg tablet (Vitamin B-12) ferrous sulfate 325 mg (65 mg 325 mg PO BID #60 tabs 0 10/15/24 iron) tablet amiodarone 200 mg tablet 200 mg PO DAILY #90 tabs 06/08 atorvastatin 80 mg tablet 80 mg PO DAILY #90 tabs 10/13 09/08 albuterol sulfate 90 mcg/actuation 2 puff inhalation Q 6H PRN 11/20/24 aerosol inhaler shortness of breath or wheez ing #8.5 grams potassium chloride 20 mEq 20 meq PO BID #60 tabs 11/20 tablet,extended release(part/cryst) (Klor-Con M) sacubitril 97 mg-valsartan 103 mg See Rx Instructions .Route 11/21/24 tablet (Entresto) .COMPLEX #180 tabs bumetanide 1 mg tablet 1 mg PO BID #60 tabs 5 pantoprazole 40 mg tablet,delayed 40 mg PO DAILY #60 t abs 11/30/24 release sucralfate 1 gram tablet 1 g PO BIDAC #60 tabs carvedilol 6.25 mg tablet 6.25 mg PO BID 30 days #60 t abs 12/05/24 ondansetron 4 mg disintegrating 4 mg PO Q6H PRN nausea and 12/09/24 tablet vomiting #14 tabs Allergies Allergy/AdvReac Type Severity Reaction Status Date / Time No Known Drug Allergies Allergy Unknown Unverified 12/06/24 18:15 ergocalciferol (vitamin D2) AdvReac Severe weakness Verified 12/05/24 11:54 (From Vitamin D2) atenolol AdvReac Intermediate ADV-Weaknes Verified 12/05/24 12:20 s Review of Systems 2 Const: Denies: fever(s), chills, body aches or change in appetite ENMT: Denies: throat pain or dental pain Card: Reports: chest pain Resp: Denies: dyspnea GI: Reports: nausea and vomiting; Denies: abdominal pain or diarrhea : Denies: dysuria Musc: Denies: neck pain or back pain Skin/Breast: Denies: rash Neuro: Denies: headache(s) PFSH ED 2 PFSH: Medical History Accelerated hypertension History of echocardiogram 11/04 EF 56% mild with JOHNNA 1.5cm2, mean gradient 10 Chronic sinusitis Vitamin D deficiency unable to tolerate oral vitamin D supplements Thyroid nodule Chronic diastolic heart failure on entresto Benign essential HTN Hyperlipidemia Hypothyroidism Atherosclerosis of coronary artery 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) Atrial fibrillation by electrocardiogram anticoagulated with apixaban, on amiodarone Non-ST elevation MD (NSTEMI) Takotsubo cardiomyopathy Venous stasis ulcer Venous insufficiency (chronic) (peripheral) Seasonal allergies GERD (gastroesophageal reflux disease) Osteoarthritis of knees, bilateral Surgical History History of cardiac catheterization 11/04 mild to moderate disease LAD and RCA, EF 45%, suggestive variant of Takotsubo syndrome Laceration of arm Artery repair - Right forearm - [place] Hx of cataract surgery bilateral Family History Father , sudden due to heart attack Myocardial infarction Mother , sudden , cause unknown No problems noted. Social History Smoking and tobacco/nicotine status: never used tobacco/nicotine Alcohol intake: never Substance/Drug Use: never Lives independently: Yes Marital status: / Previous occupational history: Be[employer], [employer] Physical Exam 2 Const: COMMON NORMALS: patient oriented x3 HENMT: COMMON NORMALS: normocephalic and atraumatic HEAD & SCALP: n ormocephalic and atraumatic Eye: COMMON NORMALS: conjunctivae normal CONJUNCTIVA: Yes conjunctivae normal Neck/C-Spine: COMMON NORMALS: full ROM and supple Chest: COMMONS NORMALS: normal inspection of the chest and normal palpation of entire chest wall Resp: COMMON NORMALS: normal respiratory effort, No retractions, No use of accessory muscles and clear to auscultation bilaterally AUSCULTATION: clear to auscultation bilaterally Cardio: COMMON NORMALS: regular rate, regular rhythm and No murmurs present (Cardio) RATE: regular rate RHYTHM: regular rhythm GI: COMMON NORMALS: Normal to inspection, nondistended, normoactive bowel sounds present, Soft to palpation, non-tender and no masses PALPATION: Yes Soft to palpation Extremity: COMMON NORMALS: normal to inspection and full ROM Neuro: COMMON NORMALS: patient oriented x3, moves all extremities and no focal motor deficits Psych: COMMON NORMALS: mental status grossly normal, Normal thought process present and cooperative THOUGHT PROCESS: Normal thought process present Skin: COMMON NORMALS: no rashes or lesions noted and no wounds GENERAL SKIN EXAM: no rashes or lesions noted Course 2 Vital Signs: Vital signs: Vital Signs Temperature 98.1 F 12/09/24 07:30 Pulse Rate 78 12/09/24 09:33 Respiratory Rate 14 12/09/24 09:33 Blood Pressure 149/85 12/09/24 09:33 Pulse Oximetry 93 12/09/24 10:28 Oxygen Delivery Me thod Room Air 12/09/24 07:30 MDM - Chest Pain Medical Decision Making Patient presents here with nausea vomiting along with atypical chest pain she feels much improved here after Zofran she has been well-appearing here did have a home O2 eval she did not desaturate with exertion no signs of ACS no signs of pulmonary embolism she stable for discharge we will prescribe her Zofran she is follow-up with PCP and return if worsening. Medical Records I reviewed the patient's medical records. Lab Data I reviewed the patient's lab results. 12/09/24 07:41 12/09/24 07:41 Radiology Impressions Chest X-Ray 12/09/24 07:29 IMPRESSION: Improved bilateral pleuroparenchymal disease. Laboratory Results WBC 5.44 10^3/uL (3.29-11.43) 12/09/24 07:41 RBC 3.65 10^6/uL (3.85-5.65) L 12/09/24 07:41 Hgb 11.50 g/dL (11.27-16.99) 12/09/24 07:41 Hct 36.3 % (36-47) 12/09/24 07:41 MCV 99.5 fl (85-98) H 12/09/24 07:41 MCH 31.5 pg (27-33) 12/09/24 07:41 MCHC 31.7 g/dL (30-55) 12/09/24 07:41 RDW 12.6 % (12.1-15.1) 12/09/24 07:41 Plt Count 293 10^3/cmm (157-399) 12/09/24 07:41 MPV 10.5 fL (7.4-10.4) H 12/09/24 07:41 Neut % (Auto) 59.8 % 12/09/24 07:41 Lymph % (Auto) 24.4 % 12/09/24 07:41 [place] % (Auto) 13.4 % 12/09/24 07:41 Eos % (Auto) 1.3 % 12/09/24 07:41 Baso % (Auto) 0.9 % 12/09/24 07:41 Neut # (Auto) 3.25 10^3/uL (1.8-7.7) 12/09/24 07:41 Lymph # (Auto) 1.3 10^3/uL (0.8-4.8) 12/09/24 07:41 [place] # (Auto) 0.7 10^3/uL (0.2-0.9) 12/09/24 07:41 Eos # (Auto) 0.1 10^3/uL (0.0-0.8) 12/09/24 07:41 Baso # (Auto) 0.1 10^3/uL (0.0-0.1) 12/09/24 07:41 Nucleated RBC % (auto) 0 % 12/09/24 07:41 Nucleated RBCs # 0.0 /100WBC 12/09/24 07:41 Sodium 137 mmol/L (136-145) 12/09/24 07:41 Potassium 3.7 mmol/L (3.5-5.1) 12/09/24 07:41 Chloride 102 mmol/L (98-107) 12/09/24 07:41 Carbon Dioxide 24 mmol/L (22-29) 12/09/24 07:41 Anion Gap 14.7 (5-19) 12/09/24 07:41 BUN 19 mg/dL (8-23) 12/09/24 07:41 Creatinine 1.5 mg/dL (0.5-0.9) H 12/09/24 07:41 GFR Calculation Not Reportable 12/09/24 07:41 Glucose 105 mg/dL (65-115) 12/09/24 07:41 Calculated Osmolality 287 mOsm/kg (285-295) 12/09/24 07:41 Calcium 9.6 mg/dL (8.5-10.5) 12/09/24 07:41 Total Bilirubin 0.6 mg/dL (0.15-1.2) 12/09/24 07:41 AST 18 U/L (0-32) 12/09/24 07:41 ALT 11 U/L (0-33) 12/09/24 07:41 Alkaline Phosphatase 88 U/L (35-105) 12/09/24 07:41 Troponin T Baseline 25 ng/L (0-10) H 12/09/24 07:41 Troponin T 120 Minute 25.64 ng/L (0-10) H 12/09/24 09:21 Delta Troponin T 0.64 ABS# (0-10) 12/09/24 09:21 NT-Pro-B Natriuret Pep 3106 pg/mL (0-450) H 12/09/24 07:41 Total Protein 7.3 g/dL (6.6-8.7) 12/09/24 07:41 Albumin 3.8 g/dL (3.5-5.2) 12/09/24 07:41 Globulin 3.5 g/dL (1.3-4.6) 12/09/24 07:41 Lipase 48 U/L (13-60) 12/09/24 07:41 All radiology interpretation(s) finalized by discharge EKG Data EKG 1: I personally reviewed and interpreted this EKG as follows: EKG interpretation date: 12/09/24 EKG interpretation time: 07:26 Interpretation: nsr hr [address] elevation qrs 165 qtc 496 unchanged from prev ekg Discharge Plan Discharge Patient Disposition: Home Clinical Impression: Vomiting, Chest pain Condition: Stable Prescriptions: New ondansetron 4 mg tablet,disintegrating 4 mg PO Q6H PRN (Reason: nausea and vomiting) Qty: 14 0RF No Action loratadine [Claritin] 10 mg tablet 10 mg PO DAILY PRN (Reason: allergy symptoms) Qty: 30 11RF tramadol 50 mg tablet 50 mg PO TID PRN (Reason: pain) Qty: 90 1RF ondansetron 8 mg tablet,disintegrating 8 mg PO .q6 PRN (Reason: nausea and vomiting) Qty: 14 3RF acetaminophen 500 mg capsule 1,000 mg PO TID PRN (Reason: Fever Or Pain) carvedilol 6.25 mg tablet 6.25 mg PO BID 30 Days Qty: 60 5RF Rx Instructions: must administer with a meal/food apixaban 2.5 mg tablet 2.5 mg PO BID@0900,2100 Qty: 180 3RF albuterol sulfate 90 mcg/actuation HFA aerosol inhaler 2 puff inhalation Q6H PRN (Reason: shortness of breath or wheezing) Qty: 8.5 6RF potassium chloride [Klor-Con M20] 20 mEq tablet,ER particles/crystals 20 meq PO BID Qty: 60 6RF levothyroxine 50 mcg tablet 50 mcg PO DAILY Qty: 90 3RF ferrous sulfate 325 mg (65 mg iron) tablet 325 mg PO BID Qty: 60 3RF cyanocobalamin (vitamin B-12) [Vitamin B-12] 1,000 mcg tablet 1,000 mcg PO DAILY Qty: 30 6RF amiodarone 200 mg tablet 200 mg PO DAILY Qty: 90 3RF atorvastatin 80 mg tablet 80 mg PO DAILY Qty: 90 3RF Entresto 97-103 mg tablet See Rx Instructions .ROUTE .COMPLEX Qty: 180 3RF Dose Instruction: TAKE 1 TABLET BY MOUTH TWICE DAILY Rx Instructions: TAKE 1 TABLET BY MOUTH TWICE DAILY pantoprazole 40 mg Tablet,Delayed Release (Dr/Ec) 40 mg PO DAILY Qty: 60 0RF Rx Instructions: BID for next 4 weeks then once daily sucralfate 1 gram Tablet 1 g PO BIDAC Qty: 60 0RF bumetanide 1 mg tablet 1 mg PO BID Qty: 60 2RF Discharge Orders: Discharge ED (Routine); Ordered 12/09/24 Ordered By: Jeanmarie Sandoval Referrals: Wilner Malik MD [Primary Care Provider] - 4-7 days Discharge Diet: Advance as tolerated Discharge Activity: Resume usual activity Patient Instructions: Chest Pain (ED), Acute Nausea and Vomiting (ED) Print Language: French Coding Level of Care Code ED Records Management Analyst for Antolin Dutton
[2024-12-09 07:44] LABS: Basophils # 0.1 10^3/uL (0.0-0.1); Basophils % 0.9 %; Eosinophils # 0.1 10^3/uL (0.0-0.8); Eosinophils % 1.3 %; Hematocrit 36.3 % (36-47); Lymphocytes # 1.3 10^3/uL (0.8-4.8); Lymphocytes % 24.4 %; Mean Corpuscular HGB Conc 31.7 g/dL (30-55); Mean Corpuscular Hemoglobin 31.5 pg (27-33); Mean Corpuscular Volume 99.5 fl (85-98); Mean Platelet Volume 10.5 fL (7.4-10.4); Monocytes # 0.7 10^3/uL (0.2-0.9); Monocytes % 13.4 %; Neutrophils # 3.25 10^3/uL (1.8-7.7); Neutrophils % 59.8 %; Nucleated Red Blood Cells % 0 %; Platelet Count 293 10^3/cmm (157-399); Red Blood Count 3.65 10^6/uL (3.85-5.65); Red Cell Distribution Width 12.6 % (12.1-15.1); White Blood Count 5.44 10^3/uL (3.29-11.43)
[2024-12-09] MEDS: ondansetron 2 mg/ML SDV 2 mL 4 MG IVP (07:45)
[2024-12-09 08:06] LABS: Troponin(5th) Baseline 25 ng/L (0-10)
[2024-12-09 08:12] LABS: Alanine Aminotransferase 11 U/L (0-33); Albumin Level 3.8 g/dL (3.5-5.2); Alkaline Phosphatase 88 U/L (35-105); Anion Gap 14.7 (5-19); Aspartate Amino Transferase 18 U/L (0-32); Blood Urea Nitrogen 19 mg/dL (8-23); Calcium 9.6 mg/dL (8.5-10.5); Carbon Dioxide 24 mmol/L (22-29); Chloride 102 mmol/L (98-107); Creatinine Clr Calc Pharmacy 35.1602; Globulin 3.5 g/dL (1.3-4.6); Glucose 105 mg/dL (65-115); Lipase 48 U/L (13-60); NT Pro B Type Natriuretic Pept 3106 pg/mL (0-450); Osmolality Calculated 287 mOsm/kg (285-295); Potassium 3.7 mmol/L (3.5-5.1); Sodium 137 mmol/L (136-145); Total Bilirubin 0.6 mg/dL (0.15-1.2); Total Protein 7.3 g/dL (6.6-8.7)
--- NOTE | 2024-12-09 08:30 | PC.NURSE ---
pt had fallen asleep and her O2 sat was in the 70s, provider notified 2L of O2 placed on pt via nasal cannula.
[2024-12-09 09:46] LABS: Troponin 5 2HR 25.64 ng/L (0-10); Troponin 5 2HR Delta 0.64 ABS# (0-10)
== END 2024-12-09 10:55 | disposition home or self-care (01) ==
PROVIDERS: Emergency Provider Emergency Medicine; PCP Family Medicine
DX: R11.10 Vomiting, unspecified (principal); R07.9 Chest pain, unspecified; E78.5 Hyperlipidemia, unspecified; I13.0 Hypertensive heart and chronic kidney disease with heart failure and stage 1 through stage 4 chronic kidney disease, or unspecified chronic kidney disease; N18.31 Chronic kidney disease, stage 3a; I50.9 Heart failure, unspecified
CPT/HCPCS: 36415; 71045; 80053; 83690; 83880; 84484; 85025; 93005; 94760; 96374; 99285; J2405

== ENCOUNTER 2024-12-11 12:18 | Emergency (ER) | payer MEDICARE, SELFPAY ==
[2024-12-11] VITALS (12 sets, daily range): BP systolic 126–147; BP diastolic 72–93; PULSE 67–79; RESP 16; TEMP 36.6; O2SAT 92–99
--- NOTE | 2024-12-11 13:05 | XRR_ITS ---
PROCEDURE INFORMATION: Exam: XR Chest Exam date and time: 12/11/2024 1:09 PM Age: 84 years old Clinical indication: Cough and dyspnea; Hypotension; Additional info: Dyspnea/cough TECHNIQUE: Imaging protocol: Radiologic exam of the chest. Views: 1 view. COMPARISON: CR XR chest 1V portable [id number] 12/09/2024 7:48 AM FINDINGS: Lungs: Pulmonary vessels are within normal limits. The lungs are clear. Pleural spaces: No pneumothorax. Heart/Mediastinum: Large hiatal hernia. Cardiomegaly is seen. Bones/joints: Unremarkable. XR/XR chest 1V portable [id number] IMPRESSION: 1. Cardiomegaly. 2. No acute pulmonary finding. 3. Large hiatal hernia
--- NOTE | 2024-12-11 13:10 | PC.PHAR ---
Pt has home healthcare-[facility] from discharge 12/07/24. They provided a medication list.
--- NOTE | 2024-12-11 13:12 | ECG_ITS ---
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
[2024-12-11 13:17] LABS: Basophils # 0.1 10^3/uL (0.0-0.1); Eosinophils # 0.1 10^3/uL (0.0-0.8); Eosinophils % 2.5 %; Lymphocytes # 1.6 10^3/uL (0.8-4.8); Lymphocytes % 29.8 %; Mean Corpuscular HGB Conc 31.5 g/dL (30-55); Mean Corpuscular Hemoglobin 31.7 pg (27-33); Mean Corpuscular Volume 100.6 fl (85-98); Mean Platelet Volume 10.6 fL (7.4-10.4); Monocytes # 0.8 10^3/uL (0.2-0.9); Monocytes % 15.1 %; Neutrophils # 2.69 10^3/uL (1.8-7.7); Neutrophils % 51.4 %; Nucleated Red Blood Cells % 0 %; Platelet Count 284 10^3/cmm (157-399); Red Blood Count 3.38 10^6/uL (3.85-5.65); Red Cell Distribution Width 12.8 % (12.1-15.1); White Blood Count 5.23 10^3/uL (3.29-11.43)
--- NOTE | 2024-12-11 13:24 | ED_ITS ---
HPI - Recheck/Abnormal Lab/Rx 2 General: Chief Complaint: Recheck/Abnormal Lab/Rx Stated Complaint: abn labs(sent by [facility]) Time Seen by Provider: 12/11/24 12:49 History of Present Illness: 84-year-old female presents emergency ro om with report of an abnormally low blood pressure this morning. Patient states she took her blood pressure this morning it something in the range of 150/70 she felt fine later the home health nurse came she reported a blood pressure of mid 50s over 30s systolic patient relates that the time she was completely asymptomatic she had no lightheadedness dizziness no chest pain no nausea vomiting no diarrhea no vision changes no sense of near syncope. She has not been sick recently she denies abdominal or chest discomfort. When she arrived here her blood pressure is normotensive and she is completely again remains completely asymptomatic. Related Data Home Medications ?Medication ?Instructions ?Recorded ?Confirmed acetaminophen 500 mg capsule 1,000 mg PO TID PRN Fever Or Pain 11/24/22 12/11/24 pantoprazole 40 mg tablet,delayed See Rx Instructions .Route .COMPLEX 12/11/24 12/11/24 release sacubitril 97 mg-valsartan 103 mg 1 tab PO BID 5 12/11/24 tablet (Entresto) Previous Rx's ?Medication ?Instructions ?Recorded loratadine 10 mg tablet (Claritin) 10 mg PO DAILY PRN allergy 02/22/23 symptoms #30 tabs levothyroxine 50 mcg tablet 50 mcg PO DAILY #90 tabs 0 04/11/24 apixaban 2.5 mg tablet 2.5 mg PO BID@0900,2100 #180 tabs 07/25/24 ondansetron 8 mg disintegrating 8 mg PO .q6 PRN nausea and 10/08/24 tablet vomiting #14 tabs tramadol 50 mg tablet 50 mg PO TID PRN pain #90 ta bs 10/08/24 cyanocobalamin (vitamin B-12) 1,000 mcg PO DAILY #30 t abs 10/15/24 1,000 mcg tablet (Vitamin B-12) ferrous sulfate 325 mg (65 mg 325 mg PO BID #60 tabs 0 10/15/24 iron) tablet amiodarone 200 mg tablet 200 mg PO DAILY #90 tabs 06/08 atorvastatin 80 mg tablet 80 mg PO DAILY #90 tabs 10/13 09/08 albuterol sulfate 90 mcg/actuation 2 puff inhalation Q 6H PRN 11/20/24 aerosol inhaler shortness of breath or wheez ing #8.5 grams potassium chloride 20 mEq 20 meq PO BID #60 tabs 11/20 tablet,extended release(part/cryst) (Klor-Con M) bumetanide 1 mg tablet 1 mg PO BID #60 tabs 5 sucralfate 1 gram tablet 1 g PO BIDAC #60 tabs carvedilol 6.25 mg tablet 6.25 mg PO BID 30 days #60 t abs 12/05/24 ondansetron 4 mg disintegrating 4 mg PO Q6H PRN nausea and 12/09/24 tablet vomiting #14 tabs Allergies Allergy/AdvReac Type Severity Reaction Status Date / Time ergocalciferol (vitamin D2) AdvReac Severe weakness Verified 12/05/24 11:54 (From Vitamin D2) atenolol AdvReac Intermediate ADV-Weaknes Verified 12/05/24 12:20 s Review of Systems 2 Const: Denies: fever(s) or chills Card: Denies: chest pain Resp: Denies: dyspnea GI: Denies: abdominal pain : Denies: dysuria, urinary frequency or urinary urgency Musc: Denies: neck pain or back pain Skin/Breast: Denies: rash PFSH ED 2 PFSH: Medical History Accelerated hypertension History of echocardiogram 11/04 EF 56% mild with JOHNNA 1.5cm2, mean gradient 10 Chronic sinusitis Vitamin D deficiency unable to tolerate oral vitamin D supplements Thyroid nodule Chronic diastolic heart failure on entresto Benign essential HTN Hyperlipidemia Hypothyroidism Atherosclerosis of coronary artery 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) Atrial fibrillation by electrocardiogram anticoagulated with apixaban, on amiodarone Non-ST elevation [place] (NSTEMI) Takotsubo cardiomyopathy Venous stasis ulcer Venous insufficiency (chronic) (peripheral) Seasonal allergies GERD (gastroesophageal reflux disease) Osteoarthritis of knees, bilateral Surgical History History of cardiac catheterization 11/04 mild to moderate disease LAD and RCA, EF 45%, suggestive variant of Takotsubo syndrome Laceration of arm Artery repair - Right forearm - [place] Hx of cataract surgery bilateral Family History Father , sudden due to heart attack Myocardial infarction Mother , sudden , cause unknown No problems noted. 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[employer] Physical Exam 2 Const: GENERAL APPEARANCE: cooperative ORIENTATION/CONSCIOUSNESS: Yes awake, Yes oriented to person, Yes oriented to place and Yes oriented to time HENMT: COMMON NORMALS: normocephalic, atraumatic and hearing grossly normal bilaterally HEAD & SCALP: normocephalic and atraumatic Resp: COMMON NORMALS: normal respiratory effort, No retractions, No use of accessory muscles and clear to auscultation bilaterally AUSCULTATION: clear to auscultation bilaterally Cardio: COMMON NORMALS: regular rate, regular rhythm and No murmurs present (Cardio) RATE: regular rate RHYTHM: regular rhythm GI: COMMON NORMALS: Soft to palpation and No hepatosplenomegaly present A USCULTATION: Yes normoactive bowel sounds PALPATION: Yes Soft to palpation, No Tenderness to palpation present (GI), No Guarding due to palpation present (GI) and Yes No hepatosplenomegaly present Extremity: COMMON NORMALS: normal to inspection, capillary refill normal, no clubbing, cyanosis or edema, no calf tenderness and no pedal edema Neuro: SENSORIUM/ORIENTATION: Yes oriented to person, Yes oriented to place and Yes oriented to time Skin: COMMON NORMALS: no rashes or lesions noted GENERAL SKIN EXAM: no rashes or lesions noted Course 2 Vital Signs: Vital signs: Vital Signs Temperature 97.9 F 12/11/24 12:24 Pulse Rate 73 12/11/24 17:25 Respiratory Rate 16 12/11/24 12:24 Blood Pressure 147/81 12/11/24 17:25 Pulse Oximetry 99 12/11/24 17:25 Oxygen Delivery Me thod Room Air 12/11/24 12:24 MDM - Recheck/Abnormal Lab/Rx Medical Decision Making Blood pressures are normal the entire time she has been here other laboratory tests show. Anemia that has been chronic she is on track to where she normally is. She does have mild acute kidney injury they have been diuresing her more recently. She is on Bumex. Will ask her to hold that for the next 2 days and recheck her creatinine with your primary care provider. at this time she otherwise is asymptomatic. At home when they had the severe reported severely low blood pressure in the 50s she was completely asymptomatic not lightheaded or dizzy no vision changes no chest discomfort no other symptoms. I suspect it is an erroneous reading as her blood pressure otherwise has been normotensive here. Continue her current medicine medications with the exception of the Bumex and recheck her creatinine with her primary care doctor in a couple of days return if she has further problems. Continue to monitor blood pressure at home. Medical Records I reviewed the patient's medical records. Lab Data I reviewed the patient's lab results. 12/11/24 13:11 12/11/24 13:11 Radiology Impressions Chest X-Ray 12/11/24 13:05 IMPRESSION: 1. Cardiomegaly. 2. No acute pulmonary finding. 3. Large hiatal hernia Laboratory Results WBC 5.23 10^3/uL (3.29-11.43) 12/11/24 13:11 RBC 3.38 10^6/uL (3.85-5.65) L 12/11/24 13:11 Hgb 10.70 g/dL (11.27-16.99) L 12/11/24 13:11 Hct 34.0 % (36-47) L 12/11/24 13:11 MCV 100.6 fl (85-98) H 12/11/24 13:11 MCH 31.7 pg (27-33) 12/11/24 13:11 MCHC 31.5 g/dL (30-55) 12/11/24 13:11 RDW 12.8 % (12.1-15.1) 12/11/24 13:11 Plt Count 284 10^3/cmm (157-399) 12/11/24 13:11 MPV 10.6 fL (7.4-10.4) H 12/11/24 13:11 Neut % (Auto) 51.4 % 12/11/24 13:11 Lymph % (Auto) 29.8 % 12/11/24 13:11 [place] % (Auto) 15.1 % 12/11/24 13:11 Eos % (Auto) 2.5 % 12/11/24 13:11 Baso % (Auto) 1.0 % 12/11/24 13:11 Neut # (Auto) 2.69 10^3/uL (1.8-7.7) 12/11/24 13:11 Lymph # (Auto) 1.6 10^3/uL (0.8-4.8) 12/11/24 13:11 [place] # (Auto) 0.8 10^3/uL (0.2-0.9) 12/11/24 13:11 Eos # (Auto) 0.1 10^3/uL (0.0-0.8) 12/11/24 13:11 Baso # (Auto) 0.1 10^3/uL (0.0-0.1) 12/11/24 13:11 Nucleated RBC % (auto) 0 % 12/11/24 13:11 Nucleated RBCs # 0.0 /100WBC 12/11/24 13:11 Sodium 136 mmol/L (136-145) 12/11/24 13:11 Potassium 4.4 mmol/L (3.5-5.1) 12/11/24 13:11 Chloride 101 mmol/L (98-107) 12/11/24 13:11 Carbon Dioxide 25 mmol/L (22-29) 12/11/24 13:11 Anion Gap 14.4 (5-19) 12/11/24 13:11 BUN 20 mg/dL (8-23) 12/11/24 13:11 Creatinine 2.2 mg/dL (0.5-0.9) H 12/11/24 13:11 GFR Calculation Not Reportable 12/11/24 13:11 Glucose 99 mg/dL (65-115) 12/11/24 13:11 Calculated Osmolality 285 mOsm/kg (285-295) 12/11/24 13:11 Calcium 9.1 mg/dL (8.5-10.5) 12/11/24 13:11 Total Bilirubin 0.4 mg/dL (0.15-1.2) 12/11/24 13:11 AST 15 U/L (0-32) 12/11/24 13:11 ALT 10 U/L (0-33) 12/11/24 13:11 Alkaline Phosphatase 81 U/L (35-105) 12/11/24 13:11 Troponin T Baseline 25 ng/L (0-10) H 12/11/24 13:11 Troponin T 120 Minute 22.75 ng/L (0-10) H 12/11/24 15:06 Delta Troponin T -2.25 ABS# (0-10) L 12/11/24 15:06 Total Protein 6.8 g/dL (6.6-8.7) 12/11/24 13:11 Albumin 3.5 g/dL (3.5-5.2) 12/11/24 13:11 Globulin 3.3 g/dL (1.3-4.6) 12/11/24 13:11 Urine Color Yellow (Yellow) 12/11/24 15:37 Urine Appearance Clear (CLEAR) 12/11/24 15:37 Urine pH 6.5 (5-7) 12/11/24 15:37 Ur Specific [place] 1.008 (1.005-1.030) 12/11/24 15:37 Urine Protein Negative (Negative) 12/11/24 15:37 Urine Glucose (UA) Negative (Normal) 12/11/24 15:37 Urine Ketones Negative (Negative) 12/11/24 15:37 Urine Blood Negative (Negative) 12/11/24 15:37 Urine Nitrate Negative (Negative) 12/11/24 15:37 Urine Bilirubin Negative (Negative) 12/11/24 15:37 Urine Urobilinogen 0.2 mg/dL (Negative) 12/11/24 15:37 Ur Leukocyte Esterase Negative (Negative) 12/11/24 15:37 Urine RBC 0-2 /hpf (0-2) 12/11/24 15:37 Urine WBC 0-5 /hpf (0-5) 12/11/24 15:37 Ur Squamous Epith Cells 0-5 /hpf (0-5) 12/11/24 15:37 Amorphous Sediment Not Reportable 12/11/24 15:37 Urine Bacteria 1+ /hpf (NONE) H 12/11/24 15:37 Hyaline Casts 10.73 /lpf 12/11/24 15:37 All radiology interpretation(s) finalized by discharge EKG Data EKG 1: Interpretation: EKG 12/11/2024 sinus rhythm with a first-degree AV block with a ID interval of 256 heart rate of 65 left bundle branch block which has been present on previous EKGs. No acute ST elevations. No change compared to 8 EKG done on 12/09/2024 EKG 2: Computer generated interpretation: EKG 12/11/2024 1507 first-degree AV block with a heart rate of 66. ID interval 256. Patient has a left bundle branch block no acute ST changes noted does not meet Sgarbossa's criteria. No change from EKG done earlier in the day or on 12/09/2024 Discharge Plan Discharge Patient Disposition: Home Clinical Impression: Benign essential HTN, Stage 3b chronic kidney disease (CKD) Condition: Stable Prescriptions: No Action loratadine [Claritin] 10 mg tablet 10 mg PO DAILY PRN (Reason: allergy symptoms) Qty: 30 11RF tramadol 50 mg tablet 50 mg PO TID PRN (Reason: pain) Qty: 90 1RF ondansetron 8 mg tablet,disintegrating 8 mg PO .q6 PRN (Reason: nausea and vomiting) Qty: 14 3RF acetaminophen 500 mg capsule 1,000 mg PO TID PRN (Reason: Fever Or Pain) carvedilol 6.25 mg tablet 6.25 mg PO BID 30 Days Qty: 60 5RF Rx Instructions: must administer with a meal/food apixaban 2.5 mg tablet 2.5 mg PO BID@0900,2100 Qty: 180 3RF albuterol sulfate 90 mcg/actuation HFA aerosol inhaler 2 puff inhalation Q6H PRN (Reason: shortness of breath or wheezing) Qty: 8.5 6RF potassium chloride [Klor-Con M20] 20 mEq tablet,ER particles/crystals 20 meq PO BID Qty: 60 6RF levothyroxine 50 mcg tablet 50 mcg PO DAILY Qty: 90 3RF ferrous sulfate 325 mg (65 mg iron) tablet 325 mg PO BID Qty: 60 3RF cyanocobalamin (vitamin B-12) [Vitamin B-12] 1,000 mcg tablet 1,000 mcg PO DAILY Qty: 30 6RF amiodarone 200 mg tablet 200 mg PO DAILY Qty: 90 3RF atorvastatin 80 mg tablet 80 mg PO DAILY Qty: 90 3RF sucralfate 1 gram Tablet 1 g PO BIDAC Qty: 60 0RF bumetanide 1 mg tablet 1 mg PO BID Qty: 60 2RF ondansetron 4 mg tablet,disintegrating 4 mg PO Q6H PRN (Reason: nausea and vomiting) Qty: 14 0RF pantoprazole 40 mg tablet,delayed release (DR/EC) See Rx Instructions .ROUTE .COMPLEX Rx Instructions: Take 40mg by mouth twice daily for next 4 weeks through 12/28/24, then once daily. Entresto 97-103 mg tablet 1 tab PO BID Discharge Orders: Discharge ED (Routine); Ordered 12/11/24 Ordered By: Gregorio Manley Referrals: Wilner Malik MD [Primary Care Provider] - Discharge Diet: Usual diet Discharge Activity: Resume usual activity Patient Instructions: Opioid Safety, Pain Management Activity Restrictions/Additional Instructions: Thank you for choosing [facility] for your healthcare needs today. It is very important that you follow up as instructed or that you return to the Emergency Department should you have concerns or if your condition changes or worsens in any way. You were seen in the emergency room with report of low blood pressure blood pressure but normotensive. Your kidney function is slightly increased recommend that you hold your Bumex for the next 2 days and recheck your kidney function with your primary care doctor. Print Language: Venezuelan Coding Level of Care Code ED Waste Transportation Technician for Antolin Dutton
[2024-12-11 13:35] LABS: Troponin(5th) Baseline 25 ng/L (0-10)
[2024-12-11 13:40] LABS: Albumin Level 3.5 g/dL (3.5-5.2); Alkaline Phosphatase 81 U/L (35-105); Chloride 101 mmol/L (98-107); Potassium 4.4 mmol/L (3.5-5.1); Sodium 136 mmol/L (136-145)
[2024-12-11 13:55] LABS: Alanine Aminotransferase 10 U/L (0-33); Anion Gap 14.4 (5-19); Aspartate Amino Transferase 15 U/L (0-32); Blood Urea Nitrogen 20 mg/dL (8-23); Calcium 9.1 mg/dL (8.5-10.5); Carbon Dioxide 25 mmol/L (22-29); Globulin 3.3 g/dL (1.3-4.6); Glucose 99 mg/dL (65-115); Osmolality Calculated 285 mOsm/kg (285-295); Total Bilirubin 0.4 mg/dL (0.15-1.2); Total Protein 6.8 g/dL (6.6-8.7)
--- NOTE | 2024-12-11 15:07 | ECG_ITS ---
[facility] Test Date: 2024-12-11 Pat Name: Kamille Gustafson Department: Room: Gender: Female Surg Rn: : 1940 Requested By: Gregorio Alexandra Order Number: [id number] Reading MD: Measurements Intervals [place] Rate: 66 P: 56 MN: 256 QRS: -46 QRSD: 162 T: 94 QT: 448 QTc: 472 Interpretive Statements SINUS RHYTHM WITH FIRST DEGREE AV BLOCK LEFT AXIS DEVIATION [QRS AXIS < -30] LEFT BUNDLE BRANCH BLOCK [120+ ms QRS DURATION, 80+ ms Q/S IN V1/V2, 85+ ms R IN I/aVL/V5/V6] [email or web address]
[2024-12-11 15:32] LABS: Troponin 5 2HR 22.75 ng/L (0-10)
[2024-12-11 15:35] LABS: Troponin 5 2HR Delta -2.25 ABS# (0-10)
[2024-12-11 16:02] LABS: Bilirubin Urine Negative (Negative); Blood Urine Negative (Negative); Glucose Urine UA Negative (Normal); Ketones Urine Negative (Negative); Leukocyte Esterase Urine Negative (Negative); Nitrate Urine Negative (Negative); Protein Urine Negative (Negative); Specific Gravity, Urine 1.008 (1.005-1.030); Urine Appearance Clear (CLEAR); Urine Color Yellow (Yellow); Urobilinogen Urine 0.2 mg/dL (Negative); pH Urine 6.5 (5-7)
[2024-12-11 16:06] LABS: Add Urine Microscopic? YES; Bacteria Urine 1+ /hpf; Hyaline Casts Urine 10.73 /lpf; RBC Urine 0-2 /hpf (0-2); Squamous Epithelial Cell Urine 0-5 /hpf (0-5); WBC Urine 0-5 /hpf (0-5)
--- NOTE | 2024-12-11 16:09 | PC.NURSE ---
Orthostatics: laying- HR- 71, BP- 149/83 sitting- HR-79, BP- 146/97 standing- HR-83, BP- 121/72
[2024-12-11 16:16] LABS: UA Slide Review UA Slide Review Perf
[2024-12-11 16:17] LABS: Add Urine Culture? No
== END 2024-12-11 17:27 | disposition home or self-care (01) ==
PROVIDERS: Emergency Provider Family Medicine; PCP Family Medicine
DX: I13.0 Hypertensive heart and chronic kidney disease with heart failure and stage 1 through stage 4 chronic kidney disease, or unspecified chronic kidney disease (principal); N18.32 Chronic kidney disease, stage 3b; I50.32 Chronic diastolic (congestive) heart failure; E78.5 Hyperlipidemia, unspecified
CPT/HCPCS: 36415; 71045; 80053; 81001; 84484; 85025; 93005; 99285

== ENCOUNTER → 2024-12-25 14:38 | Outpatient (BNVA) | payer MEDICARE, SELFPAY | PROVIDERS: PCP Family Medicine; Visit Provider Family Medicine | DX: N18.32 Chronic kidney disease, stage 3b (principal) | CPT/HCPCS: 80048 ==

== ENCOUNTER 2025-01-03 07:16 | Day surgery (SDC) | payer MEDICARE, SELFPAY ==
[2025-01-03 07:39] VITALS: BP 159/97; PULSE 68; RESP 16; TEMP 36.1; O2SAT 97; BMI 28.3
--- NOTE | 2025-01-03 07:43 | USCV_ITS ---
Kamille Gustafson Age: 84 Gender: F : 1940 Exam Date: 01/03/2025 08:39 Ordering Phys: Bairon Elias MD ([email or web address]) Technologist: Exam Location: [facility] [place] Indication: mr BP: 155 / 76 HR: 130 Rhythm: Sinus Technical Quality: Excellent MEASUREMENTS (Male / Female) Normal Values DOPPLER LVOT Peak Velocity 66.0 cm/s MV Peak Velocity 152.0 cm/s Medications IV propofol, administered by the anesthesia service Complications None Proc. Components The patient was brought to the LAZARUS examination room in a fasting state after obtaining an informed consent. The LAZARUS probe was passed into the posterior pharynx , mid-esophagus, distal esophagus, and gastric fundus. LAZARUS was performed at multiple levels. FINDINGS Left Ventricle Normal LV size with ejection fraction of 60% Right Ventricle The right ventricle is normal in size and function. Right Atrium The right atrium is normal in size. Left Atrium Moderately increased left atrial size. LA Appendage Normal size and contractility IA Septum Appears to be intact with no evidence of any patent foramen ovale or atrial septal defect Mitral Valve Moderately sever mitral regurgitation. Minimally .thickened mitral valve. Aortic Valve Thickened aortic valve. Tricuspid Valve Mild tricuspid valve regurgitation. Pulmonic Valve No gross abnormalities noted Pericardium No pericardial effusion. Aorta Mild diffuse plaque in the ascending and the descending aorta CONCLUSIONS Normal LV size with ejection fraction of 60%. Moderately increased left atrial size. Minimally .thickened mitral valve. Moderately severe mitral regurgitation. Intact interatrial septum Thickened aortic valve. Mild tricuspid valve regurgitation. Mild diffuse plaque in the ascending and the descending aorta There is no pericardial effusion. There are no intracardiac masses. No similar previous studies are available for comparison. Dr Bairon Elias MD [facility] (Electronically Signed) Final Date: 05 Jan 2025 11:58 S
--- NOTE | 2025-01-03 07:47 | ANES.PREANE2 ---
Pre-Anesthetic Assessment Height/Weight: Height 5 ft 10 in Weight 197 lb Temp Pulse Resp BP Pulse Ox O2 Del Method 97.0 F L 68 16 159/97 97 Room Air 01/03/25 07:39 01/03/25 07:39 01/03/25 07:39 01/03/25 07:39 01/03/25 07:39 01/03/25 07:39 Preop Diagnosis: mitral valve regurgitation Operation Date: 01/03/25 08:30 Proposed Procedures p LAZARUS(Not Applicable) - Bairon Elias MD Was Beta Miles taken within 24 hours: Yes Was Clonidine taken within 24 hours: N/A Last intake: Intake Last Liquid Date 01/02/25 Last Liquid Time 21:00 Last Solid Date 01/02/25 Last Solid Time 21:00 Social No alcohol and No tobacco Exam alert, oriented x 3, clear to auscultation bilaterally and regular rate & rhythm Airway Submandibular: within normal limits Cervical ROM: within normal limits Mallampati: Class III Comments: Comments: Edentulous Anesthetic Plan ASA status: 3 Anesthesia: MAC Other: Patient comes from a nursing facility, no prior issues with anesthesia N.p.o. since yesterday History of CKD stage III A-fib, on amiodarone and apixaban. Last taken 12/31/2024 Hypertension on carvedilol and sacubitril?valsartan Labs reviewed from November and for procedure EKG showing sinus rhythm with first-degree AV block and LBBB Prior echo in 2022 showing EF of 55% with hypokinesis of the inferior lateral wall Plan for MAC anesthesia Medications/Allergies Home Medications ?Medication ?Instructions ?Recorded ?Confirmed ?Last Taken ?Type acetaminophen 500 mg capsule 1,000 mg PO TID PRN Fever Or Pain 11/24/22 01/03/25 01/02/25 History loratadine 10 mg tablet (Claritin) 10 mg PO DAILY PRN allergy 02/22/23 01/03/25 12/31/24 Rx symptoms #30 tabs levothyroxine 50 mcg tablet 50 mcg PO DAILY #90 tabs 04/11/24 01/03/25 01/02/25 Rx apixaban 2.5 mg tablet 2.5 mg PO BID@0900,2100 #180 tabs 07/25/24 01/03/25 12/31/24 Rx ondansetron 8 mg disintegrating 8 mg PO .q6 PRN nausea and 10/08/24 01/03/25 12/08/24 Rx tablet vomiting #14 tabs tramadol 50 mg tablet 50 mg PO TID PRN pain #90 tabs 10/08/24 01/03/25 01/02/25 Rx cyanocobalamin (vitamin B-12) 1,000 mcg PO DAILY #30 tabs 10/15/24 01/03/25 01/02/25 Rx 1,000 mcg tablet (Vitamin B-12) ferrous sulfate 325 mg (65 mg 325 mg PO BID #60 tabs 10/15/24 01/03/25 01/02/25 Rx iron) tablet amiodarone 200 mg tablet 200 mg PO DAILY #90 tabs 10/22/24 01/03/25 01/02/25 Rx atorvastatin 80 mg tablet 80 mg PO DAILY #90 tabs 10/23/24 01/03/25 01/02/25 Rx albuterol sulfate 90 mcg/actuation 2 puff inhalation Q6H PRN 11/20/24 01/03/25 12/31/24 Rx aerosol inhaler shortness of breath or wheezing #8.5 grams potassium chloride 20 mEq 20 meq PO BID #60 tabs 11/20/24 01/03/25 01/02/25 Rx tablet,extended release(part/cryst) (Klor-Con M) bumetanide 1 mg tablet 1 mg PO BID #60 tabs 11/30/24 01/03/25 01/02/25 Rx sucralfate 1 gram tablet 1 g PO BIDAC #60 tabs 11/30/24 01/03/25 01/02/25 Rx carvedilol 6.25 mg tablet 6.25 mg PO BID 30 days #60 tabs 12/05/24 01/03/25 01/03/25 Rx ondansetron 4 mg disintegrating 4 mg PO Q6H PRN nausea and 12/09/24 12/31/24 12/30/24 Rx tablet vomiting #14 tabs pantoprazole 40 mg tablet,delayed 40 mg PO DAILY 12/11/24 01/03/25 01/02/25 History release sacubitril 49 mg-valsartan 51 mg 1 tab PO BID #60 tabs 05/08/0801/03/25 01/02/25 Rx tablet (Entresto) Allergies Allergy/AdvReac Type Severity Reaction Status Date / Time ergocalciferol (vitamin D2) AdvReac Severe weakness Verified 01/03/25 07:32 (From Vitamin D2) atenolol AdvReac Intermediate ADV-Weaknes Verified 01/03/25 07:32 s [facility] Anesthesia Medical History Accelerated hypertension History of echocardiogram 11/04 EF 56% mild with JOHNNA 1.5cm2, mean gradient 10 Chronic sinusitis Vitamin D deficiency unable to tolerate oral vitamin D supplements Thyroid nodule Chronic diastolic heart failure on entresto Benign essential HTN Hyperlipidemia Hypothyroidism Atherosclerosis of coronary artery 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) Atrial fibrillation by electrocardiogram anticoagulated with apixaban, on amiodarone Non-ST elevation [place] (NSTEMI) Takotsubo cardiomyopathy Venous stasis ulcer Venous insufficiency (chronic) (peripheral) Seasonal allergies GERD (gastroesophageal reflux disease) Osteoarthritis of knees, bilateral Surgical History History of cardiac catheterization 11/04 mild to moderate disease LAD and RCA, EF 45%, suggestive variant of Takotsubo syndrome Laceration of arm Artery repair - Right forearm - [place] Hx of cataract surgery bilateral Family History Father , sudden due to heart attack Myocardial infarction Mother , sudden , cause unknown No problems noted. 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
[2025-01-03] MEDS: sodium chloride 0.9% 1,000 ML 15 ML IV (07:49)
--- NOTE | 2025-01-03 08:33 | W.PM.OPSUD ---
Surgery/Procedure H&P Update DATE OF PROCEDURE: January 03, 2025 DATE H&P PERFORMED: 12/05/24 H&P UPDATE INFORMATION: I have reviewed H&P completed within last 30 days, I have examined patient prior to procedure and No changes to prior documentation PREOP DIAGNOSIS: mitral valve regurgitation PRIMARY INDICATION FOR PROCEDURE: Moderately severe mitral regurgitation by transthoracic echocardiogram. PLANNED PROCEDURE: Operation Date: 01/03/25 08:30 Proposed Procedures p LAZARUS(Not Applicable) - Bairon Elias MD PATIENT REASSESSED PRIOR TO SEDATION, WITH NO CHANGE NOTED: Yes PHYSICAL EXAM: alert, oriented x 3, clear to auscultation bilaterally and regular rate & rhythm AIRWAY EVAL/ANESTHESIA PLAN: normal airway, see other exam findings, ASA III, Local Anesthesia, Risks, benefits & alternatives of sedation and/or procedure discussed and Patient agrees to continue as planned
--- NOTE | 2025-01-03 09:11 | PM.OP ---
Operative Report Date of procedure: January 03, 2025 Surgeon: Bairon Elias MD Procedure: Patient underwent a LAZARUS, under IV sedation, administered by the anesthesia service. She was found to have moderate MR and mild TR. No intracardiac masses. Minimal plaques in the aorta.
[2025-01-03 09:15] VITALS: BP 155/85; PULSE 58; RESP 14; TEMP 36.3; O2SAT 100
[2025-01-03 09:22] VITALS: BP 120/62; PULSE 61; O2SAT 93
--- NOTE | 2025-01-03 10:05 | ANE.PACU2 ---
Inpatient post-anesthesia follow up: Airway intact: Yes Vital signs: Temperature 97.3 F Pulse Rate 61 Respiratory Rate 14 Blood Pressure 120/62 Pulse Oximetry 93 Oxygen Delivery Me thod Room Air Oxygen Flow Rate Fraction of Inspir ed Oxygen Hydration adequate: Yes Nausea and vomiting: No Pain level: 1 Mental status: Baseline
== END 2025-01-03 10:05 | disposition home or self-care (01) ==
PROVIDERS: PCP Family Medicine; Visit Provider Internal Medicine Cardiovascular Disease
PROC: (CPT 93312; principal; 2025-01-03 08:30)
DX: I34.0 Nonrheumatic mitral (valve) insufficiency (principal); I13.0 Hypertensive heart and chronic kidney disease with heart failure and stage 1 through stage 4 chronic kidney disease, or unspecified chronic kidney disease; E78.5 Hyperlipidemia, unspecified; I25.10 Atherosclerotic heart disease of native coronary artery without angina pectoris; I50.32 Chronic diastolic (congestive) heart failure; E03.9 Hypothyroidism, unspecified; N18.32 Chronic kidney disease, stage 3b; I42.9 Cardiomyopathy, unspecified; Z79.899 Other long term (current) drug therapy; Z79.890 Hormone replacement therapy; Z79.01 Long term (current) use of anticoagulants; I48.91 Unspecified atrial fibrillation; I25.2 Old myocardial infarction; Z82.49 Family history of ischemic heart disease and other diseases of the circulatory system
CPT/HCPCS: 93312; J2704; J7030

== ENCOUNTER 2025-02-06 07:32 | Outpatient (CLI) | payer MEDICARE, SELFPAY ==
--- NOTE | 2025-02-06 08:00 | US_ITS ---
WS: [id number] RIGHT UPPER QUADRANT ULTRASOUND HISTORY: RUQ/Epigastric pain COMPARISON: Renal ultrasound 10/24/2022. Liver: 15.5 cm in length. Normal size liver and echogenicity. No bile duct dilatation or mass. Portal Vein: Normal hepatopetal flow with monophasic waveform. Gallbladder: Well-distended gallbladder with large stone present in the lumen. Diameter of the gallstone is 2.1 cm. No pericholecystic fluid. No gallbladder wall thickening. CBD: 0.5 cm Pancreas: Obscured. Right kidney: 9.2 cm in length. Poorly visualized kidney. There is a small exophytic cyst from the lower pole measuring 1.8 x 1.7 x 1.6 cm. Increased echogenicity of the kidney. No hydronephrosis. Aorta and IVC: Limited. No ascites. US/US gall bladder [id number] IMPRESSION: 1. Technically difficult evaluation RIGHT upper quadrant. 2. Cholelithiasis without acute cholecystitis. 3. No hepatobiliary duct dilatation. 4. Abnormal RIGHT kidney. Kidney is very difficult to visualize but there is i ncreased echogenicity with poor corticomedullary differentiation which is new s jerrell 10/24/2022. Suspect chronic medical renal disease which has progressed sinc e the prior exam. 5. RIGHT renal cyst, 1.8 cm.
== END 2025-02-06 07:33 | disposition home or self-care (01) ==
LOC: RAD 07:34
PROVIDERS: PCP Family Medicine; Visit Provider Family Medicine
DX: R10.13 Epigastric pain (principal); R10.11 Right upper quadrant pain; K80.20 Calculus of gallbladder without cholecystitis without obstruction; R93.421 Abnormal radiologic findings on diagnostic imaging of right kidney; N28.1 Cyst of kidney, acquired
CPT/HCPCS: 76705

== ENCOUNTER → 2025-02-16 10:46 | Outpatient (BNVA) | payer MEDICARE, SELFPAY | PROVIDERS: PCP Family Medicine; Visit Provider Emergency Medicine | DX: M11.231 Other chondrocalcinosis, right wrist (principal); M19.031 Primary osteoarthritis, right wrist; M19.041 Primary osteoarthritis, right hand; R22.31 Localized swelling, mass and lump, right upper limb | CPT/HCPCS: 73110; 73130 ==

== ENCOUNTER → 2025-02-26 09:22 | Outpatient (BNVA) | payer MEDICARE, SELFPAY | PROVIDERS: PCP Family Medicine; Visit Provider Orthopaedic Surgery | DX: M18.11 Unilateral primary osteoarthritis of first carpometacarpal joint, right hand (principal) | CPT/HCPCS: 99204 ==

== ENCOUNTER → 2025-03-06 10:19 | Outpatient (BNVA) | payer MEDICARE, SELFPAY | PROVIDERS: PCP Family Medicine; Visit Provider Nurse Practitioner Family | DX: I34.0 Nonrheumatic mitral (valve) insufficiency (principal); I48.91 Unspecified atrial fibrillation; Z79.01 Long term (current) use of anticoagulants; I13.0 Hypertensive heart and chronic kidney disease with heart failure and stage 1 through stage 4 chronic kidney disease, or unspecified chronic kidney disease; N18.32 Chronic kidney disease, stage 3b; I50.32 Chronic diastolic (congestive) heart failure; I25.10 Atherosclerotic heart disease of native coronary artery without angina pectoris; I25.2 Old myocardial infarction; M79.602 Pain in left arm | CPT/HCPCS: 99214 ==

== ENCOUNTER 2025-03-15 16:43 | Outpatient (CLI) | payer MEDICARE, SELFPAY ==
--- NOTE | 2025-03-15 16:30 | USR_ITS ---
PROCEDURE INFORMATION: Exam: US Duplex Left Upper Extremity Veins, Limited Exam date and time: 03/15/2025 4:59 PM Age: 84 years old Clinical indication: Pain; Arm, upper; Left; Additional info: Left upper extremity pain TECHNIQUE: Imaging protocol: Real-time duplex ultrasound of the left extremity with 2-D galvan scale, color Doppler flow and spectral waveform analysis including responses to compression and other maneuvers (when performed) with image documentation. Limited exam focused on the left upper extremity veins. COMPARISON: US thyroid [id number] 07/26/2024 3:08 PM FINDINGS: Left deep veins: Unremarkable. Axillary and brachial veins are patent throughout without thrombus. Normal Doppler waveforms. Normal compressibility and/or augmentation response. Visualized internal jugular and subclavian veins are patent. Superficial veins: Unremarkable. Visualized cephalic and basilic veins are patent without thrombus. Soft tissues: Unremarkable. US/[place] [id number] IMPRESSION: No evidence of deep vein thrombosis.
== END 2025-03-15 16:44 | disposition home or self-care (01) ==
LOC: RAD 16:45
PROVIDERS: PCP Family Medicine; Visit Provider Nurse Practitioner Family
DX: M79.602 Pain in left arm (principal)
CPT/HCPCS: 93971

== ENCOUNTER → 2025-03-25 13:06 | Outpatient (BNVA) | payer MEDICARE, SELFPAY | PROVIDERS: PCP Family Medicine; Visit Provider Orthopaedic Surgery | DX: M19.041 Primary osteoarthritis, right hand (principal) | CPT/HCPCS: 99213 ==

== ENCOUNTER → 2025-05-02 10:48 | Outpatient (BNVA) | payer MEDICARE, SELFPAY | PROVIDERS: PCP Family Medicine; Visit Provider Family Medicine | DX: E55.9 Vitamin D deficiency, unspecified (principal); Z51.81 Encounter for therapeutic drug level monitoring; E03.9 Hypothyroidism, unspecified; Z13.6 Encounter for screening for cardiovascular disorders | CPT/HCPCS: 80053; 80061; 82306; 84439; 84443; 85025 ==

== ENCOUNTER 2025-05-13 16:22 | Outpatient (CLI) | payer MEDICARE, SELFPAY ==
--- NOTE | 2025-05-13 17:00 | USCV_ITS ---
Kamille Gustafson Age: 84 Gender: F : 1940 Exam Date: 05/13/2025 16:48 Ordering Phys: Wilner Malik MD Technologist: LILLIANA Exam Location: [facility] – [place] Indication: Right carotid bruit Risk Factors: Previous Vascular Surgery: Right Brachial BP: / Left Brachial BP: / Right Left Velocity (cm/s) Spectral Plaque Velocity (cm/s) Spectral Plaque Syst/Diast Broadening Syst/Diast Broadening 80.20/ 16.70 Prox CCA 100.40/ 11.00 62.10/ 14.10 Mid CCA 55.00 / 13.40 75.00/ 14.10 Distal CCA 64.10 / 15.60 49.40/ 15.40 Prox ICA 58.50 / 9.40 53.20/ 13.80 Mid ICA 45.60 / 12.60 96.40/ 23.70 Distal ICA 55.40 / 13.50 50.10 ECA 60.80 0.70 ICA/CCA 0.90 Antegrade Vertebral Antegrade 42.10/ 11.70 cm/s 55.80/ 10.50 cm/s Tri Subclavian Tri 76.50 100.5 0 FINDINGS Comparison: none available. No significant elevation of systolic or diastolic velocities. Waveforms are normal. Mixture of calcified and noncalcified plaque in the bifurcations. CONCLUSIONS Bilateral ICA stenosis less than 50%. Mild carotid atherosclerotic plaque. Dr. Olimpia Brito DO (Electronically Signed) Final Date: 14 May 2025 10:39 S
== END 2025-05-13 16:23 | disposition home or self-care (01) ==
LOC: RAD 16:24
PROVIDERS: PCP Family Medicine; Visit Provider Family Medicine
DX: R09.89 Other specified symptoms and signs involving the circulatory and respiratory systems (principal); I65.23 Occlusion and stenosis of bilateral carotid arteries
CPT/HCPCS: 93880